=== PATIENT | female | born 1960 | race Caucasian/White ===

== ENCOUNTER → 2017-10-29 11:44 | Outpatient (CLI) | payer MEDICARE, MEDICAID, SELFPAY ==
[2017-10-29 14:09] LABS: Albumin, Serum 3.8 g/dL (3.2-5.0); BUN 21 mg/dL (7-18); BUN/Creat Ratio 21.4 RATIO (10-20); Chloride 104 mmol/L (98-107); Creatinine, Serum 0.98 mg/dL (0.55-1.02); EST Glomerular Filtration Rate 63 mL/min (>60); Est Glom Filt Rate - Afr Amer 76 mL/min (>60); Glucose 103 mg/dL (74-106); Phosphorus 3.8 mg/dL (2.5-4.9); Potassium 4.7 mmol/L (3.5-5.1); Sodium Level 137 mmol/L (136-145)
== END ==
PROVIDERS: Family Provider Family Medicine; PCP Family Medicine; Visit Provider Internal Medicine Nephrology
DX: N18.2 Chronic kidney disease, stage 2 (mild) (principal)
CPT/HCPCS: 36415; 80069

== ENCOUNTER → 2017-11-01 15:22 | Outpatient (CLI) | payer MEDICARE, MEDICAID, SELFPAY ==
--- NOTE | 2017-11-01 15:30 | US_ITS ---
STUDY: RENAL ULTRASOUND - COMPLETE REASON FOR EXAM: Female, 57 years old. Renal failure. TECHNIQUE: Ultrasound evaluation of the kidneys was performed with real-time and static cadena-scale imaging. COMPARISON: None. FINDINGS: RIGHT KIDNEY: Normal location of the right kidney, which is normal in size. The right kidney measures 11.0 x 4.4 x 3.9 cm. There is diffuse thinning of the renal cortex. The renal cortex measures 0.6 cm. There is no right renal mass or cyst. There are no right renal calculi. There is no right hydronephrosis. DISTAL RIGHT URETER: There is non-visualization of the distal right ureter. There is no demonstrated right ureterovesical junction calculus. There is no demonstrated right ureteral jet. LEFT KIDNEY: Normal location of the left kidney, which is normal in size. The left kidney measures 10.5 x 3.9 x 5.6 cm. There is a normal cortex of the left kidney. The renal cortex measures 0.9 cm. There is no left renal mass or cyst. There are no left renal calculi. There is no left hydronephrosis. DISTAL LEFT URETER: There is non-visualization of the distal left ureter. There is no demonstrated left ureterovesical junction calculus. There is a visualized left ureteral jet. BLADDER: The distended urinary bladder has a volume of 188 ml. There is a normal wall thickness of the distended urinary bladder. There is no demonstrated mass within the urinary bladder. There are no demonstrated bladder calculi. US/Kidney and Bladder IMPRESSION: Normal size of the kidneys bilaterally. Negative for hydronephrosis, masses or stones. The renal cortex is mildly reduced in the right kidney compared to the left. The renal cortical density is increased relative to the medullary kidney consistent with renal medical disease. Unremarkable urinary bladder. Electronically Signed: Janine Valente MD at 23:54 EST , Service support ,
== END ==
PROVIDERS: Family Provider Family Medicine; PCP Family Medicine; Visit Provider Internal Medicine Nephrology
DX: N18.2 Chronic kidney disease, stage 2 (mild) (principal)
CPT/HCPCS: 76770

== ENCOUNTER 2017-12-06 23:02 | Emergency (ER) | payer MEDICARE, MEDICAID, SELFPAY ==
[2017-12-06 23:03] VITALS: BP 116/74; PULSE 87; RESP 14; TEMP 36.2; O2SAT 97; BMI 17.6
[2017-12-06] MEDS: Ondansetron 4 MG/2 ML Vial IV (23:20)
[2017-12-06] MEDS: Morphine 4 MG/ML Syringe IV (23:20)
--- NOTE | 2017-12-06 23:25 | RAD_ITS ---
STUDY: X-RAY - RIGHT ELBOW REASON FOR EXAM: Female, 57 years old. Pain and swelling, recent surgery TECHNIQUE: Three view(s) of the elbow were obtained. COMPARISON: None. FINDINGS: Bones: There is a prosthesis in the distal right humerus. There is a prosthesis in the proximal right ulna. Joints: The visualized joints are normal in appearance. Soft tissues: Skin vishnu are present laterally. RAD/Elbow min 3 Views IMPRESSION: There are surgical changes in the right elbow. No acute abnormalities are seen. Bone detail is obscured by overlying cast/splint material. Electronically Signed: Lauryn Goodwin MD at 0:13 EDT Tel Direct: [phone], Service support ,
--- NOTE | 2017-12-06 23:46 | ED.DCSUM_ITS ---
- ER Visit Summary Date of Service: 12/06/17 Chief Complaint: Right upper extremity pain History of Present Illness: The patient is a 57 F status post right total elbow arthroplasty December 04 at the [facility]. Patient states she has severe rheumatoid arthritis and reason for elbow arthroplasty. She denies fever, chills night sweats. She denies paresthesia, anesthesia motor is. She does complain of swelling of her hand and digits. She states she is kept her extremity elevated. When she demonstrated I informed her that she is not elevating her right upper extremity enough. She states she cannot because of pain that she localizes proximal the posterior long-arm splint. She denies any paresthesia, anesthesia motor exam or digits. She denies chest pain or shortness of breath. She denies any pleuritic chest pain. She was prescribed Percocet for her discomfort. Review of old records is remarkable for past medical history of diabetes, hypertension, end-stage renal disease (stage III), rheumatoid arthritis and peptic ulcer disease. Past surgical history is marked for cholecystectomy, cataracts and right elbow arthroplasty. Physical Examination: Vital signs are normal. She is not febrile nor is she hypoxic. There is significant lymphedema of the hand and digits. There is no vascular compromise. Capillary refill is normal. Sensations intact. Movement of her digits does not cause pain. The distal third of her splint has been removed and or destroyed because of swelling. She believes her splint is too tight. Heart is regular without murmur, gallop or rub. S1 and S2 are normal. Lungs are clear to auscultation with good movement of air bilaterally. Where patient complains of pain there is no redness, warmth or induration. There is no evidence of irritation from the splint. Test Results: Three-view x-ray of the elbow was obtained which reveals right prosthetic hip with no soft tissue swelling, subcutaneous air or any other acute abnormality. Emergency Department Course and Treatment: IV was established she was medicated with 4 mg of morphine and 4 mg of Zofran IV push. She did not receive NSAIDs because of her history of stage III renal disease. Treatment Plan: Patient's arm was elevated to proper position and she was medicated. Patient will be given the option to stay in the emergency department and reassessed in 2 3 hours after proper elevation or she may go home since there is no neurovascular findings. Disposition: Pending patient's response to question of her desire to go home versus staying in the department and reevaluate in 3 hours Impression: 1. Postop right upper extremity pain 2. Dependent edema secondary to noncompliance 3. History of rheumatoid arthritis 4. History of diabetes 5. History of hypertension 6. History of end-stage renal disease This note was generated with [employer] dictation software. It may contain incorrect words, spelling, and punctuation that were not noted in review of the chart prior to signing ED Disposition - Plan for ED Patient: Disposition: Home or Assisted Living Chief Complaint: Upper Extremity Injury Instructions: ED Post Op Pain, ED Lymphedema Referrals: Juan Lau MD [Primary Care Provider] - Additional Instructions: The next several days you need to keep your right elbow above the level of your heart; otherwise, you will have recurrence of your swelling.
== END 2017-12-07 00:15 | disposition home or self-care (01) ==
PROVIDERS: Emergency Provider Emergency Medicine; Family Provider Family Medicine; PCP Family Medicine
DX: M79.601 Pain in right arm (principal); Z96.631 Presence of right artificial wrist joint; I89.0 Lymphedema, not elsewhere classified; Z91.19 Patient's noncompliance with other medical treatment and regimen; E11.22 Type 2 diabetes mellitus with diabetic chronic kidney disease; I12.9 Hypertensive chronic kidney disease with stage 1 through stage 4 chronic kidney disease, or unspecified chronic kidney disease; N18.3 Chronic kidney disease, stage 3 (moderate); M06.9 Rheumatoid arthritis, unspecified; Z87.11 Personal history of peptic ulcer disease; Z90.49 Acquired absence of other specified parts of digestive tract; Z96.641 Presence of right artificial hip joint; Z79.4 Long term (current) use of insulin; Z79.899 Other long term (current) drug therapy
CPT/HCPCS: 73080; 96374; 96375; 99283; A4216; J2405

== ENCOUNTER 2018-01-16 17:44 | Emergency (ER) | payer MEDICARE, MEDICAID, SELFPAY ==
[2018-01-16 17:51] VITALS: PULSE 92; RESP 14; TEMP 37.1; O2SAT 99; BMI 16.7
--- NOTE | 2018-01-16 18:21 | ED.DEP ---
ED Disposition - Plan for ED Patient: Disposition: Home or Assisted Living Chief Complaint: Upper Extremity Injury Instructions: ED Chronic Pain Management Referrals: Juan Lau MD [Primary Care Provider] - As Needed Additional Instructions: CALL AND FOLLOW UP WITH YOUR PAIN MANAGEMENT
[2018-01-16 18:48] VITALS: BP 106/71; PULSE 70; RESP 14; O2SAT 98
[2018-01-16] MEDS: HYDROmorphone 1 MG/ML Syringe IM (18:49)
[2018-01-16 19:10] VITALS: BP 116/88; PULSE 78; RESP 14; O2SAT 98
--- NOTE | 2018-01-17 00:12 | ED.VISSUMM ---
- ER Visit Summary Date of Service: 01/17/18 Chief Complaint: Acute on chronic right elbow pain History of Present Illness: The patient is a 57 F who had a right elbow replacement surgery done at the [facility]. States she has had other joint surgeries in the past. She was told by them that there may have been a nerve injury during surgery. And they have been treating her for this pain. She is also under pain management. Patient states this is the same pain she is having. Just breakthrough pain. She is on pain medication at home. Physical Examination: Well-appearing middle-age female. Vital signs are stable. H EENT exam unremarkable. Lungs clear to auscultation. Heart regular rate and rhythm no murmur. Abdomen soft nontender. Her right elbow has well-healed surgical incision. She is unable to do full extension of the right elbow. She can get to about 150?. She also has a right wrist drop. And decreased muscle strength in the right hand. This is all chronic since his surgery and not new. She does have a palpable radial pulse in the right. There are no gross bony deformities. No swelling or redness. Test Results: None Emergency Department Course and Treatment: This is an acute on chronic pain issue. Patient was given 1 IM injection of Dilaudid and discharged home use her chronic pain meds. She is instructed to follow-up with her pain management physician. Treatment Plan: [] Disposition: Discharge Impression: Acute on chronic right elbow pain Status post right elbow replacement This note was generated with [employer] dictation software. It may contain incorrect words, spelling, and punctuation that were not noted in review of the chart prior to signing ED Disposition - Plan for ED Patient: Disposition: Home or Assisted Living Chief Complaint: Upper Extremity Injury Instructions: ED Chronic Pain Management Referrals: Juan Lau MD [Primary Care Provider] - As Needed Additional Instructions: CALL AND FOLLOW UP WITH YOUR PAIN MANAGEMENT
--- NOTE | 2018-01-17 00:15 | ED.DCSUM_ITS ---
- ER Visit Summary Date of Service: 01/17/18 Chief Complaint: Acute on chronic right elbow pain History of Present Illness: The patient is a 57 F who had a right elbow replacement surgery done at the [facility]. States she has had other joint surgeries in the past. She was told by them that there may have been a nerve injury during surgery. And they have been treating her for this pain. She is also under pain management. Patient states this is the same pain she is having. Just breakthrough pain. She is on pain medication at home. Physical Examination: Well-appearing middle-age female. Vital signs are stable. H EENT exam unremarkable. Lungs clear to auscultation. Heart regular rate and rhythm no murmur. Abdomen soft nontender. Her right elbow has well- healed surgical incision. She is unable to do full extension of the right elbow. She can get to about 150?. She also has a right wrist drop. And decreased muscle strength in the right hand. This is all chronic since his surgery and not new. She does have a palpable radial pulse in the right. There are no gross bony deformities. No swelling or redness. Test Results: None Emergency Department Course and Treatment: This is an acute on chronic pain issue. Patient was given 1 IM injection of Dilaudid and discharged home use her chronic pain meds. She is instructed to follow-up with her pain management physician. Treatment Plan: [] Disposition: Discharge Impression: Acute on chronic right elbow pain Status post right elbow replacement This note was generated with [employer] dictation software. It may contain incorrect words, spelling, and punctuation that were not noted in review of the chart prior to signing ED Disposition - Plan for ED Patient: Disposition: Home or Assisted Living Chief Complaint: Upper Extremity Injury Instructions: ED Chronic Pain Management Referrals: Juan Lau MD [Primary Care Provider] - As Needed Additional Instructions: CALL AND FOLLOW UP WITH YOUR PAIN MANAGEMENT
== END 2018-01-16 19:11 | disposition home or self-care (01) ==
PROVIDERS: Emergency Provider Emergency Medicine; Family Provider Family Medicine; PCP Family Medicine
DX: M25.521 Pain in right elbow (principal); G89.29 Other chronic pain; Z96.621 Presence of right artificial elbow joint; E11.9 Type 2 diabetes mellitus without complications; Z90.710 Acquired absence of both cervix and uterus; Z79.4 Long term (current) use of insulin; Z79.899 Other long term (current) drug therapy; Z72.0 Tobacco use
CPT/HCPCS: 96372; 99282

== ENCOUNTER 2018-03-25 13:00 | Outpatient (RCR) | payer MEDICARE, MEDICAID, SELFPAY ==
--- NOTE | 2017-12-26 12:29 | HP.OTEVAL_ITS ---
Patient's Visit Information BERNADINE WARD is a 57 year old F, referred to Occupational Therapy by KIKA JARRETT, with a diagnosis of Rheumatoid arthritis right elbow. Date of Evaluation: 12/25/17 Occupational Therapist: VIDA Stubbs/Roxi, CHT - Subjective Subjective: This 57 year old female was seen for intial OT eval following a December 04 right elbow total arthroplasty - following sx complication of radial nerve involvment- pt states she he is assisting with her BADLs and IADLS. Pt states she was hx dx of RA. and her joints are currently bone on bone. She will cont with having other joint replaced. - Pain right elbow 0 Pain Intensity Range: 0, 4 - Objective Objective/Observation: pt demo with no functional ext of right wrist or digits at MCP or right thumb abduction - pts elbow ROM is limited as well- pt demo a need for skilled OT services to regain pts function for BADLS - ROM Elbow: AROM right -50/90 left -25/140 Forearm: AROM right pronation WNL supination unable Wrist: No active wrist ext- trace of ext initiation left WNL ROM Comments: pt demo with radial N involvment- limited ability to extend MCP and abd right thumb- pt demo with no functional grasp ability at this time. - Strength Hospital Secretary: right NT left 45# Lateral Pinch: NT Tripod Pinch: NT Strength Comments: right UB/hand strength will be tested at later date - Sensation Thumb: right 2.83 tips Index: right 2.83 tips Middle: right 2.83 tips Ring: right 2.83 tips Little: right 2.83 tips Other Location: dorsal side of right hand/wrist/forearm 4.17 Sensation Comments: pt reports tingling sensation in all digits - Goals Goal:: pt will demo a functional return of UB/hand strength to mtg lifting 3# and demo the ability to open jar lids by d/c Goal:: pt will demo a functional right elbow flex to 135 or greater elbow ext to -15 or less to increase ind with BADLS. Pt will demo a increase in right wrist ext to 35 degress or greater to increase ind with BADLS by D/C. Pt will demo a increase in right digit MCP ext to 0 to increase ind. 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 with BADls and IADLS by d/c Goal:: PT will demo inderstanding of scar mt. by end of 3rd session Goal:: pt will demo understanding of joint protection and ad. eq use for BADLS and IADLS as needed by D/C Goal:: pt will report she is ROMELIA with all BADLS with use of joint portecton/ ad.eq by d/c - Rehabilitation General Assessment: postitve for rheumatoid factor. pt underwent a right total elbow arthroplasty- s/p decompression and anterior transposition of Ulnar nerve - pt demo healed incision with vishnu present- no edema noted- pt demo with limited right elbow, forearm, wrist and hand functional ROM and strength- pt demo complication following sx of a radial nerve involvment-and demo the inability to perform wrist ext and digit ext at MCPs- pt may need a radial nerve brace to decrease risk of a extensor lag. Pt would benefit from skilled OTR/L, CHT services to gain a funcitonal ROM and increase pts ind, with BADls and IADLS - therapy services 2-3x week for 10 weeks. Rehabilitation Potential: Good - Anticipated Interventions Anticipated Interventions: A/AAROM/PROM, Strengthening, Scar Care, Triggerpoint Release, Modalities, Orthoses, Ergonomic Education Other Interventions: Dr. Jarrett total elbow protocol - indicated on the Orders - Visit Plan Frequency: 2-3x /Week Duration: 2 Months General Plan: OT will initiate return of functional ROM- ed. pt on radial Nerve glide- orthosis to allow for right UE use while radial nerve is repairing-once a return will initiate a light PRE- as able with dr. mohr TEXT: Thank you for the opportunity to evaluate your patient. For Medicare and Medicare HMO plans, please review the plan of care and approve it. It will need to be FAXED BACK to us at [phone] for Medicare purposes. Please let me know if there are questions or concerns regarding this plan of care. Physician Signature: Date:
--- NOTE | 2018-02-12 09:10 | OTREVAL_ITS ---
KIKA MUÑOZ, It has been my pleasure to treat BERNADINE WARD over the last 5 visits for Rheumatoid arthritis right elbow. Please see the progress note below for an update on the occupational therapy plan of care! Subjective: pt arrives to OT session- states she is doing her elbow ROM every hour- pt arrives to therapy with wrist brace on - pt reports her is assisting with her BADLs and other daily tasks. Objective/Function: pt demo with initial measurments of right elbow -40/115 following therapy -38/. pt demo with decreased elbow ROM limiting her ROM to perform her BADLs and IADLS-. in regards to her radial Nerve injury pt continues to demo right wrist drop and no ability extend her wrist or extend digits at MCP level- with palpation therapist can feel initiation of right forarm supination- but not at at functional level- at this time pt can use her right UE as assistive arm only. pt demo shoulder compensation with attempts to straighten her right elbow- Plan Frequency: 2-3x /Week Duration: 2 Months Plan: pt would benefit from further therapy services asssit in pts return to PLOF Goals - Goals Goal:: pt will demo a functional return of UB/hand strength to mtg lifting 3# and demo the ability to open jar lids by d/c Goal:: pt will demo a functional right elbow flex to 135 or greater elbow ext to -15 or less to increase ind with BADLS. Pt will demo a increase in right wrist ext to 35 degress or greater to increase ind with BADLS by D/C. Pt will demo a increase in right digit MCP ext to 0 to increase ind. 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 large and small objects to increase her ind. with BADls and IADLS by d/c Goal:: PT will demo inderstanding of scar mt. by end of 3rd session Goal:: pt will demo understanding of joint protection and ad. eq use for BADLS and IADLS as needed by D/C Goal:: pt will report she is ROMELIA with all BADLS with use of joint portecton/ ad.eq by d/c Anticipated Interventions Anticipated Interventions: A/AAROM/PROM, Strengthening, Scar Care, Triggerpoint Release, Modalities, Orthoses, Ergonomic Education Other Interventions: Dr. Muñoz total elbow protocol - indicated on the Orders Please do not hesitate to contact me at [phone] by phone or Fax: if you have questions or concerns regarding this new plan of care! Sincerely, Fauzia Alvarez, OTR/L, CHT
--- NOTE | 2018-03-25 13:55 | HP.OTREVAL ---
KIKA MUÑOZ, It has been my pleasure to treat BERNADINE WARD over the last 5 visits for Rheumatoid arthritis right elbow. Please see the progress note below for an update on the occupational therapy plan of care! Subjective: pt attends session- states she has not received her radial nerve benik brace- pt states for almost a week now she has had increase pain in her right elbow with movment - pt feels her elbow ROM has decreased and limits her abilities- pt also reports her pain mtg has started her on morphine to assist with her pain mtg. 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 right forearm supination 40 degrees. elbow -60/140. no active wrist ext. 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 and use of radial nerve brace- once return of nerve initiates pt would benefit from continued skilled OT services to gain functional use of right UE for BADLS and IADLS. Plan Frequency: Monthly Duration: 4 Months Plan: due to the radial nerve complication from her right elbow arthroplasty pt would benefit from continued skilled OT services 1x month for 4 months to ensure radial nerve return Goals - Goals Goal:: pt will demo a functional return of UB/hand strength to mtg lifting 3# and demo the ability to open jar lids by d/c Goal:: pt will demo a functional right elbow flex to 135 or greater elbow ext to -15 or less to increase ind with BADLS. Pt will demo a increase in right wrist ext to 35 degress or greater to increase ind with BADLS by D/C. Pt will demo a increase in right digit MCP ext to 0 to increase ind. 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 with BADls and IADLS by d/c Goal:: PT will demo inderstanding of scar mt. by end of 3rd session Goal:: pt will demo understanding of joint protection and ad. eq use for BADLS and IADLS as needed by D/C Goal:: pt will report she is ROMELIA with all BADLS with use of joint portecton/ad.eq by d/c Anticipated Interventions Anticipated Interventions: A/AAROM/PROM, Strengthening, Scar Care, Triggerpoint Release, Modalities, Orthoses, Ergonomic Education Other Interventions: Dr. Muñoz total elbow protocol - indicated on the Orders Please do not hesitate to contact me at [phone] by phone or if you have questions or concerns regarding this new plan of care! Sincerely, Fauzia Alvarez, OTR/L, CHT
--- NOTE | 2018-07-01 10:59 | HP.OT.NRP ---
HP - Discharge Summary - Patient Information BERNADINE WARD was seen in my office for initial evaluation on 12/25/17. The following Plan of Care was established for this patient: Initial Frequency: Monthly Initial Duration: 4 Months Plan: due to the radial nerve complication from her right elbow arthroplasty pt would benefit from continued skilled OT services 1x month for 4 months to ensure radial nerve return - Anticipated Interventions Anticipated Interventions: A/AAROM/PROM, Strengthening, Scar Care, Triggerpoint Release, Modalities, Orthoses, Ergonomic Education Other Interventions: Dr. Jarrett total elbow protocol - indicated on the Orders This patient was last seen in our office 03/25/18. Pertinent comments regarding their Occupational therapy will appear below: Pt was seen for 5 OT visits following a right elbow replacement- pt had complication of radial N. injury following- pt was to get Benik low profile radial nerve brace to use during ADLS. pt did not get brace before insurance ran out. pt was fabricated a orthosis for radial nerve she could use until she recived the Benik brace- PT d/c due to insurance limits At this point I will be discontinuing this patient from occupational therapy. I would be happy to see this patient again in the future if found appropriate by the physician. Thank you! Fauzia Alvarez, OTR/L, CHT
== END 2018-03-25 19:00 | disposition home or self-care (01) ==
LOC: OT 13:00
PROVIDERS: Family Provider Family Medicine; PCP Family Medicine
DX: Z01.818 Encounter for other preprocedural examination (principal); M05.721 Rheumatoid arthritis with rheumatoid factor of right elbow without organ or systems involvement
CPT/HCPCS: 97110; 97140; 97166; 97530; 97760; 97763; G8987; G8988

== ENCOUNTER → 2018-04-01 09:34 | Outpatient (CLI) | payer MEDICARE, MEDICAID, SELFPAY ==
[2018-04-01 09:44] LABS: Bacteria 0 SEEN /hpf (None Seen); Mucous, Urine 0 SEEN /hpf (<or=2+); Red Blood Cells-Urine 0 SEEN /hpf (0-5)
[2018-04-01 12:11] LABS: Color, Urine Yellow (Yellow); Glucose, Dipstick Normal (Normal); Ketone-Dipstick Negative (Negative); Leukocyte Esterase-Dipstick 100 /ul (Negative); Nitrite-Dipstick Negative (Negative); Occult Blood-Urine Negative /ul (Negative); Protein-Dipstick 15 mg/dl (Negative); Specific Gravity, Urine 1.015 (1.002-1.030); Urine Bilirubin Dipstick Negative (Negative); Urine Clarity Clear (Clear); Urine Urobilinogen Normal (Normal)
[2018-04-01 12:18] LABS: Basophil# 0.03 X10^3/uL; Basophil% 0.5 % (0-1); Eosinophil# 0.43 X10^3/uL; Eosinophils% 6.8 % (0-5); Hematocrit 36.5 % (37-47); Hemoglobin 11.6 g/dl (12.0-15.0); Lymphocyte % 20.6 % (19-41); Mean Corp Hgb Conc 31.8 g/gl (32-36); Mean Corpuscular Hgb 29.3 pg (27.0-32.0); Mean Corpuscular Volume 92.2 fL (81-99); Mean Platelet Vol. 12.1 fl (6.2-12.0); Monocyte# 0.49 X10^3/uL; Monocyte% 7.8 % (0-10); Neutrophil # 4.04 X10^3/uL (2.7-7.7); Neutrophil % 64.1 % (47-70); Platelet Count 223 K/mm3 (150-450); RBC Distribution Width SD 43.5 fl (35.1-43.9); Red Blood Count 3.96 M/mm3 (4.2-5.4); Squamous Epithelial Cells - UA 0-5 SEEN /hpf (5-10); White Blood Cells 0-5 SEEN /hpf (0-5); White Blood Count 6.3 K/mm3 (4.4-11.0)
[2018-04-01 12:20] LABS: POSITIVE COUNT NO; POSITIVE DIFFERENTIAL NO; POSITIVE MORPHOLOGY NO
[2018-04-01 12:29] LABS: Erythrocyte Sedimentation Rate 23 mm/hr (0-30)
[2018-04-01 12:35] LABS: ALB/GLOB Ratio 1.2 RATIO (0.9-2.4); AST(SGOT) 18 U/L (15-37); Alanine Aminotransfer ALT/SGPT 18 U/L (13-56); Alkaline Phosphatase 88 U/L (45-117); Anion Gap 8 (5-15); BUN 28 mg/dL (7-18); BUN/Creat Ratio 26.4 RATIO (10-20); Calcium,Total 8.7 mg/dL (8.5-10.1); Chloride 108 mmol/L (98-107); Cholesterol 195 mg/dL (200); Creatinine, Serum 1.06 mg/dL (0.55-1.02); EST Glomerular Filtration Rate 57 mL/min (>60); Est Glom Filt Rate - Afr Amer 69 mL/min (>60); Globulin 3.3 g/dL (2.2-4.2); Glucose 102 mg/dL (74-106); High Density Lipoprotein 54 mg/dL; Phosphorus 3.8 mg/dL (2.5-4.9); Potassium 4.6 mmol/L (3.5-5.1); Protein, Total 7.3 g/dL (6.4-8.2); Sodium Level 143 mmol/L (136-145); Thyroid Stim Hormone (TSH) 1.11 uIU/mL (0.358-3.74); Triglycerides 134 mg/dL; Very Low Density Lipoprotein 27 mg/dL (5-40)
[2018-04-01 12:36] LABS: Hemoglobin A1c 7.4 % (4.2-6.3)
[2018-04-01 12:39] LABS: Microalbumin,Random Urine 98.8 mg/L (NO RANGE EST.); Microalbumin:Creatinine Ratio 74.8 mg/g CRE (<30 mg/g CRE)
[2018-04-01 18:25] LABS: Ferritin 62 ng/mL (8-252); Iron 49 ug/dL (50-170); Iron Binding Capacity,Total 258 ug/dL (250-450)
[2018-04-02 08:39] LABS: Vitamin B12 409 pg/mL (211-911); Vitamin D,25 Hydroxy 24.9 ng/mL (29.95-100.01)
[2018-04-03 17:06] LABS: ANTINUCLEAR ANTIBODIES DIRECT Negative (Negative)
[2018-04-05 13:47] LABS: CCP IgG Antibodies 216 units (0-19); Vitamin B1, Thiamine 102.7 nmol/L (66.5-200.0)
== END ==
PROVIDERS: Family Provider Family Medicine; PCP Family Medicine; Visit Provider Family Medicine
DX: E10.40 Type 1 diabetes mellitus with diabetic neuropathy, unspecified (principal); F17.210 Nicotine dependence, cigarettes, uncomplicated; M06.9 Rheumatoid arthritis, unspecified; D64.9 Anemia, unspecified; M81.0 Age-related osteoporosis without current pathological fracture
CPT/HCPCS: 36415; 80053; 80061; 81001; 82043; 82306; 82570; 82607; 82728; 82746; 83036; 83540; 83550; 84100; 84425; 84443; 85025; 85652; 86038; 86200; 86431

== ENCOUNTER → 2018-04-02 09:10 | Outpatient (CLI) | payer MEDICARE, MEDICAID, SELFPAY | PROVIDERS: Family Provider Family Medicine; PCP Family Medicine; Visit Provider Family Medicine | DX: R79.9 Abnormal finding of blood chemistry, unspecified (principal) ==

== ENCOUNTER → 2018-04-08 16:20 | Outpatient (CLI) | payer MEDICARE, MEDICAID, SELFPAY ==
[2018-04-08 18:01] LABS: Anion Gap 6 (5-15); BUN 28 mg/dL (7-18); BUN/Creat Ratio 19.9 RATIO (10-20); Calcium,Total 9.1 mg/dL (8.5-10.1); Chloride 104 mmol/L (98-107); Creatinine, Serum 1.41 mg/dL (0.55-1.02); EST Glomerular Filtration Rate 41 mL/min (>60); Est Glom Filt Rate - Afr Amer 50 mL/min (>60); Glucose 132 mg/dL (74-106); Potassium 5.5 mmol/L (3.5-5.1); Sodium Level 139 mmol/L (136-145)
== END ==
PROVIDERS: Family Provider Family Medicine; PCP Family Medicine; Visit Provider Family Medicine
DX: R79.9 Abnormal finding of blood chemistry, unspecified (principal)
CPT/HCPCS: 36415; 80048

== ENCOUNTER → 2018-04-10 11:19 | Outpatient (CLI) | payer MEDICARE, MEDICAID, SELFPAY ==
[2018-04-10 13:20] LABS: Anion Gap 11 (5-15); BUN 24 mg/dL (7-18); BUN/Creat Ratio 20.3 RATIO (10-20); Chloride 106 mmol/L (98-107); Creatinine, Serum 1.18 mg/dL (0.55-1.02); EST Glomerular Filtration Rate 50 mL/min (>60); Est Glom Filt Rate - Afr Amer 61 mL/min (>60); Glucose 103 mg/dL (74-106); Potassium 4.9 mmol/L (3.5-5.1); Sodium Level 141 mmol/L (136-145)
== END ==
PROVIDERS: Family Provider Family Medicine; PCP Family Medicine; Visit Provider Family Medicine
DX: R94.4 Abnormal results of kidney function studies (principal)
CPT/HCPCS: 36415; 80048

== ENCOUNTER → 2018-04-18 10:12 | Outpatient (CLI) | payer MEDICARE, MEDICAID, SELFPAY | PROVIDERS: Family Provider Family Medicine; PCP Family Medicine; Visit Provider Family Medicine | DX: R94.4 Abnormal results of kidney function studies (principal) | CPT/HCPCS: 76770 ==

== ENCOUNTER → 2018-04-23 09:46 | Outpatient (CLI) | payer MEDICARE, MEDICAID, SELFPAY | PROVIDERS: Family Provider Family Medicine; PCP Family Medicine; Visit Provider Family Medicine | DX: I10 Essential (primary) hypertension (principal); R94.4 Abnormal results of kidney function studies | CPT/HCPCS: 93975 ==

== ENCOUNTER → 2018-04-29 10:44 | Outpatient (CLI) | payer MEDICARE, MEDICAID, SELFPAY ==
[2018-04-29 12:10] LABS: Absolute Lymphocyte Count 1.29 X10^3/ul (0.83-4.51); Absolute Neutrophil Count 4.6 X10^3/uL (2.0-7.7); Basophil# 0.03 X10^3/uL; Basophil% 0.5 % (0-1); Eosinophil# 0.28 X10^3/uL; Eosinophils% 4.2 % (0-5); Hematocrit 37.8 % (37-47); Hemoglobin 12.4 g/dl (12.0-15.0); Lymphocyte # 1.29 X10^3/ul (4.0); Lymphocyte % 19.5 % (19-41); Mean Corp Hgb Conc 32.8 g/gl (32-36); Mean Corpuscular Hgb 29.6 pg (27.0-32.0); Mean Corpuscular Volume 90.2 fL (81-99); Mean Platelet Vol. 11.5 fl (6.2-12.0); Monocyte# 0.46 X10^3/uL; Monocyte% 6.9 % (0-10); Neutrophil # 4.56 X10^3/uL (2.7-7.7); Neutrophil % 68.9 % (47-70); POSITIVE COUNT NO; POSITIVE DIFFERENTIAL NO; POSITIVE MORPHOLOGY NO; Platelet Count 224 K/mm3 (150-450); RBC Distribution Width SD 42.7 fl (35.1-43.9); Red Blood Count 4.19 M/mm3 (4.2-5.4); White Blood Count 6.6 K/mm3 (4.4-11.0)
[2018-04-29 12:28] LABS: Anion Gap 10 (5-15); BUN 32 mg/dL (7-18); BUN/Creat Ratio 25.4 RATIO (10-20); Calcium,Total 9.3 mg/dL (8.5-10.1); Chloride 108 mmol/L (98-107); Creatinine, Serum 1.26 mg/dL (0.55-1.02); EST Glomerular Filtration Rate 47 mL/min (>60); Est Glom Filt Rate - Afr Amer 57 mL/min (>60); Ferritin 142 ng/mL (8-252); Glucose 145 mg/dL (74-106); Iron 63 ug/dL (50-170); Iron Binding Capacity,Total 279 ug/dL (250-450); Potassium 4.3 mmol/L (3.5-5.1); Sodium Level 139 mmol/L (136-145)
== END ==
PROVIDERS: Family Provider Family Medicine; PCP Family Medicine; Visit Provider Family Medicine
DX: N18.3 Chronic kidney disease, stage 3 (moderate) (principal); E61.1 Iron deficiency
CPT/HCPCS: 36415; 80048; 82728; 83540; 83550; 85025

== ENCOUNTER → 2018-05-27 10:36 | Outpatient (CLI) | payer MEDICARE, MEDICAID, SELFPAY ==
[2018-05-27 11:52] LABS: Absolute Lymphocyte Count 1.15 X10^3/ul (0.83-4.51); Absolute Neutrophil Count 5.2 X10^3/uL (2.0-7.7); Basophil# 0.04 X10^3/uL; Basophil% 0.6 % (0-1); Eosinophil# 0.42 X10^3/uL; Eosinophils% 5.8 % (0-5); Hematocrit 36.3 % (37-47); Hemoglobin 12.1 g/dl (12.0-15.0); Lymphocyte # 1.15 X10^3/ul (4.0); Lymphocyte % 15.9 % (19-41); Mean Corp Hgb Conc 33.3 g/gl (32-36); Mean Corpuscular Hgb 30.3 pg (27.0-32.0); Mean Platelet Vol. 11.5 fl (6.2-12.0); Monocyte# 0.45 X10^3/uL; Monocyte% 6.2 % (0-10); Neutrophil # 5.16 X10^3/uL (2.7-7.7); Neutrophil % 71.5 % (47-70); Platelet Count 239 K/mm3 (150-450); RBC Distribution Width CV 12.7 % (11.6-14.6); RBC Distribution Width SD 41.9 fl (35.1-43.9); Red Blood Count 3.99 M/mm3 (4.2-5.4); White Blood Count 7.2 K/mm3 (4.4-11.0)
[2018-05-27 11:56] LABS: POSITIVE COUNT NO; POSITIVE DIFFERENTIAL NO; POSITIVE MORPHOLOGY NO
[2018-05-27 12:20] LABS: Anion Gap 7 (5-15); BUN 23 mg/dL (7-18); BUN/Creat Ratio 21.3 RATIO (10-20); Calcium,Total 9.3 mg/dL (8.5-10.1); Chloride 106 mmol/L (98-107); Creatinine, Serum 1.08 mg/dL (0.55-1.02); EST Glomerular Filtration Rate 56 mL/min (>60); Est Glom Filt Rate - Afr Amer 68 mL/min (>60); Ferritin 125 ng/mL (8-252); Glucose 152 mg/dL (74-106); Iron 76 ug/dL (50-170); Iron Binding Capacity,Total 269 ug/dL (250-450); Potassium 4.9 mmol/L (3.5-5.1); Sodium Level 139 mmol/L (136-145)
== END ==
PROVIDERS: Family Provider Family Medicine; PCP Family Medicine; Visit Provider Family Medicine
DX: N18.3 Chronic kidney disease, stage 3 (moderate) (principal); D50.9 Iron deficiency anemia, unspecified
CPT/HCPCS: 36415; 80048; 82728; 83540; 83550; 85025

== ENCOUNTER 2018-06-03 08:20 | Day surgery (SDC) | payer MEDICARE, MEDICAID, SELFPAY ==
[2018-06-03 08:39] VITALS: BP 93/67; PULSE 70; RESP 14; TEMP 36.2; O2SAT 100; BMI 17.0
[2018-06-03 08:56] LABS: Bedside Glucose 107 mg/dL (70-110)
[2018-06-03 09:45] VITALS: BP 102/71; BP 93/67; PULSE 82; RESP 16; TEMP 36.6; O2SAT 99
--- NOTE | 2018-06-03 09:48 | OP.ENDO_ITS ---
Patient Name: Susanna Stephens Procedure Date: 06/03/2018 9:17 AM Date of : 1960 Age: 57 Procedure: Colonoscopy Indications: Screening for colorectal malignant neoplasm Providers: Eber Caraballo MD Referring MD: Eber Caraballo MD Medicines: See the Anesthesia note for documentation of the administered medications Patient Profile: Last Colonoscopy: none. The patient's first colonoscopy is today. Complications: No immediate complications. Procedure: Pre-Anesthesia Assessment: - Prior to the procedure, a History and Physical was performed, and patient medications and allergies were reviewed. The patient's tolerance of previous anesthesia was also reviewed. The risks and benefits of the procedure and the sedation options and risks were discussed with the patient. All questions were answered, and informed consent was obtained. Prior Anticoagulants: The patient has taken no previous anticoagulant or antiplatelet agents. ASA Grade Assessment: II - A patient with mild systemic disease. After reviewing the risks and benefits, the patient was deemed in satisfactory condition to undergo the procedure. After I obtained informed consent, the scope was passed under direct vision. Throughout the procedure, the patient's blood pressure, pulse, and oxygen saturations were monitored continuously. The colonoscope was introduced through the anus and advanced to the cecum, identified by appendiceal orifice and ileocecal valve. The colonoscopy was performed without difficulty. The patient tolerated the procedure well. The quality of the bowel preparation was good. Scope In: 9:29:40 AM Scope Withdrawal Time 0 hours 6 minutes 53 seconds Scope Out: 9:43:21 AM Total Procedure Duration Time 0 hours 13 minutes 41 seconds Findings: The digital rectal exam findings include non-thrombosed external hemorrhoids, non-thrombosed internal hemorrhoids and internal hemorrhoids that prolapse with straining, but spontaneously regress to the resting position (Grade II). Multiple diverticula were found in the sigmoid colon. The exam was otherwise without abnormality. Impression: - Non-thrombosed external hemorrhoids, non-thrombosed internal hemorrhoids and internal hemorrhoids that prolapse with straining, but spontaneously regress to the resting position (Grade II) found on digital rectal exam. - Diverticulosis in the sigmoid colon. - The examination was otherwise normal. - No specimens collected. Recommendation: - Discharge patient to home. - Resume previous diet. - Continue present medications. - Repeat colonoscopy in 10 years for screening purposes. Procedure Code(s): --- Professional --- 76417, Colonoscopy, flexible; diagnostic, including collection of specimen(s) by brushing or washing, when performed (separate procedure) Diagnosis Code(s): --- Professional --- Z12.11, Encounter for screening for malignant neoplasm of colon K64.1, Second degree hemorrhoids K64.4, Residual hemorrhoidal skin tags K57.30, Diverticulosis of large intestine without perforation or abscess without bleeding CPT copyright 2017 [employer]. All rights reserved. The codes documented in this report are preliminary and upon workers compensation administrator review may be revised to meet current compliance requirements. Eber Caraballo MD 06/03/2018 9:48:28 AM This report has been signed electronically. Number of Addenda: 0 Note Initiated On: 06/03/2018 9:17 AM
[2018-06-03 09:50] VITALS: BP 105/71; BP 93/67; PULSE 74; RESP 16; O2SAT 99
[2018-06-03 09:55] VITALS: BP 100/71; BP 93/67; PULSE 75; RESP 16; O2SAT 100
[2018-06-03 10:04] VITALS: BP 111/73; BP 93/67; PULSE 74; RESP 16; TEMP 36.2; O2SAT 100
[2018-06-03 10:15] VITALS: BP 93/67
== END 2018-06-03 10:20 | disposition home or self-care (01) ==
LOC: EN 08:25 → AC 08:27
PROVIDERS: Family Provider Family Medicine; PCP Family Medicine; Visit Provider Surgery
PROC: 0DJD8ZZ Inspection of Lower Intestinal Tract, Via Natural or Artificial Opening Endoscopic (ICD-10-PCS; CPT 45378; principal; 2018-06-03 09:25)
DX: Z12.11 Encounter for screening for malignant neoplasm of colon (principal); K57.30 Diverticulosis of large intestine without perforation or abscess without bleeding; K64.4 Residual hemorrhoidal skin tags; K64.1 Second degree hemorrhoids; I51.9 Heart disease, unspecified; M06.9 Rheumatoid arthritis, unspecified; R01.1 Cardiac murmur, unspecified; J45.909 Unspecified asthma, uncomplicated; D64.9 Anemia, unspecified; G83.21 Monoplegia of upper limb affecting right dominant side; E10.22 Type 1 diabetes mellitus with diabetic chronic kidney disease; N18.9 Chronic kidney disease, unspecified; E10.319 Type 1 diabetes mellitus with unspecified diabetic retinopathy without macular edema; M81.0 Age-related osteoporosis without current pathological fracture; M19.90 Unspecified osteoarthritis, unspecified site; Z87.19 Personal history of other diseases of the digestive system; Z78.0 Asymptomatic menopausal state; Z79.4 Long term (current) use of insulin; Z79.899 Other long term (current) drug therapy; F17.210 Nicotine dependence, cigarettes, uncomplicated
CPT/HCPCS: G0121; 82962; J7120

== ENCOUNTER → 2018-06-11 10:42 | Outpatient (CLI) | payer MEDICARE, MEDICAID, SELFPAY ==
--- NOTE | 2018-06-11 14:26 | NEURO ---
NCS and/or EMG Patient Report Ordering Doctor: Tyree Taylor DATE OF SERVICE: 06/11/18 Susanna Stephens is a 57 year old female who presents for electrodiagnostic testing of the right upper limb. She has complaints of numbness and tingling in the right thumb, index and middle finger. Electrodiagnostic findings: Right median motor nerve demonstrates normal distal latency, amplitude and conduction velocity. Normal right ulnar motor response, including conduction across the elbow. Normal right median F wave. Borderline prolonged right ulnar f wave. Prolonged right median sensory distal latency is noted. Normal ulnar sensory response. Prolonged right radial sensory latency. Needle EMG testing shows no evidence of denervation in any muscles tested. Decreased recruitment noted in the right triceps. Electrodiagnostic impression: This is an abnormal study in the right upper limb. 1. Electrodiagnostic findings suggestive of right sided median mononeuropathy. This is consistent with a mild right carpal tunnel syndrome. 2. 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 3. No electrodiagnostic evidence is noted for cubital tunnel syndrome. If there are any further questions, please do not hesitate to contact me
== END ==
PROVIDERS: Family Provider Family Medicine; PCP Family Medicine; Visit Provider Orthopaedic Surgery
DX: M25.521 Pain in right elbow (principal); R20.2 Paresthesia of skin
CPT/HCPCS: 95886; 95910

== ENCOUNTER → 2018-06-24 16:34 | Outpatient (CLI) | payer MEDICARE, MEDICAID, SELFPAY ==
--- NOTE | 2018-06-24 16:36 | CT_ITS ---
STUDY: CT RIGHT ELBOW WITHOUT CONTRAST REASON FOR EXAM: Female, 57 years old. Follow-up after total elbow replacement. RADIATION DOSAGE (If Supplied By Facility): CTDIvol = ( 24.58 ) mGy, DLP = ( 671.23 ) mGycm TECHNIQUE: Transaxial CT imaging of the elbow was performed. Sagittal and coronal images were reconstructed. Individualized dose optimization techniques were used for this CT. COMPARISON: Radiographs of the elbow dated December 06, 2017. FINDINGS: Patient has a elbow arthroplasty with the stem within the distal humeral diaphysis. There is also metallic prosthesis within the proximal ulna. There appears to be a fracture of the proximal ulna, new since the previous study. There appears to have been surgical resection of the radial head and neck similar to previous radiographs. The imaged skeletal muscles are within normal limits. Significant beam hardening and streak artifact that obscures the anatomy of the elbow. There appears to be a abnormal focus of decreased attenuation within the lateral elbow measuring 2.3 x 1.6 x1.2 cm in size. This could represent a small phlegmon. CT/Extremity Upper without Contra IMPRESSION: 1. Fracture of proximal ulna apparently new since the previous radiographs. 2. Status post total elbow arthrodesis. 3. A loculated collection within the soft tissues of lateral elbow possibly represent phlegmon or abscess. Electronically Signed: Candida Fong MD at 9:15 EDT , Service support ,
== END ==
PROVIDERS: Family Provider Family Medicine; PCP Family Medicine; Referring Provider Orthopaedic Surgery; Visit Provider Orthopaedic Surgery
DX: G56.01 Carpal tunnel syndrome, right upper limb (principal)
CPT/HCPCS: 73200

== ENCOUNTER → 2018-07-29 09:05 | Outpatient (CLI) | payer MEDICARE, MEDICAID, SELFPAY ==
[2018-07-29 10:39] LABS: Absolute Lymphocyte Count 1.98 X10^3/ul (0.83-4.51); Absolute Neutrophil Count 4.9 X10^3/uL (2.0-7.7); Basophil# 0.04 X10^3/uL; Basophil% 0.5 % (0-1); Eosinophil# 0.49 X10^3/uL; Eosinophils% 6.2 % (0-5); Hematocrit 35.8 % (37-47); Lymphocyte # 1.98 X10^3/ul (4.0); Lymphocyte % 25.1 % (19-41); Mean Corp Hgb Conc 33.5 g/gl (32-36); Mean Corpuscular Hgb 30.2 pg (27.0-32.0); Mean Corpuscular Volume 89.9 fL (81-99); Mean Platelet Vol. 11.3 fl (6.2-12.0); Monocyte# 0.48 X10^3/uL; Monocyte% 6.1 % (0-10); Neutrophil # 4.89 X10^3/uL (2.7-7.7); Platelet Count 238 K/mm3 (150-450); RBC Distribution Width CV 12.8 % (11.6-14.6); RBC Distribution Width SD 41.9 fl (35.1-43.9); Red Blood Count 3.98 M/mm3 (4.2-5.4); White Blood Count 7.9 K/mm3 (4.4-11.0)
[2018-07-29 10:43] LABS: POSITIVE COUNT NO; POSITIVE DIFFERENTIAL NO; POSITIVE MORPHOLOGY NO
[2018-07-29 11:15] LABS: Vitamin D,25 Hydroxy 17.7 ng/mL (29.95-100.01)
[2018-07-29 11:17] LABS: ALB/GLOB Ratio 1.1 RATIO (0.9-2.4); AST(SGOT) 14 U/L (15-37); Alanine Aminotransfer ALT/SGPT 17 U/L (13-56); Albumin, Serum 3.9 g/dL (3.2-5.0); Alkaline Phosphatase 79 U/L (45-117); Anion Gap 11 (5-15); BUN 25 mg/dL (7-18); BUN/Creat Ratio 19.4 RATIO (10-20); Calcium,Total 8.8 mg/dL (8.5-10.1); Chloride 109 mmol/L (98-107); Cholesterol 197 mg/dL (200); Creatinine, Serum 1.29 mg/dL (0.55-1.02); EST Glomerular Filtration Rate 45 mL/min (>60); Est Glom Filt Rate - Afr Amer 55 mL/min (>60); Ferritin 124 ng/mL (8-252); Globulin 3.6 g/dL (2.2-4.2); Glucose 224 mg/dL (74-106); High Density Lipoprotein 67 mg/dL; Iron 66 ug/dL (50-170); Iron Binding Capacity,Total 258 ug/dL (250-450); PERCENT IRON SATURATION 25.6 % (15.0-55.0); Potassium 4.4 mmol/L (3.5-5.1); Protein, Total 7.5 g/dL (6.4-8.2); Sodium Level 140 mmol/L (136-145); Triglycerides 86 mg/dL; Very Low Density Lipoprotein 17 mg/dL (5-40)
--- OUTSIDE RECORDS SUMMARY | 2018-09-09 22:04 | XMS RPT_ITS ---
:1960 Author Organization OHIP Support Name Relationship Address Phone D Unavailable Unavailable Unavailable ZAK STEPHENS Unavailable [address] + [place] [address] D Unavailable Unavailable Unavailable ZAK STEPHENS Unavailable [address] + [place] [address] D Unavailable Unavailable Unavailable ZAK STEPHENS Unavailable [address] + [place] [address] D Unavailable Unavailable Unavailable ZAK STEPHENS Unavailable [address] + [place] [address] D Unavailable Unavailable Unavailable ZAK STEPHENS Unavailable [address] + [place] [address] D Unavailable Unavailable Unavailable ZAK STEPHENS Unavailable [address] + [place] [address] D Unavailable Unavailable Unavailable ZAK STEPHENS Unavailable [address] + [place] [address] D Unavailable Unavailable Unavailable ZAK STEPHENS Unavailable [address] + [place] [address] D Unavailable Unavailable Unavailable ZAK STEPHENS Unavailable [address] + [place] [address] D Unavailable Unavailable Unavailable ZAK STEPHENS Unavailable [address] + [place] [address] D Unavailable Unavailable Unavailable ZAK STEPHENS Unavailable [address] [place] [address] D Unavailable Unavailable Unavailable ZAK STEPHENS Unavailable [address] + [place] [address] D Unavailable Unavailable Unavailable ZAK STEPHENS Unavailable [address] + [place] [address] D Unavailable Unavailable Unavailable ZAK STEPHENS Unavailable [address] + [place] [address] D Unavailable Unavailable Unavailable ZAK STEPHENS Unavailable [address] + [place] [address] D Unavailable Unavailable Unavailable ZAK STEPHENS Unavailable [address] + [place] [address] D Unavailable Unavailable Unavailable ZAK STEPHENS Unavailable [address] + [place] [address] D Unavailable Unavailable Unavailable ZAK STEPHENS Unavailable [address] + [place] [address] D Unavailable Unavailable Unavailable ZAK STEPHENS Unavailable [address] + [place] [address] D Unavailable Unavailable Unavailable ZAK STEPHENS Unavailable [address] + [place] [address] D Unavailable Unavailable Unavailable ZAK STEPHENS Unavailable [address] + [place] [address] D Unavailable Unavailable Unavailable ZAK STEPHENS Unavailable [address] + [place] [address] D Unavailable Unavailable Unavailable ZAK STEPHENS Unavailable [address] + [place] [address] D Unavailable Unavailable Unavailable ZAK STEPHENS Unavailable [address] + [place] [address] D Unavailable Unavailable Unavailable ZAK STEPHENS Unavailable [address] + [place] [address] D Unavailable Unavailable Unavailable ZAK STEPHENS Unavailable [address] + [place] [address] Care Team Providers Name Role Phone TRISTEN STALLWORTH Referring Unavailable TRISTEN STALLWORTH Attending Unavailable KIKA MUÑOZ Attending Unavailable TRISTEN STALLWORTH Referring Unavailable FEROZ LAU) Attending Unavailable KIKA MUÑOZ Referring Unavailable KIKA MUÑOZ Referring Unavailable KORTNEY HINTON Attending Unavailable KIKA MUÑOZ Referring Unavailable KIKA MUÑOZ Referring Unavailable KIKA MUÑOZ Admitting Unavailable KIKA MUÑOZ Attending Unavailable KIKA MUÑOZ Referring Unavailable KIKA MUÑOZ Referring Unavailable KIKA MUÑOZ Attending Unavailable KIKA MUÑOZ Referring Unavailable KIKA MUÑOZ Referring Unavailable KIKA MUÑOZ Attending Unavailable KIKA MUÑOZ Referring Unavailable MICHAEL BOYKIN Attending Unavailable LUCRETIA, MICHAEL Referring Unavailable BURSLEY, CHRISTOPHER Primary Care Unavailable ANTON TRACY (OT) Attending Unavailable IMCA Referring Unavailable BURSLEY, CHRISTOPHER Primary Care Unavailable Lisa De Los Santos Attending Unavailable Lisa De Los Santos Attending Unavailable Lauryn Chandra Attending Unavailable Lauryn Chandra Attending Unavailable Michael Boykin Attending Unavailable Bursley, Juan Primary Care Unavailable Lisa De Los Santos Attending Unavailable Bursley, Juan Primary Care Unavailable Amber Tovar SCREEN ROLLER-C Attending Unavailable Bursley, Juan Referring Unavailable Bursley, Juan Primary Care Unavailable Jorge Luis Sanford Attending Unavailable Michael Boykin Referring Unavailable Juliette Rangel Attending Unavailable Bursley, Juan Primary Care Unavailable Juliette Rangel Attending Unavailable Juan Carlos Juliette Referring Unavailable Bursley, Juan Primary Care Unavailable Bursley, Juan Primary Care Unavailable Sachin Guzman Attending Unavailable MICHAEL HARRIS Attending Unavailable MICHAEL HARRIS Referring Unavailable Bursley, Juan Primary Care Unavailable Bursley, Juan Primary Care Unavailable Ryan Fair Attending Unavailable Juliette Rangel Attending Unavailable Bursley, Juan Primary Care Unavailable Han Willingham Attending Unavailable Schinrebekah, Han E Primary Care Unavailable SchHan connolly Attending Unavailable Schinner, Han E Primary Care Unavailable SchHan connolly Attending Unavailable SchinHan welch Primary Care Unavailable SchHan connolly Attending Unavailable SchinHan welch Primary Care Unavailable SchHan connolly Attending Unavailable SchinHan welch Referring Unavailable Schinner, Han E Primary Care Unavailable SchinnerHan Attending Unavailable SchinnerHan E Referring Unavailable Schinner, Han E Primary Care Unavailable Evelyn Taylor Attending Unavailable Evelyn Taylor Referring Unavailable Schinner, Han E Primary Care Unavailable SchHan connolly Attending Unavailable Schinrebekah, Han E Primary Care Unavailable Eber Caraballo Attending Unavailable Schinner, Han E Referring Unavailable Schinner, Han E Primary Care Unavailable Eber Caraballo Attending Unavailable Eber Caraballo Referring Unavailable Schinner, Han E Primary Care Unavailable SchHan connolly Attending Unavailable Schinrebekah, Han E Primary Care Unavailable SchHan connolly E Attending Unavailable Han Willingham Referring Unavailable Han Willingham Primary Care Unavailable Evelyn Taylor Attending Unavailable Evelyn Taylor Referring Unavailable Han Willingham Primary Care Unavailable RashmiEber Attending Unavailable Han Willingham Attending Unavailable Han Willingham Primary Care Unavailable Han Willingham Primary Care Unavailable Evelyn Lindsay Attending Unavailable PROBLEMS PROBLEMS DATE TYPE CONDITION / CODE ATTENDING STATUS SOURCE 08/14/2018 Unknown B02.9 - Zoster AngélicaKarly without Ev[facility] Community complications / Hospital B02.9(ICD-10) Repository 06/26/2018 Unknown Z12.11 - Encounter Eber Caraballo Karly [place] for screening for [facility] malignant neoplasm Hospital of colon / Repository Z12.11(ICD-10) 06/26/2018 Unknown K64.1 - Second Eber Caraballo Active [place] degree hemorrhoids / Community K64.1(ICD-10) Hospital Repository 06/26/2018 Unknown K57.30 - CeEber watkins Active [place] Diverticulosis of [facility] large intestine Hospital without perforation Repository or abscess without bleeding / K57.30(ICD-10) 04/08/2018 Unknown R79.9 - Abnormal Han Willingham Active [place] finding of blood E [facility] chemistry, Hospital unspecified / Repository R79.9(ICD-10) 04/17/2018 Unknown E10.40 - Type 1 Judemadirebekah Han Active [place] diabetes mellitus E Community with diabetic Hospital neuropathy, Repository unspecified / E10.40(ICD-10) 04/17/2018 Unknown M06.9 - Rheumatoid Judemohsen Han Active [place] arthritis, E Community unspecified / Hospital M06.9(ICD-10) Repository 04/17/2018 Unknown 714.0 - Rheumatoid Judemadirebekah Han Active [place] arthritis / E Community 714.0(ICD-9) Hospital Repository 07/01/2018 Unknown Z01.818 - Encounter MICHAEL HARRIS for other [facility] preprocedural Hospital examination / Repository Z01.818(ICD-10) 07/01/2018 Unknown M05.721 - Rheumatoid MICHAEL HARRIS arthritis with Community rheumatoid factor of Hospital right elbow without Repository organ or systems involvement / M05.721(ICD-10) 12/10/2017 Active Injury of radial NA Active [place] nerve at forearm Clinic Main level, right arm, [place] initial encounter / Repository S54.21XA(ICD-10) 12/04/2017 Active Presence of right KIKA MUÑOZ Active [place] artificial elbow Clinic Main joint / [place] Z96.621(ICD-10) Repository 12/04/2017 Active Type 1 diabetes KIKA MUÑOZ Active [place] mellitus with Clinic Main unspecified diabetic [place] retinopathy without Repository macular edema / E10.319(ICD-10) 12/04/2017 Active Presence of insulin KIKA MUÑOZ Active [place] pump (external) Clinic Main (internal) / [place] Z96.41(ICD-10) Repository 11/29/2017 Active Unknown / DAVID Active Jaime UNK(Unknown) KORTNEY Clinic Main [place] Repository 11/15/2017 Active Encounter for other NA Active [place] preprocedural Clinic Main examination / [place] Z01.818(ICD-10) Repository 11/14/2017 Active Rheumatoid arthritis NA Active [place] with rheumatoid Clinic Main factor of right [place] elbow without organ Repository or systems involvement / M05.721(ICD-10) 11/29/2017 Active Other jail NA Active [place] (current) drug Clinic Main therapy / [place] Z79.899(ICD-10) Repository 11/29/2017 Active Encounter for NA Active [place] screening for other Clinic Main viral diseases / [place] Z11.59(ICD-10) Repository 11/06/2017 Unknown E10.9 - Type 1 Amber Tovar Active [place] diabetes mellitus J SCREEN ROLLER-C Community without Hospital complications / Repository E10.9(ICD-10) 11/12/2017 Unknown N18.2 - Chronic Juan CarlosJuliette Active [place] kidney disease, Community stage 2 (mild) / Hospital N18.2(ICD-10) Repository 09/30/2017 Active Pain, unspecified / NA Active [place] R52(ICD-10) Clinic Main [place] Repository 09/16/2017 Admitting Unknown / Filiberto Active [place] [facility] diagnosis UNK(Unknown) [facility] Repository 10/17/2017 Unknown R07.9 - Chest pain, [place], [place] Active [place] unspecified / Community R07.9(ICD-10) Hospital Repository PROCEDURES PROCEDURES No Procedure Records FoundRESULTS RESULTS EMERGENCY DEPARTMENT Observed: 2018 Status: F Source: [place] SUMMARY :45 AM [facility] REPOSITORY [facility] Medical Records Department [address] [place] [address] Emergency Department Summary 08/09/18 1546 MR#: [id number] Acct: [id number] Name: SUSANNA STEPHENS Rep #: [id number] : 1960 57 From: Evelyn Lindsay MD PCP: Han Willingham MD Status: DEP ER - ER Visit Summary Date of Service: 08/09/18 Chief Complaint: Shingles History of Present Illness: The patient is a 57 F presenting due to concern for a shingles rash. Patient has had this in the past. Rash presented yesterday, has a burning type sensation. She denies constitutional symptoms. Physical Examination: Unilateral vesicular rash over the patient's right back. Test Results: None indicated Emergency Department Course and Treatment: Patient presented with a rash consistent with shingles. She will be placed on Valtrex. Disposition: Discharge Impression: Shingles This note was generated with [employer] dictation software. It may contain incorrect words, spelling, and punctuation that were not noted in review of the chart prior to signing ED Disposition - Plan for ED Patient: Disposition: Home or Assisted Living Chief Complaint: Rash Diagnosis: Shingles Instructions: ED Varicella Prescriptions: Valacyclovir HCl [Valtrex] 1,000 mg PO TID #21 tab Referrals: Han Willingham MD [Primary Care Provider] - As Needed What to do if you have Problems For any increased pain, shortness of breath, bleeding, nausea or vomiting, chest pain, or any unexpected problems, contact your Primary Care Provider. Call [facility] ([phone]) or report to the closest Emergency Room. Call 911 if necessary. 08/10/18 0045 <Electronically signed by Evelyn Lindsay MD> Date Evelyn Lindsay MD Cosigner Signature (If Indicated): Date CC: Han Willingham MD CBC W/DIFF, AUTOMATED Collected: 07/29/2018 Status: F Source: [place] 9:06 AM [facility] REPOSITORY TYPE CODE TESTS RESULT OUT OF RANGE REFERENCE UNITS LAB L100.1000 4.4-11.0 K/mm3 Normal WBC 7.9 LAB L100.1200 4.2-5.4 M/mm3 Low RBC 3.98 LAB L100.1300 12.0-15.0 g/dl Normal HGB 12.0 LAB L100.1400 37-47 % Low HCT 35.8 LAB L100.1500 81-99 fL Normal MCV 89.9 LAB L100.1600 27.0-32.0 pg Normal MCH 30.2 LAB L100.1700 32-36 g/gl Normal MCHC 33.5 LAB L100.1810 11.6-14.6 % Normal RDW CV 12.8 LAB L100.1820 35.1-43.9 fl Normal RDW SD 41.9 LAB L100.1900 150-450 K/mm3 Normal PLT 238 LAB L100.2000 6.2-12.0 fl Normal MPV 11.3 LAB L100.2100 47-70 % Normal NEUT% 62.0 LAB L100.2200 19-41 % Normal LY% 25.1 LAB L100.2300 0-10 % Normal MONO% 6.1 LAB L100.2400 0-5 % High EO% 6.2 LAB L100.2500 0-1 % Normal BASO% 0.5 LAB L100.2550 0.0-0.9 % Normal IM GRAN % 0.100 Result Comment: IG% - Immature Granulocytes (promyelocytes, myelocytes and metamyelocytes) > 1% indicates that a LEFT SHIFT is Present. LAB L100.2620 2.0-7.7 X10 3/uL Normal Absolute Neut 4.9 LAB L100.2720 0.83-4.51 X10 3/ul Normal Absolute Lymph 1.98 Performed By: #### L100.0100 #### [facility] [address] [place], [place], [id number] VITAMIN D,25 HYDROXY Collected: 07/29/2018 Status: F Source: [place] 9:06 AM [facility] REPOSITORY TYPE CODE TESTS RESULT OUT OF REFERENCE UNITS RANGE LAB L506.1000 29.95-100.01 ng/mL Low Vitamin D 17.7 25-OH Result Comment: Vitamin D 25(OH) Status Range Deficiency <20 ng/mL (50nmol/L) Insuffciency 20 - 30 ng/mL (50 - 75 nmol/L) Sufficiency 30 - 100 ng/mL (75 - 250 nmol/L) Toxicity >100 ng/mL (>250 nmol/L) Performed By: #### L506.1000 #### [facility] [address] [place], [address] COMPREHENSIVE METABOLIC Collected: 07/29/2018 Status: F Source: [place] [facility] 9:06 AM [facility] REPOSITORY TYPE CODE TESTS RESULT OUT OF RANGE REFERENCE UNITS LAB L501.0100 74-106 mg/dL High GLU 224 Result Comment: Glucose result greater than or equal to 200 mg/dL suggests DIABETES MELLITUS per A.D.A. criteria. Please note revised GLUCOSE reference range effective 2017. LAB L501.1000 7-18 mg/dL High BUN 25 LAB L501.1100 0.55-1.02 mg/dL High CREAT,SERUM 1.29 Result Comment: The validity of the calculated GFR AND GFRAA in patients over 70 years has not been determined. Clinical correlation is essential. LAB L501.1110 >60 mL/min Low EST GFR 45 Result Comment: Non- GFR Calc LAB L501.1115 >60 mL/min Low EST GFR - AA 55 Result Comment: GFR Calc LAB L501.1300 10-20 RATIO Normal BUN/CRE 19.4 LAB L501.1500 6.4-8.2 g/dL T Normal PROT 7.5 LAB L501.1800 3.2-5.0 g/dL Normal ALB 3.9 LAB L501.1950 2.2-4.2 g/dL Normal GLOB 3.6 LAB L501.2000 0.9-2.4 RATIO Normal A/G 1.1 LAB L501.2200 8.5-10.1 mg/dL CA Normal 8.8 LAB L501.4100 15-37 U/L Low AST 14 LAB L501.4305 45-117 U/L Normal ALK P 79 LAB L501.4405 13-56 U/L Normal ALT 17 LAB L501.4600 0.20-1.00 mg/dL T Normal BILI 0.30 LAB L501.5300 136-145 mmol/L NA Normal 140 LAB L501.5600 3.5-5.1 mmol/L K Normal 4.4 LAB L501.5900 98-107 mmol/L High CL 109 LAB L501.6100 21.0-32.0 mmol/L Low CO2 20.0 LAB L501.6200 5-15 Normal GAP 11 Performed By: #### L500.4050, L500.4100, L503.6030, L503.6550 #### [facility] [address] [facility] [place], [place], [id number] LIPID PROFILE Collected: 07/29/2018 Status: F Source: [place] 9:06 AM [facility] REPOSITORY TYPE CODE TESTS RESULT OUT OF RANGE REFERENCE UNITS LAB L501.4900 200 mg/dL Normal CHOL 197 Result Comment: <200 mg/dL Desirable 200-240 mg/dL Borderline >240 mg/dL High Risk LAB L501.5000 mg/dL Normal TRIG 86 Result Comment: The drugs N-Acetylcysteine and Metamizole may falsely depress this assay. Serum Triglycerides Reference Interval Normal <150 mg/dL Borderline high 150 - 199 mg/dL High 200 - 499 mg/dL Very High > or = 500 mg/dL LAB L501.6400 mg/dL Normal HDL 67 Result Comment: The drugs N-Acetylcysteine and Metamizole may falsely depress this assay. Reference Range HDL <40 mg/dL Low HDL Cholesterol HDL >or= 60 mg/dL High HDL Cholesterol LAB L501.6500 0-130 mg/dL Normal LDL 113 LAB L501.6600 5-40 mg/dL Normal VLDL 17 Performed By: #### L500.4050, L500.4100, L503.6030, L503.6550 #### [facility] [address] [place], [place], [id number] IRON+IRON BINDING Collected: 07/29/2018 Status: F Source: [facility] 9:06 AM [facility] REPOSITORY TYPE CODE TESTS RESULT OUT OF RANGE REFERENCE UNITS LAB L503.6075 250-450 ug/dL TIBC Normal 258 LAB L503.6150 50-170 ug/dL IRON Normal 66 LAB L503.6250 15.0-55.0 % IRON Normal SATURATION 25.6 Performed By: #### L500.4050, L500.4100, L503.6030, L503.6550 #### [facility] [address] [place], [address] FERRITIN Collected: 07/29/2018 Status: F Source: [place] 9:06 AM [facility] REPOSITORY TYPE CODE TESTS RESULT OUT OF RANGE REFERENCE UNITS LAB L503.6550 8-252 ng/mL Normal FERRITIN 124 Performed By: #### L500.4050, L500.4100, L503.6030, L503.6550 #### [facility] [address] [place], [address] OT D/C OF NON Observed: 07/01/2018 Status: F Source: [place] RETURNING PT 11:19 AM [facility] REPOSITORY [facility] Occupational Therapy [facility] [address] [place], [place] [address] Fax REHABILITATION SERVICES DISCHARGE SUMMARY MR#: [id number] Acct: [id number] Name: SUSANNA STEPHENS Rep #: [id number] : 1960 57 From: Fauzia MCPHERSON/Roxi, CHT Referring : Status: REG RCR Eval Date: Discharge Date: HP - Discharge Summary - Patient Information SUSANNA STEPHENS was seen in my office for initial evaluation on 12/25/17. The following Plan of Care was established for this patient: Initial Frequency: Monthly Initial Duration: 4 Months Plan: due to the radial nerve complication from her right elbow arthroplasty pt would benefit from continued skilled OT services 1x month for 4 months to ensure radial nerve return - Anticipated Interventions Anticipated Interventions: A/AAROM/PROM, Strengthening, Scar Care, Triggerpoint Release, Modalities, Orthoses, Ergonomic Education Other Interventions: Dr. Muñoz total elbow protocol - indicated on the Orders This patient was last seen in our office 03/25/18. Pertinent comments regarding their Occupational therapy will appear below: Pt was seen for 5 OT visits following a right elbow replacement- pt had complication of radial N. injury following- pt was to get Benik low profile radial nerve brace to use during ADLS. pt did not get brace before insurance ran out. pt was fabricated a orthosis for radial nerve she could use until she recived the Benik brace- PT d/c due to insurance limits At this point I will be discontinuing this patient from occupational therapy. I would be happy to see this patient again in the future if found appropriate by the physician. Thank you! Fauzia Alvarez, OTR/L, CHT <Electronically signed by Fauzia Alvarez OTR/L, CHT> 07/01/18 1119 CC: Juan Lau MD; OUT OF TOWN DOCTOR MK Signed EXTREMITY UPPER Observed: 06/24/2018 Status: F Source: [place] WITHOUT CONTRA 4:37 PM [facility] REPOSITORY [facility] Imaging Services [address] [place] [address] Extremity Upper without Contra MR#: [id number] Acct: [id number] Name: SUSANNA STEPHENS Rep #: [id number] : 1960 F 57 From: Candida Fong MD PCP: Han Willingham MD Status: REG CLI Study: Extremity Upper without Contra Date of Exam: 06/24/18 Exam# [id number] Ordering Dr: Evelyn Taylor DO STUDY: CT RIGHT ELBOW WITHOUT CONTRAST REASON FOR EXAM: Female, 57 years old. Follow-up after total elbow replacement. RADIATION DOSAGE (If Supplied By Facility): CTDIvol = ( 24.58 ) mGy, DLP = ( 671.23 ) mGycm TECHNIQUE: Transaxial CT imaging of the elbow was performed. Sagittal and coronal images were reconstructed. Individualized dose optimization techniques were used for this CT. COMPARISON: Radiographs of the elbow dated December 06, 2017. FINDINGS: Patient has a elbow arthroplasty with the stem within the distal humeral diaphysis. There is also metallic prosthesis within the proximal ulna. There appears to be a fracture of the proximal ulna, new since the previous study. There appears to have been surgical resection of the radial head and neck similar to previous radiographs. The imaged skeletal muscles are within normal limits. Significant beam hardening and streak artifact that obscures the anatomy of the elbow. There appears to be a abnormal focus of decreased attenuation within the lateral elbow measuring 2.3 x 1.6 x1.2 cm in size. This could represent a small phlegmon. CT/Extremity Upper without Contra IMPRESSION: 1. Fracture of proximal ulna apparently new since the previous radiographs. 2. Status post total elbow arthrodesis. 3. A loculated collection within the soft tissues of lateral elbow possibly represent phlegmon or abscess. Electronically Signed: Candida Fong MD at 9:15 EDT , Service support , CC: Han Willingham MD; Evelyn Taylor DO Zipper Trimmer: Signed NCS AND/OR EMG Observed: 06/11/2018 Status: F Source: [place] PATIENT 3:21 PM [facility] REPOSITORY [facility] Pulmonary Services/Neurology [address] [place] [address] MR#: [id number] Acct: [id number] Name: SUSANNA STEPHENS Rep #: [id number] : 1960 57 From: Liz Chun MD Referring Dr: Evelyn Taylor DO Status: REG CLI Ordering Dr: Date: Location: [facility] Sex: F C NCS and/or EMG Patient Report Ordering Doctor: Evelyn Taylor DATE OF SERVICE: 06/11/18 Susanna Stephens is a 57 year old female who presents for electrodiagnostic testing of the right upper limb. She has complaints of numbness and tingling in the right thumb, index and middle finger. Electrodiagnostic findings: Right median motor nerve demonstrates normal distal latency, amplitude and conduction velocity. Normal right ulnar motor response, including conduction across the elbow. Normal right median F wave. Borderline prolonged right ulnar f wave. Prolonged right median sensory distal latency is noted. Normal ulnar sensory response. Prolonged right radial sensory latency. Needle EMG testing shows no evidence of denervation in any muscles tested. Decreased recruitment noted in the right triceps. Electrodiagnostic impression: This is an abnormal study in the right upper limb. 1. Electrodiagnostic findings suggestive of right sided median mononeuropathy. This is consistent with a mild right carpal tunnel syndrome. 2. 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 3. No electrodiagnostic evidence is noted for cubital tunnel syndrome. If there are any further questions, please do not hesitate to contact me 06/11/18 1521 <Electronically signed by Liz Chun MD> Date Liz Chun MD CC: Liz Chun; Han Willingham MD; Evelyn Taylor DO Date Dictated: 06/11/181425 Date Transcribed: 06/11/181425 Zipper Trimmer: RUY Signed OPERATIVE REPORT - Observed: 06/03/2018 Status: F Source: [place] [facility] 9:48 AM [facility] Medical Records Department [address] [place] [address] Operative Report - Endoscopy MR#: [id number] Acct: [id number] Name: SUSANNA STEPHENS Rep #: [id number] : 1960 57 From: Eber Caraballo MD PCP: Han Willingham MD Status: [facility] Patient Name: Susanna Stephens Procedure Date: 06/03/2018 9:17 AM Date of : 1960 Age: 57 Procedure: Colonoscopy Indications: Screening for colorectal malignant neoplasm Providers: Eber Caraballo MD Referring MD: Eber Caraballo MD Medicines: See the Anesthesia note for documentation of the administered medications Patient Profile: Last Colonoscopy: none. The patient's first colonoscopy is today. Complications: No immediate complications. Procedure: Pre-Anesthesia Assessment: - Prior to the procedure, a History and Physical was performed, and patient medications and allergies were reviewed. The patient's tolerance of previous anesthesia was also reviewed. The risks and benefits of the procedure and the sedation options and risks were discussed with the patient. All questions were answered, and informed consent was obtained. Prior Anticoagulants: The patient has taken no previous anticoagulant or antiplatelet agents. ASA Grade Assessment: II - A patient with mild systemic disease. After reviewing the risks and benefits, the patient was deemed in satisfactory condition to undergo the procedure. After I obtained informed consent, the scope was passed under direct vision. Throughout the procedure, the patient's blood pressure, pulse, and oxygen saturations were monitored continuously. The colonoscope was introduced through the anus and advanced to the cecum, identified by appendiceal orifice and ileocecal valve. The colonoscopy was performed without difficulty. The patient tolerated the procedure well. The quality of the bowel preparation was good. Scope In: 9:29:40 AM Scope Withdrawal Time 0 hours 6 minutes 53 seconds Scope Out: 9:43:21 AM Total Procedure Duration Time 0 hours 13 minutes 41 seconds Findings: The digital rectal exam findings include non-thrombosed external hemorrhoids, non-thrombosed internal hemorrhoids and internal hemorrhoids that prolapse with straining, but spontaneously regress to the resting position (Grade II). Multiple diverticula were found in the sigmoid colon. The exam was otherwise without abnormality. Impression: - Non-thrombosed external hemorrhoids, non-thrombosed internal hemorrhoids and internal hemorrhoids that prolapse with straining, but spontaneously regress to the resting position (Grade II) found on digital rectal exam. - Diverticulosis in the sigmoid colon. - The examination was otherwise normal. - No specimens collected. Recommendation: - Discharge patient to home. - Resume previous diet. - Continue present medications. - Repeat colonoscopy in 10 years for screening purposes. Procedure Code(s): --- Professional --- 63884, Colonoscopy, flexible; diagnostic, including collection of specimen(s) by brushing or washing, when performed (separate procedure) Diagnosis Code(s): --- Professional --- Z12.11, Encounter for screening for malignant neoplasm of colon K64.1, Second degree hemorrhoids K64.4, Residual hemorrhoidal skin tags K57.30, Diverticulosis of large intestine without perforation or abscess without bleeding CPT copyright 2017 [employer]. All rights reserved. The codes documented in this report are preliminary and upon aircraft detail draftsperson review may be revised to meet current compliance requirements. Eber Caraballo MD 06/03/2018 9:48:28 AM This report has been signed electronically. Number of Addenda: 0 Note Initiated On: 06/03/2018 9:17 AM 06/03/18947 Date Eber Caraballo MD Cosign Signature: Date (if indicated) CC: Han Willingham MD; Eber Caraballo MD Date Dictated: 06/03/18916 Date Transcribed: Zipper Trimmer: JANETTE Signed BEDSIDE GLUCOSE Collected: 06/03/2018 Status: F Source: [place] 8:45 AM [facility] REPOSITORY TYPE CODE TESTS RESULT OUT OF RANGE REFERENCE UNITS LAB L501.080 70-110 mg/dL Normal BEDSIDE GLU 107 Result Comment: MANAGEMENT OF PATIENT CARE PER NURSING PROTOCOL Performed By: #### L501.080 #### [facility] Laboratory Point of Care [facility] [address] [place], [place] [address] CBC W/DIFF, AUTOMATED Collected: 05/27/2018 Status: F Source: [place] 10:37 AM [facility] REPOSITORY TYPE CODE TESTS RESULT OUT OF RANGE REFERENCE UNITS LAB L100.1000 4.4-11.0 K/mm3 Normal WBC 7.2 LAB L100.1200 4.2-5.4 M/mm3 Low RBC 3.99 LAB L100.1300 12.0-15.0 g/dl Normal HGB 12.1 LAB L100.1400 37-47 % Low HCT 36.3 LAB L100.1500 81-99 fL Normal MCV 91.0 LAB L100.1600 27.0-32.0 pg Normal MCH 30.3 LAB L100.1700 32-36 g/gl Normal MCHC 33.3 LAB L100.1810 11.6-14.6 % Normal RDW CV 12.7 LAB L100.1820 35.1-43.9 fl Normal RDW SD 41.9 LAB L100.1900 150-450 K/mm3 Normal PLT 239 LAB L100.2000 6.2-12.0 fl Normal MPV 11.5 LAB L100.2100 47-70 % High NEUT% 71.5 LAB L100.2200 19-41 % Low LY% 15.9 LAB L100.2300 0-10 % Normal MONO% 6.2 LAB L100.2400 0-5 % High EO% 5.8 LAB L100.2500 0-1 % Normal BASO% 0.6 LAB L100.2550 0.0-0.9 % Normal IM GRAN % 0.000 Result Comment: IG% - Immature Granulocytes (promyelocytes, myelocytes and metamyelocytes) > 1% indicates that a LEFT SHIFT is Present. LAB L100.2620 2.0-7.7 X10 3/uL Normal Absolute Neut 5.2 LAB L100.2720 0.83-4.51 X10 3/ul Normal Absolute Lymph 1.15 Performed By: #### L100.0100, L500.2500, L503.6075, L503.6150, L503.6550 #### [facility] [address] [place], [address] BASIC METABOLIC Collected: 05/27/2018 Status: F Source: [place] PROFILE ([facility]) 10:37 AM [facility] REPOSITORY TYPE CODE TESTS RESULT OUT OF RANGE REFERENCE UNITS LAB L501.0100 74-106 mg/dL High GLU 152 Result Comment: Fasting Glucose result greater than or equal to 126 mg/dL suggests DIABETES MELLITUS per A.D.A. criteria. Please note revised GLUCOSE reference range effective 2017. LAB L501.1000 7-18 mg/dL High BUN 23 LAB L501.1100 0.55-1.02 mg/dL High CREAT,SERUM 1.08 Result Comment: The validity of the calculated GFR AND GFRAA in patients over 70 years has not been determined. Clinical correlation is essential. LAB L501.1110 >60 mL/min Low EST GFR 56 Result Comment: Non- GFR Calc LAB L501.1115 >60 mL/min Normal EST GFR - AA 68 Result Comment: GFR Calc LAB L501.1300 10-20 RATIO High BUN/CRE 21.3 LAB L501.2200 8.5-10.1 mg/dL CA Normal 9.3 LAB L501.5300 136-145 mmol/L NA Normal 139 LAB L501.5600 3.5-5.1 mmol/L K Normal 4.9 LAB L501.5900 98-107 mmol/L CL Normal 106 LAB L501.6100 21.0-32.0 mmol/L Normal CO2 26.0 LAB L501.6200 5-15 Normal GAP 7 Performed By: #### L100.0100, L500.2500, L503.6075, L503.6150, L503.6550 #### [facility] [address] [place], [place], [id number] IRON BINDING Collected: 05/27/2018 Status: F Source: [facility]OTAL 10:37 AM [facility] REPOSITORY TYPE CODE TESTS RESULT OUT OF RANGE REFERENCE UNITS LAB L503.6075 250-450 ug/dL Normal TIBC 269 Performed By: #### L100.0100, L500.2500, L503.6075, L503.6150, L503.6550 #### [facility] [address] [place], [place], [id number] IRON Collected: 05/27/2018 Status: F Source: [place] 10:37 AM [facility] REPOSITORY TYPE CODE TESTS RESULT OUT OF RANGE REFERENCE UNITS LAB L503.6150 50-170 ug/dL Normal IRON 76 Performed By: #### L100.0100, L500.2500, L503.6075, L503.6150, L503.6550 #### [facility] [address] [place], [place], [id number] FERRITIN Collected: 05/27/2018 Status: F Source: [place] 10:37 AM [facility] REPOSITORY TYPE CODE TESTS RESULT OUT OF RANGE REFERENCE UNITS LAB L503.6550 8-252 ng/mL Normal FERRITIN 125 Performed By: #### L100.0100, L500.2500, L503.6075, L503.6150, L503.6550 #### [facility] [address] [place], [address] CNPTOUTREACH Observed: 05/20/2018 Status: COMPLETED Source: [place] 12:00 AM [facility] REPOSITORY Patient Outreach (FAMPST) SUSANNA STEPHENS ([id number]) 1960 F BLD Date Time Provider Department 05/20/18 FEROZ LAU) [facility] During your visit today, we recorded the following information about you: Allergies As of Date: 05/20/2018 Noted Allergy Reaction ADHESIVE 07/03/2017 14 - Other: See Comments Comments: Blood blisters LATEX 07/03/2017 14 - Other: See Comments Comments: Blood blisters NSAIDS (NON-STEROIDAL ANTI-INFLAM*11/14/2017 14 - Other: See Comments Comments: kidney problem PENICILLIN 07/03/2017 14 - Other: See Comments Comments: tachycardia Date Reviewed: 02/11/2018 Reviewed by: Kika Muñoz - Fully Assessed Visit Diagnosis:Medication management [Z79.899] Order(s):HGB A1C [IOQVY2D] Order #: [id number] FUTURE LIPID PANEL BASIC [SQLIPB] Order #: [id number] FUTURE Prescriptions as of 05/20/2018 Sig: HYDROCODONE 10 MG-ACETAMINOPH* Take 1 tablet by mouth every * GABAPENTIN 100 MG CAPSULE TAKE ONE (1) BY MOUTH AT NINO* ROPIVACAINE NERVE BLOCK 0.2% * Per Acute Pain tTeam Basal* Patient not taking: Reported on 02/11/2018 LISINOPRIL 5 MG TABLET Take 1 tablet by mouth once d* Patient not taking: Reported on 02/11/2018 INSULIN LISPRO 100 UNIT/ML DESAI* Use as directed with insulin * Problem List As Of Date 05/20/2018 Noted Resolved Rheumatoid arthritis involving multiple sites (*INVALID FOR* Coronary artery disease of [place] artery of [place]*INVALID FOR* Type 1 diabetes mellitus without complication (*INVALID FOR* Chronic pain of multiple sites [R52, G89.29] INVALID FOR* Tobacco use [Z72.0] Rheumatoid arthritis involving right elbow with*INVALID FOR* BMI less than 19,adult [Z68.1] INVALID FOR* Pre-op testing [Z01.818] INVALID FOR* More... 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 Stephens: I hope you receive this letter in good health. We have tried reaching you by phone and have been unable to contact you. Please call our office if you need any help scheduling you outside referral. If you have already done so please fax over any related information. Please call . I look forward to seeing you in the near future. Sincerely, [facility] SURGERY VISIT REPORT Observed: 05/15/2018 Status: F Source: [place] 5:13 PM [facility] REPOSITORY [facility] [address] [place] [address] [address] [place] [address] OFFICE VISIT Date of Service: 05/15/18 MR#: [id number] Acct: [id number] Name: SUSANNA STEPHENS Roxi Rep #: [id number] : 1960 Provider: Eber Caraballo MD Age/Sex: 57/F Location: [facility] Status: Signed Intake Vital Signs05/15/18 Height 5 ft 8 in 05/15/18 Weight: 110 lb 2 oz 05/15/18 Body Mass Index (BMI) 16.7 Intake Visit Reasons: Dark Stool Chief Complaint: colonoscopy Electrical 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: No Is patient in pain?: No Allergies NSAIDS (Non-Steroidal Anti-Inflamma Allergy (Severe, Verified 05/15/18 10:25) Unknown Penicillins Allergy (Severe, Verified 05/15/18 10:25) Anaphylaxis adhesive Allergy (Verified 05/15/18 10:25) Rash latex Allergy (Verified 05/15/18 10:25) Rash Medications Lisinopril [Zestril] 5 mg PO DAILY 07/17/17 [History Confirmed 05/15/18] insulin lispro (U-100) 100 unit/mL subcutaneous solution See Label Instructions SC QDAY ml 09/26/17 [History Confirmed 05/15/18] insulin pump syringe 3 mL See Dose Instructions .ROUTE .MEDSUPPLY #30 ea 11/25/17 [Rx Confirmed 05/15/18] hydrocodone 10 mg-acetaminophen 325 mg tablet 1 tab PO Q6H PRN 05/15/18 [History Confirmed 05/15/18] morphine ER 20 mg capsule,extended release pellets 20 mg PO Q12H 05/15/18 [History Confirmed 05/15/18] peg 3350-electrolytes 236 gram-22.74 gram-6.74 gram-5.86 gram solution 4,000 ml PO ONCE #4000 ml 05/15/18 [Rx] Is last menstrual period known: No Post menopausal: Yes Patient : No PFSH Medical History Screening for intestinal cancer (Acute) Anemia (Acute) Arthritis (Acute) Bone fracture (Acute) Cataracts, bilateral (Acute) Diabetes type 1, controlled (Acute) Headache (Acute) Heart disease (Acute) High cholesterol (Acute) Kidney disease (Acute) Osteoarthritis (Acute) Osteoporosis (Acute) Rheumatoid arthritis (Acute) Seasonal allergies (Acute) Seizures (Acute) Stomach ulcer (Acute) Vision problems (Acute) Vitamin deficiency (Acute) abnormal calcium level (Acute) birthmark removal (Acute) Surgical History H/O eye surgery (Acute) H/O: (Acute) History of bilateral knee replacement (Acute) History of hip replacement (Acute) History of hysterectomy (Acute) Hx of cataract surgery (Acute) Family History Unknown Arthritis Asthma Diabetes High cholesterol Osteoporosis Seizures CVA (cerebral vascular accident) Cancer Social History Smoking Status: Current every day smoker second hand exposure: Yes alcohol intake: never substance use type: does not use HPI HPI HPI: SUSANNA STEPHENS, is a 57 F who presents to the office today for surgical consultation regarding screening colonoscopy. The patient is referred by her new primary care physician Dr Han Willingham and a written copy of my surgical consult recommendations will be returned to him. The patient previously had as her primary care physician. However she had a right elbow procedure performed at [facility] and believes that the procedure was missed performed. Because of this she has intentions of violating a malpractice suit. She wanted to then divorce herself from the [facility] physicians. As of April 29, 2018 BUN 32 creatinine 1.26 glucose 145. Her iron studies at that time were normal. Her white blood cell count is 6.6 with a hemoglobin of 12.4 and hematocrit 37.8 and a platelet count of 224,000. She states that she has never had a screening colonoscopy. She has been diabetic since age 21. Her glucoses have been variable. She denies family history of colon polyps or colon cancer. Her previous abdominal surgery includes C-sections 2 and a total abdominal hysterectomy. The patient has been a lifelong cigarette smoker. She feels that stress drives her need to smoke and at this point she is not describing an interest in stopping. She has not noted any acute weight change. She has not noted any abdominal pain. Other than her rheumatologic orthopedic issues she states that the rest of her general health has remained stable She states that she has never had peptic ulcer disease. She denies reflux. She denies heartburn. She does not require any antacid medications. ROS General General: Yes fatigue; no weight change, appetite, colon cancer, breast cancer or weakness HEENT HEENT: No difficulty swallowing, eye injury, eye surgery, swollen glands or hoarseness Endo Endocrine: Yes diabetes mellitus; no thyroid disease, thyroid cancer, Hair loss, heat intolerance or cold intolerance Musc Musculoskeletal: Yes back problems, arthritis and rheumatoid arthritis; no gout or joint pain Cardio Cardiovascular: Yes murmur; no pacemaker, heart disease, atrial fibrillation, high blood pressure, heart attack, heart stent, palpitations, shortness of breat with exertion or chest pain Resp Respiratory: No shortness of breath, No sleep apnea, No cough, No COPD, No asthma, No emphysema, No wheezing Gastro Gastrointestinal: No abdominal pain, No nausea or vomiting, No diarrhea, No constipation, Yes blood in stool, No acid reflux, No hemorrhoids, No ulcers, No gallbladder problem, No black,tarry stools David Hematologic: No blood thinners, No blood disorders, No bleeding, No anemia, No blood clots Neuro Neurologic: No weakness Exam Const General: cooperative, frail appearing Nutritional Appearance: underweight Orientation: alert, awake, oriented x3 HENMT Mouth: oral mucosae normal Eyes General: appearance normal, both eyes and all related structures Chest Other: Increased anterior posterior diameter Resp Effort AND Inspection: normal respiratory effort Auscultation: clear to auscultation bilaterally Cardio Rate: regular rate Rhythm: regular rhythm Heart Sounds: murmur GI Inspection: normal to inspection Palpation: soft, no hepatosplenomegaly Auscultation: normal bowel sounds Musc Cervical Spine: normal cervical lordosis Extrem Other: Patient is not able to fully extend her right elbow not past approximately 90 . There is evidence of incisions bilateral knees. She has a slightly wide-based unsteady gait Psych Affect: normal affect Assessment AND Plan Problems 1. Screening for intestinal cancer Z. Plan I have offered the patient a screening colonoscopy with possible biopsy or polypectomy is indicated. In great detail I discussed the technique, benefits, risks, alternatives. Because of the patient's slender demeanor and medical comorbidities I have expressly discussed with the patient that she is at increased risk for bleeding or perforation. Because of her wrist I anticipate performing this with monitored anesthesia care. With her chronic renal insufficiency we will utilize a balanced electrolyte solution for a bowel prep. She has had an opportunity extensively to ask and have questions answered. She would like to schedule and proceed as noted. At this time she expressed denies any upper GI symptoms. No reflux no abdominal pain no bloating. We will not pursue an upper endoscopy at this time. We will schedule and proceed at her discretion. I very much appreciate the kind opportunity of assisting with her surgical care Eber Caraballo M.D., F.A.C.S. Cc: Dr Han Willingham Coding Level of Care Code Exp prob focused,strt fwd Diagnoses Screening for intestinal cancer Z12.05/15/18 4601 <Electronically signed by Eber Caraballo MD> Date Eber Caraballo MD Cosigner Signature: Date (if applicable) CC: Han Willingham MD CBC W/DIFF, AUTOMATED Collected: 04/29/2018 Status: F Source: [place] 10:46 AM [facility] REPOSITORY Order Comment: Order Date: 04/24/18 Order Info: 0184-1 - CBCD TYPE CODE TESTS RESULT OUT OF RANGE REFERENCE UNITS LAB L100.1000 4.4-11.0 K/mm3 Normal WBC 6.6 LAB L100.1200 4.2-5.4 M/mm3 Low RBC 4.19 LAB L100.1300 12.0-15.0 g/dl Normal HGB 12.4 LAB L100.1400 37-47 % Normal HCT 37.8 LAB L100.1500 81-99 fL Normal MCV 90.2 LAB L100.1600 27.0-32.0 pg Normal MCH 29.6 LAB L100.1700 32-36 g/gl Normal MCHC 32.8 LAB L100.1810 11.6-14.6 % Normal RDW CV 13.0 LAB L100.1820 35.1-43.9 fl Normal RDW SD 42.7 LAB L100.1900 150-450 K/mm3 Normal PLT 224 LAB L100.2000 6.2-12.0 fl Normal MPV 11.5 LAB L100.2100 47-70 % Normal NEUT% 68.9 LAB L100.2200 19-41 % Normal LY% 19.5 LAB L100.2300 0-10 % Normal MONO% 6.9 LAB L100.2400 0-5 % Normal EO% 4.2 LAB L100.2500 0-1 % Normal BASO% 0.5 LAB L100.2550 0.0-0.9 % Normal IM GRAN % 0.000 Result Comment: IG% - Immature Granulocytes (promyelocytes, myelocytes and metamyelocytes) > 1% indicates that a LEFT SHIFT is Present. LAB L100.2620 2.0-7.7 X10 3/uL Normal Absolute Neut 4.6 LAB L100.2720 0.83-4.51 X10 3/ul Normal Absolute Lymph 1.29 Performed By: #### L100.0100, L503.6075, L503.6150, L503.6550 #### [facility] [address] [place], [place], [address] IRON BINDING Collected: 04/29/2018 Status: F Source: [place] [facility] 10:46 AM [facility] REPOSITORY Order Comment: Order Date: 04/24/18 Order Info: 06-1 - BMP Order Info: 2500-7 - TIBC Order Info: 2498-4 - FE Order Info: 2276-4 - JANIYA TYPE CODE TESTS RESULT OUT OF RANGE REFERENCE UNITS LAB L503.6075 250-450 ug/dL Normal TIBC 279 Performed By: #### L100.0100, L503.6075, L503.6150, L503.6550 #### [facility] [address] [place], [address] IRON Collected: 04/29/2018 Status: F Source: [place] 10:46 AM [facility] REPOSITORY Order Comment: Order Date: 04/24/18 Order Info: 06 - BMP Order Info: 2500-7 - TIBC Order Info: 2498-4 - FE Order Info: 2276-4 - JANIYA TYPE CODE TESTS RESULT OUT OF RANGE REFERENCE UNITS LAB L503.6150 50-170 ug/dL Normal IRON 63 Performed By: #### L100.0100, L503.6075, L503.6150, L503.6550 #### [facility] [address] [place], [address] FERRITIN Collected: 04/29/2018 Status: F Source: [place] 10:46 AM [facility] REPOSITORY Order Comment: Order Date: 04/24/18 Order Info: 0667-1 - BMP Order Info: 2500-7 - TIBC Order Info: 2498-4 - FE Order Info: 2276-4 - JANIYA TYPE CODE TESTS RESULT OUT OF RANGE REFERENCE UNITS LAB L503.6550 8-252 ng/mL Normal FERRITIN 142 Performed By: #### L100.0100, L503.6075, L503.6150, L503.6550 #### [facility] [address] [place], [address] BASIC METABOLIC Collected: 04/29/2018 Status: F Source: [place] PROFILE (BMP) 10:46 AM [facility] REPOSITORY Order Comment: Order Date: 04/24/18 Order Info: 0667-1 - BMP Order Info: 2500-7 - TIBC Order Info: 2498-4 - FE Order Info: 2276-4 - JANIYA TYPE CODE TESTS RESULT OUT OF RANGE REFERENCE UNITS LAB L501.0100 74-106 mg/dL High GLU 145 Result Comment: Fasting Glucose result greater than or equal to 126 mg/dL suggests DIABETES MELLITUS per A.D.A. criteria. Please note revised GLUCOSE reference range effective 2017. LAB L501.1000 7-18 mg/dL High BUN 32 LAB L501.1100 0.55-1.02 mg/dL High CREAT,SERUM 1.26 Result Comment: The validity of the calculated GFR AND GFRAA in patients over 70 years has not been determined. Clinical correlation is essential. LAB L501.1110 >60 mL/min Low EST GFR 47 Result Comment: Non- GFR Calc LAB L501.1115 >60 mL/min Low EST GFR - AA 57 Result Comment: GFR Calc LAB L501.1300 10-20 RATIO High BUN/CRE 25.4 LAB L501.2200 8.5-10.1 mg/dL CA Normal 9.3 LAB L501.5300 136-145 mmol/L NA Normal 139 LAB L501.5600 3.5-5.1 mmol/L K Normal 4.3 LAB L501.5900 98-107 mmol/L High CL 108 LAB L501.6100 21.0-32.0 mmol/L Normal CO2 21.0 LAB L501.6200 5-15 Normal GAP 10 Performed By: #### L500.2500 #### [facility] [address] [place], [address] RENAL ARTERY DUPLEX Observed: 04/23/2018 Status: F Source: [place] 3:37 PM [facility] REPOSITORY [facility] Cardiovascular Services [address] [place] [address] Renal Artery Duplex Ultrasound 04/23/18 0951 MR#: [id number] Acct: [id number] Name: SUSANNA STEPHENS Rep #: [id number] : 1960 57 From: Harry Lane MD Attending Dr: Han Willingham MD Status: REG CLI Ordering Dr: Han Willingham MD Date: 04/23/18 Location: CVS Sex: F C Admitted: Reason For Study: Decreased GFR Right Renal Artery Left Renal Artery Right renal artery ostium 59/16 Left renal artery ostium 84/29 RSV/EDV. PSV/EDV. Right renal artery proximal 101/30 Left renal artery proximal PSV/EDV PSV/EDV. 126/42 . Right renal artery mid 117/35 Left renal artery mid 93/30 PSV/EDV. PSV/EDV . Right renal artery distal 137/40 Left renal artery distal 50/18 PSV/EDV. PSV/EDV. Right RAR 1.67. Left RAR 1.54. Right Renal Parenchyma Left Renal Parenchyma Upper Pole Medula 34/11 PSV/EDV. Left upper pole medulla 44/15 Right upper pole medulla EDR 0.32 . PSV/EDV . Right upper pole medulla R.I. Left upper pole medulla EDR 0.34 . 0.68 . Left upper pole medulla R.I. 0.67 . Upper Vijay Cortx 17/6 PSV/EDV. UP Cortex 27/10 PSV/EDV. Right upper pole cortex EDR 0.35 . Left upper pole cortex EDR 0.37 . Right upper pole cortex R.I. 0.63 . Left upper pole cortex R.I. 0.62 . Right lower Pole medulla 34/11 Left lower Pole medulla 30/10 PSV/EDV . PSV/EDV . Right lower pole medulla EDR 0.32 . Left lower pole medulla EDR 0.33 . Right lower pole medulla R.I. Left lower pole medulla R.I. 0.68 . 0.68 . Lower Pole Cortx 19/8 PSV/EDV. Lower Pole Cortex 22/8 PSV/EDV. Left lower pole cortex EDR 0.42 . Right lower pole cortex EDR 0.36 . Left lower pole cortex R.I. 0.56 . Right lower pole cortex R.I. 0.63 . Left Renal Hilar Right Renal Hilar LT Hilar avg 44/15 PSV/EDV . Right Hilar avg 119/40 PSV/EDV. Left hilar acceleration time 37 Right hilar acceleration time 51 m/sec. m/sec. Left Renal Dimensions Right Renal Dimensions Left kidney size 11.3 cm . Right kidney size 11.2 cm . Left cortical dimension 1.46 cm . Right cortical dimension 0.95 cm . Aorta Proximal abdominal aorta 2.13cm x 2.10 cm . Proximal abdominal aorta peak systolic velocity is 82 cm/sec . Distal abdominal aorta 1.27cm x 1.34 cm . Distal abdominal aorta peak systolic velocity is 70 cm/sec . Interpretation Summary Dimensions of the intra-abdominal aorta appear normal, without evidence of aneurysmal dilatation. Renal artery velocities are bilaterally normal. Acceleration times are normal bilaterally. Renal- aortic ratios are also bilaterally normal. There is no evidence of hemodynamically significant renal artery stenosis on either side. Renovascular resistance appears to be bilaterally normal . The right cortical dimension is decreased. The left cortical dimension is normal. Kidneys appear normal in size bilaterally. Ordering Physician: Han Willingham Referring Physician: Han Willingham Performed By: Lawanda Tuttle, COLE, RVT 04/23/[address] MD CC: Han Willingham MD Date Dictated: 04/23/18 0951 Date Transcribed: 04/23/18 1537 Zipper Trimmer: Signed KIDNEY AND BLADDER Observed: 04/18/2018 Status: F Source: [place] 10:17 AM [facility] Imaging Services [address] [place] [address] Kidney and Bladder MR#: [id number] Acct: [id number] Name: SUSANNA STEPHENS Rep #: [id number] : 1960 F 57 From: Jeremie Kamara MD PCP: Han Willingham MD Status: REG CLI Study: Kidney and Bladder Date of Exam: 04/18/18 Exam# [id number] Ordering Dr: Han Willingham MD STUDY: RENAL ULTRASOUND - COMPLETE REASON FOR EXAM: Female, 57 years old. Decreased GFR HX OF DIABETES-EARS AN INSULIN PUMP TECHNIQUE: Ultrasound evaluation of the kidneys was performed with real-time and static cadena-scale imaging. COMPARISON: November 01, 2017 FINDINGS: RIGHT KIDNEY: Normal location of the right kidney, which is normal in size. The right kidney measures 12.1 x 4.2 x 3.7 cm. There is diffuse thinning of the renal cortex. The renal cortex measures 1 cm. There is no right renal mass or cyst. There are no right renal calculi. There is no right hydronephrosis. DISTAL RIGHT URETER: There is non-visualization of the distal right ureter. There is no demonstrated right ureterovesical junction calculus. There is a visualized right ureteral jet. LEFT KIDNEY: Normal location of the left kidney, which is normal in size. The left kidney measures 11 x 5 x 4.3 cm. There is diffuse thinning of the renal cortex. The renal cortex measures .9 cm. Stenosis of the superior left kidney measuring 18 x 12 x 12 mm. There are no left renal calculi. There is no left hydronephrosis. DISTAL LEFT URETER: There is non-visualization of the distal left ureter. There is no demonstrated left ureterovesical junction calculus. There is a visualized left ureteral jet. AORTA: There is obscuration of the abdominal aorta by overlying bowel gas I.V.C.: The IVC is obscured. BLADDER: The distended urinary bladder has a volume of 106.4 ml. The empty urinary bladder has a volume of 27.2 ml. There is a normal wall thickness of the distended urinary bladder. There is no demonstrated mass within the urinary bladder. There are no demonstrated bladder calculi. US/Kidney and Bladder IMPRESSION: Simple left renal cyst. Cortical thinning of both kidneys suggesting chronic medical renal disease. Electronically Signed: Jeremie Kamara MD at 21:58 EDT , Service support , CC: Han Willingham MD Zipper Trimmer: Signed BASIC METABOLIC Collected: 04/10/2018 Status: F Source: [place] PROFILE (BMP) 11:21 AM [facility] Order Comment: Order Date: 04/09/18 Order Info: [id number] - BMP TYPE CODE TESTS RESULT OUT OF RANGE REFERENCE UNITS LAB L501.0100 74-106 mg/dL Normal GLU 103 Result Comment: Fasting Glucose result from 100 to 125 mg/dL suggests IMPAIRED HOMEOSTASIS per A.D.A. criteria. Please note revised GLUCOSE reference range effective 2017. LAB L501.1000 7-18 mg/dL High BUN 24 LAB L501.1100 0.55-1.02 mg/dL High CREAT,SERUM 1.18 Result Comment: The validity of the calculated GFR AND GFRAA in patients over 70 years has not been determined. Clinical correlation is essential. LAB L501.1110 >60 mL/min Low EST GFR 50 Result Comment: Non- GFR Calc LAB L501.1115 >60 mL/min Normal EST GFR - AA 61 Result Comment: GFR Calc LAB L501.1300 10-20 RATIO High BUN/CRE 20.3 LAB L501.2200 8.5-10.1 mg/dL CA Normal 9.0 LAB L501.5300 136-145 mmol/L NA Normal 141 LAB L501.5600 3.5-5.1 mmol/L K Normal 4.9 LAB L501.5900 98-107 mmol/L CL Normal 106 LAB L501.6100 21.0-32.0 mmol/L Normal CO2 24.0 LAB L501.6200 5-15 Normal GAP 11 Performed By: #### L500.2500 #### [facility] [address] [place], [address] BASIC METABOLIC Collected: 04/08/2018 Status: F Source: [place] PROFILE (BMP) 4:22 PM [facility] Order Comment: Order Date: 04/01/18 Order Info: [id number] - BMP TYPE CODE TESTS RESULT OUT OF RANGE REFERENCE UNITS LAB L501.0100 74-106 mg/dL High GLU 132 Result Comment: Fasting Glucose result greater than or equal to 126 mg/dL suggests DIABETES MELLITUS per A.D.A. criteria. Please note revised GLUCOSE reference range effective 2017. LAB L501.1000 7-18 mg/dL High BUN 28 LAB L501.1100 0.55-1.02 mg/dL High CREAT,SERUM 1.41 Result Comment: The validity of the calculated GFR AND GFRAA in patients over 70 years has not been determined. Clinical correlation is essential. LAB L501.1110 >60 mL/min Low EST GFR 41 Result Comment: Non- GFR Calc LAB L501.1115 >60 mL/min Low EST GFR - AA 50 Result Comment: GFR Calc LAB L501.1300 10-20 RATIO Normal BUN/CRE 19.9 LAB L501.2200 8.5-10.1 mg/dL CA Normal 9.1 LAB L501.5300 136-145 mmol/L NA Normal 139 LAB L501.5600 3.5-5.1 mmol/L High K 5.5 LAB L501.5900 98-107 mmol/L CL Normal 104 LAB L501.6100 21.0-32.0 mmol/L Normal CO2 29.0 LAB L501.6200 5-15 Normal GAP 6 Performed By: #### L500.2500 #### [facility] [address] [place], [place], [address] URINALYSIS, COMPLETE Collected: 04/01/2018 Status: F Source: [place] 9:36 AM [facility] Order Comment: Comments: #[id number] B6 PLASMA FROZEN PFL How was Urine Obtained? CLEAN CATCH TYPE CODE TESTS RESULT OUT OF RANGE REFERENCE UNITS LAB L400.3000 Yellow COLOR Normal Yellow LAB L400.3050 Clear Normal CLARITY Clear LAB L400.3200 Normal mg/dl Normal GLUCOSE, UR Normal LAB L400.3300 Negative mg/dL Normal BILIRUBIN URINE Negative LAB L400.3400 Negative mg/dl Normal KETONE UR Negative LAB L400.3465 1.002-1.030 Normal SP.GR. DIPSTX 1.015 LAB L400.3550 5.0 - 8.0 pH UR Normal 5.0 LAB L400.3600 Negative mg/dl High PROT 15 DIPSTX LAB L400.3700 Normal mg/dl Normal UROBILI Normal LAB L400.3750 Negative Normal NITRITE UR Negative LAB L400.3780 Negative /ul Normal OCCULT BLOOD-UR Negative LAB L400.3800 Negative /ul High LEUK ESTERASE 100 LAB L400.4050 0-5 /hpf WBC Normal 0-5 SEEN LAB L400.4100 0-5 /hpf 0 Normal RBC-UA SEEN LAB L400.4150 5-10 /hpf SQUAM Normal EPI 0-5 SEEN LAB L400.4300 None Seen /hpf 0 Normal BACTERIA SEEN LAB L400.4350 <or=2+ /hpf 0 Normal MUCUS, URINE SEEN Performed By: #### L400.0001 #### [facility] [address] [place], [address] CBC W/DIFF, AUTOMATED Collected: 04/01/2018 Status: F Source: [place] 9:36 AM [facility] Order Comment: Order Date: 04/01/18 Order Info: [id number] - CBCD Order Info: [id number] - SED TYPE CODE TESTS RESULT OUT OF RANGE REFERENCE UNITS LAB L100.1000 4.4-11.0 K/mm3 Normal WBC 6.3 LAB L100.1200 4.2-5.4 M/mm3 Low RBC 3.96 LAB L100.1300 12.0-15.0 g/dl Low HGB 11.6 LAB L100.1400 37-47 % Low HCT 36.5 LAB L100.1500 81-99 fL Normal MCV 92.2 LAB L100.1600 27.0-32.0 pg Normal MCH 29.3 LAB L100.1700 32-36 g/gl Low MCHC 31.8 LAB L100.1810 11.6-14.6 % Normal RDW CV 13.0 LAB L100.1820 35.1-43.9 fl Normal RDW SD 43.5 LAB L100.1900 150-450 K/mm3 Normal PLT 223 LAB L100.2000 6.2-12.0 fl High MPV 12.1 LAB L100.2100 47-70 % Normal NEUT% 64.1 LAB L100.2200 19-41 % Normal LY% 20.6 LAB L100.2300 0-10 % Normal MONO% 7.8 LAB L100.2400 0-5 % High EO% 6.8 LAB L100.2500 0-1 % Normal BASO% 0.5 LAB L100.2550 0.0-0.9 % Normal IM GRAN % 0.200 Result Comment: IG% - Immature Granulocytes (promyelocytes, myelocytes and metamyelocytes) > 1% indicates that a LEFT SHIFT is Present. LAB L100.2620 2.0-7.7 X10 3/uL Normal Absolute Neut 4.0 LAB L100.2720 0.83-4.51 X10 3/ul Normal Absolute Lymph 1.30 Performed By: #### L100.0100, L101.9900, L500.4050, L500.4100, L501.9520, L505.7010, L501.9985, L502.0250, L503.0105 #### [facility] [address] [facility] [place], [place], [address] #### L3100.5475 #### [facility] (refer to report for specific site) refer to report for address and phone number ERYTHROCYTE SED RATE Collected: 04/01/2018 Status: F Source: [place] 9:36 AM [facility] Order Comment: Order Date: 04/01/18 Order Info: [id number] - CBCD Order Info: [id number] - SED TYPE CODE TESTS RESULT OUT OF RANGE REFERENCE UNITS LAB L102.0000 0-30 mm/hr Normal SED RATE 23 Performed By: #### L100.0100, L101.9900, L500.4050, L500.4100, L501.9520, L505.7010, L501.9985, L502.0250, L503.0105 #### [facility] [address] [place], [address] #### L3100.5475 #### [facility] (refer to report for specific site) refer to report for address and phone number COMPREHENSIVE METABOLIC Collected: 04/01/2018 Status: F Source: [place] [facility] 9:36 AM [facility] Order Comment: PLEASE ADD IBC JANIYA FOL ALSO TO BLOOD IN LAB PER PLEASE ADD PHOS AND VITD PER Order Date: 04/01/18 Order Info: [id number] - CMP Order Info: [id number] - LIPID Order Info: [id number] - TSH Order Info: [id number] - RA Comments: #[id number] B6 PLASMA FROZEN PFL Is Patient Taking Vitamins or Folic Acid Supplements? N TYPE CODE TESTS RESULT OUT OF RANGE REFERENCE UNITS LAB L501.0100 74-106 mg/dL Normal GLU 102 Result Comment: Fasting Glucose result from 100 to 125 mg/dL suggests IMPAIRED HOMEOSTASIS per A.D.A. criteria. Please note revised GLUCOSE reference range effective 2017. LAB L501.1000 7-18 mg/dL High BUN 28 LAB L501.1100 0.55-1.02 mg/dL High CREAT,SERUM 1.06 Result Comment: The validity of the calculated GFR AND GFRAA in patients over 70 years has not been determined. Clinical correlation is essential. LAB L501.1110 >60 mL/min Low EST GFR 57 Result Comment: Non- GFR Calc LAB L501.1115 >60 mL/min Normal EST GFR - AA 69 Result Comment: GFR Calc LAB L501.1300 10-20 RATIO High BUN/CRE 26.4 LAB L501.1500 6.4-8.2 g/dL T Normal PROT 7.3 LAB L501.1800 3.2-5.0 g/dL Normal ALB 4.0 LAB L501.1950 2.2-4.2 g/dL Normal GLOB 3.3 LAB L501.2000 0.9-2.4 RATIO Normal A/G 1.2 LAB L501.2200 8.5-10.1 mg/dL CA Normal 8.7 LAB L501.4100 15-37 U/L Normal AST 18 LAB L501.4305 45-117 U/L Normal ALK P 88 LAB L501.4405 13-56 U/L Normal ALT 18 LAB L501.4600 0.20-1.00 mg/dL T Normal BILI 0.30 LAB L501.5300 136-145 mmol/L NA Normal 143 LAB L501.5600 3.5-5.1 mmol/L K Normal 4.6 LAB L501.5900 98-107 mmol/L High CL 108 LAB L501.6100 21.0-32.0 mmol/L Normal CO2 27.0 LAB L501.6200 5-15 Normal GAP 8 Performed By: #### L100.0100, L101.9900, L500.4050, L500.4100, L501.9520, L505.7010, L501.9985, L502.0250, L503.0105 #### [facility] [address] [place], [address] #### L3100.5475 #### [facility] (refer to report for specific site) refer to report for address and phone number LIPID PROFILE Collected: 04/01/2018 Status: F Source: [place] 9:36 AM [facility] Order Comment: PLEASE ADD IBC JANIYA FOL ALSO TO BLOOD IN LAB PER PLEASE ADD PHOS AND VITD PER Order Date: 04/01/18 Order Info: [id number] - CMP Order Info: [id number] - LIPID Order Info: [id number] - TSH Order Info: [id number] - RA Comments: #4145 B6 PLASMA FROZEN PFL Is Patient Taking Vitamins or Folic Acid Supplements? N TYPE CODE TESTS RESULT OUT OF RANGE REFERENCE UNITS LAB L501.4900 200 mg/dL Normal CHOL 195 Result Comment: <200 mg/dL Desirable 200-240 mg/dL Borderline >240 mg/dL High Risk LAB L501.5000 mg/dL Normal TRIG 134 Result Comment: The drugs N-Acetylcysteine and Metamizole may falsely depress this assay. Serum Triglycerides Reference Interval Normal <150 mg/dL Borderline high 150 - 199 mg/dL High 200 - 499 mg/dL Very High > or = 500 mg/dL LAB L501.6400 mg/dL Normal HDL 54 Result Comment: The drugs N-Acetylcysteine and Metamizole may falsely depress this assay. Reference Range HDL <40 mg/dL Low HDL Cholesterol HDL >or= 60 mg/dL High HDL Cholesterol LAB L501.6500 0-130 mg/dL Normal LDL 114 LAB L501.6600 5-40 mg/dL Normal VLDL 27 Performed By: #### L100.0100, L101.9900, L500.4050, L500.4100, L501.9520, L505.7010, L501.9985, L502.0250, L503.0105 #### [facility] [address] [facility] [place], [address] #### L3100.5475 #### [facility] (refer to report for specific site) refer to report for address and phone number THYROID STIM HORMONE Collected: 04/01/2018 Status: F Source: [place] (TSH) 9:36 AM [facility] Order Comment: PLEASE ADD IBC JANIYA FOL ALSO TO BLOOD IN LAB PER PLEASE ADD PHOS AND VITD PER Order Date: 04/01/18 Order Info: [id number] - CMP Order Info: [id number] - LIPID Order Info: [id number] - TSH Order Info: [id number] - RA Comments: #7725 B6 PLASMA FROZEN PFL Is Patient Taking Vitamins or Folic Acid Supplements? N TYPE CODE TESTS RESULT OUT OF RANGE REFERENCE UNITS LAB L501.9520 0.358-3.74 uIU/mL Normal TSH 1.11 Performed By: #### L100.0100, L101.9900, L500.4050, L500.4100, L501.9520, L505.7010, L501.9985, L502.0250, L503.0105 #### [facility] [address] [facility] [place], [address] #### L3100.5475 #### [facility] (refer to report for specific site) refer to report for address and phone number RHEUMATOID FACTOR Collected: 04/01/2018 Status: F Source: [place] 9:36 AM [facility] Order Comment: PLEASE ADD IBC JANIYA FOL ALSO TO BLOOD IN LAB PER PLEASE ADD PHOS AND VITD PER Order Date: 04/01/18 Order Info: [id number] - CMP Order Info: [id number] - LIPID Order Info: [id number] - TSH Order Info: [id number] - RA Comments: #4655 B6 PLASMA FROZEN PFL Is Patient Taking Vitamins or Folic Acid Supplements? N TYPE CODE TESTS RESULT OUT OF REFERENCE UNITS RANGE LAB L505.7010 <15 IU/mL High RHEUMATOID FAC 47.0 Performed By: #### L100.0100, L101.9900, L500.4050, L500.4100, L501.9520, L505.7010, L501.9985, L502.0250, L503.0105 #### [facility] [address] [facility] [place], [address] #### L3100.5475 #### [facility] (refer to report for specific site) refer to report for address and phone number HEMOGLOBIN A1C Collected: 04/01/2018 Status: F Source: [place] 9:36 AM [facility] Order Comment: Order Date: 04/01/18 Order Info: 4548-4 - A1C TYPE CODE TESTS RESULT OUT OF RANGE REFERENCE UNITS LAB L501.9985 4.2-6.3 % High HGB A1C 7.4 Performed By: #### L100.0100, L101.9900, L500.4050, L500.4100, L501.9520, L505.7010, L501.9985, L502.0250, L503.0105 #### [facility] [address] [facility] [place], [address] #### L3100.5475 #### [facility] (refer to report for specific site) refer to report for address and phone number MICROALB:CREAT Collected: 04/01/2018 Status: F Source: [place] RATIO,RANDOM UR 9:36 AM [facility] Order Comment: Order Date: 04/01/18 Order Info: [id number] - MIACRE TYPE CODE TESTS RESULT OUT OF RANGE REFERENCE UNITS LAB L501.1200 NO RANGE EST. mg/dL Normal UR CREAT 132.00 LAB L502.0500 NO RANGE EST. mg/L Normal 98.8 MICROALBUMIN ,UR LAB L502.0600 <30 mg/g CRE mg/g CRE High 74.8 MALB:CREAT Performed By: #### L100.0100, L101.9900, L500.4050, L500.4100, L501.9520, L505.7010, L501.9985, L502.0250, L503.0105 #### [facility] [address] [facility] [place], [address] #### L3100.5475 #### [facility] (refer to report for specific site) refer to report for address and phone number VITAMIN B12 Collected: 04/01/2018 Status: F Source: [place] 9:36 AM [facility] Order Comment: Order Date: 04/01/18 Order Info: 2132-9 - B12 TYPE CODE TESTS RESULT OUT OF RANGE REFERENCE UNITS LAB L503.0105 211-911 pg/mL Normal Vitamin B12 409 Performed By: #### L100.0100, L101.9900, L500.4050, L500.4100, L501.9520, L505.7010, L501.9985, L502.0250, L503.0105 #### [facility] [address] [place], [address] #### L3100.5475 #### [facility] (refer to report for specific site) refer to report for address and phone number ANTINUCLEAR ANTIBODIES Collected: 04/01/2018 Status: F Source: [place] DIRECT 9:36 AM [facility] Order Comment: Order Date: 04/01/18 Order Info: [id number] - MONIQUE TYPE CODE TESTS RESULT OUT OF RANGE REFERENCE UNITS LAB L3100.5475 Negative Normal Negative MONIQUE-DIRECT Result Comment: Performed at: [facility] [id number] Administrative Program Specialist: Timo See PhD, Phone: [phone] Performed By: #### L100.0100, L101.9900, L500.4050, L500.4100, L501.9520, L505.7010, L501.9985, L502.0250, L503.0105 #### [facility] [address] [place], [address] #### L3100.5475 #### [facility] (refer to report for specific site) refer to report for address and phone number PHOSPHORUS Collected: 04/01/2018 Status: F Source: [place] 9:36 AM [facility] Order Comment: PLEASE ADD IBC JANIYA FOL ALSO TO BLOOD IN LAB PER PLEASE ADD PHOS AND VITD PER Order Date: 04/01/18 Order Info: [id number] - CMP Order Info: [id number] - LIPID Order Info: [id number] - TSH Order Info: [id number] - RA Comments: #4655 B6 PLASMA FROZEN PFL Is Patient Taking Vitamins or Folic Acid Supplements? N TYPE CODE TESTS RESULT OUT OF RANGE REFERENCE UNITS LAB L501.2300 2.5-4.9 mg/dL Normal PHOS 3.8 Performed By: #### L501.2300, L503.6030, L503.6550, L506.0250 #### [facility] [address] [place], [address] IRON+IRON BINDING Collected: 04/01/2018 Status: F Source: [place] CAPACITY 9:36 AM [facility] Order Comment: PLEASE ADD IBC JANIYA FOL ALSO TO BLOOD IN LAB PER PLEASE ADD PHOS AND VITD PER Order Date: 04/01/18 Order Info: [id number] - CMP Order Info: - LIPID Order Info: 3 - TSH Order Info: [id number] - RA Comments: #4655 B6 PLASMA FROZEN PFL Is Patient Taking Vitamins or Folic Acid Supplements? N TYPE CODE TESTS RESULT OUT OF RANGE REFERENCE UNITS LAB L503.6075 250-450 ug/dL TIBC Normal 258 LAB L503.6150 50-170 ug/dL Low IRON 49 LAB L503.6250 15.0-55.0 % IRON Normal SATURATION 19.0 Performed By: #### L501.2300, L503.6030, L503.6550, L506.0250 #### [facility] [address] [place], [address] FERRITIN Collected: 04/01/2018 Status: F Source: [place] 9:36 AM [facility] Order Comment: PLEASE ADD IBC JANIYA FOL ALSO TO BLOOD IN LAB PER PLEASE ADD PHOS AND VITD PER Order Date: 04/01/18 Order Info: 785- - CMP Order Info: [id number] - LIPID Order Info: 3 - TSH Order Info: [id number] - RA Comments: #4655 B6 PLASMA FROZEN PFL Is Patient Taking Vitamins or Folic Acid Supplements? N TYPE CODE TESTS RESULT OUT OF RANGE REFERENCE UNITS LAB L503.6550 8-252 ng/mL Normal FERRITIN 62 Performed By: #### L501.2300, L503.6030, L503.6550, L506.0250 #### [facility] [address] [place], [address] FOLATES, (FOLIC ACID) Collected: 04/01/2018 Status: F Source: [place] 9:36 AM [facility] Order Comment: PLEASE ADD IBC JANIYA FOL ALSO TO BLOOD IN LAB PER PLEASE ADD PHOS AND VITD PER Order Date: 04/01/18 Order Info: [id number] - CMP Order Info: - LIPID Order Info: [id number] - TSH Order Info: [id number] - RA Comments: #4655 B6 PLASMA FROZEN PFL Is Patient Taking Vitamins or Folic Acid Supplements? N TYPE CODE TESTS RESULT OUT OF RANGE REFERENCE UNITS LAB L506.0250 3.1-55.4 ng/mL Normal FOLATES 8.80 Performed By: #### L501.2300, L503.6030, L503.6550, L506.0250 #### [facility] [address] [place], [address] VITAMIN D,25 HYDROXY Collected: 04/01/2018 Status: F Source: [place] 9:36 AM [facility] Order Comment: Order Date: 04/01/18 Order Info: [id number] - B12 TYPE CODE TESTS RESULT OUT OF REFERENCE UNITS RANGE LAB L506.1000 29.95-100.01 ng/mL Low Vitamin D 24.9 25-OH Result Comment: Vitamin D 25(OH) Status Range Deficiency <20 ng/mL (50nmol/L) Insuffciency 20 - 30 ng/mL (50 - 75 nmol/L) Sufficiency 30 - 100 ng/mL (75 - 250 nmol/L) Toxicity >100 ng/mL (>250 nmol/L) Performed By: #### L506.1000 #### [facility] [address] [place], [address] VITAMIN B1, THIAMINE Collected: 04/01/2018 Status: F Source: [place] 9:36 AM [facility] Order Comment: Comments: #4655 B6 PLASMA FROZEN PFL TYPE CODE TESTS RESULT OUT OF RANGE REFERENCE UNITS LAB L3300.8000 66.5-200.0 nmol/L Normal VIT B1 102.7 Result Comment: This test was developed and its performance characteristics determined by [facility]. It has not been cleared or approved by the Food and Drug Administration. Performed By: #### L3300.8000, L4600.0100 #### [facility] (refer to report for specific site) refer to report for address and phone number CCP IGG ANTIBODIES Collected: 04/01/2018 Status: F Source: [place] 9:36 AM [facility] Order Comment: Comments: #4655 B6 PLASMA FROZEN PFL TYPE CODE TESTS RESULT OUT OF REFERENCE UNITS RANGE LAB L4600.0100 0-19 units High ANTI-CCP 216 [id number] Result Comment: Negative <20 Weak positive 20 - 39 Moderate positive 40 - 59 Strong positive >59 Performed at: [address] [id number] Administrative Program Specialist: Levi Ordoñez MD, Phone: [phone] Performed By: #### L3300.8000, L4600.0100 #### [facility] (refer to report for specific site) refer to report for address and phone number MISCELLANEOUS LAB Collected: 04/01/2018 Status: F Source: [place] PROCEDURE 9:36 AM [facility] Order Comment: Comments: #4655 B6 PLASMA FROZEN PFL Test(s) Ordered: #4655 B6 PLASMA FROZEN PFL TYPE CODE TESTS RESULT OUT OF RANGE REFERENCE UNITS LAB L801.1541 Normal [facility] TEST Result Comment: TEST RESULT LIMITS Vitamin B6, Plasma Vitamin B6 4.1 ug/L 2.0 - 32.8 Disclaimer: This test was developed and its performance characteristics determined by [facility]. It has not been cleared or approved by the Food and Drug Administration. TESTING PERFORMED AT [facility]. ORIGINAL REPORT ON FILE IN LAB CONTAINS ADDITIONAL TEST SITE INFORMATION. Performed By: #### L801.1541 #### [facility] [address] [place], [address] RE-EVALUTION OT Observed: 03/27/2018 Status: F Source: [place] 8:25 AM [facility] Occupational [facility] [address] [place] [address]. [address] [place], [place] [address] Fax REEVALUATION / MEDICARE RECERTIFICATION OCCUPATIONAL THERAPY MR#: [id number] Acct: [id number] Name: SUSANNA STEPHENS Rep #: [id number] : 1960 57 From: Fauzia Alvarez OTR/Roxi, VICKYT Referring : Status: REG RCR Insurance: [employer] PPO Eval Date: MARITA MUÑOZ, It has been my pleasure to treat SUSANNA STEPHENS over the last 5 visits for Rheumatoid arthritis right elbow. Please see the progress note below for an update on the occupational therapy plan of care! Subjective: pt attends session- states she has not received her radial nerve benik brace- pt states for almost a week now she has had increase pain in her right elbow with movment - pt feels her elbow ROM has decreased and limits her abilities- pt also reports her pain mtg has started her on morphine to assist with her pain mtg. 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 right forearm supination 40 degrees. elbow -60/140. no active wrist ext. 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 and use of radial nerve brace- once return of nerve initiates pt would benefit from continued skilled OT services to gain functional use of right UE for BADLS and IADLS. Plan Frequency: Monthly Duration: 4 Months Plan: due to the radial nerve complication from her right elbow arthroplasty pt would benefit from continued skilled OT services 1x month for 4 months to ensure radial nerve return Goals - Goals Goal:: pt will demo a functional return of UB/hand strength to mtg lifting 3# and demo the ability to open jar lids by d/c Goal:: pt will demo a functional right elbow flex to 135 or greater elbow ext to -15 or less to increase ind with BADLS. Pt will demo a increase in right wrist ext to 35 degress or greater to increase ind with BADLS by D/C. Pt will demo a increase in right digit MCP ext to 0 to increase ind. 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 with BADls and IADLS by d/c Goal:: PT will demo inderstanding of scar mt. by end of 3rd session Goal:: pt will demo understanding of joint protection and ad. eq use for BADLS and IADLS as needed by D/C Goal:: pt will report she is ROMELIA with all BADLS with use of joint portecton/ad.eq by d/c Anticipated Interventions Anticipated Interventions: A/AAROM/PROM, Strengthening, Scar Care, Triggerpoint Release, Modalities, Orthoses, Ergonomic Education Other Interventions: Dr. Muñoz total elbow protocol - indicated on the Orders Please do not hesitate to contact me at [phone] by phone or if you have questions or concerns regarding this new plan of care! Sincerely, KATHERINE Stubbs CHT <Electronically signed by Fauzia MURPHY CHT> 03/27/18 0825 CC: Juan Lau MD; OUT OF TOWN DOCTOR MK Signed For Medicare only, by signing this I certify the plan of care. Physicians Signature Date RE-EVALUTION OT Observed: 02/12/2018 Status: F Source: [place] 9:11 AM [facility] REPOSITORY [facility] Occupational Therapy [facility] [address] [place] [address] Fax REEVALUATION / MEDICARE RECERTIFICATION OCCUPATIONAL THERAPY MR#: [id number] Acct: [id number] Name: SUSANNA STEPHENS Rep #: [id number] : 1960 57 From: Fauzia MURPHY CHT Referring : Status: REG RCR Insurance: [employer] MEDICARE PPO Eval Date: TONOLITA MUÑOZ, It has been my pleasure to treat SUSANNA STEPHENS over the last 5 visits for Rheumatoid arthritis right elbow. Please see the progress note below for an update on the occupational therapy plan of care! Subjective: pt arrives to OT session- states she is doing her elbow ROM every hour- pt arrives to therapy with wrist brace on - pt reports her is assisting with her BADLs and other daily tasks. Objective/Function: pt demo with initial measurments of right elbow -40/115 following therapy -38. pt demo with decreased elbow ROM limiting her ROM to perform her BADLs and IADLS-. in regards to her radial Nerve injury pt continues to demo right wrist drop and no ability extend her wrist or extend digits at MCP level- with palpation therapist can feel initiation of right forarm supination- but not at at functional level- at this time pt can use her right UE as assistive arm only. pt demo shoulder compensation with attempts to straighten her right elbow- Plan Frequency: 2-3x /Week Duration: 2 Months Plan: pt would benefit from further therapy services asssit in pts return to PLOF Goals - Goals Goal:: pt will demo a functional return of UB/hand strength to mtg lifting 3# and demo the ability to open jar lids by d/c Goal:: pt will demo a functional right elbow flex to 135 or greater elbow ext to -15 or less to increase ind with BADLS. Pt will demo a increase in right wrist ext to 35 degress or greater to increase ind with BADLS by D/C. Pt will demo a increase in right digit MCP ext to 0 to increase ind. 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 with BADls and IADLS by d/c Goal:: PT will demo inderstanding of scar mt. by end of 3rd session Goal:: pt will demo understanding of joint protection and ad. eq use for BADLS and IADLS as needed by D/C Goal:: pt will report she is ROMELIA with all BADLS with use of joint portecton/ad.eq by d/c Anticipated Interventions Anticipated Interventions: A/AAROM/PROM, Strengthening, Scar Care, Triggerpoint Release, Modalities, Orthoses, Ergonomic Education Other Interventions: Dr. Muñoz total elbow protocol - indicated on the Orders Please do not hesitate to contact me at [phone] by phone or if you have questions or concerns regarding this new plan of care! Sincerely, VIDA Stubbs/Roxi, VINCE <Electronically signed by Fauzia MCPHERSON/VINCE Diane> 02/12/18 0911 CC: Juan Lau MD; OUT OF TOWN DOCTOR MK Signed For Medicare only, by signing this I certify the plan of care. Physicians Signature Date PROGRESS Observed: 02/12/2018 Status: COMPLETED Source: [place] 7:54 AM [facility] REPOSITORY HNO ID: [id number] Author: Chi Valenciawood Cast Service: (none) Author Type: (none) Type: Progress Notes Filed: 02/12/2018 7:56 AM Note Text: PT ASSESSMENT - CASTING ROOM Ssuanna presents for Application of brace. Applied wrist support to Right wrist Patient has been instructed in Care and proper application of brace.. Chi MoralesJennifer Cast Beeper: [id number] CNOV Observed: 02/11/2018 Status: COMPLETED Source: [place] 4:30 PM [facility] REPOSITORY Office Visit (ORTHIN) SUSANNA STEPHENS ([id number]) 1960 F BLD Date Time Provider Department 02/11/18 4:30 PM [facility] ORTHIN During your visit today, we recorded the following information about you: Chi MoralesJennifer Cast 02/12/2018 7:56 AM Signed PT ASSESSMENT - CASTING ROOM Susanna presents for Application of brace. Applied wrist support to Right wrist Patient has been instructed in Care and proper application of brace.. Chi MoralesJennifer Cast Beeper: [id number] Referring Provider: KIKA MUÑOZ [[id number]] Allergies As of Date: 02/11/2018 Noted Allergy Reaction ADHESIVE 07/03/2017 14 - Other: See Comments Comments: Blood blisters LATEX 07/03/2017 14 - Other: See Comments Comments: Blood blisters NSAIDS (NON-STEROIDAL ANTI-INFLAM*11/14/2017 14 - Other: See Comments Comments: kidney problem PENICILLIN 07/03/2017 14 - Other: See Comments Comments: tachycardia Date Reviewed: 02/11/2018 Reviewed by: Kika Muñoz - Fully Assessed Primary Visit Diagnosis:Pain in right wrist [M25.531] Prescriptions as of 02/11/2018 Sig: HYDROCODONE 10 MG-ACETAMINOPH* Take 1 tablet by mouth every * GABAPENTIN 100 MG CAPSULE TAKE ONE (1) BY MOUTH AT NINO* ROPIVACAINE NERVE BLOCK 0.2% * Per Acute Pain tTeam Basal* Patient not taking: Reported on 02/11/2018 LISINOPRIL 5 MG TABLET Take 1 tablet by mouth once d* Patient not taking: Reported on 02/11/2018 INSULIN LISPRO 100 UNIT/ML DESAI* Use as directed with insulin * Problem List As Of Date 02/11/2018 Noted Resolved Rheumatoid arthritis involving multiple sites (*INVALID FOR* Coronary artery disease of [place] artery of [place]*INVALID FOR* Type 1 diabetes mellitus without complication (*INVALID FOR* Chronic pain of multiple sites [R52, G89.29] INVALID FOR* Tobacco use [Z72.0] Rheumatoid arthritis involving right elbow with*INVALID FOR* BMI less than 19,adult [Z68.1] INVALID FOR* Pre-op testing [Z01.818] INVALID FOR* More... Elbow joint replacement status, right [Z96.621] INVALID FOR* Pain in right elbow [M25.521] INVALID FOR* Injury of right radial nerve [S54.21XA] INVALID FOR* Localized edema [R60.0] INVALID FOR* Encounter Status:Closed by CHI BRITO on 02/12/18 PROGRESS Observed: 02/11/2018 Status: COMPLETED Source: [place] 2:31 PM [facility] REPOSITORY HNO ID: [id number] Author: Kika Muñoz Service: (none) Author Type: Physician Type: Progress Notes Filed: 02/11/2018 3:17 PM Note Text: Kika Muñoz MD, PhD, [facility] Director, [facility] [address] [place], [place] [id number] , February 11, 2018 Note:This dictation was created using voice recognition software and using medical terminology intended to be used for medical purposes by other health health care coach. CHIEF COMPLAINT: Established Patient (right arm) HPI: Ms. Susanna Stephens is a 57 year old female who is status post right elbow arthroplasty 2 months ago complicated with radial nerve palsy. She reports no return of muscle function but does endorse radiating pain from the lateral elbow into the fingers. 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 Surgical options were discussed as well: At this point patient elected to proceed with observation. She does have a positive Tinel today which is consistent with early recovery of nerve function. We provided a new brace to keep her wrist extended and if she gets approved for more Occupational Therapy, we will order a dynamic finger extension brace for her. Follow up in 2 months. Patient was advised as to contrast therapies and/or to take analgesics/anti-inflammatories as needed and all contraindications were reviewed. OBJECTIVE: Hand Dominance: Right Body mass index is 16.73 kg/m?. Constitutional: AOx3, NAD, well-nourished Head: normocephalic, atraumatic Neck: no gross abnormality, trachea midline Heart: NR RR by peripheral pulse Lungs: comfortable on RA, no accessory muscle use Neuro: CN II-XII grossly intact; deep tendon reflexes upper and lower extremities 2+ and appropriate Skin: intact, no unusual rashes or lesions present Pysch: calm, cooperative, answers questions appropriately MSK: Right Arm INSPECTION: No open wounds, well healed wound. ALIGNMENT: No gross deformity. ROM: elbow 45-135. VASCULAR: Extremity warm and well-perfused. SENSORY: sensation is intact to light touch in median (tip of index finger), ulnar (tip of small finger) nerve distributions. MOTOR:+motor posterior interosseous nerve (thumb IP extension), anterior interosseous nerve (thumb IP flexion, index finger DIP flexion), ulnar nerve (palpable firing of first dorsal interosseous muscle). No radial nerve function PROVOCATIVE TESTS: positive tinel at anterolateral elbow consistent with early nerve recovery IMAGING: Stable elbow arthroplasty Supporting Subjective Information Below: PAIN EVALUATION 02/11/2018 Pain Score: 5 Pain Location: - right wrist, and fingers Description: Tingling Duration Amount of Time: - since surgery Frequency: Continuous Intervention: Medication gabapentin helped, she got from a friend ROS: No excessive bleeding, No fevers ACTIVE PROBLEM LIST Rheumatoid Arthritis Involving Multiple Sites ([facility]) Coronary Artery Disease of [place] Artery of [place] Heart With Stable Angina Pectoris ([facility]) Type 1 Diabetes Mellitus Without Complication ([facility]) Chronic Pain of Multiple Sites Tobacco Use Rheumatoid Arthritis Involving Right Elbow With Positive Rheumatoid Factor ([facility]) Bmi Less Than 19,Adult Pre-Op Testing Elbow Joint Replacement Status, Right Pain in Right Elbow Injury of Right Radial Nerve Localized Edema Past Medical History: PAST MEDICAL HISTORY Diagnosis Date - Blindness of one eye with normal vision in contralateral eye right - CAD (coronary artery disease) Dr. Zak Boykin - Diabetes type 1, controlled ([facility]) Insulin pump-MARIZA Tovar - Endometriosis s/p hysterectomy - Hypercholesteremia - Insulin pump in place - Osteoarthritis - Osteoporosis - Rheumatoid arthritis ([facility]) Dr. De Los Santos, pain management - Tobacco use Past Surgical History: PAST SURGICAL HISTORY Procedure Laterality Date - SECTION HX x 2 - HYSTERECTOMY HX - PAST SURGICAL HISTORY OF left eye surgery - PAST SURGICAL HISTORY OF right knee replacement - PAST SURGICAL HISTORY OF left knee surgery - PAST SURGICAL HISTORY OF Removal of strawberry gemma after - TOTAL HIP REPLACEMENT Left Family History: FAMILY HISTORY Problem Relation Age of Onset - Lipids Mother - Heart Mother - Hypertension Mother - Diabetes Father - Stroke Father - Cancer Brother thyroid cancer Social History: Social History Marital status: Spouse name: Years of education: Number of children: Social History Main Topics Smoking status: Current Every Day Smoker Packs/day: 1.00 Years: 42.00 Types: Cigarettes Smokeless tobacco: Never Used Alcohol use: No Drug use: No Sexual activity: Yes Partners with: Male Medications: Current Outpatient Prescriptions: HYDROcodone-Acetaminophen (NORCO) 10-325 mg per tablet Take 1 tablet by mouth every 6 hours as needed. insulin lispro (HUMALOG) 100 unit/mL injection Use as directed with insulin pump-managed by MARIZA Tovar CNP gabapentin (NEURONTIN) 100 mg capsule TAKE ONE (1) BY MOUTH AT BREAKFAST, ONE (1) AT LUNCH AND ONE (1) AT DINNER. YOU MAY INCREASE BY ONE (1) PILL EACH WEEK TO A MAXIMUM OF THREE (3) PILLS, THREE (3) TIMES A DAY. ropivacaine nerve block 0.2% - 200 mL Per Acute Pain tTeamBasal Rate (Continuous Dose): 8 mL/hrPatient Bolus Dose (Demand Bolus): 12 mLBolus Interval: 60 MinutesBolus Doses per Hour: 1 doses/hr (Patient not taking: Reported on 02/11/2018 ) lisinopril (ZESTRIL, PRINIVIL) 5 mg tablet Take 1 tablet by mouth once daily. (Patient not taking: Reported on 02/11/2018 ) No current facility-administered medications for this visit. Allergies: Adhesive; Latex; Nsaids (Non-Steroidal Anti-Inflammatory Drug); Penicillin Zhen Enriquez Jr, MD Upper Extremity Fellow Pager: [phone] February 11, 20182:31 PM *Note: Patient seen and evaluated with staff surgeon, Dr. Muñoz. Please refer to his note/addendum for finalized assessment and plan. February 11, 2018 STAFF NOTE: Kika Muñoz MD, PhD, [facility] Ms. Susanna Stephens is a 57 year old female who was interviewed and examined by me in detail today with my resident/fellow and I personally participated in the brunner components. I have discussed the case and management of the patient's care. The following comments revise or confirm relevant brunner components of the note. 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 Ms. Susanna Stephens was advised as to contrast therapies and/or to take analgesics/anti-inflammatories as needed and all contraindications were reviewed. REFERRING PHYSICIAN: Ms. Susanna Stephens was referred to me for consultation and further care by the following physician. This consultation note will be sent to the following physician by either mail or electronic medical record. Consult Time: I spent 30 minutes in this visit, with more than 50% of the time devoted to patient counseling. Referring Physician: SELF PCP: Feroz Lau MD [id number] [facility] [id number] CNOV Observed: 02/11/2018 Status: COMPLETED Source: [place] 2:15 PM [facility] REPOSITORY Office Visit (INOHIN) SUSANNA STEPHENS ([id number]) 1960 F BLD Date Time Provider Department 02/11/18 2:15 PM KIKA MUÑOZ During your visit today, we recorded the following information about you: Weight Height 49.9 kg 1.727 m Kika Muñoz MD PhD 02/11/2018 3:17 PM Signed Kika Muñoz MD, PhD, [facility] Director, [facility] [address] [place], [place] [id number] , February 11, 2018 Note:This dictation was created using voice recognition software and using medical terminology intended to be used for medical purposes by other health health care coach. CHIEF COMPLAINT: Established Patient (right arm) HPI: Ms. Susanna Stephens is a 57 year old female who is status post right elbow arthroplasty 2 months ago complicated with radial nerve palsy. She reports no return of muscle function but does endorse radiating pain from the lateral elbow into the fingers. 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 Surgical options were discussed as well: At this point patient elected to proceed with observation. She does have a positive Tinel today which is consistent with early recovery of nerve function. We provided a new brace to keep her wrist extended and if she gets approved for more Occupational Therapy, we will order a dynamic finger extension brace for her. Follow up in 2 months. Patient was advised as to contrast therapies and/or to take analgesics/anti-inflammatories as needed and all contraindications were reviewed. OBJECTIVE: Hand Dominance: Right Body mass index is 16.73 kg/m?. Constitutional: AOx3, NAD, well-nourished Head: normocephalic, atraumatic Neck: no gross abnormality, trachea midline Heart: NR RR by peripheral pulse Lungs: comfortable on RA, no accessory muscle use Neuro: CN II-XII grossly intact; deep tendon reflexes upper and lower extremities 2+ and appropriate Skin: intact, no unusual rashes or lesions present Pysch: calm, cooperative, answers questions appropriately MSK: Right Arm INSPECTION: No open wounds, well healed wound. ALIGNMENT: No gross deformity. ROM: elbow 45-135. VASCULAR: Extremity warm and well-perfused. SENSORY: sensation is intact to light touch in median (tip of index finger), ulnar (tip of small finger) nerve distributions. MOTOR:+motor posterior interosseous nerve (thumb IP extension), anterior interosseous nerve (thumb IP flexion, index finger DIP flexion), ulnar nerve (palpable firing of first dorsal interosseous muscle). No radial nerve function PROVOCATIVE TESTS: positive tinel at anterolateral elbow consistent with early nerve recovery IMAGING: Stable elbow arthroplasty Supporting Subjective Information Below: PAIN EVALUATION 02/11/2018 Pain Score: 5 Pain Location: - right wrist, and fingers Description: Tingling Duration Amount of Time: - since surgery Frequency: Continuous Intervention: Medication gabapentin helped, she got from a friend ROS: No excessive bleeding, No fevers ACTIVE PROBLEM LIST Rheumatoid Arthritis Involving Multiple Sites (Hcc) Coronary Artery Disease of [place] Artery of [place] Heart With Stable Angina Pectoris (Hcc) Type 1 Diabetes Mellitus Without Complication (Hcc) Chronic Pain of Multiple Sites Tobacco Use Rheumatoid Arthritis Involving Right Elbow With Positive Rheumatoid Factor (Hcc) Bmi Less Than 19,Adult Pre-Op Testing Elbow Joint Replacement Status, Right Pain in Right Elbow Injury of Right Radial Nerve Localized Edema Past Medical History: PAST MEDICAL HISTORY Diagnosis Date - Blindness of one eye with normal vision in contralateral eye right - CAD (coronary artery disease) Dr. Zak Boykin - Diabetes type 1, controlled (HCC) Insulin pump-BJ Shook - Endometriosis s/p hysterectomy - Hypercholesteremia - Insulin pump in place - Osteoarthritis - Osteoporosis - Rheumatoid arthritis (HCC) Dr. De Los Santos, pain management - Tobacco use Past Surgical History: PAST SURGICAL HISTORY Procedure Laterality Date - SECTION HX x 2 - HYSTERECTOMY HX - PAST SURGICAL HISTORY OF left eye surgery - PAST SURGICAL HISTORY OF right knee replacement - PAST SURGICAL HISTORY OF left knee surgery - PAST SURGICAL HISTORY OF Removal of strawberry gemma after - TOTAL HIP REPLACEMENT Left Family History: FAMILY HISTORY Problem Relation Age of Onset - Lipids Mother - Heart Mother - Hypertension Mother - Diabetes Father - Stroke Father - Cancer Brother thyroid cancer Social History: Social History Marital status: Spouse name: Years of education: Number of children: Social History Main Topics Smoking status: Current Every Day Smoker Packs/day: 1.00 Years: 42.00 Types: Cigarettes Smokeless tobacco: Never Used Alcohol use: No Drug use: No Sexual activity: Yes Partners with: Male Medications: Current Outpatient Prescriptions: HYDROcodone-Acetaminophen (NORCO) 10-325 mg per tablet Take 1 tablet by mouth every 6 hours as needed. insulin lispro (HUMALOG) 100 unit/mL injection Use as directed with insulin pump-managed by MARIZA Tovar CNP gabapentin (NEURONTIN) 100 mg capsule TAKE ONE (1) BY MOUTH AT BREAKFAST, ONE (1) AT LUNCH AND ONE (1) AT DINNER. YOU MAY INCREASE BY ONE (1) PILL EACH WEEK TO A MAXIMUM OF THREE (3) PILLS, THREE (3) TIMES A DAY. ropivacaine nerve block 0.2% - 200 mL Per Acute Pain tTeamBasal Rate (Continuous Dose): 8 mL/hrPatient Bolus Dose (Demand Bolus): 12 mLBolus Interval: 60 MinutesBolus Doses per Hour: 1 doses/hr (Patient not taking: Reported on 02/11/2018 ) lisinopril (ZESTRIL, PRINIVIL) 5 mg tablet Take 1 tablet by mouth once daily. (Patient not taking: Reported on 02/11/2018 ) No current facility-administered medications for this visit. Allergies: Adhesive; Latex; Nsaids (Non-Steroidal Anti-Inflammatory Drug); Penicillin Zhen Enriquez Jr, MD Upper Extremity Fellow Pager: [phone] February 11, 20182:31 PM *Note: Patient seen and evaluated with staff surgeon, Dr. Muñoz. Please refer to his note/addendum for finalized assessment and plan. February 11, 2018 STAFF NOTE: Kika Muñoz MD, PhD, [facility] Ms. Susanna Stephens is a 57 year old female who was interviewed and examined by me in detail today with my resident/fellow and I personally participated in the brunner components. I have discussed the case and management of the patient's care. The following comments revise or confirm relevant brunner components of the note. 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 Ms. Susanna Stephens was advised as to contrast therapies and/or to take analgesics/anti-inflammatories as needed and all contraindications were reviewed. REFERRING PHYSICIAN: Ms. Susanna Stephens was referred to me for consultation and further care by the following physician. This consultation note will be sent to the following physician by either mail or electronic medical record. Consult Time: I spent 30 minutes in this visit, with more than 50% of the time devoted to patient counseling. Referring Physician: SELF PCP: Feroz Lau MD [id number] [facility] [id number] Referring Provider: SELF [[id number]] Allergies As of Date: 02/11/2018 Noted Allergy Reaction ADHESIVE 07/03/2017 14 - Other: See Comments Comments: Blood blisters LATEX 07/03/2017 14 - Other: See Comments Comments: Blood blisters NSAIDS (NON-STEROIDAL ANTI-INFLAM*11/14/2017 14 - Other: See Comments Comments: kidney problem PENICILLIN 07/03/2017 14 - Other: See Comments Comments: tachycardia Date Reviewed: 02/11/2018 Reviewed by: Kika Muñoz - Fully Assessed Reason for Visit: Established Patient [175] Cmt: right arm Primary Visit Diagnosis:Body mass index (BMI) less than 16.5 [Z68.1] Other Visit Diagnoses:Elbow joint replacement status, right [Z96.621] Injury of radial nerve at right upper arm level, initial encounter [S44.21XA] Injury of right radial nerve, unspecified injury location, initial encounter [S54.21XA] Rheumatoid arthritis involving right elbow with positive rheumatoid factor (HCC) [M05.721] Order(s):gabapentin (NEURONTIN) 100 mg capsuleTAKE ONE (1) BY MOUTH AT BREAKFAST, ONE (1) AT LUNCH AND ONE (1) AT DINNER. YOU MAY INCREASE BY ONE (1) PILL EACH WEEK TO A MAXIMUM OF THREE (3) PILLS, THREE (3) TIMES A DAY.Disp: 90 capsuleRfl: 1 Prescriptions as of 02/11/2018 Sig: HYDROCODONE 10 MG-ACETAMINOPH* Take 1 tablet by mouth every * INSULIN LISPRO 100 UNIT/ML DESAI* Use as directed with insulin * GABAPENTIN 100 MG CAPSULE TAKE ONE (1) BY MOUTH AT NINO* ROPIVACAINE NERVE BLOCK 0.2% * Per Acute Pain tTeam Basal* Patient not taking: Reported on 02/11/2018 LISINOPRIL 5 MG TABLET Take 1 tablet by mouth once d* Patient not taking: Reported on 02/11/2018 Medication notes this encounter GABAPENTIN 100 MG CAPSULE >> Mili Franks Ma 02/11/2018 1:40 PM >> MILI FRANKS MA Feb 11, 2018 1:40 PM Pt states she never received this medication >> Mili Franks Ma 02/11/2018 1:41 PM >> MILI FRANKS MA Feb 11, 2018 1:41 PM >> Mili Franks Ma 02/11/2018 1:41 PM >> MILI FRANKS MA Feb 11, 2018 1:41 PM Course of therapy completed Problem List As Of Date 02/11/2018 Noted Resolved Rheumatoid arthritis involving multiple sites (*INVALID FOR* Coronary artery disease of lone pine artery of mar[place]*INVALID FOR* Type 1 diabetes mellitus without complication (*INVALID FOR* Chronic pain of multiple sites [R52, G89.29] INVALID FOR* Tobacco use [Z72.0] Rheumatoid arthritis involving right elbow with*INVALID FOR* BMI less than 19,adult [Z68.1] INVALID FOR* Pre-op testing [Z01.818] INVALID FOR* More... Elbow joint replacement status, right [Z96.621] INVALID FOR* Pain in right elbow [M25.521] INVALID FOR* Injury of right radial nerve [S54.21XA] INVALID FOR* Localized edema [R60.0] INVALID FOR* Prescriptions ordered this encounter Disp Refills Start End GABAPENTIN 100 MG CAPSULE 90 c* 1 02/11/2018 03/13/2018 Class: Print RX Sig: TAKE ONE (1) BY MOUTH AT BREAKFAST, ONE (1) AT LUNCH AND ONE (1) AT DINNER. YOU MAY INCREASE BY ONE (1) PILL EACH WEEK TO A MAXIMUM OF THREE (3) PILLS, THREE (3) TIMES A DAY. Medications Discontinued During This Encounter docusate sodium (COLACE) 100 mg caps* 60 c* 2 12/05/2017 02/11/2018 Class: Print RX Route: ORAL Sig: Take 1 capsule by mouth twice daily. Disc: Reason for discontinue is not on file. ondansetron orally disintegrating (Z* 10 t* 2 12/05/2017 02/11/2018 Class: Print RX Route: ORAL Sig: Take 1 tablet by mouth every 8 hours as needed for Nausea/Vomiting. Patient not taking: Reported on 02/11/2018 Disc: Discontinued by Patient gabapentin (NEURONTIN) 100 mg capsule 90 c* 0 12/10/2017 02/11/2018 Class: Print RX Sig: TAKE ONE (1) BY MOUTH AT BREAKFAST, ONE (1) AT LUNCH AND ONE (1) AT DINNER. YOU MAY INCREASE BY ONE (1) PILL EACH WEEK TO A MAXIMUM OF THREE (3) PILLS, THREE (3) TIMES A DAY. Disc: Reason for discontinue is not on file. Disposition: Return in about 2 months (around 04/13/2018). Follow-up and Disposition History Recorded Encounter Status:Closed by WANDA MCCORMICK, KIKA PHD on 02/11/18 XR ELBOW 3V AP/LAT/OTHER Observed: 02/11/2018 Status: F Source: [place] 1:20 PM [facility] REPOSITORY * * *Final Report* * * DATE OF EXAM: Feb 11 2018 1:20PM CCX 5325 - XR ELBOW 3V AP/LAT/OTHER RT / PROCEDURE REASON: multiple diagnoses * * * * Physician Interpretation * * * * HISTORY: Injury of radial nerve at forearm level, right arm, initial encounter Rheumatoid arthritis with rheumatoid factor of right elbow without organ or systems involvement Presence of right artificial elbow joint Patient/Technologist Provided History: POST OP RT ELBOW PATIENT HAS RADIAL NERVE DAMAGE TECHNIQUE: XR ELBOW 3V AP/LAT/OTHER RT COMPARISON: XR 12/10/2017 RESULT: Right elbow arthroplasty. Hardware appears intact without evidence of loosening. No significant change in alignment. Small amount of heterotopic ossification, unchanged. Prior radial head resection. Surgical skin vishnu have been removed. No other significant change. IMPRESSION: Right elbow arthroplasty, unchanged post staple removal. Zipper Trimmer: SHANNON Transcribe Date/Time: Feb 11 2018 3:53P Dictated by : DARY ROMERO MD This examination was interpreted and the report reviewed and electronically signed by: ANTONIO FREY MD on Feb 11 2018 8:14PM EST [id number] Observed: 02/11/2018 Status: COMPLETED Source: [place] 1:19 PM [facility] REPOSITORY HNO ID: [id number] Author: Danelle Rocha Service: (none) Author Type: (none) Type: Progress Notes Filed: 02/11/2018 1:20 PM Note Text: Radiology Service Progress Note PATIENT NAME: Susanna Stephens DATE OF SERVICE: February 11, 2018 TIME: 1:19 PM PATIENT IDENTITY VERIFICATION COMPLETED USING TWO (2) METHODS: Patient confirmed name verbally and Date of . PATIENT GENDER DATA: Female. status: : No status: NO. PATIENT RELEVANT IMPLANT DATA REVIEWED: Not Applicable RADIOLOGY DEPARTMENT: General X-ray: Exam(s) Completed: Upper Extremity X-Ray(s): Elbow, right : PERIPHERAL IV DATA: Not applicable SIGNED BY: Danelle Reich Rt February 11, 2018 1:19 PM PROGRESS Observed: 02/10/2018 Status: COMPLETED Source: [place] 5:05 PM [facility] REPOSITORY HNO ID: [id number] Author: Yasmin EvansOtr/LRaissa Flores Service: (none) Author Type: Occupational Therapist Type: Progress Notes Filed: 02/10/2018 5:05 PM Note Text: REHABILITATION AND SPORTS THERAPY OCCUPATIONAL THERAPY DISCONTINUANCE OF CARE Plan of Care Period: Start of Care Date: 12/10/17 Last Visit Date: 12/10/17 Therapy Program: Patient did not return for follow up care as planned. Please refer to last visit note for interventions provided for this episode of care. Assessment: Unable to formally assess goal achievement due to non-compliance with therapy plan of care. Reason for Discontinuation of Care: Patient has not returned to therapy or scheduled additional follow-up appointments. Yasmin Flores, OTR/L, CHT DISCHARGE INSTRUCTION Observed: 01/17/2018 Status: F Source: [place] 12:30 AM [facility] REPOSITORY [facility] Medical Records Department [address] [place] [address] Discharge Instruction 01/16/18 182 MR#: [id number] Acct: [id number] Name: SUSANNA STEPHENS Roxi Rep #: [id number] : 1960 57 From: Ryan Fair MD PCP: Juan Lau MD Status: DEP ED Disposition - Plan for ED Patient: Disposition: Home or Assisted Living Chief Complaint: Upper Extremity Injury Instructions: ED Chronic Pain Management Referrals: Juan Lau MD [Primary Care Provider] - As Needed Additional Instructions: CALL AND FOLLOW UP WITH YOUR PAIN MANAGEMENT Dr. What to do if you have Problems For any increased pain, shortness of breath, bleeding, nausea or vomiting, chest pain, or any unexpected problems, contact your Primary Care Provider. Call [facility] ([phone]) or report to the closest Emergency Room. Call 911 if necessary. 01/17/18 0030 <Electronically signed by Ryan Fair MD> Date Ryan Fair MD Cosigner Signature (If Indicated): Date CC: Juan Lau MD EMERGENCY DEPARTMENT Observed: 01/17/2018 Status: F Source: [place] SUMMARY 12:30 AM [facility] REPOSITORY [facility] Medical Records Department [address] [place] [address] Emergency Department Summary 01/17/18 0012 MR#: [id number] Acct: [id number] Name: SUSANNA STEPHENS Rep #: [id number] : 1960 57 From: Ryan Fair MD PCP: Juan Lau MD Status: DEP ER - ER Visit Summary Date of Service: 01/17/18 Chief Complaint: Acute on chronic right elbow pain History of Present Illness: The patient is a 57 F who had a right elbow replacement surgery done at the [facility]. States she has had other joint surgeries in the past. She was told by them that there may have been a nerve injury during surgery. And they have been treating her for this pain. She is also under pain management. Patient states this is the same pain she is having. Just breakthrough pain. She is on pain medication at home. Physical Examination: Well-appearing middle-age female. Vital signs are stable. H EENT exam unremarkable. Lungs clear to auscultation. Heart regular rate and rhythm no murmur. Abdomen soft nontender. Her right elbow has well-healed surgical incision. She is unable to do full extension of the right elbow. She can get to about 150 . She also has a right wrist drop. And decreased muscle strength in the right hand. This is all chronic since his surgery and not new. She does have a palpable radial pulse in the right. There are no gross bony deformities. No swelling or redness. Test Results: None Emergency Department Course and Treatment: This is an acute on chronic pain issue. Patient was given 1 IM injection of Dilaudid and discharged home use her chronic pain meds. She is instructed to follow-up with her pain management physician. Treatment Plan: [] Disposition: Discharge Impression: Acute on chronic right elbow pain Status post right elbow replacement This note was generated with [employer] dictation software. It may contain incorrect words, spelling, and punctuation that were not noted in review of the chart prior to signing ED Disposition - Plan for ED Patient: Disposition: Home or Assisted Living Chief Complaint: Upper Extremity Injury Instructions: ED Chronic Pain Management Referrals: Juan Lau MD [Primary Care Provider] - As Needed Additional Instructions: CALL AND FOLLOW UP WITH YOUR PAIN MANAGEMENT Dr. What to do if you have Problems For any increased pain, shortness of breath, bleeding, nausea or vomiting, chest pain, or any unexpected problems, contact your Primary Care Provider. Call [facility] ([phone]) or report to the closest Emergency Room. Call 911 if necessary. 01/17/18 0030 <Electronically signed by Ryan Fair MD> Date Ryan Oscar Signature (If Indicated): Date CC: Juan Lua MD PROGRESS Observed: 12/28/2017 Status: COMPLETED Source: [place] 4:22 AM [facility] REPOSITORY HNO ID: [id number] Author: Downtime Note Service: (none) Author Type: (none) Type: Progress Notes Filed: 12/28/2017 4:25 AM Note Text: Epic Scheduled Downtime: 12/27/2017 11:34:32 PM to 12/28/2017 4:17:42 AM OT GENERAL EVALUATION Observed: 12/26/2017 Status: F Source: [place] 12:31 PM [facility] REPOSITORY [facility] Occupational Therapy [facility] [address] [place] [address]. [address] [place] [address] Fax REHABILITATION SERVICES INITIAL EVALUATION MR#: [id number] Acct: [id number] Name: SUSANNA STEPHENS Rep #: [id number] : 1960 57 From: Fauzia MURPHY CHT Referring Dr.: Status: REG R Insurance: ANTH MEDICARE O Eval Date: [facility] Patient's Visit Information SUSANNA STEPHENS is a 57 year old F, referred to Occupational Therapy by KIKA MUÑOZ, with a diagnosis of Rheumatoid arthritis right elbow. Date of Evaluation: 12/25/17 Occupational Therapist: KATHERINE Stubbs CHT - Subjective Subjective: This 57 year old female was seen for intial OT eval following a December 04 right elbow total arthroplasty - following sx complication of radial nerve involvment- pt states she he is assisting with her BADLs and IADLS. Pt states she was hx dx of RA. and her joints are currently bone on bone. She will cont with having other joint replaced. - Pain right elbow 0 Pain Intensity Range: 0, 4 - Objective Objective/Observation: pt demo with no functional ext of right wrist or digits at MCP or right thumb abduction - pts elbow ROM is limited as well- pt demo a need for skilled OT services to regain pts function for BADLS - ROM Elbow: AROM right -50/90 left -25/140 Forearm: AROM right pronation WNL supination unable Wrist: No active wrist ext- trace of ext initiation left WNL ROM Comments: pt demo with radial N involvment- limited ability to extend MCP and abd right thumb- pt demo with no functional grasp ability at this time. - Strength Justice Professor: right NT left 45# Lateral Pinch: NT Tripod Pinch: NT Strength Comments: right UB/hand strength will be tested at later date - Sensation Thumb: right 2.83 tips Index: right 2.83 tips Middle: right 2.83 tips Ring: right 2.83 tips Little: right 2.83 tips Other Location: dorsal side of right hand/wrist/forearm 4.17 Sensation Comments: pt reports tingling sensation in all digits - Goals Goal:: pt will demo a functional return of UB/hand strength to mtg lifting 3# and demo the ability to open jar lids by d/c Goal:: pt will demo a functional right elbow flex to 135 or greater elbow ext to -15 or less to increase ind with BADLS. Pt will demo a increase in right wrist ext to 35 degress or greater to increase ind with BADLS by D/C. Pt will demo a increase in right digit MCP ext to 0 to increase ind. 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 with BADls and IADLS by d/c Goal:: PT will demo inderstanding of scar mt. by end of 3rd session Goal:: pt will demo understanding of joint protection and ad. eq use for BADLS and IADLS as needed by D/C Goal:: pt will report she is ROMELIA with all BADLS with use of joint portecton/ad.eq by d/c - Rehabilitation General Assessment: postitve for rheumatoid factor. pt underwent a right total elbow arthroplasty- s/p decompression and anterior transposition of Ulnar nerve - pt demo healed incision with vishnu present- no edema noted- pt demo with limited right elbow, forearm, wrist and hand functional ROM and strength- pt demo complication following sx of a radial nerve involvment-and demo the inability to perform wrist ext and digit ext at MCPs- pt may need a radial nerve brace to decrease risk of a extensor lag. Pt would benefit from skilled OTR/L, CHT services to gain a funcitonal ROM and increase pts ind, with BADls and IADLS - therapy services 2-3x week for 10 weeks. Rehabilitation Potential: Good - Anticipated Interventions Anticipated Interventions: A/AAROM/PROM, Strengthening, Scar Care, Triggerpoint Release, Modalities, Orthoses, Ergonomic Education Other Interventions: Dr. Muñoz total elbow protocol - indicated on the Orders - Visit Plan Frequency: 2-3x /Week Duration: 2 Months General Plan: OT will initiate return of functional ROM- ed. pt on radial Nerve glide- orthosis to allow for right UE use while radial nerve is repairing- once a return will initiate a light PRE- as able with protocol TEXT: Thank you for the opportunity to evaluate your patient. For Medicare and Medicare HMO plans, please review the plan of care and approve it. It will need to be FAXED BACK to us at [phone] for Medicare purposes. Please let me know if there are questions or concerns regarding this plan of care. Physician Signature: Date: <Electronically signed by Fauzia Alvarez OTR/L, CHT> 12/26/17 1231 CC: Juan Lau MD; OUT OF TOWN DOCTOR ANTONIO Signed For Medicare only, by signing this I certify the plan of care. Physicians Signature Date PROGRESS Observed: 12/10/2017 Status: COMPLETED Source: [place] 2:42 PM [facility] REPOSITORY HNO ID: [id number] Author: Chi MoralesJennifer Cast Service: (none) Author Type: (none) Type: Progress Notes Filed: 12/10/2017 2:44 PM Note Text: PT ASSESSMENT - CASTING ROOM Susanna presents for Application of brace. Applied elbow brace to Right arm Patient has been instructed in Care and proper application of brace.. Chi MoralesJennifer Cast Beeper: [id number] CNOV Observed: 12/10/2017 Status: COMPLETED Source: [place] 1:45 PM [facility] REPOSITORY Office Visit (ORTHIN) SUSANNA STEPHENS ([id number]) 1960 F BLD Date Time Provider Department 12/10/17 1:45 PM [facility]ST TE[facility] ORTHIN During your visit today, we recorded the following information about you: Chi [place] Cast 12/10/2017 2:44 PM Signed PT ASSESSMENT - CASTING ROOM Susanna presents for Application of brace. Applied elbow brace to Right arm Patient has been instructed in Care and proper application of brace.. 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 (HCC) [M05.721] Prescriptions as of 12/10/2017 Sig: GABAPENTIN 100 MG CAPSULE TAKE ONE (1) BY MOUTH AT NINO* OXYCODONE-ACETAMINOPHEN 5 MG-* Take 1 tablet by mouth every * DOCUSATE SODIUM 100 MG CAPSULE Take 1 capsule by mouth twice* ONDANSETRON 4 MG DISINTEGRATI* Take 1 tablet by mouth every * ROPIVACAINE NERVE BLOCK 0.2% * Per Acute Pain tTeam Basal* LISINOPRIL 5 MG TABLET Take 1 tablet by mouth once d* INSULIN LISPRO 100 UNIT/ML DESAI* Use as directed with insulin * Problem List As Of Date 12/10/2017 Noted Resolved Rheumatoid arthritis involving multiple sites (*INVALID FOR* Coronary artery disease of lone pine artery of mariano*INVALID FOR* Type 1 diabetes mellitus without complication (*INVALID FOR* Chronic pain of multiple sites [R52, G89.29] INVALID FOR* Tobacco use [Z72.0] Rheumatoid arthritis involving right elbow with*INVALID FOR* BMI less than 19,adult [Z68.1] INVALID FOR* Pre-op testing [Z01.818] INVALID FOR* More... Elbow joint replacement status, right [Z96.621] INVALID FOR* Pain in right elbow [M25.521] INVALID FOR* Injury of right radial nerve [S54.21XA] INVALID FOR* Localized edema [R60.0] INVALID FOR* Encounter Status:Closed by CHI BRITO on 12/10/17 PROGRESS Observed: 12/10/2017 Status: COMPLETED Source: [place] 11:42 AM [facility] REPOSITORY O ID: [id number] Author: Kika Muñoz Service: (none) Author Type: Physician Type: Progress Notes Filed: 12/10/2017 4:45 PM Note Text: Kika Muñoz MD, PhD, [facility] [address] [place] [id number] , December 10, 2017 Note: This dictation was created using voice recognition software and using medical terminology intended to be used for medical purposes by other health health care coach. CHIEF COMPLAINT: No chief complaint on file.. 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 Susanna Stephens is a 57 year old female who returns today post surgery on 12/04. All wounds are healing as expected. 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 We will follow this over time and hopefully it's a temporary neuropraxia. She'll keep working on passive finger and wrist range of motion and use a cockup wrist splint. Postoperative care will proceed as per planned protocol. Ms. Susanna Stephens was advised as to contrast therapies and/or to take analgesics/anti-inflammatories as needed and all contraindications were reviewed. Supporting Information Below: Medications: Current Outpatient Prescriptions: docusate sodium (COLACE) 100 mg capsule Take 1 capsule by mouth twice daily. oxyCODONE-acetaminophen (PERCOCET) 5-325 mg tablet Take 2 tablets by mouth every 6 hours as needed for Pain for up to 7 days. for pain.Major orthopaedic surgery - exempt from narcotic limiting laws ondansetron orally disintegrating (ZOFRAN ODT) 4 mg disintegrating tablet Take 1 tablet by mouth every 8 hours as needed for Nausea/Vomiting. ropivacaine nerve block 0.2% - 200 mL Per Acute Pain tTeamBasal Rate (Continuous Dose): 8 mL/hrPatient Bolus Dose (Demand Bolus): 12 mLBolus Interval: 60 MinutesBolus Doses per Hour: 1 doses/hr lisinopril (ZESTRIL, PRINIVIL) 5 mg tablet Take 1 tablet by mouth once daily. insulin lispro (HUMALOG) 100 unit/mL injection Use as directed with insulin pump-managed by MARIZA Tovar CNP No current facility-administered medications for this visit. Allergies: Adhesive; Latex; Nsaids (Non-Steroidal Anti-Inflammatory Drug); Penicillin Current allergies as of this encounter: Adhesive; Latex; Nsaids (Non-Steroidal Anti-Inflammatory Drug); Penicillin Current Outpatient Prescriptions: gabapentin (NEURONTIN) 100 mg capsule TAKE ONE (1) BY MOUTH AT BREAKFAST, ONE (1) AT LUNCH AND ONE (1) AT DINNER. YOU MAY INCREASE BY ONE (1) PILL EACH WEEK TO A MAXIMUM OF THREE (3) PILLS, THREE (3) TIMES A DAY. docusate sodium (COLACE) 100 mg capsule Take 1 capsule by mouth twice daily. oxyCODONE-acetaminophen (PERCOCET) 5-325 mg tablet Take 2 tablets by mouth every 6 hours as needed for Pain for up to 7 days. for pain.Major orthopaedic surgery - exempt from narcotic limiting laws ondansetron orally disintegrating (ZOFRAN ODT) 4 mg disintegrating tablet Take 1 tablet by mouth every 8 hours as needed for Nausea/Vomiting. ropivacaine nerve block 0.2% - 200 mL Per Acute Pain tTeamBasal Rate (Continuous Dose): 8 mL/hrPatient Bolus Dose (Demand Bolus): 12 mLBolus Interval: 60 MinutesBolus Doses per Hour: 1 doses/hr lisinopril (ZESTRIL, PRINIVIL) 5 mg tablet Take 1 tablet by mouth once daily. insulin lispro (HUMALOG) 100 unit/mL injection Use as directed with insulin pump-managed by MARIZA Tovar CNP No current facility-administered medications for this visit. This office note has been dictated. Clinical note will follow in 7 - 10 days. Kika Muñoz MD, PhD PROGRESS Observed: 12/10/2017 Status: COMPLETED Source: [place] 11:09 AM [facility] REPOSITORY HNO ID: [id number] Author: Yasmin Noyola(Otr/L) Marvin Service: (none) Author Type: Occupational Therapist Type: Progress Notes Filed: 12/10/2017 1:25 PM Note Text: Episode Visit Count: 1 Start of Care Date: 12/10/17 Onset Date: 12/04/17 Plan of Care Certification Date: 12/10/17 Patient Identified by Name and Date of : Yes [facility] REHABILITATION AND SPORTS THERAPY OCCUPATIONAL THERAPY EVALUATION PLAN OF CARE: Assessment: Susanna Stephens presents with the chief complaint of right elbow through wrist pain. 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 She presents with impairments of decreased motion, edema and decreased function. She may benefit from skilled occupational therapy services for elbow/wrist splinting, home exercise program, manual treatment and modalities to improve her right elbow/wrist/finger AROM, edema, pain and overall function. Patient was receptive to recommendations, tolerated session fair due to severe pain. Patient's smoking may be a barrier to progress. Prognosis: Fair Goals for Episode of Care created on 12/10/17 through 03/04/18 1) Patient will decrease pain in right elbow/wrist to 1-2/10 during bathing/dressing activity/by end of OT treatment. 2) Patient will independently demonstrate home exercise program ongoing throughout OT course. 3) Patient will independently demonstrate scar massage/management in order to decrease scar adherence, normalize sensation by end of OT treatment 4) Patient will independently demonstrate correct application of right elbow/wrist splint don/doff and verbalize understanding of proper wear/care by end of session. 5) Patient will increase AROM in right elbow flexion/ext so that she is able to feed herself with her right hand and reach and retrieve objects 6) Patient will report a good understanding of edema control techniques. 7)Patient will report a good understanding of the use of modalities and orthosis to help manage discomfort and promote healing. Planned Interventions, Frequency, and Duration: Current Frequency: 1x/week Duration: 12 weeks Total Number of Visits Planned: 1 Patient to be see for Prefabricated orthosis fitting;Therapeutic exercise;Manual therapy;Modalities PLAN FOR NEXT VISIT: f/u closer to home, remove elbow vishnu, assess elbow motion Patient demonstrates good understanding of plan of care and treatment. The above goals and plan of care were discussed and agreed upon by patient/family. SUBJECTIVE: Susanna Stephens is a 57 year old female seen today for patient is 6 days s/p right elbow arthroplasty, ulnar nerve decompression/transposition. States she went to the ER on 12/06/09 because she was so swollen. The doctor diagnosed her with lymphedema. She removed her own post-op dressing on 12/07/17 due to high pain and swelling. 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 Patient is 6 days s/p right elbow arthroplasty with ulnar nerve decompression with ulnar nerve transpostion Sensation - Upper Extremity UE Light Touch Sensation: Impaired (c/o tingling in her hand) Hand Evaluation Skin / Wound: Nineveh to be removed Nineveh to be removed comments: 2-3 weeks p/o Edema Location: right elbow Edema Description: Moderate Edema Measurements: Elbow R Elbow crease (cm): 25.7 L Elbow crease (cm): 20.3 Elbow/Wrist AROM: Limitations as noted Limitations as noted: Right UE AROM R Wrist Extension: (unable to extend wrist since surgery) Education: Education Learning Preferences: Demonstration;Explanation;Performance;Printed Materials Barriers: None Learning/educational needs: Home exercise program;Plan of Care;Brace Fit Education Provided: Yes, see treatment interventions for education provided Education Provided To: Patient (and son) Education Mode/Type: Demonstration;Explanation/Discussion;Literature/Printed Materials;Performance;Teach Back Response to Education/Teach Back: States/Identifies;Return Demonstration TREATMENT: Evaluation Therapeutic Exercise: 1: AROM right elbow flex/ext AROM, no full flexion for 3+ weeks, elbow extension with gravity assist 2: AROM right finger flexor tendon glides with assist of finger extension with left hand 3: AROM right sup/pro 4: patient instructed on edema control 5: patient instructed instructed on use of ice to decrease pain/edema 6: patient provided with cubital tunnel elbow splint and wrist splint, billed through cast department. Instructed on wear/care, don/doff Skilled Intervention: Patient was educated in proper exercise technique and purpose for exercises. Skilled judgment was provided in selection of appropriate interventions. Provided written instruction for home exercise program to facilitate proper performance and compliance. Correct performance of therapeutic exercises was facilitated with verbal and tactile cuing. Education in use of ice and parameters for samea. Billing: [facility]: Evaluation - Moderate Complexity (38696) Therapeutic Exercise (92006): 1:1 time: 20 minutes (1 unit: 8-22 mins) Total time: 60 minutes VIDA Vann/L, CHT CNTHERAPY Observed: 12/10/2017 Status: COMPLETED Source: [place] 11:00 AM [facility] REPOSITORY OT/PT/Speech Visit (OTIN) SUSANNA STEPHENS ([id number]) 1960 F BLD Date Time Provider Department 12/10/17 11:00 AM YASMIN FLORES(OTR/Roxi) PRETTY[place] Date Time Provider Department Center 12/10/2017 11:00 AM [id number] FLORES(*OTIN [facility] Indp Reason for Visit: OT EVAL [748] OT Discharge [750] Reason For Visit History Recorded Primary Visit Diagnosis:Pain in right elbow [M25.521] Other Visit Diagnoses:Rheumatoid arthritis involving right elbow with positive rheumatoid factor (HCC) [M05.721] Localized edema [R60.0] Allergies As of Date: 12/10/2017 Noted Allergy Reaction ADHESIVE 07/03/2017 14 - Other: See Comments Comments: Blood blisters LATEX 07/03/2017 14 - Other: See Comments Comments: Blood blisters NSAIDS (NON-STEROIDAL ANTI-INFLAM*11/14/2017 14 - Other: See Comments Comments: kidney problem PENICILLIN 07/03/2017 14 - Other: See Comments Comments: tachycardia Date Reviewed: 12/10/2017 Reviewed by: Kika Muñoz - Fully Assessed Prescriptions as of 12/10/2017 Sig: DOCUSATE SODIUM 100 MG CAPSULE Take 1 capsule by mouth twice* ONDANSETRON 4 MG DISINTEGRATI* Take 1 tablet by mouth every * ROPIVACAINE NERVE BLOCK 0.2% * Per Acute Pain tTeam Basal* X OXYCODONE-ACETAMINOPHEN 5 MG-* Take 2 tablets by mouth every* LISINOPRIL 5 MG TABLET Take 1 tablet by mouth once d* INSULIN LISPRO 100 UNIT/ML DESAI* Use as directed with insulin * Progress Notes: KATHERINE Vann, T 12/10/2017 1:25 PM Signed Episode Visit Count: 1 Start of Care Date: 12/10/17 Onset Date: 12/04/17 Plan of Care Certification Date: 12/10/17 Patient Identified by Name and Date of : Yes [facility]ER[facility]Y OCCUPATIONAL THERAPY EVALUATION PLAN OF CARE: Assessment: Susanna Stephens presents with the chief complaint of right elbow through wrist pain. 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 She presents with impairments of decreased motion, edema and decreased function. She may benefit from skilled occupational therapy services for elbow/wrist splinting, home exercise program, manual treatment and modalities to improve her right elbow/wrist/finger AROM, edema, pain and overall function. Patient was receptive to recommendations, tolerated session fair due to severe pain. Patient's smoking may be a barrier to progress. Prognosis: Fair Goals for Episode of Care created on 12/10/17 through 03/04/18 1) Patient will decrease pain in right elbow/wrist to 1-2/10 during bathing/dressing activity/by end of OT treatment. 2) Patient will independently demonstrate home exercise program ongoing throughout OT course. 3) Patient will independently demonstrate scar massage/management in order to decrease scar adherence, normalize sensation by end of OT treatment 4) Patient will independently demonstrate correct application of right elbow/wrist splint don/doff and verbalize understanding of proper wear/care by end of session. 5) Patient will increase AROM in right elbow flexion/ext so that she is able to feed herself with her right hand and reach and retrieve objects 6) Patient will report a good understanding of edema control techniques. 7)Patient will report a good understanding of the use of modalities and orthosis to help manage discomfort and promote healing. Planned Interventions, Frequency, and Duration: Current Frequency: 1x/week Duration: 12 weeks Total Number of Visits Planned: 1 Patient to be see for Prefabricated orthosis fitting;Therapeutic exercise;Manual therapy;Modalities PLAN FOR NEXT VISIT: f/u closer to home, remove elbow vishnu, assess elbow motion Patient demonstrates good understanding of plan of care and treatment. The above goals and plan of care were discussed and agreed upon by patient/family. SUBJECTIVE: Susanna Stephens is a 57 year old female seen today for patient is 6 days s/p right elbow arthroplasty, ulnar nerve decompression/transposition. States she went to the ER on 12/06/09 because she was so swollen. The doctor diagnosed her with lymphedema. She removed her own post-op dressing on 12/07/17 due to high pain and swelling. 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 Patient is 6 days s/p right elbow arthroplasty with ulnar nerve decompression with ulnar nerve transpostion Sensation - Upper Extremity UE Light Touch Sensation: Impaired (c/o tingling in her hand) Hand Evaluation Skin / Wound: Nineveh to be removed Nineveh to be removed comments: 2-3 weeks p/o Edema Location: right elbow Edema Description: Moderate Edema Measurements: Elbow R Elbow crease (cm): 25.7 L Elbow crease (cm): 20.3 Elbow/Wrist AROM: Limitations as noted Limitations as noted: Right UE AROM R Wrist Extension: (unable to extend wrist since surgery) Education: Education Learning Preferences: Demonstration;Explanation;Performance;Printed Materials Barriers: None Learning/educational needs: Home exercise program;Plan of Care;Brace Fit Education Provided: Yes, see treatment interventions for education provided Education Provided To: Patient (and son) Education Mode/Type: Demonstration;Explanation/Discussion;Literature/Printed Materials;Performance;Teach Back Response to Education/Teach Back: States/Identifies;Return Demonstration TREATMENT: Evaluation Therapeutic Exercise: 1: AROM right elbow flex/ext AROM, no full flexion for 3+ weeks, elbow extension with gravity assist 2: AROM right finger flexor tendon glides with assist of finger extension with left hand 3: AROM right sup/pro 4: patient instructed on edema control 5: patient instructed instructed on use of ice to decrease pain/edema 6: patient provided with cubital tunnel elbow splint and wrist splint, billed through cast department. Instructed on wear/care, don/doff Skilled Intervention: Patient was educated in proper exercise technique and purpose for exercises. Skilled judgment was provided in selection of appropriate interventions. Provided written instruction for home exercise program to facilitate proper performance and compliance. Correct performance of therapeutic exercises was facilitated with verbal and tactile cuing. Education in use of ice and parameters for samea. Billing: [facility]: Evaluation - Moderate Complexity (69937) Therapeutic Exercise (62502): 1:1 time: 20 minutes (1 unit: 8-22 mins) Total time: 60 minutes KATHERINE Vann CHT Nancy J Agacinski, OTR/L, CHT 02/10/2018 5:05 PM Signed REHABILITATION AND SPORTS THERAPY OCCUPATIONAL THERAPY DISCONTINUANCE OF CARE Plan of Care Period: Start of Care Date: 12/10/17 Last Visit Date: 12/10/17 Therapy Program: Patient did not return for follow up care as planned. Please refer to last visit note for interventions provided for this episode of care. Assessment: Unable to formally assess goal achievement due to non-compliance with therapy plan of care. Reason for Discontinuation of Care: Patient has not returned to therapy or scheduled additional follow-up appointments. KATHERINE Vann CHT Scan on: 12/10/2017 by: Alexia Provider [CCFPROV] [employer]: [facility] ID: [id number] 12/10/2017 10:20 AM Author: ALEXIA PROVIDER Signed by ALEXIA PROVIDER on 12/19/2017 at 9:36 AM Document text: Display document [id number] only Annotated image of OT HAND POST-OP EX'S PG3-ELBOW last updated by Yasmin Flores (Otr/L) on 12/10/2017 12:02 PM Annotated image of OT HAND POST-OP EX'S PG5-HAND last updated by Yasmin Flores (Otr/L) on 12/10/2017 12:02 PM CNOV Observed: 12/10/2017 Status: COMPLETED Source: [place] 11:00 AM [facility] REPOSITORY Office Visit (INOHIN) SUSANNA STEPHENS ([id number]) 1960 F D Date Time Provider Department 12/10/17 11:00 AM KIKA MUÑOZ During your visit today, we recorded the following information about you: Kika Muñoz MD PhD 12/10/2017 4:45 PM Signed Kika Muñoz MD, PhD, [facility] [address] [place], [place] [id number] , December 10, 2017 Note: This dictation was created using voice recognition software and using medical terminology intended to be used for medical purposes by other health health care coach. CHIEF COMPLAINT: No chief complaint on file.. 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 Susanna Stephens is a 57 year old female who returns today post surgery on 12/04. All wounds are healing as expected. 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 We will follow this over time and hopefully it's a temporary neuropraxia. She'll keep working on passive finger and wrist range of motion and use a cockup wrist splint. Postoperative care will proceed as per planned protocol. Ms. Susanna Stephens was advised as to contrast therapies and/or to take analgesics/anti-inflammatories as needed and all contraindications were reviewed. Supporting Information Below: Medications: Current Outpatient Prescriptions: docusate sodium (COLACE) 100 mg capsule Take 1 capsule by mouth twice daily. oxyCODONE-acetaminophen (PERCOCET) 5-325 mg tablet Take 2 tablets by mouth every 6 hours as needed for Pain for up to 7 days. for pain.Major orthopaedic surgery - exempt from narcotic limiting laws ondansetron orally disintegrating (ZOFRAN ODT) 4 mg disintegrating tablet Take 1 tablet by mouth every 8 hours as needed for Nausea/Vomiting. ropivacaine nerve block 0.2% - 200 mL Per Acute Pain tTeamBasal Rate (Continuous Dose): 8 mL/hrPatient Bolus Dose (Demand Bolus): 12 mLBolus Interval: 60 MinutesBolus Doses per Hour: 1 doses/hr lisinopril (ZESTRIL, PRINIVIL) 5 mg tablet Take 1 tablet by mouth once daily. insulin lispro (HUMALOG) 100 unit/mL injection Use as directed with insulin pump-managed by MARIZA Tovar CNP No current facility-administered medications for this visit. Allergies: Adhesive; Latex; Nsaids (Non-Steroidal Anti-Inflammatory Drug); Penicillin Current allergies as of this encounter: Adhesive; Latex; Nsaids (Non-Steroidal Anti-Inflammatory Drug); Penicillin Current Outpatient Prescriptions: gabapentin (NEURONTIN) 100 mg capsule TAKE ONE (1) BY MOUTH AT BREAKFAST, ONE (1) AT LUNCH AND ONE (1) AT DINNER. YOU MAY INCREASE BY ONE (1) PILL EACH WEEK TO A MAXIMUM OF THREE (3) PILLS, THREE (3) TIMES A DAY. docusate sodium (COLACE) 100 mg capsule Take 1 capsule by mouth twice daily. oxyCODONE-acetaminophen (PERCOCET) 5-325 mg tablet Take 2 tablets by mouth every 6 hours as needed for Pain for up to 7 days. for pain.Major orthopaedic surgery - exempt from narcotic limiting laws ondansetron orally disintegrating (ZOFRAN ODT) 4 mg disintegrating tablet Take 1 tablet by mouth every 8 hours as needed for Nausea/Vomiting. ropivacaine nerve block 0.2% - 200 mL Per Acute Pain tTeamBasal Rate (Continuous Dose): 8 mL/hrPatient Bolus Dose (Demand Bolus): 12 mLBolus Interval: 60 MinutesBolus Doses per Hour: 1 doses/hr lisinopril (ZESTRIL, PRINIVIL) 5 mg tablet Take 1 tablet by mouth once daily. insulin lispro (HUMALOG) 100 unit/mL injection Use as directed with insulin pump-managed by MARIZA Tovar CNP No current facility-administered medications for this visit. This office note has been dictated. Clinical note will follow in 7 - 10 days. Kika Muñoz MD, PhD Referring Provider: SELF [200] Allergies As of Date: 12/10/2017 Noted Allergy Reaction ADHESIVE 07/03/2017 14 - Other: See Comments Comments: Blood blisters LATEX 07/03/2017 14 - Other: See Comments Comments: Blood blisters NSAIDS (NON-STEROIDAL ANTI-INFLAM*11/14/2017 14 - Other: See Comments Comments: kidney problem PENICILLIN 07/03/2017 14 - Other: See Comments Comments: tachycardia Date Reviewed: 12/10/2017 Reviewed by: Kika Muñoz - Fully Assessed Primary Visit Diagnosis:Injury of right radial nerve, unspecified injury location, initial encounter [S54.21XA] Other Visit Diagnoses:Rheumatoid arthritis involving right elbow with positive rheumatoid factor (HCC) [M05.721] Elbow joint replacement status, right [Z96.621] Order(s):gabapentin (NEURONTIN) 100 mg capsuleTAKE ONE (1) BY MOUTH AT BREAKFAST, ONE (1) AT LUNCH AND ONE (1) AT DINNER. YOU MAY INCREASE BY ONE (1) PILL EACH WEEK TO A MAXIMUM OF THREE (3) PILLS, THREE (3) TIMES A DAY.Disp: 90 capsuleRfl: 0 oxyCODONE-acetaminophen (PERCOCET) 5-325 mg tabletTake 1 tablet by mouth every 4 hours as needed for Pain for up to 7 days. for pain. Major orthopaedic surgery - exempt from narcotic limiting lawsDisp: 42 tabletRfl: 0 XR ELBOW SPECIAL VIEWS AP/LAT/OTHER RT [[id number]] Order #: [id number] FUTURE Prescriptions as of 12/10/2017 Sig: GABAPENTIN 100 MG CAPSULE TAKE ONE (1) BY MOUTH AT NINO* OXYCODONE-ACETAMINOPHEN 5 MG-* Take 1 tablet by mouth every * DOCUSATE SODIUM 100 MG CAPSULE Take 1 capsule by mouth twice* ONDANSETRON 4 MG DISINTEGRATI* Take 1 tablet by mouth every * ROPIVACAINE NERVE BLOCK 0.2% * Per Acute Pain tTeam Basal* LISINOPRIL 5 MG TABLET Take 1 tablet by mouth once d* INSULIN LISPRO 100 UNIT/ML DESAI* Use as directed with insulin * Problem List As Of Date 12/10/2017 Noted Resolved Rheumatoid arthritis involving multiple sites (*INVALID FOR* Coronary artery disease of [place] artery of [place]*INVALID FOR* Type 1 diabetes mellitus without complication (*INVALID FOR* Chronic pain of multiple sites [R52, G89.29] INVALID FOR* Tobacco use [Z72.0] Rheumatoid arthritis involving right elbow with*INVALID FOR* BMI less than 19,adult [Z68.1] INVALID FOR* Pre-op testing [Z01.818] INVALID FOR* More... Elbow joint replacement status, right [Z96.621] INVALID FOR* Pain in right elbow [M25.521] INVALID FOR* Injury of right radial nerve [S54.21XA] INVALID FOR* Localized edema [R60.0] INVALID FOR* Prescriptions ordered this encounter Disp Refills Start End GABAPENTIN 100 MG CAPSULE 90 c* 0 12/10/2017 01/09/2018 Class: Print RX Sig: TAKE ONE (1) BY MOUTH AT BREAKFAST, ONE (1) AT LUNCH AND ONE (1) AT DINNER. YOU MAY INCREASE BY ONE (1) PILL EACH WEEK TO A MAXIMUM OF THREE (3) PILLS, THREE (3) TIMES A DAY. OXYCODONE-ACETAMINOPHEN 5 MG-325 MG * 42 t* 0 12/10/2017 12/17/2017 Class: Print RX Route: ORAL Sig: Take 1 tablet by mouth every 4 hours as needed for Pain for up to 7 days. for pain. Major orthopaedic surgery - exempt from narcotic limiting laws Medications Discontinued During This Encounter oxyCODONE-acetaminophen (PERCOCET) 5* 50 t* 0 12/05/2017 12/10/2017 Class: Print RX Route: ORAL Sig: Take 2 tablets by mouth every 6 hours as needed for Pain for up to 7 days. for pain. Major orthopaedic surgery - exempt from narcotic limiting laws Disc: Reason for discontinue is not on file. Disposition: Return in about 6 weeks (around 01/21/2018). Follow-up and Disposition History Recorded Encounter Status:Closed by WANDA MCCORMICK, KIKA PHD on 12/10/17 PROGRESS Observed: 12/10/2017 Status: COMPLETED Source: [place] 10:28 AM [facility] REPOSITORY HNO ID: [id number] Author: Alva Crenshaw Rt Service: (none) Author Type: (none) Type: Progress Notes Filed: 12/10/2017 10:28 AM Note Text: Radiology Service Progress Note PATIENT NAME: Susanna Stephens DATE OF SERVICE: December 10, 2017 TIME: 10:28 AM PATIENT IDENTITY VERIFICATION COMPLETED USING TWO (2) METHODS: Patient confirmed name verbally and ID band matches.. PATIENT GENDER DATA: Female. status: : No status: NO. PATIENT RELEVANT IMPLANT DATA REVIEWED: Yes RADIOLOGY DEPARTMENT: General X-ray: Exam(s) Completed: Upper Extremity X-Ray(s): Elbow, right : PERIPHERAL IV DATA: Not applicable SIGNED BY: Alva Crenshaw Rt December 10, 2017 10:28 AM XR ELBOW 3V AP/LAT/OTHER Observed: 12/10/2017 Status: F Source: [place] RT 10:19 AM [facility] REPOSITORY * * *Final Report* * * DATE OF EXAM: Dec 10 2017 10:19AM CCX 5325 - XR ELBOW 3V AP/LAT/OTHER RT / PROCEDURE REASON: multiple diagnoses * * * * Physician Interpretation * * * * HISTORY: Rheumatoid arthritis with rheumatoid factor of right elbow without organ or systems involvement Encounter for other preprocedural examination TECHNOLOGIST PROVIDED HISTORY (if applicable): elbow replacement 1 week ago . she removed cast and wants see if she is doing ok TECHNIQUE: XR ELBOW 3V AP/LAT/OTHER RT RESULT: Right elbow 3 views, compared to December 04. Plaster has been removed. Posterior vishnu remain. There is persistent soft tissue swelling. Elbow arthroplasty hardware with cemented humeral and ulnar components are unchanged in appearance without signs of loosening or failure. Status post radial head resection. There are mineralizations about the joint consistent with developing heterotopic ossifications and small residual postoperative fragments. IMPRESSION: STATUS POST RECENT RIGHT ELBOW ARTHROPLASTY. Zipper Trimmer: SHANNON Transcribe Date/Time: Dec 10 2017 1:18P Dictated by : ANTONIO FREY MD This examination was interpreted and the report reviewed and electronically signed by: ANTONIO FREY MD on Dec 10 2017 1:20PM EST [id number] EMERGENCY DEPARTMENT Observed: 12/06/2017 Status: F Source: [place] SUMMARY 11:46 PM [facility] REPOSITORY [facility] Medical Records Department [address] [place] [address] Emergency Department Summary 12/06/17 [id number] MR#: [id number] Acct: [id number] Name: SUSANNA STEPHENS Rep #: [id number] : 1960 57 From: Sachin Guzman MD PCP: Juan Lau MD Status: REG ER - ER Visit Summary Date of Service: 12/06/17 Chief Complaint: Right upper extremity pain History of Present Illness: The patient is a 57 F status post right total elbow arthroplasty December 04 at the [facility]. Patient states she has severe rheumatoid arthritis and reason for elbow arthroplasty. She denies fever, chills night sweats. She denies paresthesia, anesthesia motor is. She does complain of swelling of her hand and digits. She states she is kept her extremity elevated. When she demonstrated I informed her that she is not elevating her right upper extremity enough. She states she cannot because of pain that she localizes proximal the posterior long-arm splint. She denies any paresthesia, anesthesia motor exam or digits. She denies chest pain or shortness of breath. She denies any pleuritic chest pain. She was prescribed Percocet for her discomfort. Review of old records is remarkable for past medical history of diabetes, hypertension, end-stage renal disease (stage III), rheumatoid arthritis and peptic ulcer disease. Past surgical history is marked for cholecystectomy, cataracts and right elbow arthroplasty. Physical Examination: Vital signs are normal. She is not febrile nor is she hypoxic. There is significant lymphedema of the hand and digits. There is no vascular compromise. Capillary refill is normal. Sensations intact. Movement of her digits does not cause pain. The distal third of her splint has been removed and or destroyed because of swelling. She believes her splint is too tight. Heart is regular without murmur, gallop or rub. S1 and S2 are normal. Lungs are clear to auscultation with good movement of air bilaterally. Where patient complains of pain there is no redness, warmth or induration. There is no evidence of irritation from the splint. Test Results: Three-view x-ray of the elbow was obtained which reveals right prosthetic hip with no soft tissue swelling, subcutaneous air or any other acute abnormality. Emergency Department Course and Treatment: IV was established she was medicated with 4 mg of morphine and 4 mg of Zofran IV push. She did not receive NSAIDs because of her history of stage III renal disease. Treatment Plan: Patient's arm was elevated to proper position and she was medicated. Patient will be given the option to stay in the emergency department and reassessed in 2 3 hours after proper elevation or she may go home since there is no neurovascular findings. Disposition: Pending patient's response to question of her desire to go home versus staying in the department and reevaluate in 3 hours Impression: 1. Postop right upper extremity pain 2. Dependent edema secondary to noncompliance 3. History of rheumatoid arthritis 4. History of diabetes 5. History of hypertension 6. History of end-stage renal disease This note was generated with citiserviation software. It may contain incorrect words, spelling, and punctuation that were not noted in review of the chart prior to signing ED Disposition - Plan for ED Patient: Disposition: Home or Assisted Living Chief Complaint: Upper Extremity Injury Instructions: ED Post Op Pain, ED Lymphedema Referrals: Juan Lau MD [Primary Care Provider] - Additional Instructions: The next several days you need to keep your right elbow above the level of your heart; otherwise, you will have recurrence of your swelling. What to do if you have Problems For any increased pain, shortness of breath, bleeding, nausea or vomiting, chest pain, or any unexpected problems, contact your Primary Care Provider. Call [facility] ([phone]) or report to the closest Emergency Room. Call 911 if necessary. 12/06/17 4146 <Electronically signed by Sachin Guzman MD> Date Sachin Guzman MD Cosigner Signature (If Indicated): Date CC: Juan Lau MD ELBOW MIN 3 VIEWS Observed: 12/06/2017 Status: F Source: [place] 11:12 PM [facility] REPOSITORY [facility] Imaging Services [address] [place] [address] Elbow min 3 Views MR#: [id number] Acct: [id number] Name: SUSANNA STEPHENS Rep #: [id number] : 1960 F 57 From: Lauryn Goodwin MD PCP: Juan Lau MD Status: DEP ER Study: Elbow min 3 Views Date of Exam: 12/06/17 Exam# [id number] Ordering Dr: Sachin Guzman MD STUDY: X-RAY - RIGHT ELBOW REASON FOR EXAM: Female, 57 years old. Pain and swelling, recent surgery TECHNIQUE: Three view(s) of the elbow were obtained. COMPARISON: None. FINDINGS: Bones: There is a prosthesis in the distal right humerus. There is a prosthesis in the proximal right ulna. Joints: The visualized joints are normal in appearance. Soft tissues: Skin vishnu are present laterally. RAD/Elbow min 3 Views IMPRESSION: There are surgical changes in the right elbow. No acute abnormalities are seen. Bone detail is obscured by overlying cast/splint material. Electronically Signed: Lauryn Goodwin MD at 0:13 EDT Tel Direct: [phone], Service support , CC: Juan Lau MD; Sachin Guzman MD Zipper Trimmer: Signed THERAPY NT Observed: 12/05/2017 Status: COMPLETED Source: [place] 12:54 PM [facility] REPOSITORY O ID: [id number] Author: VIDA Ramos/Roxi Service: Occupational Therapy Author Type: Occupational Therapist Type: Therapy (PT/OT/Speech/Resp) Filed: 12/05/2017 1:34 PM Note Text: Occupational Therapy Evaluation SERVICE DATE: 12/05/2017 SERVICE TIME: 1038 to 1102 ROOM: [facility] Recommended Discharge Disposition: Home Anticipated Discharge Needs: Physical Assist at Home Physical Assist at Home for: Cleaning;Laundry;Transportation;Shopping;Self Care;Meals OT Recommendations to Nursing: To Bathroom for ADL?s /and or Toileting;OOB for meals OT 6 Clicks Score: 22 Precautions/Activity Restrictions: Weight Bearing Restrictions;Other: See Comments (sling for comfort) Extremity With Weight Bearing Restricted: Right Upper Extremity Right Upper Extremity Weight Bearing Status: NWB ASSESSMENT: Patient presents with impaired Activity Tolerance and ADLs. Anticipate that patient will be safe to return home from an OT perspective with spouses assist. Pt does not require any further skilled therapy during hospital stay since she has received all needed OT instruction today and she does not have any more OT goals to address. Patient Disposition at Start of Session: Supine in Bed Patient Disposition at End of Session: Supine in Bed Tolerated Full Session Occupational Therapy Problem List: Education Deficit;Impaired Self Care;Decreased Range Of Motion Patient /Caregiver Goals: Go Home Goals for Plan of Care: Demonstrate Competence With Education with: Independent Rehab Potential: Excellent PLAN: Treatment Frequency (times per week): Discontinue Therapy Services Reasons Therapy Services Discontinued: Goals met Treatment Interventions: Education;Self Care / Home Management;Energy Conservation Training Plan of Care developed with: Patient;Caregiver TREATMENT INTERVENTIONS: Therapy Diagnosis: Decreased activities of daily living (ADL) Interventions Provided: Evaluation;Therapeutic Activity (27206) $ Evaluation-Low (75720) Billed Units: 1 unit Therapeutic Activity (97087) Treatment Minutes: 9 1 unit Skilled Intervention(s): OT educated pt in role and purpose of OT evaluation, post operative (elbow) precautions as they relate to UE ADLs , sling management , positioning of R UE in supine and HEP(hand) per Dr Villegas's protocol. Educated on pillow positioning for surgical arm, demo such positioning to pt, with understanding verbalized by pt. Educated on shoulder pendulums to maintain shoulder movement, R hand AROM-pt unable to perform due to nerve block, performed PROM1 set/10 reps. Educated on benefits of such, and demo tech when able to perform AROM. Pt verbalized understanding. Pt issued with padding for neck strap and strap of sling adjusted to allow for improved support/positioning of surgical arm. Educated on tech for UB ADL's. Pt instructed to dress surgical arm first and undress such last. Total Timed Code Treatment Minutes: 9 Total Treatment Time (minutes): 24 FUNCTIONAL G CODE: OT 6 Clicks Score: 22 (12/05/17 1038) Self Care Current Status (G8987): CJ (12/05/17 1038) Self Care Goal Status (G8988): CJ (12/05/17 1038) Self Care Discharge Status (G8989): CJ (12/05/17 1038) Based on clinical assessment and the score on the 6 Clicks Functional Assessment Tool, the G code and corresponding severity modifiers are documented above. SUBJECTIVE: Current Hospital Course: ARTHROPLASTY ELBOW (Right) TRANSPOSITION NERVE ULNAR (Right) OPEN TENOTOMY ELBOW MEDIAL W/DEBRIDEMENT (Right) DECOMPRESSION NERVE ULNAR ELBOW (Right) on 12/04/2017 Patient Report: I have been up this morning. Home Environment Patient Lives With: Significant Other Assistance Available: 24 Hour Prior Functional Level: Within Functional Limits OBJECTIVE: CURRENT FUNCTIONAL STATUS: Current Activities of Daily Living Assist Level Feeding Modified Independent Grooming Modified Independent Bathing Upper Body Minimal Assistance Bathing Lower Body Modified Independent Dressing Upper Body Minimal Assistance Dressing Lower Body Modified Independent Toileting Modified Independent Instrumental Activities of Daily Living Assist Level Meal/Beverage Prep Light Cleaning Laundry Medication Management with Strategies Functional Mobility Assist Level Rolling Supine to Sit Modified Independent Sit to Supine Modified Independent Scooting Modified Independent Sit to Stand Independent Stand to Sit Independent Bed to Chair Toilet/Commode Independent Functional Mobility Independent Please see discipline specific clinical documentation flowsheet for complete details for this therapy evaluation/treatment. SIGNATURE: VIDA Ramos/Roxi PATIENT NAME: Susanna Stephens DATE: December 05, 2017 TIME: 1:23 PM PAGER: [phone] NURSING PROG Observed: 12/05/2017 Status: COMPLETED Source: [place] 12:45 PM [facility] REPOSITORY HNO ID: [id number] Author: Neida Diaz) MENDY No Service: (none) Author Type: Registered Nurse Type: Nursing Progress Note Filed: 12/05/2017 1:13 PM Note Text: Nursing Progress Note Patient Name: Susanna Stephens Patient Location: H070 015/H070-16 Daily Note: Pt given discharge instructions. Pt discharge home. Pt had no questions. Pt left unit by wheelchair This note was completed by: Neida Marybel, RN CONSULT Observed: 12/05/2017 Status: COMPLETED Source: [place] 9:20 AM [facility] REPOSITORY HNO ID: [id number] Author: Reema Patel (Recreation Therapist) James Service: Endocrinology Author Type: Nurse Practitioner Type: Consults Filed: 12/05/2017 10:55 AM Note Text: INITIAL CONSULT ENDOCRINOLOGY SERVICE DATE: 12/05/2017 SERVICE TIME: 9:21 AM Requesting Provider: Kika Muñoz Opinion/Advice Regarding: Management of Diabetes Mellitus Type 1 with hyperglycemia Service: DCT (Diabetes Care Team) Subjective HPI: Ms. Susanna Stephens is a 57 year old female with a 36 year history of Diabetes Mellitus Type 1 with hyperglycemia who was admitted on 12/04/2017 for right elbow arthroplasty. Past medical history significant for CAD, blindness right eye, endometriosis, HPL, OA, osteoporosis. Patient does not exercise. Last HbA1c was 6.9% on 09/26/2017. She has a family history of diabetes in her father. She is followed by MARIZA Tovar CNP for her diabetes. DIABETIC COMPLICATIONS: Retinopathy: Blind right eye Pre-Admission DM Regimen: CSII with Humalog Basal rates: 24hr total 9.6u 00:00 0.4u Bolus: Insulin: CHO ratio 00:00 1:22 16:30 1.20 20:00 1.22 Sensitivity 70 Target 110-130 AIT 4 Self Monitoring Blood Glucose: Type of Monitor: Contour Frequency of Monitorin-5 times a day BG Values: Remains < 170mg/dl Hypoglycemia: Infrequent PAST MEDICAL HISTORY Diagnosis Date - Blindness of one eye with normal vision in contralateral eye right - CAD (coronary artery disease) Dr. Zak Boykin - Diabetes type 1, controlled ([facility]) Insulin pump-MARIZA Tovar - Endometriosis s/p hysterectomy - Hypercholesteremia - Insulin pump in place - Osteoarthritis - Osteoporosis - Rheumatoid arthritis ([facility]) Dr. De Los Santos, pain management - Tobacco use PAST SURGICAL HISTORY Procedure Laterality Date - SECTION HX x 2 - HYSTERECTOMY HX - PAST SURGICAL HISTORY OF left eye surgery - PAST SURGICAL HISTORY OF right knee replacement - PAST SURGICAL HISTORY OF left knee surgery - PAST SURGICAL HISTORY OF Removal of strawberry gemma after - TOTAL HIP REPLACEMENT Left FAMILY HISTORY Problem Relation Age of Onset - Lipids Mother - Heart Mother - Hypertension Mother - Diabetes Father - Stroke Father - Cancer Brother thyroid cancer Social History Substance Use Topics - Smoking status: Current Every Day Smoker Packs/day: 1.00 Years: 42.00 Types: Cigarettes - Smokeless tobacco: Never Used - Alcohol use No MEDICATIONS: Prescriptions Prior to Admission: lisinopril (ZESTRIL, PRINIVIL) 5 mg tablet Take 1 tablet by mouth once daily. Disp: 30 tablet Rfl: 5 12/03/2017 at Unknown time benzonatate (TESSALON PERLE) 100 mg capsule Take 1 capsule by mouth three times daily as needed for up to 10 days. Disp: 30 capsule Rfl: 0 11/02/2017 insulin lispro (HUMALOG) 100 unit/mL injection Use as directed with insulin pump-managed by MARIZA Tovar CNP Disp: Rfl: 12/04/2017(humalog 50 units per ml) at Unknown time Current hospital medications: ropivacaine (PF) 0.2 % in NaCl 0.9% 1,000 mL 8 mL/hr PERIPHERAL NERVE CATHETER ONE TIME ropivacaine nerve block 0.2% - 200 mL PERIPHERAL NERVE CATHETER CONTINUOUS ropivacaine 0.2% nerve block CLINICIAN DOSE 5 mL 5 mL PERIPHERAL NERVE CATHETER q 2 H PRN 0.9% NaCl 2-10 mL 2-10 mL INTRAVENOUS q 12 H ondansetron (PF) 4 mg injection (ZOFRAN) 4 mg INTRAVENOUS q 6 H PRN aluminum-magnesium hydroxide-simethicone 200-200-20 mg/5 mL 30 mL (MAALOX,MYLANTA,MAG-AL PLUS) 30 mL ORAL q 2 H PRN magnesium hydroxide 400 mg/5 mL 30 mL (MOM) 30 mL ORAL DAILY PRN docusate sodium 100 mg cap(s) (COLACE) 100 mg ORAL BID diphenhydrAMINE 25 mg injection (BENADRYL) 25 mg INTRAVENOUS q 6 H PRN bisacodyl 10 mg suppository (DULCOLAX) 10 mg RECTAL DAILY PRN therapeutic multivitamin 1 tablet tab(s) (THERA VITAMIN) 1 tablet ORAL DAILY ferrous sulfate 325 mg tab(s) 325 mg ORAL BID w MEALS ascorbic acid (vitamin C) 500 mg tab(s) (VITAMIN C) 500 mg ORAL BID w MEALS oxyCODONE-acetaminophen 5-325 mg 1-2 tablet (PERCOCET) 1-2 tablet ORAL q 4 H PRN morphine 2-4 mg injection 2-4 mg INTRAVENOUS q 3 H PRN dextrose 40 % 15 g 15 g ORAL PRN glucagon 1 mg injection (GLUCAGEN) 1 mg INTRAMUSCULAR PRN dextrose 50% in water 25 mL syringe 12.5 g INTRAVENOUS PRN NaCl 0.9% iv infusion 60 mL/hr INTRAVENOUS CONTINUOUS insulin lispro 300 Units per 3mL vial for insulin pump (SELF ADMINISTERED) 300 Units SUBCUTANEOUS CONTINUOUS ALLERGIES Allergen Reactions - Adhesive Other: See Comments Blood blisters - Latex Other: See Comments Blood blisters - Nsaids (Non-Steroid* Other: See Comments kidney problem - Penicillin Other: See Comments tachycardia COMPLETE REVIEW OF SYSTEMS: WEIGHT: Stable EYES: Blind right eye HYDRATION: No polydypsia or thirst CARDIAC: No chest pain, dyspnea, palpitations or edema RESPIRATORY: Negative for cough, wheezing or shortness of breath GI: no nausea, fullness, vomiting, diarrhea, constipation, GI bleeding or heartburn : no dysuria, frequency, hesitancy, hematuria, polyuria or nocturia SKIN: normal MUSCULOSKELETAL: No joint pain, + stiffness, No swelling, cramping or weakness NERVOUS SYSTEM: no numbness, paresthesias, weakness, cramping, burning or dizziness Objective PHYSICAL EXAM: BP 102/54 Pulse 62 Temp 36.9 ?C (98.4 ?F) (Oral) Resp 18 Ht 173 cm (5' 8.11) Wt 50 kg (110 lb 3.7 oz) SpO2 99% BMI 16.71 kg/m2 Body mass index is 16.71 kg/(m2). Appearance: Well appearing, alert, in no acute distress, well-hydrated, well nourished. Eyes: PERRLA, conjunctiva and sclera normal Neck: Supple, no adenopathy; thyroid symmetric, normal size, no bruits Heart: RRR Lungs Lungs clear to auscultation. No wheezing, rhonchi, rales Abdomen bowel sounds normoactive, no bruits, soft, non-tender, non-distended, no tenderness to palpation Extremities: No deformities, edema, skin discoloration, clubbing or cyanosis. Good capillary refill. Neuro: Awake, alert and oriented x 3 Feet: No deformities, ulcers, calluses and normal distal pulses Skin: Color, texture, turgor normal. No rashes or lesions Laboratory Results: Hemoglobin (g/dL) Date Value 12/04/2017 11.3 Hematocrit (%) Date Value 12/04/2017 34.1 WBC (k/uL) Date Value 12/04/2017 8.01 Platelet Count (k/uL) Date Value 12/04/2017 201 Potassium (mmol/L) Date Value 11/29/2017 5.2 Sodium (mmol/L) Date Value 11/29/2017 138 Creatinine (mg/dL) Date Value 11/29/2017 1.12 BUN (mg/dL) Date Value 11/29/2017 20 Glucose (mg/dL) Date Value 11/29/2017 206 Lipids: Cholesterol, Total (mg/dL) Date Value 07/03/2017 210 HDL Cholesterol (mg/dL) Date Value 07/03/2017 60 LDL Cholesterol (mg/dL) Date Value 07/03/2017 126 Triglyceride (mg/dL) Date Value 07/03/2017 120 Albumin (g/dL) Date Value 07/03/2017 4.3 Bilirubin, Total (mg/dL) Date Value 07/03/2017 0.2 Alkaline Phosphatase (U/L) Date Value 07/03/2017 67 AST (U/L) Date Value 07/03/2017 17 ALT (U/L) Date Value 07/03/2017 11 Protein, Total (g/dL) Date Value 07/03/2017 7.2 LV Ejection Fraction (%) Date Value 08/19/2017 67 Hemoglobin A1C (no units) Date Value 09/26/2017 6.9 Diabetes Management in Hospital Hospital BG values or ranges: Date AM LUNCH DINNER HS 3AM 12/04 323 313(H4) 288 311 4/ 131(pt meter) Diabetes Management Prior to the Consultation/HPI: CSII Other Pertinent Medications: Continuous Infusion: None Steroids: None Diet: Regular : Impression/Recommendations Patient with uncontrolled Diabetes Mellitus Type 1 with hyperglycemia s/p Right elbow arthroplasty 12/04 whom we have been consulted for glycemic control. Pt has now been using her own meter for accuchecks. Orders placed to have accuchecks done by nursing per hospital policy. Pt attests to poor glycemic control as she was off her pump and now improved. Will continue with current pump settings as BG now well controlled since pump resumed. Plan for discharge home today. RECOMMENDATIONS: CSII with Humalog Basal rates: 24hr total 9.6u 00:00 0.4u Bolus: Insulin: CHO ratio 00:00 1:22 16:30 1.20 20:00 1.22 Sensitivity 70 Target 110-130 AIT 4 ? Accuchecks: AC/HS ? Recommend CHO Controlled Diet ? Consult CDE regarding: DM Education including: None DM DISCHARGE PLAN: ? Insulin pump with Humalog ? Check blood sugars Four times a Day ? Exercise as prescribed by cardiology/ primary team ? Follow up with assembler billiard table and passenger representative as recommended. ? Patient will need [facility] at the [facility] ([facility]) or with her home angle furnaceman/PCP in 1-2 weeks after discharge. ? Diabetes Care Team Hospital Discharge Help Line: [phone] SIGNATURE: Reema Ramirez APRN.CNP PATIENT NAME: Susanna Stephens DATE: December 05, 2017 TIME: 9:21 AM PAGER/CONTACT #: [phone] PROGRESS Observed: 12/05/2017 Status: COMPLETED Source: [place] 7:30 AM [facility] [place] REPOSITORY [facility] ID: [id number] Author: Chalino Trujillo (Fel) Service: Orthopaedic Surgery Author Type: Fellow Type: Progress Notes Filed: 12/05/2017 7:32 AM Note Text: ORTHOPAEDIC POSTOP PROGRESS NOTE SERVICE DATE: 12/05/2017 SERVICE TIME: 7:30 AM Subjective Patient states that they are comfortable Denies elbow pain. Denies incisional pain. Objective VITAL SIGNS: BP 117/58 Pulse 68 Temp 37.2 ?C (99 ?F) (Oral) Resp 16 Ht 173 cm (5' 8.11) Wt 50 kg (110 lb 3.7 oz) SpO2 99% BMI 16.71 kg/m2 INTAKE AND OUTPUT: Intake/Output Summary (Last 24 hours) at 12/05/17 0730 Last data filed at 12/05/17 0600 Gross per 24 hour Intake 1910 ml Output 1363 ml Net 547 ml PHYSICAL EXAMINATION: Right Upper Extremity: Radial pulse present Splint and block in situ. Moving fingers well comfortable Problem Review and Assessment: Patient monitored, no new events overnight. LABS: Recent Labs 12/04/17 1616 HB 11.3* HCT 34.1* DATA: Diagnostic tests reviewed for today's visit: Most recent labs and imaging results. Assessment/Plan S/P Procedure(s) (LRB): ARTHROPLASTY ELBOW (Right) TRANSPOSITION NERVE ULNAR (Right) OPEN TENOTOMY ELBOW MEDIAL W/DEBRIDEMENT (Right) DECOMPRESSION NERVE ULNAR ELBOW (Right) on 12/04/2017 POSTOP PLAN: Physical Therapy evaluation Pain control Case Management for discharge planning ACTIVE PROBLEM LIST Rheumatoid Arthritis Involving Multiple Sites (Hcc) Coronary Artery Disease of [place] Artery of [place] Heart With Stable Angina Pectoris (Hcc) Type 1 Diabetes Mellitus Without Complication (Hcc) Chronic Pain of Multiple Sites Tobacco Use Rheumatoid Arthritis Involving Right Elbow With Positive Rheumatoid Factor (Hcc) Bmi Less Than 19,Adult Pre-Op Testing Elbow Joint Replacement Status, Right POST OPERATIVE COMPLICATIONS: Complicated by: uneventful/none SIGNATURE: Chalino Trujillo MD PATIENT NAME: Susanna Stephens DATE: December 05, 2017 TIME: 7:30 AM PAGER/CONTACT #: [phone] ETX#[id number] PROGRESS Observed: 12/04/2017 Status: COMPLETED Source: [place] 11:23 PM [facility] REPOSITORY HNO ID: [id number] Author: Jose Grossman Service: Orthopaedic Surgery Author Type: Resident Type: Progress Notes Filed: 12/05/2017 3:00 AM Note Text: Ortho Marketing Project Lead Update S/B: Contacted by clinical team regarding Insulin pump settings. Pt has her pump managed by an OSH SCREEN ROLLER (MARIZA Tovar). Pt does not know her home settings. ? A/R: A 57 year old female s/p R TEA today w/ Dr. Muñoz -Laly c/s for management of complex insulin regimen / pump in setting of DM1, appreciate recs -Remainder of post operative plan per primary rounding team Signed: Jose Grossman MD 12/04/2017 11:23 PM Orthopaedic Surgery, PGY-2 Pager: 2-BONE Ortho Marketing Project Lead Update S/B: Contacted by clinical team regarding blueness of fingers. Patient personally seen and examined. Exam: Pt asleep and resting on entering room, awakens. Long arm splint circumferential over upper arm w/ medial opening and over dorsal forearm w/ volar arm in place. Palpable upper arm compartments soft and compressible. Removed CRISTHIAN, small window in volar forearm w/ soft and compressible volar and dorsal compartment of the forearm to palpation. CRISTHIAN reapplied. No anatomic pain of forearm w/ passive stretch of fingers Neuromuscular function c/w block, can flex the MCPs Surgical dressing in place w/o candi bleeding or exudate Fingers w/ CR <2 secs, pink and warm, well perfused ? A/R: -Continue to monitor pain levels, vascular status -Continue present analgesic regimen -Strict RICE -Remainder of post operative plan per primary rounding team Signed: Jose Grossman MD 12/05/2017 2:56 AM Orthopaedic Surgery, PGY-2 Pager: 2-BONE PLAN OF CARE Observed: 12/04/2017 Status: COMPLETED Source: [place] 10:45 PM [facility] REPOSITORY HNO ID: [id number] Author: Prema (Jailyn Garces Service: Endocrinology Author Type: Fellow Type: Plan of Care Filed: 12/04/2017 10:49 PM Note Text: Per nursing and personal communication with patient through phone appears that she is alert and oriented enough to work her pump. She does not have any idea what her settings are and endorses that she follows with an SCREEN ROLLER out of [facility] and outside of our system. She has had pump for 7+ years. Nurse was able to assist in retrieving data from pump for this technical writer: Basal 00:00 0.4 U/h Bolus Carb Ratio: 00:00 1:22g 16:30 1:20g 20:00 1:22g Sensitivity: 1:70 Target: 110-130 Action Time: 4 Hours, Humalog Medtronic MiniMed Will be formally seen by Endocrinology tomorrow. Prema Garces MD December 04, 2017 10:49 PM [id number] PT ED Observed: 12/04/2017 Status: COMPLETED Source: [place] 8:48 PM [facility] REPOSITORY HNO ID: [id number] Author: Ccf Provider Service: (none) Author Type: Physician Type: Patient Education Filed: 12/04/2017 8:48 PM Note Text: [facility] Patient Education Report --------- Name: SUSANNA STEPHENS Date: 12/04/2017 Time: 8:48 PM Patient Ordered Video: Inpatient Falls from [id number] via phone number [phone] at 8:48 PM NURSING PROG Observed: 12/04/2017 Status: COMPLETED Source: [place] 4:38 PM [facility] REPOSITORY HNO ID: [id number] Author: Kalpana (Rn) MENDY Orellana Service: Nursing Author Type: Registered Nurse Type: Nursing Progress Note Filed: 12/04/2017 5:07 PM Note Text: Nursing Progress Note Patient Name: Suasnna Stephens Patient Location: [place] [address]14 Patient's blood sugar was 312. Dr. Trujillo and Dr. Quintero were both paged since patient does not have a sliding scale on the floor and pump has been off for surgery. was paged to bring pump. Dr. Alvarado is at the bedside and will order Insulin for PACU. Per Dr. Alvarado recheck sugar at round 5:30 and if trending down, can go to RNF. 1653 is back and pump is turned on by patient. This note was completed by: Kalpana Orellana RN ANES POST Observed: 12/04/2017 Status: COMPLETED Source: [place] 4:28 PM [facility] REPOSITORY HNO ID: [id number] Author: Jesus Barrera Service: Anesthesiology Author Type: Anesthesiologist Type: Anesthesia PostOp Filed: 12/04/2017 4:29 PM Note Text: POST ANESTHESIA EVALUATION NOTE SERVICE DATE: 12/04/2017 SERVICE TIME: 4:29 PM : 1960 Vitals: 12/04/17 0815 12/04/17 1537 Temp: 37.1 ?C (98.8 ?F) 36 ?C (96.8 ?F) 12/04/17 0815 12/04/17 1537 12/04/17 1545 12/04/17 1600 BP: 148/71 143/69 116/58 100/57 12/04/17 0815 12/04/17 1537 12/04/17 1545 12/04/17 1600 Pulse: 66 60 71 (!) 54 12/04/17 1537 12/04/17 1545 12/04/17 1600 12/04/17 1604 Resp: 15 16 12 12 12/04/17 0815 12/04/17 1537 12/04/17 1545 12/04/17 1600 SpO2: 100% 98% 96% 98% Validated Vital Signs: Yes POST ANES STATUS: No apparent anesthetic complications. The patient is appropriately hydrated with stable respiratory and cardiovascular status. Patient has safe and adequate airway control. The patient has appropriate pain relief and no significant post operative nausea or vomiting. The patient has achieved baseline mental status. Intra-Operative Events: No Significant Anesthesia Events See the [facility] record for the event detail Further assessment by Anesthesia Service: None Other Remarks: SIGNATURE: Jesus Barrera MD PATIENT NAME: Susanna Stephens DATE: December 04, 2017 TIME: 4:28 PM PAGER/CONTACT #: [phone] NURSING PROG Observed: 12/04/2017 Status: COMPLETED Source: [place] 4:21 PM [facility] REPOSITORY [facility] ID: [id number] Author: Kalpana (Rn) MENDY Orlelana Service: Nursing Author Type: Registered Nurse Type: Nursing Progress Note Filed: 12/04/2017 4:23 PM Note Text: Nursing Progress Note Patient Name: Susanna Stephens Patient Location: H020 014/H020-14 Arrived to PACU in stable condition. Operated R. Arm is numb. Nerve block is running. L. Arm pain is 10 but on the tolerable end and it's always a 10 at home. [employer]ORATORY TECHNICIAN medicated with Fentanyl. Patient stated oxy helps with my arthritis. Pharmacy called to verify percocet order. Currently resting. This note was completed by: Kalpana Orellana RN CBC Collected: 12/04/2017 Status: F Source: [place] 4:16 PM [facility] REPOSITORY TYPE CODE TESTS RESULT OUT OF REFERENCE UNITS RANGE LAB WBC 3.70-11.00 k/uL WBC 8.01 LAB RBC 3.90-5.20 m/uL Low RBC 3.81 LAB HGB 11.5-15.5 g/dL Low Hemoglobin 11.3 LAB HCT 36.0-46.0 % Low Hematocrit 34.1 LAB MCV 80.0-100.0 fL MCV 89.5 LAB MCH 26.0-34.0 pG MCH 29.7 LAB MCHC 30.5-36.0 g/dL MCHC 33.1 LAB RDWCV 11.5-15.0 % RDW-CV 12.6 LAB PLTCT 150-400 k/uL Platelet Count 201 LAB MPV 9.0-12.7 fL MPV 10.5 LAB ABSNUC <0.01 k/uL Absolute nRBC <0.01 Performed By: #### CBC #### [facility] [address] [place], [place] [address] XR ELBOW 2V AP/LAT Observed: 12/04/2017 Status: F Source: [place] RT 3:58 PM [facility] REPOSITORY * * *Final Report* * * DATE OF EXAM: Dec 04 2017 3:58PM ESX [id number] - XR ELBOW 2V AP/LAT RT / PROCEDURE REASON: S/P elbow joint replacement, right * * * * Physician Interpretation * * * * HISTORY: S/P elbow joint replacement, right TECHNIQUE: 2 views right elbow COMPARISON: 09/30/2017 RESULT: Cast material and osteopenia limits evaluation of bony detail. There is new postsurgical change of total elbow arthroplasty with satisfactory alignment on the given views. Suspect postsurgical change from radial head resection although this is suboptimally evaluated. No acute fracture identified. There are posterior skin vishnu and posterior soft tissue swelling. IMPRESSION: NEW POSTSURGICAL CHANGE OF TOTAL ELBOW ARTHROPLASTY Zipper Trimmer: PSCB Transcribe Date/Time: Dec 04 2017 4:12P Dictated by : SABRA PERLA MD This examination was interpreted and the report reviewed and electronically signed by: SBARA PERLA MD on Dec 04 2017 4:15PM EST [id number] OPERATIVE NO Observed: 12/04/2017 Status: COMPLETED Source: [place] 3:50 PM [facility] REPOSITORY [facility] ID: [id number] Author: Kika Muñoz Service: Hand Surgery Author Type: Physician Type: Operative Report Filed: 12/04/2017 3:51 PM Note Text: OPERATIVE NOTE: December 04, 2017 Kika Muñoz MD, PhD, [facility] [place] [address] [place] [address] , Patient: Ms. Susanna Stephens Procedure(s): RIGHT elbow - total elbow arthroplasty. - elbow synovectomy - radial head resection - ulnar nerve decompression/neuroplasty Pre-op Diagnosis: RIGHT elbow RHEUMATOID arthritis Post-op Diagnosis: RIGHT elbow RHEUMATOID arthritis Surgeon(s) and Role: * Kika Muñoz - Primary * Chalino Trujillo (Fel) - Fellow * Benoit Wilks) Ingrid - Fellow No Additional Staff Anesthesia: Monitored Anesthesia Care Tourniquet: See anaesthesia note Specimens: None EBL: 50 ml Implanted tissues or devices: None Findings: Please see dictated operative note for details Complications: None Incision/Procedure Start Time: 12:00 PM Incision Close/Procedure End Time: 3:09 PM Operative Indications: Pain and tenderness Intraoperative Findings: Advanced arthrosis Procedure Details: This patient was brought to the operating room and placed on table in supine position and underwent supraclavicular block with no complication. The patient was put in the lateral decubitus position. The arm was then prepped and draped in the usual manner and tourniquet elevated to 250 mmHg. A posterior, lateral paramidline incision was made. Skin flaps were elevated. Ulnar nerve was heavily scarred along the medial side, this took considerable time to dissect out. A decompression/neuroplasty performed from proximal to the elbow, through the cubital tunnel, into the flexor carpi ulnaris superficially and deeply. It was then protected throughout the rest of the case. Standard posterior triceps tongue approach utilized. A capsulectomy was performed posteriorly. Medial and lateral ligaments were released. Elbow dislocated. Anterior capsule was released. A complete synovectomy performed. A radial head resection was performed with an oscillating saw. Using the [employer] Nexel total elbow system, appropriate cuts reaming and broaching were made to a size #5 humeral stem and size #4 ulna. Full range of motion obtainable with trials on the table. Canals were prepared for standard cementation. A cement plug was placed followed by antibiotic (Tobramycin and vancomycin) impregnated cement. Implants were placed with no difficulty. 1 g of vancomycin powder was placed in the deep wounds. The triceps tongue was approached with #2 FiberWire suture and #0 Vicryl interrupted sutures. The ulnar nerve was put back in its anatomic position. The wound was then again well irrigated. The tissue layers were closed in 2 layers with 0-Vicryl deep and 2-0 Vicryl subcutaneous. Skin vishnu were placed. Wounds were dressed with Xeroform, sterile gauze, and plaster reinforced long-arm splint, 45 degrees of flexion. The operation was performed by myself and my assistants with my direct supervision throughout. Disposition: Ms. Susanna Stephens was tranported to PACU in stable condition. Once stable for discharge from PACU, Ms. Susanna Stephens will be discharged to home. Electronically SIGNED by Licensed Independent Practitioner: Kika Muñoz MD PhD LOG ID: [id number] CNDS Observed: 12/04/2017 Status: COMPLETED Source: [place] 3:23 PM [facility] REPOSITORY [facility] ID: [id number] Author: Chalino Trujillo (Fel) Service: Orthopaedic Surgery Author Type: Fellow Type: Discharge Summaries Filed: 12/08/2017 12:09 PM Note Text: The [address] [address] or ([phone]) CC-CARE C O N F I D E N T I A L I N F O R M A T I O N STANDARD [facility] DOCUMENT DISCHARGE SUMMARY Patient Name: Susanna Stephens Patient Admission Date: 12/04/2017 Discharge Date: 12/05/2017 Disposition: Home/Self Care Physician: Staff Physician: Kika Muñoz; Staff Surgeon: Kika Muñoz Primary Care: Feroz Lau MD Principal Diagnosis: <principal problem not specified> Rheumatoid Arthritis Right Elbow Secondary Diagnoses: Patient Active Hospital Problem List: Pre-op testing (11/15/2017) Elbow joint replacement status, right (12/04/2017) Operations During Hospitalization: 12/04/2017: Procedure(s) (LRB): ARTHROPLASTY ELBOW (Right) TRANSPOSITION NERVE ULNAR (Right) OPEN TENOTOMY ELBOW MEDIAL W/DEBRIDEMENT (Right) DECOMPRESSION NERVE ULNAR ELBOW (Right) Procedures Performed While Hospitalized: 12/04/2017: Monitored Anesthesia Care Supraclavicular block right Additional Findings: No additional findings Treatment/Wound Care: Cast/splint care instructions given -Elevate your leg to reduce swelling for th first 5-7 days. This will also help with pain. You may also use a waterproof ice pack to your cast/splint to help with swelling and pain., -Keep cast/splint clean and dry, do not get wet. If cast/splint gets wet, call the office or come to the ER immediately to get cast/splint changed. -You should spongebathe to clean. No showers/baths until cleared by your surgeon (to avoid getting splint wet). -If you have a peripheral nerve catheter for pain control, follow the instructions from pain management regarding pulling out your nerve catheter when the medication infusion is complete. Call them with any qustions. If you have difficulty pulling your catheter, stop and return to the ED to have it done. Pending Results: No pending results. Pain Control: Adequate management. Activity After Discharge: Weight bearing/Activity: Non-weight bearing Precautions Splint and Shoulder Sling Ambulatory Aids: May walk with Sling No driving while you are taking narcotics until cleared by your surgeon. Homegoing Blood Clot (DVT) Prevention: ActiveCare Stockings to be worn 20 out of 24 hours daily for 14 days. Please mail back in postage- paid box after 14 days are complete. Heart Failure Present During Admission: No Acute [place] Present at or During Admission: No Reason for Hospitalization: Above diagnosis/surgery Hospital Course: Patient is a 57 year old female who has been followed by Dr. Kika Muñoz MD in clinic for the above diagnosis. It was determined that she would benefit from surgery. Surgery was scheduled and on 12/04/2017 she underwent the above surgery. The procedure was tolerated well and she was sent to the post operative recovery room, where she also did well. Intra-Op and/or Post operative xrays in the recovery room showed adequate placement of hardware. She was subsequently sent to the floor. Once on the floor her postoperative course was unremarkable and she did well. Her diet was advanced, which she tolerated. Her pain was well controlled and was eventually transitioned to oral medication prior to discharge. She worked with Physical and Occupational Therapy who made their recommenations. Her dressing was monitored and changed as needed and she remained clean dry and intact throughout she stay. She remained afebrile with stable vital signs throughout her stay. She was stable for discharge. Patient Condition at Discharge: Improved Diet: Resume your prior to admission healthy diet Future Appointments: Future Appointments Date Time Provider Department Center 12/12/2017 2:00 PM [id number] GENERAL XRAY A21 RADMN RADIO A BLDG 12/12/2017 3:00 PM [id number], CYNTHIA (OT) OCPTMN [place] [facility] 12/12/2017 3:15 PM [id number]-KIKA MUÑOZ ORHSMN ORTH A AND NA 12/16/2017 8:00 AM [id number], AMANDA (RIKA) JARON [facility] 01/02/2018 2:20 PM [id number] LINARES [facility] 01/02/2018 2:20 PM [id number], AHILA ALLEMN CAMILA [facility] 02/12/2018 8:30 AM [id number]-VWWEFRMICHAEL BOYKIN [facility] 06/04/2018 9:40 AM [id number] LAU) FAMWS [facility] Information Provided to the Patient: Patient given copy of Discharge Instructions Electronically SIGNED: Chalino Trujillo MD BRIEF OP NOT Observed: 12/04/2017 Status: COMPLETED Source: [place] 3:17 PM [facility] REPOSITORY [facility] ID: [id number] Author: Chalino Trujillo (Fel) Service: Orthopaedic Surgery Author Type: Fellow Type: Brief Op Note Filed: 12/04/2017 3:18 PM Note Text: BRIEF OP NOTE LOG ID: [id number] Surgery/Procedure Date: 12/04/2017 Incision/Procedure Start Time: 12:00 PM Incision Close/Procedure End Time: 3:09 PM Surgeon(s)/Proceduralist(s) and Entertainment Reporter(s): Surgeon(s) and Role: * Kika Muñoz - Primary * Chalino Trujillo (Fel) - Fellow * Benoit Quintero (Fel) - Fellow Procedure(s): Right Total Elbow Arthroplasty Anesthesia: Monitored Anesthesia Care Findings: RA degenerative elbow Estimated Blood Loss: 10 mls Specimens: None Complications: None Pre-Op/Pre-Procedure Diagnosis: Rheumatoid Arthritis Elbow Post-Op/Post-Procedure Diagnosis: As above SIGNATURE: Chalino Trujillo MD PATIENT NAME: Susanna Stephens DATE: December 04, 2017 TIME: 3:17 PM PAGER/CONTACT #: [phone] PT ED Observed: 12/04/2017 Status: COMPLETED Source: [place] 9:36 AM [facility] REPOSITORY [facility] ID: [id number] Author: Celia FinchRn) MENDY Cordon Service: Nursing Author Type: Registered Nurse Type: Patient Education Filed: 12/04/2017 9:37 AM Note Text: PRE OP LEARNING ASSESSMENT PROCEDURE/SURGERY: SURGERY: Preop READINESS TO LEARN: EagerCOGNITIVE ABILITY: Alert and oriented MOTIVATION TO LEARN: Eager FAMILY SUPPORT: High - Very involved in pt care PATIENT LEARNS BEST BY: Multiple Methods FACTORS AFFECTING LEARNING: None PHYSICAL LIMITATIONS AFFECTING LEARNING: None Electronically Signed By: Celia Cordon RN In Department: HOSP MAIN OR GASV + ALL Collected: 12/04/2017 Status: F Source: [place] 9:12 AM [facility] REPOSITORY TYPE CODE TESTS RESULT OUT OF REFERENCE UNITS RANGE LAB VPH 7.32-7.42 pH 7.33 LAB VPC2 42-55 mm Hg pCO2 48 LAB VPO2 35-45 mm Hg pO2 Low 18 LAB VBE mmol/L Base Excess NEG 1 LAB VHC3 24-28 mmol/L Bicarbonate 25 LAB VC2C 25-29 mmol/L CO2 Content 26 LAB O2HBCX 60-85 % Oxyhemoglobin, Low Timothy. 23 LAB CO <2.0 % High Carboxyhemoglobin,V 2.8 en LAB METHB 0.4-1.5 % Methemoglobin 1.1 LAB VTMP C Temperature, Body 37.0 LAB VPHTC 7.32-7.42 pH, Temp Corrected 7.33 LAB VPC2T mm Hg pCO2, Temp Correct 48 LAB VPO2T mm Hg pO2, Temp Corrected 18 LAB NAB 132-148 mmol/L Sodium,Whole Bld 141 LAB KWB 3.5-5.0 mmol/L Potassium, Whole Bld 4.6 LAB HGBB 11.5-15.5 g/dL Hemoglobin,Total,AC 12.6 L LAB HCTB 36.0-46.0 % Hematocrit, ACL 39 LAB IC 1.08-1.30 mmol/L Calcium, Ion, WB 1.25 LAB GLB 60-105 mg/dL Glucose,Whole Bld High 256 LAB LACT 0.5-2.2 mmol/L Lactate 1.7 Performed By: #### VALLBG #### [facility] [address] [place], [place] [address] PROGRESS Observed: 12/03/2017 Status: COMPLETED Source: [place] 11:27 AM [facility] REPOSITORY [facility] ID: [id number] Author: Flori Hollis Service: (none) Author Type: (none) Type: Progress Notes Filed: 12/03/2017 11:28 AM Note Text: Scheduled patient for colonoscopy consultation with Cheli Perla on 12/16/2017 Flori Hollis PROGRESS Observed: 12/03/2017 Status: COMPLETED Source: [place] 10:34 AM [facility] REPOSITORY [facility] ID: [id number] Author: Flori Hollis Service: (none) Author Type: (none) Type: Progress Notes Filed: 12/03/2017 10:34 AM Note Text: 1st failed attempt to contact patient, left voice message Flori Holils PROGRESS Observed: 11/29/2017 Status: COMPLETED Source: [place] 3:24 PM [facility] REPOSITORY [facility] ID: [id number] Author: Evelyn Kent Service: (none) Author Type: Resident Type: Progress Notes Filed: 11/29/2017 4:01 PM Note Text: ANESTHESIA PRE-OPERATIVE ASSESSMENT (PACE) SERVICE DATE: 11/29/2017 SERVICE TIME: 3:25 PM ASSESSMENT AND PLAN: Susanna Stephens is a 57 year old female scheduled for R elbow arthroplasty with possible ulnar nerve transplantation per Surgery Request Case in MAIN on 12/04/[address] Muñoz. PMH: 1. Severe RA s/p b/l TKAs, JACQUELINE, with chest discomfort attributed to RA costochondritis 2. T1DM with peripheral neuropathy and retinopathy (R eye blindness); on insulin pump and lisinopril 3. Current smoker (22 pack-year history) [facility]: 3 METS: Climb a flight of stairs or walk up a hill (5.50 METs) Slowly due to pain. Dypnea present with stairs. BLOOD WORK/PRODUCTS ORDERED: Type and Screen , Con ABO HISTORY OF CHRONIC PAIN: Yes Baseline Pain Level 10 Current Pain Regimen: Hydrocodone-Acetaminophen 10-325mg QID PAIN MANAGEMENT OPTIONS: Final pain management plan will be discussed on the day of surgery. ANESTHETIC OPTIONS: Final anesthesia management options will be discussed on day of surgery. PRE-OP PLAN ORDERED: Not Applicable Patient Instructed: ? No solid food or non-clear liquids after midnight. Clear liquids allowed until two hours before scheduled arrival. ? Medication instructions from [facility] clinic reviewed with patient. Insulin instructions from MARIZA Tovar NP reviewed (will use lower settings overnight while fasting) Vital Signs: BP 121/79 Pulse 82 Ht 173 cm (5' 8.11) Wt 50 kg (110 lb 3.7 oz) SpO2 100% BMI 16.71 kg/m2 BMI 16.71 kg/(m2) Vital signs completed by: SIRENA Weight acquired: per HANDP. Height acquired: per HANDP Airway Exam: MOUTH OPENING/TMJ: Full jaw ROM MICROGNATHIA/OVERBITE: Yes MALLAMPATI SCORE is CLASS III UPPER LIP BITE TEST: Unable to perform, no lower teeth DENTITION: Edentulous/dentures, upper THYROMENTAL DIST: WNL SHORT NECK: No NECK CIRCUMFERENCE >40 cm: Appears < than 40 CM NECK FLEX: Full ROM NECK EXTENSION: Full ROM AIRWAY HISTORY: No abnormal airway history ARKS AIRWAY DETAIL: N/A DATA: EKG READIN11/29/2017 EKG reviewed by me. Normal sinus rhythm. QTc and OR intervals WNL. Narrow QRS complex. No hypertrophy. No ST depression/elevation. No Q waves suggestive of past infarcation. No ectopy. UNCONFIRMED OTHER TESTS: Regadenoson stress test: Date: Sep 2017, Results: Negative for ischemia Echo: Date: 08/19/17 CONCLUSIONS: - Technically difficult exam due to body habitus. - Exam indication: Chest Pain - The left ventricle is normal in size. Left ventricular systolic function is normal. EF = 67 ? 5% (2D biplane) Normal left ventricular diastolic function. - The right ventricle is normal in size. Right ventricular systolic function is normal. - There are no significant valvular abnormalities. - The patient has not had a prior CC echocardiographic exam for comparison. Lab Value Units Date High Low HB 12.8 g/dL 11/29/2017 15.5 11.5 HCT 39.9 % 11/29/2017 46.0 36.0 WBC 9.18 k/uL 11/29/2017 11.00 3.70 PLT 238 k/uL 11/29/2017 400 150 NA 138 mmol/L 11/29/2017 144 136 K 5.2 mmol/L 11/29/2017 5.1 3.7 GLUC 206 mg/dL 11/29/2017 99 74 BUN 20 mg/dL 11/29/2017 21 7 CREAT 1.12 mg/dL 11/29/2017 0.96 0.58 HBA1C: Hemoglobin A1C (no units) Date Value 09/26/2017 6.9 ) Patient accompanied by self Case Discussed with Dr. Sidhu OPTIMIZATION STATUS: Patient optimization pending EKG [facility] Evelyn Kent MD PGY-2 Anesthesiology [place] 11/29/2017 4:00 PM CNOV Observed: 11/29/2017 Status: COMPLETED Source: [place] 3:00 PM [facility] REPOSITORY Office Visit (PSSCMN) SUSANNA STEPHENS ([id number]) 1960 F BLD Date Time Provider Department 11/29/17 3:00 PM [facility] During your visit today, we recorded the following information about you: Pulse Blood pressure Weight Height 82/minute 121/79 50 kg 1.73 m Evelyn Kent MD 11/29/2017 4:01 PM Signed ANESTHESIA PRE-OPERATIVE ASSESSMENT (PACE) SERVICE DATE: 11/29/2017 SERVICE TIME: 3:25 PM ASSESSMENT ANDamp; PLAN: Susanna Stephens is a 57 year old female scheduled for R elbow arthroplasty with possible ulnar nerve transplantation per Surgery Request Case in MAIN on 12/04/[address] Muñoz. PMH: 1. Severe RA s/p b/l TKAs, JACQUELINE, with chest discomfort attributed to RA costochondritis 2. T1DM with peripheral neuropathy and retinopathy (R eye blindness); on insulin pump and lisinopril 3. Current smoker (22 pack-year history) [facility]: 3 METS: Climb a flight of stairs or walk up a hill (5.50 METs) Slowly due to pain. Dypnea present with stairs. BLOOD WORK/PRODUCTS ORDERED: Type and Screen , Con ABO HISTORY OF CHRONIC PAIN: Yes Baseline Pain Level 10 Current Pain Regimen: Hydrocodone-Acetaminophen 10-325mg QID PAIN MANAGEMENT OPTIONS: Final pain management plan will be discussed on the day of surgery. ANESTHETIC OPTIONS: Final anesthesia management options will be discussed on day of surgery. PRE-OP PLAN ORDERED: Not Applicable Patient Instructed: ? No solid food or non-clear liquids after midnight. Clear liquids allowed until two hours before scheduled arrival. ? Medication instructions from [facility] reviewed with patient. Insulin instructions from MARIZA Tovar NP reviewed (will use lower settings overnight while fasting) Vital Signs: BP 121/79 Pulse 82 Ht 173 cm (5' 8.11ANDquot;) Wt 50 kg (110 lb 3.7 oz) SpO2 100% BMI 16.71 kg/m2 BMI 16.71 kg/(m2) Vital signs completed by: [facility] Weight acquired: per HANDamp;P. Height acquired: per HANDamp;P Airway Exam: MOUTH OPENING/TMJ: Full jaw ROM MICROGNATHIA/OVERBITE: Yes MALLAMPATI SCORE is CLASS III UPPER LIP BITE TEST: Unable to perform, no lower teeth DENTITION: Edentulous/dentures, upper THYROMENTAL DIST: WNL SHORT NECK: No NECK CIRCUMFERENCE ANDgt;40 cm: Appears ANDlt; than 40 CM NECK FLEX: Full ROM NECK EXTENSION: Full ROM AIRWAY HISTORY: No abnormal airway history ARKS AIRWAY DETAIL: N/A DATA: EKG READIN11/29/2017 EKG reviewed by me. Normal sinus rhythm. QTc and OR intervals WNL. Narrow QRS complex. No hypertrophy. No ST depression/elevation. No Q waves suggestive of past infarcation. No ectopy. UNCONFIRMED OTHER TESTS: Regadenoson stress test: Date: Sep 2017, Results: Negative for ischemia Echo: Date: 08/19/17 CONCLUSIONS: - Technically difficult exam due to body habitus. - Exam indication: Chest Pain - The left ventricle is normal in size. Left ventricular systolic function is normal. EF = 67 ? 5% (2D biplane) Normal left ventricular diastolic function. - The right ventricle is normal in size. Right ventricular systolic function is normal. - There are no significant valvular abnormalities. - The patient has not had a prior CC echocardiographic exam for comparison. Lab Value Units Date High Low HB 12.8 g/dL 11/29/2017 15.5 11.5 HCT 39.9 % 11/29/2017 46.0 36.0 WBC 9.18 k/uL 11/29/2017 11.00 3.70 PLT 238 k/uL 11/29/2017 400 150 NA 138 mmol/L 11/29/2017 144 136 K 5.2 mmol/L 11/29/2017 5.1 3.7 GLUC 206 mg/dL 11/29/2017 99 74 BUN 20 mg/dL 11/29/2017 21 7 CREAT 1.12 mg/dL 11/29/2017 0.96 0.58 HBA1C: Hemoglobin A1C (no units) Date Value 09/26/2017 6.9 ) Patient accompanied by self Case Discussed with Dr. Sidhu OPTIMIZATION STATUS: Patient optimization pending EKG [facility] Evelyn Kent MD PGY-2 Anesthesiology [place] 11/29/2017 4:00 PM Referring Provider: KIKA MUÑOZ [[id number]] Allergies As of Date: 11/29/2017 Noted Allergy Reaction ADHESIVE 07/03/2017 14 - Other: See Comments Comments: Blood blisters LATEX 07/03/2017 14 - Other: See Comments Comments: Blood blisters NSAIDS (NON-STEROIDAL ANTI-INFLAM*11/14/2017 14 - Other: See Comments Comments: kidney problem PENICILLIN 07/03/2017 14 - Other: See Comments Comments: tachycardia Date Reviewed: 11/29/2017 Reviewed by: Trixie Downs LPN - Fully Assessed Primary Visit Diagnosis:Pre-op evaluation [Z01.818] Order(s):PENICILLIN ALLERGY CONSULT [[id number]] Order #: [id number]: 1 Prescriptions as of 11/29/2017 Sig: PEG 3350 240 GRAM-ELECTROLYTE* Take 4,000 mL by mouth one ti* BENZONATATE 100 MG CAPSULE Take 1 capsule by mouth three* ATORVASTATIN 20 MG TABLET Take 20 mg by mouth once enoch* HYDROCODONE 10 MG-ACETAMINOPH* Take 1 tablet by mouth every * INSULIN LISPRO 100 UNIT/ML DESAI* Use as directed with insulin * Problem List As Of Date 11/29/2017 Noted Resolved Rheumatoid arthritis involving multiple sites (*INVALID FOR* Coronary artery disease of [place] artery of [place]*INVALID FOR* Type 1 diabetes mellitus without complication (*INVALID FOR* Chronic pain of multiple sites [R52, G89.29] INVALID FOR* Tobacco use [Z72.0] Rheumatoid arthritis involving right elbow with*INVALID FOR* BMI less than 19,adult [Z68.1] INVALID FOR* Pre-op testing [Z01.818] INVALID FOR* More... Encounter Status:Closed by EVELYN KENT on 11/29/17 Chart Close Cosign Required by: Tomás Sidhu[] PROGRESS Observed: 11/29/2017 Status: COMPLETED Source: [place] 1:45 PM [facility] [place] REPOSITORY HNO ID: [id number] Author: Trixie Downs LPN Service: (none) Author Type: (none) Type: Progress Notes Filed: 11/29/2017 2:19 PM Note Text: Susanna Stephens is a 57 year old female here today for visit in [facility] Referring Surgeon: Dr. Muñoz Date of Surgery: 12/04/2017 Planned Surgery/Procedure: ARTHROPLASTY ELBOW Allergies have been reviewed and verified. They include the following: Adhesive; Latex; Nsaids (Non-Steroidal Anti-Inflammatory Drug); Penicillin Social History Substance Use Topics - Smoking status: Current Every Day Smoker Packs/day: 1.00 Years: 42.00 Types: Cigarettes - Smokeless tobacco: Never Used - Alcohol use No Medications reviewed and updated: Yes Trixie Downs LPN CNOV Observed: 11/29/2017 Status: COMPLETED Source: [place] 1:45 PM [facility] REPOSITORY Office Visit (IMPAMN) SUSANNA STEPHENS ([id number]) 1960 F [place] Date Time Provider Department 11/29/17 1:45 PM KORTNEY HINTON During your visit today, we recorded the following information about you: Temperature Pulse Blood pressure Weight 98.9 degrees 82/minute 121/79 50.3 kg Height 1.727 m Kortney Hinton MD 11/29/2017 2:19 PM Signed HISTORY AND PHYSICAL EXAMINATION ([facility]) SERVICE DATE: 11/29/2017 SERVICE TIME:12:28 PM PRIMARY CARE PHYSICIAN: Feroz Lau MD CHIEF COMPLAINT/HISTORY OF PRESENT ILLNESS: Ms. Stephens is a 57 year old female referred to me for preoperative evaluation. My final recommendations will be communicated back to the requesting physician/surgeon by the way of the shared medical record. Referring Surgeon: Dr. Muñoz Date of Surgery: 12/02/2017 Planned Surgery/Procedure: Arthroplasty of elbow Indication for Planned Surgery / Procedure: RA involving elbow Refer to Assessment section for details of any comorbidities. Patient is Able to Perform the Following Physical Activity: Walk a block or two on level ground (2.75 METs) developed exertional SOB Patient's functional class is IV based on self-reported physical activity. Significant Anesthesia Considerations: None. 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 Zak Boykin - Diabetes type 1, controlled ([facility]) Insulin pump-MARIZA Tovar - Endometriosis s/p hysterectomy - Hypercholesteremia - Insulin pump in place - Osteoarthritis - Osteoporosis - Rheumatoid arthritis ([facility]) Dr. De Los Santos, pain management - Tobacco use PAST SURGICAL HISTORY Procedure Laterality Date - SECTION HX x 2 - HYSTERECTOMY HX - PAST SURGICAL HISTORY OF left eye surgery - PAST SURGICAL HISTORY OF right knee replacement - PAST SURGICAL HISTORY OF left knee surgery - PAST SURGICAL HISTORY OF Removal of strawberry gemma after - TOTAL HIP REPLACEMENT Left FAMILY HISTORY Problem Relation Age of Onset - Lipids Mother - Heart Mother - Hypertension Mother - Diabetes Father - Stroke Father - Cancer Brother thyroid cancer SOCIAL HISTORYSocial History Marital status: Spouse name: Years of education: Number of children: Social History Main Topics Smoking status: Current Every Day Smoker Packs/day: 1.00 Years: 42.00 Types: Cigarettes Smokeless status: Never Used Alcohol use: No Drug use: No Sexual activity: Yes Partners with: Male MEDICATIONS/ALLERGIES Current Outpatient Prescriptions: peg 3350-electrolytes (COLYTE) 240-22.72-6.72 -5.84 gram solution Take 4,000 mL by mouth one time only for 1 dose. Disp: 4000 mL Rfl: 0 benzonatate (TESSALON PERLE) 100 mg capsule Take 1 capsule by mouth three times daily as needed for up to 10 days. Disp: 30 capsule Rfl: 0 atorvastatin (LIPITOR) 20 mg tablet Take 20 mg by mouth once daily. Disp: Rfl: HYDROcodone-Acetaminophen (NORCO) 10-325 mg per tablet Take 1 tablet by mouth every 6 hours as needed. Disp: Rfl: 0 insulin lispro (HUMALOG) 100 unit/mL injection Use as directed with insulin pump-managed by MARIZA Tovar CNP Disp: Rfl: No current facility-administered medications for this visit. ALLERGIES Allergen Reactions - Adhesive Other: See Comments Blood blisters - Latex Other: See Comments Blood blisters - Nsaids (Non-Steroid* Other: See Comments kidney problem - Penicillin Other: See Comments tachycardia REVIEW OF SYSTEMS General: No weight loss, malaise or fevers. 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 No neurological symptoms or problems. Respiratory: active smoker, was on albuterol inhaler for cough and wheezing per PCPANDlt; currerntly off, had spirometry in 07/2017 normal Cardiovascular: No history of HTN requiring medication, no history of angina, CHF, [place], cardiac surgery or stents. Denies rest pain, gangrene or revascularization/amputation for PVD. No history of cardiovascular symptoms or problems. GI: No history of GI symptoms or problems. No history of esophageal varices, recent ascites, or ETOH greater than 2 drinks per day., constipation : No history of UTI in past 6 weeks. No history of renal failure. Not currently on or requiring dialysis. No history of symptoms or problems. 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 Endocrine: Diabetes Mellitus on insulin pump Hematology: No history of bleeding or clotting disorder. No history of hematological symptoms or problems. Oncology: No history of CA metastasis, chemo within 30 days, or radiotherapy within 90 days. No history of oncological symptoms or problems. Psych: No history of psychiatric symptoms or problems. Skin: Negative for lesions, rash, and itching. PHYSICAL EXAM VITALS: BP 121/79 Pulse 82 Temp (Src) 98.9 (Oral) Ht 5' 8ANDquot; (1.73m) Wt 111 lb (50.3kg) SpO2 100% BMI 16.88 kg/(m2). General: Alert and oriented Skin: Normal color, no rash, no lesions. HEENT: EOM, pupils equal, round and reactive. Cardiovascular: Normal S1 ANDamp; S2, no rubs, murmurs or gallops. No JVD. Pulse regular. Lungs: Normal breath sounds, no wheezes or crackles. Abdomen: Soft, non-tender, no rigidity. Extremities: No deformity, no edema or tenderness, no joint swelling or clubbing. Neurological: Normal cognition and motor skills. Pulses: Carotid and radial pulses normal +2. ASSESSMENT Ms. Stephens is a 57 year old female referred to me for preoperative evaluation. Patient has the following medical comorbidities which might affect the perioperative course: -DM TI complicated by retinopathy, R sided blindness, neuropathy ; on insulin pump, managed by MARIZA Tovar ( aware of upcoming surgery and already has instructions) -Active smoker , SOB exertional ( HAD Stress test, ECHO and spirometry all WNL) ; had wheezing and cough and was taking albuterol PRN , currently resolved -Severe RA with multiple joint involvement -OA and osteoporosis -Chest discomfort - seen by cardiology in 2017 , never had cardiac cath, Stress test in 09/2017 negative , assumed to be musculoskeletal Patient's RCRI (Revised Cardiac Risk Index: CAD/CHF/Stroke or TIA/SCrANDgt;2/DM on Insulin/High Risk Surgery) score is 1 and is at low risk for major adverse cardiac events in the perioperative period. Diagnostic tests reviewed for today's visit: 11/29/2017 Most recent EKG: normal sinus rhythm, normal axis, normal intervals, reviewed by myself. LABS PENDING 09/04/2017 Stress test Normal pharmacological stress test with normal perfusion 08/19/2017 ECHO CONCLUSIONS: - Technically difficult exam due to body habitus. - Exam indication: Chest Pain - The left ventricle is normal in size. Left ventricular systolic function is normal. EF = 67 ? 5% (2D biplane) Normal left ventricular diastolic function. - The right ventricle is normal in size. Right ventricular systolic function is normal. - There are no significant valvular abnormalities. - The patient has not had a prior CC echocardiographic exam for comparison. 07/29/2017Spirometry IMPRESSION: Spirometry is normal. There is no significant bronchodilator response. Clinical improvement following bronchodilator therapy may occur even if there is no spirometric improvement. Electronically Signed On 07-30-2017 15:41:17 EST by Kayla Morales MD [facility] ? [place] [address] ? PFT Lab Report Name: SUSANNA STEPHENS ? ID: [id number] ? Date: 07/29/17 ?Physician: Eunice Griffith ? Age: 56 ? Height(in): 68.5 ? Weight(lb): 110 ? Gender: Female ?Race: ? Diagnosis: ?Medication Set 1: ? Dyspnea Rest: No ?Dyspnea Exercise: No ? Cough: No ? Persistent: No ?Productive (cc): ? Smoker: No ?How Long: ? Stopped: ?Cigarettes: No ? Fire Equipment Repairer Inspector: Fozia Haydentelly, TELECOMMUNICATIONS ENGINEER ?Temp: ?22 ?PBar: 760 ?PF Reference: ######## Spirometry ?Hb: ?gm/dL ?Ref ? Pre ? Pre ? Post ?Post ?Post ?Abel ?% Ref ? ? ? Abel ?% Ref ? ? ? % Chg FVC ?Liters ? ? ?4.03 ?3.93 ?98 ?3.87 ?96 ?-1 FEV1 ? ? ? Liters ? ? ?3.15 ?3.26 ?103 ? 3.09 ?98 ?-5 FEV1/FVC ? % ? 79 ?83 ?80 [id number]% ?L/sec ? ? ? 2.87 ?3.53 ?123 ? 2.98 ?104 ? -16 [id number] L/sec ? ? ?3.04 ?3.53 ?116 ? 2.94 ?97 ?-17 PEF ?L/sec ? ? ? 7.30 ?7.00 ?96 ?6.84 ?94 ?-2 ZIX686% ? ?Sec ? 3.99 ?4.13 ?3 MVV ?L/min ? ? ? 126 f ?BPM ? Lung Volumes TLC ?Liters ? ? ?5.73 VC ? Liters ? ? ?4.03 IC ? Liters ? ? ?2.50 FRC N2 ? ? Liters ? ? ?3.25 ERV ?Liters ? ? ?1.25 RV ? Liters ? ? ?2.09 RV/TLC ? ? % ? 37 ? Diffusing Capacity DLCO ? ? ? mL/mmHg/min 24.1 DL Adj ? ? mL/mmHg/min 24.1 DLCO/VA ? ?mL/mHg/min/L 4.33 DL/VA Adj ?mL/mHg/min/L 4.33 VA ? Liters ? ? ?5.57 IVC ?Liters BHT ?Sec ? Resistance Raw ?cmH2O/L/sec 1.02 sGaw ? ? ? L/s/cmH2O/L 0.268 ? Respiratory Muscle Force PI max ? ? cmH2O ? ? ? 76 PE max ? ? cmH2O ? ? ? 141 ? null PLAN/RECOMMENDATIONS CARDIAC: Patient is at optimal cardiac condition for scheduled surgery / procedure. PULMONARY: Patient is at increased risk for postoperative pulmonary complications. Advised patient to stop smoking. Suggest the following in the post-operative period: Continue bronchodilator medications, Aggressive bronchopulmonary hygiene and Early ambulation ENDOCRINE: DIABETES: - Initiate [facility] Guidelines for perioperative diabetes management. Check finger stick glucose on the morning of surgery. - Patient has been instructed on Preoperative DM medication management. VASCULAR/ANTICOAGULATION: VTE prophylaxis as deemed appropriate by the surgical service. Patient is optimally prepared for surgery. Patient Instructions: As per patient instructions section. I have discussed the above recommendations with the patient in detail, in candi and lay terms, and provided a written summary of instructions as needed. We have discussed that no surgery is without risk, but that the goal of preoperative assessment is to optimize that risk, and that was clearly understood by the patient. I have given ample opportunity for the patient to ask questions, and answered all questions to their stated satisfaction. SIGNATURE: Kortney Hinton MD PATIENT NAME: Susanna Stephens DATE: November 29, 2017 TIME: 12:28 PM Trixie Downs LPN 11/29/2017 2:19 PM Signed Susanna Stephens is a 57 year old female here today for visit in [place] Referring Surgeon: Dr. Muñoz Date of Surgery: 12/04/2017 Planned Surgery/Procedure: ARTHROPLASTY ELBOW Allergies have been reviewed and verified. They include the following: Adhesive; Latex; Nsaids (Non-Steroidal Anti-Inflammatory Drug); Penicillin Social History Substance Use Topics - Smoking status: Current Every Day Smoker Packs/day: 1.00 Years: 42.00 Types: Cigarettes - Smokeless tobacco: Never Used - Alcohol use No Medications reviewed and updated: Yes Trixie Downs CYLINDER SANDER OPERATORJosephine Hinton MD 11/29/2017 2:14 PM Signed [facility] Patient Instructions for Surgery FOOD INSTRUCTIONS: NO solid food or non-clear liquids for 8 hours prior to the arrival time for your surgery. Unless you are instructed otherwise, you are allowed to drink up to 12 ounces of clear liquids (e.g. water, black tea/coffee, fruit juice without pulp, Haydee Ibrahima, etc.) up until 2 hours prior to the arrival time for surgery. MEDICATION INSTRUCTIONS: Prior to Surgery: Do not take the following medications for 7 days prior to surgery: - any NSAID's (e.g. Motrin, Aleve, Arthrotec, Naproxen,etc) - any herbal preparations - Aspirin or aspirin containing products Do not take any Vitamin E / multivitamins for 10-14 days before surgery You are allowed to take Tylenol if needed until the day of surgery. Continue all medications until the night prior to surgery MEDICATION INSTRUCTIONS: Day/Morning of Surgery: The following medications should be taken with sips of water: None Tylenol, if needed for pain, can be taken on morning of surgery. DIABETES MANAGEMENT INSTRUCTIONS: Eat a usual diet until the day prior to surgery unless indicated by your surgeon/physician. If your blood sugar is below 70 mg/dl at any time, treat with ? cup of apple juice or haydee ibrahima, or 4 glucose tabs or 1 tube of oral glucose gel. MEDICATION INSTRUCTIONS: Prior to Surgery: ? Continue with insulin pump at the same rate and Check blood glucose at bedtime. Also follow instructions as you were instructed from your endocrine office MEDICATION INSTRUCTIONS: Day/Morning of Surgery: ? INSULIN PUMP: Continue same basal rate of your Insulin Pump. If you have any questions or concerns regarding today's visit please do not hesitate to contact the [facility] at [phone] or [phone], [phone]. Signature: Kortney Hinton MD Date: November 29, 2017 Referring Provider: KIKA MUÑOZ [[id number]] Allergies As of Date: 11/29/2017 Noted Allergy Reaction ADHESIVE 07/03/2017 14 - Other: See Comments Comments: Blood blisters LATEX 07/03/2017 14 - Other: See Comments Comments: Blood blisters NSAIDS (NON-STEROIDAL ANTI-INFLAM*11/14/2017 14 - Other: See Comments Comments: kidney problem PENICILLIN 07/03/2017 14 - Other: See Comments Comments: tachycardia Date Reviewed: 11/29/2017 Reviewed by: Trixie Downs LPN - Fully Assessed Primary Visit Diagnosis:Rheumatoid arthritis involving multiple sites, unspecified rheumatoid factor presence (HCC) [M06.9] Other Visit Diagnoses:Pre-operative examination [Z01.818] Type 1 diabetes mellitus without complication (HCC) [E10.9] Tobacco use [Z72.0] Prescriptions as of 11/29/2017 Sig: PEG 3350 240 GRAM-ELECTROLYTE* Take 4,000 mL by mouth one ti* BENZONATATE 100 MG CAPSULE Take 1 capsule by mouth three* ATORVASTATIN 20 MG TABLET Take 20 mg by mouth once enoch* HYDROCODONE 10 MG-ACETAMINOPH* Take 1 tablet by mouth every * INSULIN LISPRO 100 UNIT/ML DESAI* Use as directed with insulin * Problem List As Of Date 11/29/2017 Noted Resolved Rheumatoid arthritis involving multiple sites (*INVALID FOR* Coronary artery disease of [place] artery of [place]*INVALID FOR* Type 1 diabetes mellitus without complication (*INVALID FOR* Chronic pain of multiple sites [R52, G89.29] INVALID FOR* Tobacco use [Z72.0] Rheumatoid arthritis involving right elbow with*INVALID FOR* BMI less than 19,adult [Z68.1] INVALID FOR* Pre-op testing [Z01.818] INVALID FOR* More... Other instructions from your clinician: [facility] Patient Instructions for Surgery FOOD INSTRUCTIONS: NO solid food or non-clear liquids for 8 hours prior to the arrival time for your surgery. Unless you are instructed otherwise, you are allowed to drink up to 12 ounces of clear liquids (e.g. water, black tea/coffee, fruit juice without pulp, Haydee Ibrahima, etc.) up until 2 hours prior to the arrival time for surgery. MEDICATION INSTRUCTIONS: Prior to Surgery: Do not take the following medications for 7 days prior to surgery: - any NSAID's (e.g. Motrin, Aleve, Arthrotec, Naproxen,etc) - any herbal preparations - Aspirin or aspirin containing products Do not take any Vitamin E / multivitamins for 10-14 days before surgery You are allowed to take Tylenol if needed until the day of surgery. Continue all medications until the night prior to surgery MEDICATION INSTRUCTIONS: Day/Morning of Surgery: The following medications should be taken with sips of water: None Tylenol, if needed for pain, can be taken on morning of surgery. DIABETES MANAGEMENT INSTRUCTIONS: Eat a usual diet until the day prior to surgery unless indicated by your surgeon/physician. If your blood sugar is below 70 mg/dl at any time, treat with ? cup of apple juice or haydee ibrahima, or 4 glucose tabs or 1 tube of oral glucose gel. MEDICATION INSTRUCTIONS: Prior to Surgery: ? Continue with insulin pump at the same rate and Check blood glucose at bedtime. Also follow instructions as you were instructed from your endocrine office MEDICATION INSTRUCTIONS: Day/Morning of Surgery: ? INSULIN PUMP: Continue same basal rate of your Insulin Pump. If you have any questions or concerns regarding today's visit please do not hesitate to contact the [facility] at [phone] or [phone], ext [phone]. Signature: Kortney Hinton MD Date: November 29, 2017 Medications Discontinued During This Encounter albuterol HFA (VENTOLIN HFA) 90 mcg/* 1 In* 0 07/26/2017 11/29/2017 Route: INHALATION Sig: Inhale 2 Puffs as instructed every 4 hours as needed for Wheezing/Shortness of Breath. Disc: Discontinued by Patient aspirin, enteric coated (ASPIR-LOW) * 0 08/14/2017 11/29/2017 Class: Med Update Route: ORAL Sig: Take 1 tablet by mouth once daily. Disc: Discontinued by Patient atorvastatin (LIPITOR) 20 mg tablet 30 t* 11 11/29/2017 11/29/2017 Route: ORAL Sig: Take 1 tablet by mouth daily at bedtime. For cholesterol. Disc: Discontinued by Patient Encounter Status:Closed by KORTNEY HINTON MD on 11/29/17 ALBUMIN/CREAT RATIO Collected: 11/29/2017 Status: F Source: [place] 1:19 PM [facility] REPOSITORY TYPE CODE TESTS RESULT OUT OF REFERENCE UNITS RANGE LAB UCRR 20-300 mg/dL Creatinine,Ur 153.8 ine,Ran LAB UALBR 0.0-23.0 mg/L High Albumin Urine 146.0 Random LAB UALBCR 0-30 mg/g High Albumin/Creat 95 Ratio Result Comment: 30 to 300 mg/g indicates an increased risk for diabetic nephropathy. Greater than 300 mg/g is consistent with clinical nephropathy. (Am J Kidney Disease 1995, 25:107) Performed By: #### UACR #### [facility] [address] [place], [place] [address] CONFIRM BLOOD TYPE Collected: 11/29/2017 Status: F Source: [place] 12:46 PM [facility] REPOSITORY TYPE CODE TESTS RESULT OUT OF REFERENCE UNITS RANGE LAB %ABR O ABO/RH(D) POSITIVE Performed By: #### CONABO #### [facility] [address] [place], [place] [address] CBC AND DIFFERENTIAL Collected: 11/29/2017 Status: F Source: [place] 12:44 PM [facility] REPOSITORY TYPE CODE TESTS RESULT OUT OF REFERENCE UNITS RANGE LAB WBC 3.70-11.00 k/uL WBC 9.18 LAB RBC 3.90-5.20 m/uL RBC 4.21 LAB HGB 11.5-15.5 g/dL Hemoglobin 12.8 LAB HCT 36.0-46.0 % Hematocrit 39.9 LAB MCV 80.0-100.0 fL MCV 94.8 LAB MCH 26.0-34.0 pG MCH 30.4 LAB MCHC 30.5-36.0 g/dL MCHC 32.1 LAB RDWCV 11.5-15.0 % RDW-CV 12.7 LAB PLTCT 150-400 k/uL Platelet Count 238 LAB MPV 9.0-12.7 fL MPV 10.6 LAB ANEUT % Neut% 77.6 LAB AANEUT 1.45-7.50 k/uL Abs Neut 7.12 LAB ALYMP % Lymph% 15.9 LAB AALYMP 1.00-4.00 k/uL Abs Lymph 1.46 LAB AMONO % Glades% 4.1 LAB AAMONO <0.87 k/uL Abs Glades 0.38 LAB AEOS % Eosin% 1.9 LAB AAEOS <0.46 k/uL Abs Eosin 0.17 LAB ABASO % Baso% 0.5 LAB AABASO <0.11 k/uL Abs Baso 0.05 LAB AUNRBC 0 /100 WBC NRBCs 0.0 LAB ABNRBC <0.01 k/uL Absolute nRBC <0.01 LAB DTYP DTYPE Auto Diff Performed By: #### CBCDIF, JASON #### [facility] [address] [place], [place] [address] BASIC METABOLIC PANL Collected: 11/29/2017 Status: F Source: [place] 12:44 PM [facility] REPOSITORY TYPE CODE TESTS RESULT OUT OF REFERENCE UNITS RANGE LAB GLU 74-99 mg/dL High Glucose 206 Result Comment: The [place] Diabetes Association (ADA) provides guidance for cutoff values for fasting glucose and random glucose. The ADA defines fasting as no caloric intake for at least 8 hours. Fas ting plasma glucose results between 100 to 125 mg/dL indicate increased risk for diabetes (prediabetes). Fasting plasma glucose results greater than or equal to 126 mg/dL meet the criteria for diagnosis of diabetes. In the absence of unequivocal hyperglycemia, results should be confirmed by repeat testing. In a patient with classic symptoms of hyperglycemia or hyperglycemic crisis, random plasma glucose results greater than or equal to 200 mg/dL meet the criteria for diagnosis of diabetes. Reference: Standards of Medical Care in Diabetes 2016, [place] Diabetes Association. Diabetes Care. 2016.39(Suppl 1). LAB BUN 7-21 mg/dL BUN 20 LAB CRET 0.58-0.96 mg/dL Creatinine High 1.12 LAB NA 136-144 mmol/L Sodium 138 LAB K 3.7-5.1 mmol/L Potassium High 5.2 LAB CL 97-105 mmol/L Chloride 100 LAB CO2 22-30 mmol/L CO2 26 LAB AGAP 9-18 mmol/L Anion Gap 12 LAB CA 8.5-10.2 mg/dL Calcium, Total 10.2 LAB GFRAA eGFR- Amer. >60 LAB GFRNAA . eGFR-All Other Races 51 Result Comment: eGFR (Estimated GFR) Units of measure: mL/min/1.73 meters squared eGFR is derived from the reexpressed MDRD Study equation using the following parameters: serum creatinine, age, gender and race. The creatinine assay has been calibrated to be traceable to IDMS. An eGFR <60 mL/min/1.73m2 for >3 months is consistent with chronic kidney disease. Refer to KDOQI guidelines for clinical interpretation. In patients with unstable renal function, e.g. those with acute kidney injury, the eGFR may not accurately reflect actual GFR. Performed By: #### CBCDIF, BMP #### [facility] [address] [place] [address] HEPATITIS C AB IA Collected: 11/29/2017 Status: F Source: [place] 12:43 PM [facility] REPOSITORY TYPE CODE TESTS RESULT OUT OF REFERENCE UNITS RANGE LAB AHCV Negative Hepatitis C Ab Negative IA Performed By: #### AHCV #### [facility] [address] [place] [address] TYPE AND SCR (30D) Collected: 11/29/2017 Status: F Source: [place] 12:43 PM [facility] REPOSITORY TYPE CODE TESTS RESULT OUT OF REFERENCE UNITS RANGE LAB %ABR O ABO/RH(D) POSITIVE LAB % Antibody NEG Screen Performed By: #### [id number] #### [place] [address] [place] [address] HISTORY PHYSICAL Observed: 11/29/2017 Status: COMPLETED Source: [place] 12:28 PM [facility] REPOSITORY HNO ID: [id number] Author: Kortney Hinton Service: (none) Author Type: Physician Type: HANDP Filed: 11/29/2017 2:19 PM Note Text: HISTORY AND PHYSICAL EXAMINATION ([facility]) SERVICE DATE: 11/29/2017 SERVICE TIME:12:28 PM PRIMARY CARE PHYSICIAN: Feroz Lau MD CHIEF COMPLAINT/HISTORY OF PRESENT ILLNESS: Ms. Stephens is a 57 year old female referred to id for preoperative evaluation. My final recommendations will be communicated back to the requesting physician/surgeon by the way of the shared medical record. Referring Surgeon: Dr. Muñoz Date of Surgery: 12/02/2017 Planned Surgery/Procedure: Arthroplasty of elbow Indication for Planned Surgery / Procedure: RA involving elbow Refer to Assessment section for details of any comorbidities. Patient is Able to Perform the Following Physical Activity: Walk a block or two on level ground (2.75 METs) developed exertional SOB Patient's functional class is IV based on self-reported physical activity. Significant Anesthesia Considerations: None. 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 Zak Boykin - Diabetes type 1, controlled ([facility]) Insulin pump-MARIZA Tovar - Endometriosis s/p hysterectomy - Hypercholesteremia - Insulin pump in place - Osteoarthritis - Osteoporosis - Rheumatoid arthritis ([facility]) Dr. De Los Santos, pain management - Tobacco use PAST SURGICAL HISTORY Procedure Laterality Date - SECTION HX x 2 - HYSTERECTOMY HX - PAST SURGICAL HISTORY OF left eye surgery - PAST SURGICAL HISTORY OF right knee replacement - PAST SURGICAL HISTORY OF left knee surgery - PAST SURGICAL HISTORY OF Removal of strawberry gemma after - TOTAL HIP REPLACEMENT Left FAMILY HISTORY Problem Relation Age of Onset - Lipids Mother - Heart Mother - Hypertension Mother - Diabetes Father - Stroke Father - Cancer Brother thyroid cancer SOCIAL HISTORYSocial History Marital status: Spouse name: Years of education: Number of children: Social History Main Topics Smoking status: Current Every Day Smoker Packs/day: 1.00 Years: 42.00 Types: Cigarettes Smokeless status: Never Used Alcohol use: No Drug use: No Sexual activity: Yes Partners with: Male MEDICATIONS/ALLERGIES Current Outpatient Prescriptions: peg 3350-electrolytes (COLYTE) 240-22.72-6.72 -5.84 gram solution Take 4,000 mL by mouth one time only for 1 dose. Disp: 4000 mL Rfl: 0 benzonatate (TESSALON PERLE) 100 mg capsule Take 1 capsule by mouth three times daily as needed for up to 10 days. Disp: 30 capsule Rfl: 0 atorvastatin (LIPITOR) 20 mg tablet Take 20 mg by mouth once daily. Disp: Rfl: HYDROcodone-Acetaminophen (NORCO) 10-325 mg per tablet Take 1 tablet by mouth every 6 hours as needed. Disp: Rfl: 0 insulin lispro (HUMALOG) 100 unit/mL injection Use as directed with insulin pump-managed by MARIZA Tovar CNP Disp: Rfl: No current facility-administered medications for this visit. ALLERGIES Allergen Reactions - Adhesive Other: See Comments Blood blisters - Latex Other: See Comments Blood blisters - Nsaids (Non-Steroid* Other: See Comments kidney problem - Penicillin Other: See Comments tachycardia REVIEW OF SYSTEMS General: No weight loss, malaise or fevers. 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 No neurological symptoms or problems. Respiratory: active smoker, was on albuterol inhaler for cough and wheezing per PCP< currerntly off, had spirometry in 07/2017 normal Cardiovascular: No history of HTN requiring medication, no history of angina, CHF, [place], cardiac surgery or stents. Denies rest pain, gangrene or revascularization/amputation for PVD. No history of cardiovascular symptoms or problems. GI: No history of GI symptoms or problems. No history of esophageal varices, recent ascites, or ETOH greater than 2 drinks per day., constipation : No history of UTI in past 6 weeks. No history of renal failure. Not currently on or requiring dialysis. No history of symptoms or problems. 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 Endocrine: Diabetes Mellitus on insulin pump Hematology: No history of bleeding or clotting disorder. No history of hematological symptoms or problems. Oncology: No history of CA metastasis, chemo within 30 days, or radiotherapy within 90 days. No history of oncological symptoms or problems. Psych: No history of psychiatric symptoms or problems. Skin: Negative for lesions, rash, and itching. PHYSICAL EXAM VITALS: BP 121/79 Pulse 82 Temp (Src) 98.9 (Oral) Ht 5' 8 (1.73m) Wt 111 lb (50.3kg) SpO2 100% BMI 16.88 kg/(m2). General: Alert and oriented Skin: Normal color, no rash, no lesions. HEENT: EOM, pupils equal, round and reactive. Cardiovascular: Normal S1 AND S2, no rubs, murmurs or gallops. No JVD. Pulse regular. Lungs: Normal breath sounds, no wheezes or crackles. Abdomen: Soft, non-tender, no rigidity. Extremities: No deformity, no edema or tenderness, no joint swelling or clubbing. Neurological: Normal cognition and motor skills. Pulses: Carotid and radial pulses normal +2. ASSESSMENT Ms. Stephens is a 57 year old female referred to me for preoperative evaluation. Patient has the following medical comorbidities which might affect the perioperative course: -DM TI complicated by retinopathy, R sided blindness, neuropathy ; on insulin pump, managed by MARIZA Tovar ( aware of upcoming surgery and already has instructions) -Active smoker , SOB exertional ( HAD Stress test, ECHO and spirometry all WNL) ; had wheezing and cough and was taking albuterol PRN , currently resolved -Severe RA with multiple joint involvement -OA and osteoporosis -Chest discomfort - seen by cardiology in 2017 , never had cardiac cath, Stress test in 09/2017 negative , assumed to be musculoskeletal Patient's RCRI (Revised Cardiac Risk Index: CAD/CHF/Stroke or TIA/SCr>2/DM on Insulin/High Risk Surgery) score is 1 and is at low risk for major adverse cardiac events in the perioperative period. Diagnostic tests reviewed for today's visit: 11/29/2017 Most recent EKG: normal sinus rhythm, normal axis, normal intervals, reviewed by myself. LABS PENDING 09/04/2017 Stress test Normal pharmacological stress test with normal perfusion 08/19/2017 ECHO CONCLUSIONS: - Technically difficult exam due to body habitus. - Exam indication: Chest Pain - The left ventricle is normal in size. Left ventricular systolic function is normal. EF = 67 ? 5% (2D biplane) Normal left ventricular diastolic function. - The right ventricle is normal in size. Right ventricular systolic function is normal. - There are no significant valvular abnormalities. - The patient has not had a prior CC echocardiographic exam for comparison. 07/29/2017Spirometry IMPRESSION: Spirometry is normal. There is no significant bronchodilator response. Clinical improvement following bronchodilator therapy may occur even if there is no spirometric improvement. Electronically Signed On 07-30-2017 15:41:17 EST by Kayla Morales MD [facility] ? [place] [address] ? PFT Lab Report Name: SUSANNA STEPHENS ? ID: [id number] ? Date: 07/29/17 ?Physician: Eunice Griffith ? Age: 56 ? Height(in): 68.5 ? Weight(lb): 110 ? Gender: Female ?Race: ? Diagnosis: ?Medication Set 1: ? Dyspnea Rest: No ?Dyspnea Exercise: No ? Cough: No ? Persistent: No ?Productive (cc): ? Smoker: No ?How Long: ? Stopped: ?Cigarettes: No ? Fire Equipment Repairer Inspector: Fozia Elliott, TELECOMMUNICATIONS ENGINEER ?Temp: ?22 ?PBar: 760 ?PF Reference: ######## Spirometry ?Hb: ?gm/dL ?Ref ? Pre ? Pre ? Post ?Post ?Post ?Abel ?% Ref ? ? ? Abel ?% Ref ? ? ? % Chg FVC ?Liters ? ? ?4.03 ?3.93 ?98 ?3.87 ?96 ?-1 FEV1 ? ? ? Liters ? ? ?3.15 ?3.26 ?103 ? 3.09 ?98 ?-5 FEV1/FVC ? % ? 79 ?83 ?80 DQZ82-82% ?L/sec ? ? ? 2.87 ?3.53 ?123 ? 2.98 ?104 ? -16 [id number] L/sec ? ? ?3.04 ?3.53 ?116 ? 2.94 ?97 ?-17 PEF ?L/sec ? ? ? 7.30 ?7.00 ?96 ?6.84 ?94 ?-2 SKW197% ? ?Sec ? 3.99 ?4.13 ?3 MVV ?L/min ? ? ? 126 f ?BPM ? Lung Volumes TLC ?Liters ? ? ?5.73 VC ? Liters ? ? ?4.03 IC ? Liters ? ? ?2.50 FRC N2 ? ? Liters ? ? ?3.25 ERV ?Liters ? ? ?1.25 RV ? Liters ? ? ?2.09 RV/TLC ? ? % ? 37 ? Diffusing Capacity DLCO ? ? ? mL/mmHg/min 24.1 DL Adj ? ? mL/mmHg/min 24.1 DLCO/VA ? ?mL/mHg/min/L 4.33 DL/VA Adj ?mL/mHg/min/L 4.33 VA ? Liters ? ? ?5.57 IVC ?Liters BHT ?Sec ? Resistance Raw ?cmH2O/L/sec 1.02 sGaw ? ? ? L/s/cmH2O/L 0.268 ? Respiratory Muscle Force PI max ? ? cmH2O ? ? ? 76 PE max ? ? cmH2O ? ? ? 141 ? null PLAN/RECOMMENDATIONS CARDIAC: Patient is at optimal cardiac condition for scheduled surgery / procedure. PULMONARY: Patient is at increased risk for postoperative pulmonary complications. Advised patient to stop smoking. Suggest the following in the post-operative period: Continue bronchodilator medications, Aggressive bronchopulmonary hygiene and Early ambulation ENDOCRINE: DIABETES: - Initiate [facility] Guidelines for perioperative diabetes management. Check finger stick glucose on the morning of surgery. - Patient has been instructed on Preoperative DM medication management. VASCULAR/ANTICOAGULATION: VTE prophylaxis as deemed appropriate by the surgical service. Patient is optimally prepared for surgery. Patient Instructions: As per patient instructions section. I have discussed the above recommendations with the patient in detail, in candi and lay terms, and provided a written summary of instructions as needed. We have discussed that no surgery is without risk, but that the goal of preoperative assessment is to optimize that risk, and that was clearly understood by the patient. I have given ample opportunity for the patient to ask questions, and answered all questions to their stated satisfaction. SIGNATURE: Kortney Hinton MD PATIENT NAME: Susanna Stephens DATE: November 29, 2017 TIME: 12:28 PM PROGRESS Observed: 11/29/2017 Status: COMPLETED Source: [place] 9:58 AM [facility] REPOSITORY [facility] ID: [id number] Author: Feroz Casey) Sid Service: (none) Author Type: Physician Type: Progress Notes Filed: 11/29/2017 10:57 AM Note Text: Chief Complaint Patient presents with: Recheck HPI Susanna Stephens is a 57 year old female who presents here today for follow up of rheumatoid arthritis. Patient has been seen by Dr. Kika Muñoz regarding arthritis in her elbows and has surgery scheduled on 12/04 for right elbow replacement. Has preoperative clearance scheduled through their office today, does not need clearance here today. Has also had celestone injection into her left shoulder and right wrist, both of which have already worn off. Has not been able to see rheumatology due to insurance issues. Will need to call to schedule appointment in [place]. Following up with Dr. De Los Santos for pain management and is still taking [place]. Has also followed up with Dr. Boykin for CAD and had negative stress test. Thinks she has follow up scheduled in January, but is not showing this in our system. No recent changes to her regimen. Following up with MARIZA Tovar for DM type I. States A1C was 6.9. Will obtain records. Complaining today of productive cough with clear sputum which started a couple weeks ago. Denies fever, chills, SOB, wheezing, chest pain, sinus pain/pressure, sore throat, ear pain/fullness. Not treating symptoms with anything OTC. Admits to recent sick contacts with grandchildren. Feels like symptoms improving slowly on its own. Past medical history, appointments, medications, allergies reviewed. Previous Medical History PAST MEDICAL HISTORY Diagnosis Date - Blindness of one eye with normal vision in contralateral eye right - CAD (coronary artery disease) Dr. Zak Boykin - Diabetes type 1, controlled (HCC) Insulin pump-MARIZA Tovar - Endometriosis s/p hysterectomy - Hypercholesteremia - Insulin pump in place - Osteoarthritis - Osteoporosis - Rheumatoid arthritis (HCC) - Tobacco use Previous Surgical History PAST SURGICAL HISTORY Procedure Laterality Date - SECTION HX x 2 - HYSTERECTOMY HX - PAST SURGICAL HISTORY OF left eye surgery - PAST SURGICAL HISTORY OF right knee replacement - PAST SURGICAL HISTORY OF left knee surgery - PAST SURGICAL HISTORY OF Removal of strawberry gemma after - TOTAL HIP REPLACEMENT Left Family History FAMILY HISTORY Problem Relation Age of Onset - Lipids Mother - Heart Mother - Hypertension Mother - Diabetes Father - Stroke Father - Cancer Brother thyroid cancer Patient Allergies ALLERGIES Allergen Reactions - Adhesive Other: See Comments Blood blisters - Latex Other: See Comments Blood blisters - Nsaids (Non-Steroid* Other: See Comments kidney problem - Penicillin Other: See Comments tachycardia Current Medications Current Outpatient Prescriptions on File Prior to Visit: aspirin, enteric coated (ASPIR-LOW) 81 mg EC tablet Take 1 tablet by mouth once daily. albuterol HFA (VENTOLIN HFA) 90 mcg/actuation inhaler Inhale 2 Puffs as instructed every 4 hours as needed for Wheezing/Shortness of Breath. HYDROcodone-Acetaminophen (NORCO) 10-325 mg per tablet Take 1 tablet by mouth every 6 hours as needed. insulin lispro (HUMALOG) 100 unit/mL injection Use as directed with insulin pump-managed by MARIZA Tovar CNP No current facility-administered medications on file prior to visit. Social History Social History Marital status: Spouse name: Years of education: Number of children: Social History Main Topics Smoking status: Current Every Day Smoker Packs/day: 1.00 Years: 42.00 Types: Cigarettes Smokeless status: Never Used Alcohol use: No Drug use: No Sexual activity: Yes Partners with: Male Review of Symptoms REVIEW OF SYSTEMS GENERAL: No weight loss, malaise or fevers RESPIRATORY: See HPI CARDIOVASCULAR: Negative for chest pain, leg swelling, hypertension, CHF or palpitations GI: No nausea, vomiting, or diarrhea SKIN: Negative for lesions, rash, and itching EXAM: BP 100/60 (BP Site: Left Arm, BP Position: Sitting, BP Cuff Size: Regular Adult) Pulse 88 Resp 16 Wt 50.4 kg (111 lb 0.6 oz) BMI 16.88 kg/m2 General Appearance: Well appearing, alert, in no acute distress, well-hydrated, well nourished.. Skin: Skin color, texture, turgor normal, no suspicious rashes or lesions. Lungs: Lungs clear to auscultation. No wheezing, rhonchi, rales. Heart: RRR without murmur, gallop, or rubs. No ectopy. Abdomen: Normal abdominal exam, Abdomen soft, non-tender. Bowel sounds normal. No masses, organomegaly. Extremities: No deformities, edema, skin discoloration, clubbing or cyanosis. Good capillary refill. . Health Maintenance List DILATED RETINAL EXAM due on 1962 DIABETIC FOOT EXAM due on 1978 HEPATITIS C SCREENING due on 2006 COLORECTAL CANCER SCREENING,SEE MODIFIER due on 2012 MAMMOGRAM due on 10/03/2017 HBA1C due on 03/26/2018 LDL due on 07/03/2018 URINE ALBUMIN CREATININE RATIO due on 09/26/2018 TETANUS due on 07/03/2027 ONE PNEUMOVAX PRIOR TO AGE 65 Completed INFLUENZA Completed ASSESSMENT/PLAN: 1. Cough - ICD9: 786.2, ICD10: R05 (primary diagnosis) Normal exam today. Advised use of albuterol PRN for any wheezing. Will give tessalon for cough and have patient call with worsening symptoms. - BENZONATATE 100 MG CAPSULE 2. Rheumatoid arthritis involving multiple sites, unspecified rheumatoid factor presence (HCC) - ICD9: 714.0, ICD10: M06.9 Follow up with rheumatology and Dr. Muñoz as scheduled. Will follow up post op instructions. 3. Coronary artery disease of [place] artery of [place] heart with stable angina pectoris (HCC) - ICD9: 414.01, 413.9, ICD10: I25.118 Negative stress testing. Continue current regimen. Last lipid panel in normal range. Follow up with cardiology as recommended. 4. Type 1 diabetes mellitus without complication (HCC) - ICD9: 250.01, ICD10: E10.9 Will obtain records from MARIZA Tovar's office. Last A1C was normal at 6.9. 5. Chronic pain of multiple sites - ICD9: 780.96, 338.29, ICD10: R52, G89.[address] De Los Santos. 6. Tobacco use - ICD9: 305.1, ICD10: Z72.0 - Cessation encouraged. - Physiologic and physical aspects of tobacco addiction as well as strategies for quitting were discussed. - Counseling was given focusing on the harmful effects of this addiction especially given the patient's medical condition(s) which will be worsened because of the chemicals in tobacco. 7. Special screening for malignant neoplasms, colon - ICD9: V76.51, ICD10: Z12.11 - PEG 3350 240 GRAM-ELECTROLYTES 22.72 GRAM-6.72 G-5.84 G POWDR FOR SOLN - COLONOSCOPY SCRN NOT HIGH RISK 8. Screening mammogram, encounter for - ICD9: V76.12, ICD10: Z12.31 - Set up for mammogram, yearly mammogram recommended - [facility] SCREENING 9. Encounter for hepatitis C screening test for low risk patient - ICD9: V73.89, ICD10: Z11.59 - HEP C AB IA BLOOD Feroz aLu MD PROGRESS Observed: 11/29/2017 Status: COMPLETED Source: [place] 9:50 AM [facility] REPOSITORY [facility] ID: [id number] Author: Faith Diallo LPN Service: (none) Author Type: (none) Type: Progress Notes Filed: 11/29/2017 10:57 AM Note Text: TR OPEN ACCESS QUESTIONNAIRE 1. Are you or could you be ? No 2. Are you currently having any stomach/gastrointestinal issues at this time such as constipation, diarrhea, abdominal pain, rectal bleeding etc? Yes / constipation 3. Do you have an implanted device such as a defibrillator, pacemaker, Cardiac Stent or deep brain stimulation device? No 4. Do you have any new or past cardiac (heart) or pulmonary (lung) issues? No 5. Is the patient's BMI 40 or greater? No:There is no height or weight on file to calculate BMI.. Last Wt 11/14/17 : 51.3 kg (113 lb) Last Ht 11/14/17 : 172.7 cm (5' 8) 6. Have you had difficulty with prior sedations or complications with other procedures? No 7. Have you had difficulty with anesthesia previously re: ? Difficult intubation? No ? Other difficulty or allergic reaction to anesthesia other than post op N/V? No 8. Do you currently use oxygen or a breathing machine at night? No 9. Do you take any narcotics, depression or anti-Anxiety medications or 3 or more prescription drugs on a daily basis? Yes / antidepressants 10. Do you use any illegal or recreational drugs? No 11. Have you been hospitalized in the past 6 weeks? No 12. Are you on dialysis or have Chronic Kidney Disease? No 13. Have you been diagnosed with chronic liver disease such as hepatitis or cirrhosis? No 14. Do you have a seizure disorder? No 15. Do you have difficulty swallowing? No 16. Do you have ulcerative colitis or Crohn's disease? No 17. Do you take any Blood thinners, including Aspirin or fish oil? No 18. Do you have any blood disorders (re:hemophiliac)? No 19. Are you Diabetic? Yes: insulin dependent 20. Any other important health information we should be made aware of prior to your colonoscopy? No Checklist: Prior to closing the encounter: ? Complete questionnaire: Yes ? Confirm Prep order has been Ordered/Pended: Yes. ? Patient's procedure could be delayed if not given the script for the prep. Please ensure the prep is escripted to pharmacy or printed. Instructions for the prep will print upon filing or pending this smartset. ? Please send all open access questionnaires to [facility] Surg Sched Pool #[id number] CNOV Observed: 11/29/2017 Status: COMPLETED Source: [place] 9:40 AM [facility] REPOSITORY Office Visit (FAMPWS) ANGELOSUSANNA L ([id number]) 1960 F BLKiko Date Time Provider Department 11/29/17 9:40 AM FEROZ LAU) FAMPWS During your visit today, we recorded the following information about you: Temperature Pulse Respiration Blood pressure 99.2 degrees 88/minute 16/minute 100/60 Weight 50.4 kg Faith Benoit Yoel BATES 11/29/2017 10:57 AM Signed [facility] OPEN ACCESS QUESTIONNAIRE 1. Are you or could you be ? No 2. Are you currently having any stomach/gastrointestinal issues at this time such as constipation, diarrhea, abdominal pain, rectal bleeding etc? Yes / constipation 3. Do you have an implanted device such as a defibrillator, pacemaker, Cardiac Stent or deep brain stimulation device? No 4. Do you have any new or past cardiac (heart) or pulmonary (lung) issues? No 5. Is the patient's BMI 40 or greater? No:There is no height or weight on file to calculate BMI.. Last Wt 11/14/17 : 51.3 kg (113 lb) Last Ht 11/14/17 : 172.7 cm (5' 8ANDquot;) 6. Have you had difficulty with prior sedations or complications with other procedures? No 7. Have you had difficulty with anesthesia previously re: ? Difficult intubation? No ? Other difficulty or allergic reaction to anesthesia other than post op N/V? No 8. Do you currently use oxygen or a breathing machine at night? No 9. Do you take any narcotics, depression or anti-Anxiety medications or 3 or more prescription drugs on a daily basis? Yes / antidepressants 10. Do you use any illegal or recreational drugs? No 11. Have you been hospitalized in the past 6 weeks? No 12. Are you on dialysis or have Chronic Kidney Disease? No 13. Have you been diagnosed with chronic liver disease such as hepatitis or cirrhosis? No 14. Do you have a seizure disorder? No 15. Do you have difficulty swallowing? No 16. Do you have ulcerative colitis or Crohn's disease? No 17. Do you take any Blood thinners, including Aspirin or fish oil? No 18. Do you have any blood disorders (re:hemophiliac)? No 19. Are you Diabetic? Yes: insulin dependent 20. Any other important health information we should be made aware of prior to your colonoscopy? No Checklist: Prior to closing the encounter: ? Complete questionnaire: Yes ? Confirm Prep order has been Ordered/Pended: Yes. ? Patient's procedure could be delayed if not given the script for the prep. Please ensure the prep is escripted to pharmacy or printed. Instructions for the prep will print upon filing or pending this smartset. ? Please send all open access questionnaires to [facility] Surg Sched [place] #[id number] Faith Diallo LPN 11/29/2017 9:50 AM Signed Health Information For Patients and the Community How to Prepare for Your Colonoscopy Using Golytely, Nulytely, Trilyte or Colyte Preparations IMPORTANT - Please Read These Instructions at Least 2 Weeks Before Your Colonoscopy [place] Instructions: ?Your bowel must be empty so that your doctor can clearly view your colon. Follow all of the instructions in this handout EXACTLY as they are written. If you do NOT follow the directions for when to start drinking the bowel preparation (see next page), your colonoscopy WILL be cancelled. ?Do NOT eat any solid food the ENTIRE day before your colonoscopy. ?Buy your bowel preparation at least 5 days before your colonoscopy. ?Do NOT mix the solution until the day before your colonoscopy. Designated Web Development Director on the Day of Your Exam A responsible family member or friend MUST come with you to your colonoscopy and REMAIN in the endoscopy area until you are discharged! You are NOT ALLOWED to drive, take a taxi or bus, or leave the Endoscopy Center ALONE. If you do not have a responsible auto haulaway driver (family member or friend) with you to take you home, your exam cannot be done with sedation and will be cancelled. Medications Some of the medicines you take may need to be stopped or adjusted before your colonoscopy. You MUST call the doctor who ordered any of the following medicines at least 2 weeks before your colonoscopy. ?Blood thinners -- such as Coumadin? (warfarin), Plavix? (clopidogrel), Ticlid? (ticlopidine hydrochloride), Agrylin? (anagrelide), Xarelto? (Rivaroxaban), Pradaxa? (Dabigatran), Eliquis? (Apixaban), and Effient? (Prasugrel). ?Insulin or diabetes pills. Please call the doctor that monitors your glucose levels. Your insulin dosage may need to be adjusted due to the diet restrictions required with this bowel preparation. (Please bring your diabetes medicines with you on the day of your procedure.) If you take aspirin, take it and ALL other medications prescribed by your doctor. On the day of your colonoscopy, take your medications with a sip of water. Revised 10/2016 1 Five (5) Days Before Your Colonoscopy ?Do NOT take medicines that stop diarrhea -- such as Imodium?, Kaopectate?, or Pepto Bismol?. ?Do NOT take fiber supplements -- such as Metamucil?, Citrucel?, or Perdiem?. ?Do NOT take products that contain iron -- such as multi-vitamins -- (the label lists what is in the products). ?Do NOT take vitamin E. Buy the prescription bowel preparation solution at your local pharmacy or drugstore pharmacy. Three (3) Days Before Your Colonoscopy Do NOT eat high-fiber foods -- such as popcorn, beans, seeds (flax, sunflower, quinoa), multigrain bread, nuts, salad/vegetables, or fresh and dried fruit. One (1) Day Before Your Colonoscopy Only drink clear liquids the ENTIRE DAY before your colonoscopy. Do NOT eat any solid foods. Drink at least 8 ounces of clear liquids every hour after waking up. The clear liquids you can drink include: ?water, apple, or white grape juice; broth; coffee or tea (without milk or creamer); clear carbonated beverages such as haydee ibrahima or lemon-berry creek soda; Gatorade? or other sports drinks (not red); Levi-Aid? or other flavored drinks (not red). You may eat plain jello or other gelatins (not red) or popsicles (not red). Do NOT drink alcohol on the day before or the day of the procedure. 2 Revised 10/2016 When to Mix and Drink Your Bowel Prep Follow the instructions on the label. After mixing, place the solution in the refrigerator for a couple of hours before drinking. You may add the flavor packet that came with the bowel preparation. DO NOT add ice, sugar or any flavorings to the solution. Evening Before Your Colonoscopy ?Start drinking the bowel preparation at 6 PM the evening before your colonoscopy. Drink an 8-oz glass of bowel preparation every 10 minutes. You must finish drinking the solution by 9 PM the night before your scheduled procedure. ?You may continue to drink clear liquids only until midnight. Do NOT eat or drink ANYTHING after midnight the night before your procedure or your procedure may be cancelled. This is for your safety and will reduce the risk of having any food or liquid in your stomach move into your lungs (aspiration) during a procedure. If you take aspirin, take it and ALL other prescribed medicines with a sip of water on the day of your colonoscopy. Contact Information: If you are unable to keep your appointment or have any questions about the instructions, please call the facility where the procedure is being performed. Call between the hours of 8:00 AM and 5:00 PM. If you are calling after 5:00 PM, please call Nurse motion picture projectionist apprentice at [phone]. [facility] [address] [place] [address] [id number] Index # [id number] Revised 10/2016 3 Colonoscopy Procedure Overview Please Read Prior to the Procedure What is a Colonoscopy A colonoscopy is an outpatient procedure in which the inside of the large intestine (colon and rectum) is examined. A colonoscopy is commonly used to evaluate gastrointestinal symptoms, such as rectal and intestinal bleeding, abdominal pain, or changes in bowel habits. Colonoscopies are also performed in individuals without symptoms to check for colorectal polyps or cancer. A screening colonoscopy is recommended for anyone 50 years of age and older, and for anyone with parents, siblings or children with a history of colorectal cancer or polyps. What Happens Before a Colonoscopy To have a successful colonoscopy, your bowel must be empty so that your physician can clearly view the colon. To do this, it is very important to read and follow all of the instructions given to you at least 2 weeks BEFORE your exam. If your bowel is not empty, your colonoscopy will not be successful and may have to be repeated. If you feel nauseated or vomit while taking the bowel preparation, wait 30 minutes before drinking more fluid and start with small sips of solution. Some activity (such as walking) or a few soda crackers may help decrease the nausea you are feeling. If the nausea persists, please contact nurse division service manager at [phone]. You may experience skin irritation around the anus due to the passage of liquid stools. To prevent and treat skin irritation, you should: ?Apply Vaseline? or Desitin? ointment to the skin around the anus before drinking the bowel preparation medications. These products can be purchased at any drugstore. ?Wipe the skin after each bowel movement with disposable wet wipes instead of toilet paper. These are found in the toilet paper area of the store. ?Sit in a bathtub filled with warm water for 10 to 15 minutes after you finish passing a stool; after soaking, blot the skin dry with a soft cloth, apply Vaseline? or Desitin? ointment to the anal area, and place a cotton ball just outside your anus to absorb leaking fluid. What Happens During a Colonoscopy During a colonoscopy, an experienced physician uses a colonoscope (a long, flexible instrument about 1/2 inch in diameter) to view the lining of the colon. The colonoscope is inserted into the rectum and advanced through the large intestine. If necessary during a colonoscopy, small amounts of tissue can be removed for analysis (a biopsy) and polyps can be identified and entirely removed. In many cases, a colonoscopy allows accurate diagnosis and treatment of colorectal problems without the need for a major operation. Revised 10/2016 5 ?You are asked to wear a hospital gown and an IV will be started. ?You are given a pain reliever and a sedative intravenously (in your vein). You will feel relaxed and somewhat drowsy. ?You will lie on your left side, with your knees drawn up towards your chest. ?A small amount of air is used to expand the colon so the physician can see the colon horan. ?You may feel mild cramping during the procedure. Cramping can be reduced by taking slow, deep breaths. ?The colonoscope is slowly withdrawn while the lining of your bowel is carefully examined. ?The procedure lasts from 30 minutes to 1 hour. What Happens After a Colonoscopy ?You will stay in a recovery room for observation until you are ready for discharge. ?You may feel some cramping or a sensation of having gas, but this quickly passes. ?If sedation has been given, a responsible family member or friend must drive you home. ?Avoid alcohol, driving, and operating machinery for 24 hours following the procedure. ?Unless otherwise instructed, you may immediately return to your normal diet. We recommend you wait until the day after your procedure to resume normal activities. ?If polyps were removed or a biopsy was taken, the physician performing your colonoscopy will tell you when it is safe to resume taking your blood thinners. ?If a biopsy was taken or a polyp was removed, you may notice a little amount of rectal bleeding for 1 to 2 days after the procedure. If you have a large amount of rectal bleeding, high or persistent fevers, or severe abdominal pain within the next 2 weeks, please go to your local emergency room and call the physician who performed your exam. 6 Revised 10/2016 ?Copyright 1818-5813 [facility]. All rights reserved. Revised 10/2016 Feroz Lau MD 11/29/2017 10:57 AM Signed Chief Complaint Patient presents with: Recheck QUINTON Susanna Stephens is a 57 year old female who presents here today for follow up of rheumatoid arthritis. Patient has been seen by Dr. Kika Muñoz regarding arthritis in her elbows and has surgery scheduled on 12/04 for right elbow replacement. Has preoperative clearance scheduled through their office today, does not need clearance here today. Has also had celestone injection into her left shoulder and right wrist, both of which have already worn off. Has not been able to see rheumatology due to insurance issues. Will need to call to schedule appointment in [place]. Following up with Dr. De Los Santos for pain management and is still taking [place]. Has also followed up with Dr. Boykin for CAD and had negative stress test. Thinks she has follow up scheduled in January, but is not showing this in our system. No recent changes to her regimen. Following up with MARIZA Tovar for DM type I. States A1C was 6.9. Will obtain records. Complaining today of productive cough with clear sputum which started a couple weeks ago. Denies fever, chills, SOB, wheezing, chest pain, sinus pain/pressure, sore throat, ear pain/fullness. Not treating symptoms with anything OTC. Admits to recent sick contacts with grandchildren. Feels like symptoms improving slowly on its own. Past medical history, appointments, medications, allergies reviewed. Previous Medical History PAST MEDICAL HISTORY Diagnosis Date - Blindness of one eye with normal vision in contralateral eye right - CAD (coronary artery disease) Dr. Zak Boykin - Diabetes type 1, controlled (HCC) Insulin pump-[facility]IZA Tovar - Endometriosis s/p hysterectomy - Hypercholesteremia - Insulin pump in place - Osteoarthritis - Osteoporosis - Rheumatoid arthritis (HCC) - Tobacco use Previous Surgical History PAST SURGICAL HISTORY Procedure Laterality Date - SECTION HX x 2 - HYSTERECTOMY HX - PAST SURGICAL HISTORY OF left eye surgery - PAST SURGICAL HISTORY OF right knee replacement - PAST SURGICAL HISTORY OF left knee surgery - PAST SURGICAL HISTORY OF Removal of strawberry gemma after - TOTAL HIP REPLACEMENT Left Family History FAMILY HISTORY Problem Relation Age of Onset - Lipids Mother - Heart Mother - Hypertension Mother - Diabetes Father - Stroke Father - Cancer Brother thyroid cancer Patient Allergies ALLERGIES Allergen Reactions - Adhesive Other: See Comments Blood blisters - Latex Other: See Comments Blood blisters - Nsaids (Non-Steroid* Other: See Comments kidney problem - Penicillin Other: See Comments tachycardia Current Medications Current Outpatient Prescriptions on File Prior to Visit: aspirin, enteric coated (ASPIR-LOW) 81 mg EC tablet Take 1 tablet by mouth once daily. albuterol HFA (VENTOLIN HFA) 90 mcg/actuation inhaler Inhale 2 Puffs as instructed every 4 hours as needed for Wheezing/Shortness of Breath. HYDROcodone-Acetaminophen (NORCO) 10-325 mg per tablet Take 1 tablet by mouth every 6 hours as needed. 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 Social History Social History Marital status: Spouse name: Years of education: Number of children: Social History Main Topics Smoking status: Current Every Day Smoker Packs/day: 1.00 Years: 42.00 Types: Cigarettes Smokeless status: Never Used Alcohol use: No Drug use: No Sexual activity: Yes Partners with: Male Review of Symptoms REVIEW OF SYSTEMS GENERAL: No weight loss, malaise or fevers RESPIRATORY: See HPI CARDIOVASCULAR: Negative for chest pain, leg swelling, hypertension, CHF or palpitations GI: No nausea, vomiting, or diarrhea SKIN: Negative for lesions, rash, and itching EXAM: BP 100/60 (BP Site: Left Arm, BP Position: Sitting, BP Cuff Size: Regular Adult) Pulse 88 Resp 16 Wt 50.4 kg (111 lb 0.6 oz) BMI 16.88 kg/m2 General Appearance: Well appearing, alert, in no acute distress, well-hydrated, well nourished.. Skin: Skin color, texture, turgor normal, no suspicious rashes or lesions. Lungs: Lungs clear to auscultation. No wheezing, rhonchi, rales. Heart: RRR without murmur, gallop, or rubs. No ectopy. Abdomen: Normal abdominal exam, Abdomen soft, non-tender. Bowel sounds normal. No masses, organomegaly. Extremities: No deformities, edema, skin discoloration, clubbing or cyanosis. Good capillary refill. . Health Maintenance List DILATED RETINAL EXAM due on 1962 DIABETIC FOOT EXAM due on 1978 HEPATITIS C SCREENING due on 2006 COLORECTAL CANCER SCREENING,SEE MODIFIER due on 2012 MAMMOGRAM due on 10/03/2017 HBA1C due on 03/26/2018 LDL due on 07/03/2018 URINE ALBUMIN CREATININE RATIO due on 09/26/2018 TETANUS due on 07/03/2027 ONE PNEUMOVAX PRIOR TO AGE 65 Completed INFLUENZA Completed ASSESSMENT/PLAN: 1. Cough - ICD9: 786.2, ICD10: R05 (primary diagnosis) Normal exam today. Advised use of albuterol PRN for any wheezing. Will give tessalon for cough and have patient call with worsening symptoms. - BENZONATATE 100 MG CAPSULE 2. Rheumatoid arthritis involving multiple sites, unspecified rheumatoid factor presence (HCC) - ICD9: 714.0, ICD10: M06.9 Follow up with rheumatology and Dr. Muñoz as scheduled. Will follow up post op instructions. 3. Coronary artery disease of [place] artery of [place] heart with stable angina pectoris (HCC) - ICD9: 414.01, 413.9, ICD10: I25.118 Negative stress testing. Continue current regimen. Last lipid panel in normal range. Follow up with cardiology as recommended. 4. Type 1 diabetes mellitus without complication (HCC) - ICD9: 250.01, ICD10: E10.9 Will obtain records from MARIZA Tovar's office. Last A1C was normal at 6.9. 5. Chronic pain of multiple sites - ICD9: 780.96, 338.29, ICD10: R52, G89.[address] De Los Santos. 6. Tobacco use - ICD9: 305.1, ICD10: Z72.0 - Cessation encouraged. - Physiologic and physical aspects of tobacco addiction as well as strategies for quitting were discussed. - Counseling was given focusing on the harmful effects of this addiction especially given the patient's medical condition(s) which will be worsened because of the chemicals in tobacco. 7. Special screening for malignant neoplasms, colon - ICD9: V76.51, ICD10: Z12.11 - PEG 3350 240 GRAM-ELECTROLYTES 22.72 GRAM-6.72 G-5.84 G POWDR FOR SOLN - COLONOSCOPY SCRN NOT HIGH RISK 8. Screening mammogram, encounter for - ICD9: V76.12, ICD10: Z12.31 - Set up for mammogram, yearly mammogram recommended - KIERSTEN SCREENING 9. Encounter for hepatitis C screening test for low risk patient - ICD9: V73.89, ICD10: Z11.59 - HEP C AB IA BLOOD MD Flori Morris 12/03/2017 10:34 AM Signed 1st failed attempt to contact patient, left voice message Flori Hollis 12/03/2017 11:28 AM Signed Scheduled patient for colonoscopy consultation with Cheli Perla on 12/16/2017 Flori Hollis Referring Provider: SELF [[id number]] Allergies As of Date: 11/29/2017 Noted Allergy Reaction ADHESIVE 07/03/2017 14 - Other: See Comments Comments: Blood blisters LATEX 07/03/2017 14 - Other: See Comments Comments: Blood blisters NSAIDS (NON-STEROIDAL ANTI-INFLAM*11/14/2017 14 - Other: See Comments Comments: kidney problem PENICILLIN 07/03/2017 14 - Other: See Comments Comments: tachycardia Date Reviewed: 11/29/2017 Reviewed by: Trixie Downs LPN - Fully Assessed Reason for Visit: Recheck [92] Primary Visit Diagnosis:Cough [R05] Other Visit Diagnoses:Rheumatoid arthritis involving multiple sites, unspecified rheumatoid factor presence (HCC) [M06.9] Coronary artery disease of [place] artery of [place] heart with stable angina pectoris (HCC) [I25.118] Type 1 diabetes mellitus without complication (HCC) [E10.9] Chronic pain of multiple sites [R52, G89.29] Tobacco use [Z72.0] Special screening for malignant neoplasms, colon [Z12.11] Screening mammogram, encounter for [Z12.31] Encounter for hepatitis C screening test for low risk patient [Z11.59] Order(s):[] peg 3350-electrolytes (COLYTE) 240-22.72-6.72 -5.84 gram solutionTake 4,000 mL by mouth one time only for 1 dose.Disp: 4000 mLRfl: 0 COLONOSCOPY SCRN NOT HIGH RISK [[id number]] Order #: [id number] FUTURE KIERSTEN SCREENING [[id number]] Order #: [id number] FUTURE HEP C AB IA BLOOD [SQAHCV] Order #: [id number] FUTURE benzonatate (TESSALON PERLE) 100 mg capsuleTake 1 capsule by mouth three times daily as needed for up to 10 days.Disp: 30 capsuleRfl: 0 Prescriptions as of 11/29/2017 Sig: X ASPIRIN 81 MG TABLET,DELAYED * Take 1 tablet by mouth once d* X ALBUTEROL SULFATE HFA 90 MCG/* Inhale 2 Puffs as instructed * HYDROCODONE 10 MG-ACETAMINOPH* Take 1 tablet by mouth every * INSULIN LISPRO 100 UNIT/ML DESAI* Use as directed with insulin * PEG 3350 240 GRAM-ELECTROLYTE* Take 4,000 mL by mouth one ti* BENZONATATE 100 MG CAPSULE Take 1 capsule by mouth three* X ATORVASTATIN 20 MG TABLET Take 1 tablet by mouth daily * Problem List As Of Date 11/29/2017 Noted Resolved Rheumatoid arthritis involving multiple sites (*INVALID FOR* Coronary artery disease of [place] artery of [place]*INVALID FOR* Type 1 diabetes mellitus without complication (*INVALID FOR* Chronic pain of multiple sites [R52, G89.29] INVALID FOR* Tobacco use [Z72.0] Rheumatoid arthritis involving right elbow with*INVALID FOR* BMI less than 19,adult [Z68.1] INVALID FOR* Pre-op testing [Z01.818] INVALID FOR* More... Other instructions from your clinician: Health Information For Patients and the Community How to Prepare for Your Colonoscopy Using Golytely, Nulytely, Trilyte or Colyte Preparations IMPORTANT - Please Read These Instructions at Least 2 Weeks Before Your Colonoscopy Brunner Instructions: ?Your bowel must be empty so that your doctor can clearly view your colon. Follow all of the instructions in this handout EXACTLY as they are written. If you do NOT follow the directions for when to start drinking the bowel preparation (see next page), your colonoscopy WILL be cancelled. ?Do NOT eat any solid food the ENTIRE day before your colonoscopy. ?Buy your bowel preparation at least 5 days before your colonoscopy. ?Do NOT mix the solution until the day before your colonoscopy. Designated Web Development Director on the Day of Your Exam A responsible family member or friend MUST come with you to your colonoscopy and REMAIN in the endoscopy area until you are discharged! You are NOT ALLOWED to drive, take a taxi or bus, or leave the Endoscopy Center ALONE. If you do not have a responsible auto haulaway driver (family member or friend) with you to take you home, your exam cannot be done with sedation and will be cancelled. Medications Some of the medicines you take may need to be stopped or adjusted before your colonoscopy. You MUST call the doctor who ordered any of the following medicines at least 2 weeks before your colonoscopy. ?Blood thinners -- such as Coumadin? (warfarin), Plavix? (clopidogrel), Ticlid? (ticlopidine hydrochloride), Agrylin? (anagrelide), Xarelto? (Rivaroxaban), Pradaxa? (Dabigatran), Eliquis? (Apixaban), and Effient? (Prasugrel). ?Insulin or diabetes pills. Please call the doctor that monitors your glucose levels. Your insulin dosage may need to be adjusted due to the diet restrictions required with this bowel preparation. (Please bring your diabetes medicines with you on the day of your procedure.) If you take aspirin, take it and ALL other medications prescribed by your doctor. On the day of your colonoscopy, take your medications with a sip of water. Revised 10/2016 1 Five (5) Days Before Your Colonoscopy ?Do NOT take medicines that stop diarrhea -- such as Imodium?, Kaopectate?, or Pepto Bismol?. ?Do NOT take fiber supplements -- such as Metamucil?, Citrucel?, or Perdiem?. ?Do NOT take products that contain iron -- such as multi- vitamins -- (the label lists what is in the products). ?Do NOT take vitamin E. Buy the prescription bowel preparation solution at your local pharmacy or [facility]. Three (3) Days Before Your Colonoscopy Do NOT eat high-fiber foods -- such as popcorn, beans, seeds (flax, sunflower, quinoa), multigrain bread, nuts, salad/vegetables, or fresh and dried fruit. One (1) Day Before Your Colonoscopy Only drink clear liquids the ENTIRE DAY before your colonoscopy. Do NOT eat any solid foods. Drink at least 8 ounces of clear liquids every hour after waking up. The clear liquids you can drink include: ?water, apple, or white grape juice; broth; coffee or tea (without milk or creamer); clear carbonated beverages such as haydee ibrahima or lemon-berry creek soda; Gatorade? or other sports drinks (not red); Levi-Aid? or other flavored drinks (not red). You may eat plain jello or other gelatins (not red) or popsicles (not red). Do NOT drink alcohol on the day before or the day of the procedure. 2 Revised 10/2016 When to Mix and Drink Your Bowel Prep Follow the instructions on the label. After mixing, place the solution in the refrigerator for a couple of hours before drinking. You may add the flavor packet that came with the bowel preparation. DO NOT add ice, sugar or any flavorings to the solution. Evening Before Your Colonoscopy ?Start drinking the bowel preparation at 6 PM the evening before your colonoscopy. Drink an 8-oz glass of bowel preparation every 10 minutes. You must finish drinking the solution by 9 PM the night before your scheduled procedure. ?You may continue to drink clear liquids only until midnight. Do NOT eat or drink ANYTHING after midnight the night before your procedure or your procedure may be cancelled. This is for your safety and will reduce the risk of having any food or liquid in your stomach move into your lungs (aspiration) during a procedure. If you take aspirin, take it and ALL other prescribed medicines with a sip of water on the day of your colonoscopy. Contact Information: If you are unable to keep your appointment or have any questions about the instructions, please call the facility where the procedure is being performed. Call between the hours of 8:00 AM and 5:00 PM. If you are calling after 5:00 PM, please call Nurse motion picture projectionist apprentice at [phone]. [facility] [address], [place] [address] Index # [id number] Revised 10/2016 3 Colonoscopy Procedure Overview Please Read Prior to the Procedure What is a Colonoscopy A colonoscopy is an outpatient procedure in which the inside of the large intestine (colon and rectum) is examined. A colonoscopy is commonly used to evaluate gastrointestinal symptoms, such as rectal and intestinal bleeding, abdominal pain, or changes in bowel habits. Colonoscopies are also performed in individuals without symptoms to check for colorectal polyps or cancer. A screening colonoscopy is recommended for anyone 50 years of age and older, and for anyone with parents, siblings or children with a history of colorectal cancer or polyps. What Happens Before a Colonoscopy To have a successful colonoscopy, your bowel must be empty so that your physician can clearly view the colon. To do this, it is very important to read and follow all of the instructions given to you at least 2 weeks BEFORE your exam. If your bowel is not empty, your colonoscopy will not be successful and may have to be repeated. If you feel nauseated or vomit while taking the bowel preparation, wait 30 minutes before drinking more fluid and start with small sips of solution. Some activity (such as walking) or a few soda crackers may help decrease the nausea you are feeling. If the nausea persists, please contact nurse division service manager at [phone]. You may experience skin irritation around the anus due to the passage of liquid stools. To prevent and treat skin irritation, you should: ?Apply Vaseline? or Desitin? ointment to the skin around the anus before drinking the bowel preparation medications. These products can be purchased at any [employer]. ?Wipe the skin after each bowel movement with disposable wet wipes instead of toilet paper. These are found in the toilet paper area of the store. ?Sit in a bathtub filled with warm water for 10 to 15 minutes after you finish passing a stool; after soaking, blot the skin dry with a soft cloth, apply Vaseline? or Desitin? ointment to the anal area, and place a cotton ball just outside your anus to absorb leaking fluid. What Happens During a Colonoscopy During a colonoscopy, an experienced physician uses a colonoscope (a long, flexible instrument about 1/2 inch in diameter) to view the lining of the colon. The colonoscope is inserted into the rectum and advanced through the large intestine. If necessary during a colonoscopy, small amounts of tissue can be removed for analysis (a biopsy) and polyps can be identified and entirely removed. In many cases, a colonoscopy allows accurate diagnosis and treatment of colorectal problems without the need for a major operation. Revised 10/2016 5 ?You are asked to wear a hospital gown and an IV will be started. ?You are given a pain reliever and a sedative intravenously (in your vein). You will feel relaxed and somewhat drowsy. ?You will lie on your left side, with your knees drawn up towards your chest. ?A small amount of air is used to expand the colon so the physician can see the colon horan. ?You may feel mild cramping during the procedure. Cramping can be reduced by taking slow, deep breaths. ?The colonoscope is slowly withdrawn while the lining of your bowel is carefully examined. ?The procedure lasts from 30 minutes to 1 hour. What Happens After a Colonoscopy ?You will stay in a recovery room for observation until you are ready for discharge. ?You may feel some cramping or a sensation of having gas, but this quickly passes. ?If sedation has been given, a responsible family member or friend must drive you home. ?Avoid alcohol, driving, and operating machinery for 24 hours following the procedure. ?Unless otherwise instructed, you may immediately return to your normal diet. We recommend you wait until the day after your procedure to resume normal activities. ?If polyps were removed or a biopsy was taken, the physician performing your colonoscopy will tell you when it is safe to resume taking your blood thinners. ?If a biopsy was taken or a polyp was removed, you may notice a little amount of rectal bleeding for 1 to 2 days after the procedure. If you have a large amount of rectal bleeding, high or persistent fevers, or severe abdominal pain within the next 2 weeks, please go to your local emergency room and call the physician who performed your exam. 6 Revised 10/2016 ?Copyright 3252-2123 [facility]. All rights reserved. Revised 10/2016 Prescriptions ordered this encounter Disp Refills Start End PEG 3350 240 GRAM-ELECTROLYTES 22.72* 4000* 0 11/29/2017 11/29/2017 Route: ORAL Sig: Take 4,000 mL by mouth one time only for 1 dose. BENZONATATE 100 MG CAPSULE 30 c* 0 11/29/2017 12/09/2017 Route: ORAL Sig: Take 1 capsule by mouth three times daily as needed for up to 10 days. ATORVASTATIN 20 MG TABLET 30 t* 11 11/29/2017 11/29/2017 Route: ORAL Sig: Take 1 tablet by mouth daily at bedtime. For cholesterol. Disc: Discontinued by Patient Disposition: Return in about 6 months (around 06/01/2018). Follow-up and Disposition History Recorded Encounter Status:Closed by FEROZ LAU MD on 11/29/17 HOSP Observed: 11/15/2017 Status: COMPLETED Source: [place] 12:00 AM [facility] REPOSITORY Patient Update (YANDEL) SUSANNA STEPHENS ([id number]) 1960 F BLD Date Time Provider Department 11/15/17 KIKA MUÑOZ During your visit today, we recorded the following information about you: Allergies As of Date: 11/15/2017 Noted Allergy Reaction ADHESIVE 07/03/2017 14 - Other: See Comments Comments: Blood blisters LATEX 07/03/2017 14 - Other: See Comments Comments: Blood blisters NSAIDS (NON-STEROIDAL ANTI-INFLAM*11/14/2017 14 - Other: See Comments Comments: kidney problem PENICILLIN 07/03/2017 14 - Other: See Comments Comments: tachycardia Date Reviewed: 11/14/2017 Reviewed by: Kika Muñoz - Fully Assessed Primary Visit Diagnosis:Rheumatoid arthritis involving right elbow with positive rheumatoid factor (HCC) [M05.721] Other Visit Diagnosis:Pre-op testing [Z01.818] Order(s):SURGICAL REQUEST - ELECTIVE [[id number]] Order #: [id number]: 1 ECG COMPLETE W INTERPRETATION [ECG01] Order #: [id number] FUTURE BASIC METABOLIC PNL [SQBMP] Order #: [id number] FUTURE CBC + DIFF [SQCBCDIF] Order #: [id number] FUTURE CONSULT TO KINDERGARTEN PARAPROFESSIONAL [[id number]] Order #: [id number]: 1 CONSULT TO ANESTHESIOLOGY [9001] Order #: [id number]: 1 ANAHI PT ED ORTHOPEDIC [] Order #: [id number]. #:[id number]: 1 ANAHI WHAT TO EXPECT DURING YOUR HOSPITAL STAY [] Order #: [id number]. #:[id number]: 1 CONSULT TO INT MED-IMPACT [[id number]] Order #: [id number]: 1 CONFIRM BLOOD TYPE [SQCONABO] Order #: [id number] FUTURE TYPE + SCREEN,30 DAY [YMAQEW00] Order #: [id number] FUTURE XR ELBOW SPECIAL VIEWS AP/LAT/OTHER RT [6538552] Order #: [id number] FUTURE Prescriptions as of 11/15/2017 Sig: ASPIRIN 81 MG TABLET,DELAYED * Take 1 tablet by mouth once d* ALBUTEROL SULFATE HFA 90 MCG/* Inhale 2 Puffs as instructed * HYDROCODONE 10 MG-ACETAMINOPH* Take 1 tablet by mouth every * INSULIN LISPRO 100 UNIT/ML DESAI* Use as directed with insulin * Problem List As Of Date 11/15/2017 Noted Resolved Rheumatoid arthritis involving multiple sites (*INVALID FOR* Coronary artery disease of [place] artery of [place]*INVALID FOR* Type 1 diabetes mellitus without complication (*INVALID FOR* Chronic pain of multiple sites [R52, G89.29] INVALID FOR* Tobacco use [Z72.0] Rheumatoid arthritis involving right elbow with*INVALID FOR* BMI less than 19,adult [Z68.1] INVALID FOR* Pre-op testing [Z01.818] INVALID FOR* More... Follow-up and Disposition History Recorded Encounter Status:Closed by WANDA MCCORMICK, KIKA PHD on 11/18/17 HOSP Observed: 11/15/2017 Status: COMPLETED Source: [place] 12:00 AM [facility] REPOSITORY Patient:Susanna Stephens MRN: <[id number]> Height:5' 8.11(1.73 m) Weight:110 lb 3.7 oz (50 kg) Outpatient Medications as of 12/04/17: acetaminophen (TYLENOL EXTRA STRENGTH) 500 mg tablet lisinopril (ZESTRIL, PRINIVIL) 5 mg tablet benzonatate (TESSALON PERLE) 100 mg capsule HYDROcodone-Acetaminophen (NORCO) 10-325 mg per tablet insulin lispro (HUMALOG) 100 unit/mL injection Admission/Clinic Administered Medications as of 12/04/17: NaCl 0.9% iv infusion Problem List: Rheumatoid arthritis involving multiple sites (HCC) [M06.9] Coronary artery disease of [place] artery of [place] heart with stable angina pectoris (HCC) [I25.118] Type 1 diabetes mellitus without complication (HCC) [E10.9] Chronic pain of multiple sites [R52, G89.29] Tobacco use [Z72.0] 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 Stephens is a 57 year old female referred to me for preoperative evaluation. My final recommendations will be communicated back to the requesting physician/surgeon by the way of the shared medical record. Referring Surgeon: Dr. Muñoz Date of Surgery: 12/02/2017 Planned Surgery/Procedure: Arthroplasty of elbow Indication for Planned Surgery / Procedure: RA involving elbow Refer to Assessment section for details of any comorbidities. Patient is Able to Perform the Following Physical Activity: Walk a block or two on level ground (2.75 METs) developed exertional SOB Patient's functional class is IV based on self-reported physical activity. Significant Anesthesia Considerations: None. 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 Zak Boykin - Diabetes type 1, controlled ([facility]) Insulin pump-MARIZA Tovar - Endometriosis s/p hysterectomy - Hypercholesteremia - Insulin pump in place - Osteoarthritis - Osteoporosis - Rheumatoid arthritis ([facility]) Dr. De Los Santos, pain management - Tobacco use PAST SURGICAL HISTORY Procedure Laterality Date - SECTION HX x 2 - HYSTERECTOMY HX - PAST SURGICAL HISTORY OF left eye surgery - PAST SURGICAL HISTORY OF right knee replacement - PAST SURGICAL HISTORY OF left knee surgery - PAST SURGICAL HISTORY OF Removal of strawberry gemma after - TOTAL HIP REPLACEMENT Left FAMILY HISTORY Problem Relation Age of Onset - Lipids Mother - Heart Mother - Hypertension Mother - Diabetes Father - Stroke Father - Cancer Brother thyroid cancer SOCIAL HISTORYSocial History Marital status: Spouse name: Years of education: Number of children: Social History Main Topics Smoking status: Current Every Day Smoker Packs/day: 1.00 Years: 42.00 Types: Cigarettes Smokeless status: Never Used Alcohol use: No Drug use: No Sexual activity: Yes Partners with: Male MEDICATIONS/ALLERGIES Current Outpatient Prescriptions: peg 3350-electrolytes (COLYTE) 240-22.72-6.72 -5.84 gram solution Take 4,000 mL by mouth one time only for 1 dose. Disp: 4000 mL Rfl: 0 benzonatate (TESSALON PERLE) 100 mg capsule Take 1 capsule by mouth three times daily as needed for up to 10 days. Disp: 30 capsule Rfl: 0 atorvastatin (LIPITOR) 20 mg tablet Take 20 mg by mouth once daily. Disp: Rfl: HYDROcodone-Acetaminophen (NORCO) 10-325 mg per tablet Take 1 tablet by mouth every 6 hours as needed. Disp: Rfl: 0 insulin lispro (HUMALOG) 100 unit/mL injection Use as directed with insulin pump-managed by MARIZA Tovar CNP Disp: Rfl: No current facility-administered medications for this visit. ALLERGIES Allergen Reactions - Adhesive Other: See Comments Blood blisters - Latex Other: See Comments Blood blisters - Nsaids (Non-Steroid* Other: See Comments kidney problem - Penicillin Other: See Comments tachycardia REVIEW OF SYSTEMS General: No weight loss, malaise or fevers. 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 No neurological symptoms or problems. Respiratory: active smoker, was on albuterol inhaler for cough and wheezing per PCP< currerntly off, had spirometry in 07/2017 normal Cardiovascular: No history of HTN requiring medication, no history of angina, CHF, [place], cardiac surgery or stents. Denies rest pain, gangrene or revascularization/amputation for PVD. No history of cardiovascular symptoms or problems. GI: No history of GI symptoms or problems. No history of esophageal varices, recent ascites, or ETOH greater than 2 drinks per day., constipation : No history of UTI in past 6 weeks. No history of renal failure. Not currently on or requiring dialysis. No history of symptoms or problems. 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 Endocrine: Diabetes Mellitus on insulin pump Hematology: No history of bleeding or clotting disorder. No history of hematological symptoms or problems. Oncology: No history of CA metastasis, chemo within 30 days, or radiotherapy within 90 days. No history of oncological symptoms or problems. Psych: No history of psychiatric symptoms or problems. Skin: Negative for lesions, rash, and itching. PHYSICAL EXAM VITALS: BP 121/79 Pulse 82 Temp (Src) 98.9 (Oral) Ht 5' 8 (1.73m) Wt 111 lb (50.3kg) SpO2 100% BMI 16.88 kg/(m2). General: Alert and oriented Skin: Normal color, no rash, no lesions. HEENT: EOM, pupils equal, round and reactive. Cardiovascular: Normal S1 AND S2, no rubs, murmurs or gallops. No JVD. Pulse regular. Lungs: Normal breath sounds, no wheezes or crackles. Abdomen: Soft, non-tender, no rigidity. Extremities: No deformity, no edema or tenderness, no joint swelling or clubbing. Neurological: Normal cognition and motor skills. Pulses: Carotid and radial pulses normal +2. ASSESSMENT Ms. Stephens is a 57 year old female referred to me for preoperative evaluation. Patient has the following medical comorbidities which might affect the perioperative course: -DM TI complicated by retinopathy, R sided blindness, neuropathy ; on insulin pump, managed by MARIZA Tovar ( aware of upcoming surgery and already has instructions) -Active smoker , SOB exertional ( HAD Stress test, ECHO and spirometry all WNL) ; had wheezing and cough and was taking albuterol PRN , currently resolved -Severe RA with multiple joint involvement -OA and osteoporosis -Chest discomfort - seen by cardiology in 2017 , never had cardiac cath, Stress test in 09/2017 negative , assumed to be musculoskeletal Patient's RCRI (Revised Cardiac Risk Index: CAD/CHF/Stroke or TIA/SCr>2/DM on Insulin/High Risk Surgery) score is 1 and is at low risk for major adverse cardiac events in the perioperative period. Diagnostic tests reviewed for today's visit: 11/29/2017 Most recent EKG: normal sinus rhythm, normal axis, normal intervals, reviewed by myself. LABS PENDING 09/04/2017 Stress test Normal pharmacological stress test with normal perfusion 08/19/2017 ECHO CONCLUSIONS: - Technically difficult exam due to body habitus. - Exam indication: Chest Pain - The left ventricle is normal in size. Left ventricular systolic function is normal. EF = 67 ? 5% (2D biplane) Normal left ventricular diastolic function. - The right ventricle is normal in size. Right ventricular systolic function is normal. - There are no significant valvular abnormalities. - The patient has not had a prior CC echocardiographic exam for comparison. 07/29/2017Spirometry IMPRESSION: Spirometry is normal. There is no significant bronchodilator response. Clinical improvement following bronchodilator therapy may occur even if there is no spirometric improvement. Electronically Signed On 07-30-2017 15:41:17 EST by Kayla Morales MD [facility] ? [place] [address] ? PFT Lab Report Name: SUSANNA STEPHENS ? ID: [id number] ? Date: 07/29/17 ?Physician: Eunice Griffith ? Age: 56 ? Height(in): 68.5 ? Weight(lb): 110 ? Gender: Female ?Race: ? Diagnosis: ?Medication Set 1: ? Dyspnea Rest: No ?Dyspnea Exercise: No ? Cough: No ? Persistent: No ?Productive (cc): ? Smoker: No ?How Long: ? Stopped: ?Cigarettes: No ? Fire Equipment Repairer Inspector: Fozia Elliott, TELECOMMUNICATIONS ENGINEER ?Temp: ?22 ?PBar: 760 ?PF Reference: ######## Spirometry ?Hb: ?gm/dL ?Ref ? Pre ? Pre ? Post ?Post ?Post ?Abel ?% Ref ? ? ? Abel ?% Ref ? ? ? % Chg FVC ?Liters ? ? ?4.03 ?3.93 ?98 ?3.87 ?96 ?-1 FEV1 ? ? ? Liters ? ? ?3.15 ?3.26 ?103 ? 3.09 ?98 ?-5 FEV1/FVC ? % ? 79 ?83 ?80 RNV43-94% ?L/sec ? ? ? 2.87 ?3.53 ?123 ? 2.98 ?104 ? -16 WioENL93-93 L/sec ? ? ?3.04 ?3.53 ?116 ? 2.94 ?97 ?-17 PEF ?L/sec ? ? ? 7.30 ?7.00 ?96 ?6.84 ?94 ?-2 WTD563% ? ?Sec ? 3.99 ?4.13 ?3 MVV ?L/min ? ? ? 126 f ?BPM ? Lung Volumes TLC ?Liters ? ? ?5.73 VC ? Liters ? ? ?4.03 IC ? Liters ? ? ?2.50 FRC N2 ? ? Liters ? ? ?3.25 ERV ?Liters ? ? ?1.25 RV ? Liters ? ? ?2.09 RV/TLC ? ? % ? 37 ? Diffusing Capacity DLCO ? ? ? mL/mmHg/min 24.1 DL Adj ? ? mL/mmHg/min 24.1 DLCO/VA ? ?mL/mHg/min/L 4.33 DL/VA Adj ?mL/mHg/min/L 4.33 VA ? Liters ? ? ?5.57 IVC ?Liters BHT ?Sec ? Resistance Raw ?cmH2O/L/sec 1.02 sGaw ? ? ? L/s/cmH2O/L 0.268 ? Respiratory Muscle Force PI max ? ? cmH2O ? ? ? 76 PE max ? ? cmH2O ? ? ? 141 ? null PLAN/RECOMMENDATIONS CARDIAC: Patient is at optimal cardiac condition for scheduled surgery / procedure. PULMONARY: Patient is at increased risk for postoperative pulmonary complications. Advised patient to stop smoking. Suggest the following in the post-operative period: Continue bronchodilator medications, Aggressive bronchopulmonary hygiene and Early ambulation ENDOCRINE: DIABETES: - Initiate [facility] Guidelines for perioperative diabetes management. Check finger stick glucose on the morning of surgery. - Patient has been instructed on Preoperative DM medication management. VASCULAR/ANTICOAGULATION: VTE prophylaxis as deemed appropriate by the surgical service. Patient is optimally prepared for surgery. Patient Instructions: As per patient instructions section. I have discussed the above recommendations with the patient in detail, in candi and lay terms, and provided a written summary of instructions as needed. We have discussed that no surgery is without risk, but that the goal of preoperative assessment is to optimize that risk, and that was clearly understood by the patient. I have given ample opportunity for the patient to ask questions, and answered all questions to their stated satisfaction. SIGNATURE: Kortney Hinton MD PATIENT NAME: Susanna Stephens DATE: November 29, 2017 TIME: 12:28 PM Trixie Downs LPN 11/29/2017 2:19 PM Signed Susanna Stephens is a 57 year old female here today for visit in [facility] Referring Surgeon: Dr. Muñoz Date of Surgery: 12/04/2017 Planned Surgery/Procedure: ARTHROPLASTY ELBOW Allergies have been reviewed and verified. They include the following: Adhesive; Latex; Nsaids (Non-Steroidal Anti-Inflammatory Drug); Penicillin Social History Substance Use Topics - Smoking status: Current Every Day Smoker Packs/day: 1.00 Years: 42.00 Types: Cigarettes - Smokeless tobacco: Never Used - Alcohol use No Medications reviewed and updated: Yes Trixie Hinton MD 11/29/2017 2:14 PM Signed [facility] Patient Instructions for Surgery FOOD INSTRUCTIONS: NO solid food or non-clear liquids for 8 hours prior to the arrival time for your surgery. Unless you are instructed otherwise, you are allowed to drink up to 12 ounces of clear liquids (e.g. water, black tea/coffee, fruit juice without pulp, Haydee Ibrahima, etc.) up until 2 hours prior to the arrival time for surgery. MEDICATION INSTRUCTIONS: Prior to Surgery: Do not take the following medications for 7 days prior to surgery: - any NSAID's (e.g. Motrin, Aleve, Arthrotec, Naproxen,etc) - any herbal preparations - Aspirin or aspirin containing products Do not take any Vitamin E / multivitamins for 10-14 days before surgery You are allowed to take Tylenol if needed until the day of surgery. Continue all medications until the night prior to surgery MEDICATION INSTRUCTIONS: Day/Morning of Surgery: The following medications should be taken with sips of water: None Tylenol, if needed for pain, can be taken on morning of surgery. DIABETES MANAGEMENT INSTRUCTIONS: Eat a usual diet until the day prior to surgery unless indicated by your surgeon/physician. If your blood sugar is below 70 mg/dl at any time, treat with ? cup of apple juice or haydee ibrahima, or 4 glucose tabs or 1 tube of oral glucose gel. MEDICATION INSTRUCTIONS: Prior to Surgery: ? Continue with insulin pump at the same rate and Check blood glucose at bedtime. Also follow instructions as you were instructed from your endocrine office MEDICATION INSTRUCTIONS: Day/Morning of Surgery: ? INSULIN PUMP: Continue same basal rate of your Insulin Pump. If you have any questions or concerns regarding today's visit please do not hesitate to contact the [facility] at [phone] or [phone], ext [phone]. Signature: Kortney Hinton MD Date: November 29, 2017 Progress Notes ([facility]): Evelyn Kent MD 11/29/2017 4:01 PM Signed ANESTHESIA PRE-OPERATIVE ASSESSMENT (PACE) SERVICE DATE: 11/29/2017 SERVICE TIME: 3:25 PM ASSESSMENT AND PLAN: Susanna Stephens is a 57 year old female scheduled for R elbow arthroplasty with possible ulnar nerve transplantation per Surgery Request Case in MAIN on 12/04/[address] Muñoz. PMH: 1. Severe RA s/p b/l TKAs, JACQUELINE, with chest discomfort attributed to RA costochondritis 2. T1DM with peripheral neuropathy and retinopathy (R eye blindness); on insulin pump and lisinopril 3. Current smoker (22 pack-year history) [facility]: 3 METS: Climb a flight of stairs or walk up a hill (5.50 METs) Slowly due to pain. Dypnea present with stairs. BLOOD WORK/PRODUCTS ORDERED: Type and Screen , Con ABO HISTORY OF CHRONIC PAIN: Yes Baseline Pain Level 10 Current Pain Regimen: Hydrocodone-Acetaminophen 10-325mg QID PAIN MANAGEMENT OPTIONS: Final pain management plan will be discussed on the day of surgery. ANESTHETIC OPTIONS: Final anesthesia management options will be discussed on day of surgery. PRE-OP PLAN ORDERED: Not Applicable Patient Instructed: ? No solid food or non-clear liquids after midnight. Clear liquids allowed until two hours before scheduled arrival. ? Medication instructions from [facility] clinic reviewed with patient. Insulin instructions from MARIZA Tovar NP reviewed (will use lower settings overnight while fasting) Vital Signs: BP 121/79 Pulse 82 Ht 173 cm (5' 8.11) Wt 50 kg (110 lb 3.7 oz) SpO2 100% BMI 16.71 kg/m2 BMI 16.71 kg/(m2) Vital signs completed by: [facility] Weight acquired: per HANDP. Height acquired: per HANDP Airway Exam: MOUTH OPENING/TMJ: Full jaw ROM MICROGNATHIA/OVERBITE: Yes MALLAMPATI SCORE is CLASS III UPPER LIP BITE TEST: Unable to perform, no lower teeth DENTITION: Edentulous/dentures, upper THYROMENTAL DIST: WNL SHORT NECK: No NECK CIRCUMFERENCE >40 cm: Appears < than 40 CM NECK FLEX: Full ROM NECK EXTENSION: Full ROM AIRWAY HISTORY: No abnormal airway history ARKS AIRWAY DETAIL: N/A DATA: EKG READIN11/29/2017 EKG reviewed by me. Normal sinus rhythm. QTc and OR intervals WNL. Narrow QRS complex. No hypertrophy. No ST depression/elevation. No Q waves suggestive of past infarcation. No ectopy. UNCONFIRMED OTHER TESTS: Regadenoson stress test: Date: Sep 2017, Results: Negative for ischemia Echo: Date: 08/19/17 CONCLUSIONS: - Technically difficult exam due to body habitus. - Exam indication: Chest Pain - The left ventricle is normal in size. Left ventricular systolic function is normal. EF = 67 ? 5% (2D biplane) Normal left ventricular diastolic function. - The right ventricle is normal in size. Right ventricular systolic function is normal. - There are no significant valvular abnormalities. - The patient has not had a prior CC echocardiographic exam for comparison. Lab Value Units Date High Low HB 12.8 g/dL 11/29/2017 15.5 11.5 HCT 39.9 % 11/29/2017 46.0 36.0 WBC 9.18 k/uL 11/29/2017 11.00 3.70 PLT 238 k/uL 11/29/2017 400 150 NA 138 mmol/L 11/29/2017 144 136 K 5.2 mmol/L 11/29/2017 5.1 3.7 GLUC 206 mg/dL 11/29/2017 99 74 BUN 20 mg/dL 11/29/2017 21 7 CREAT 1.12 mg/dL 11/29/2017 0.96 0.58 HBA1C: Hemoglobin A1C (no units) Date Value 09/26/2017 6.9 ) Patient accompanied by self Case Discussed with Dr. Sidhu OPTIMIZATION STATUS: Patient optimization pending EKG [facility] Evelyn Kent MD PGY-2 Anesthesiology [place] 11/29/2017 4:00 PM PROGRESS Observed: 11/14/2017 Status: COMPLETED Source: [place] 3:28 PM [facility] REPOSITORY HNO ID: [id number] Author: Norbert Simons Service: (none) Author Type: (none) Type: Progress Notes Filed: 11/14/2017 3:29 PM Note Text: The risk, benefits and alternatives of injection and no injection therapy were discussed. The patient consented for an injection. The injection site was prepped with a alcohol swab. The Left glenohumeral space was injected with a 22 gauge needle with 1cc Celestone (6 mg), 4cc xylocaine plain 2%. The injection site was then dressed with a bandaid. The patient tolerated the injection well. The patient was instructed to call the office if any adverse local effects occurred or any if any questions or concerns arise. Kika Muñoz MD, PhD The risk, benefits and alternatives of injection and no injection therapy were discussed. The patient consented for an injection. The injection site was prepped with a alcohol swab. The Right wrist was injected via the 3-4 interspace 25 gauge needle with 1cc Celestone (6mg), and 2cc xylocaine plain 2%. The injection site was then dressed with a bandaid. The patient tolerated the injection well. The patient was instructed to call the office if any adverse local effects occurred or any if any questions or concerns arise. Kika Muñoz MD, PhD [facility] PCR Collected: 11/14/2017 Status: F Source: [place] 11:04 AM [facility] REPOSITORY TYPE CODE TESTS RESULT OUT OF REFERENCE UNITS RANGE LAB [facility] Nasal S aureus Spec Source LAB [facility] Negative for MRSA MRSA by PCR. PCR LAB [facility] Negative for Staph Staphylococcus aureus PCR aureus by PCR. Performed By: #### SAPCR #### [facility] [address] [place] [address] PROGRESS Observed: 11/14/2017 Status: COMPLETED Source: [place] 10:36 AM [facility] REPOSITORY HNO ID: [id number] Author: Kika Muñoz Service: (none) Author Type: Physician Type: Progress Notes Filed: 11/14/2017 1:48 PM Note Text: Kika Muñoz MD, PhD, [facility] Director, [facility] [address] [place] [address] , November 14, 2017 Note:This dictation was created using voice recognition software and using medical terminology intended to be used for medical purposes by other health health care coach. CHIEF COMPLAINT: bilateral elbow pain and stiffness HPI: Ms. Susanna Stephens is a 57 year old female, RHD, with history of untreated RA and Type I DM (insulin pump) here for consultation regarding bilateral elbow pain and stiffness for 20+ years - Right > left. This is atraumatic in origin. She was diagnosed with RA x 20+ years and tried MTX, without improvement. Her Certified Rehabilitation Counselor hasn't trialed her on DMARDs secondary to her DM type I. She has multi joint involvement and history of bilateral TKA ( [place]val[place] [facility] She has been managing her elbow pain and stiffness with NSAID's however due to kidney injury she is now restricted from any NSAID use. She has not received any cortisone injections. Pain is localized to both elbows, is sharp and rated as severe and wakes her at night. Pain is fairly constant. No radiation. Alleviating factors include [place]. Aggravating factors include range of motion and activity. She reports some paresthesias in her distal finger tips that is not associated with position and is intermittent. Of note bilateral shoulders and wrists are also affected but she is managing the pain at this time and has not sought any intervention at this time. She denies any gait instability, changes in hand writing, urinary incontinence or recurrent numbness or motor weakness. 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 Patient elected to proceed with right total elbow arthroplasty to address end stage elbow inflammatory arthritis. We will schedule her for surgery. Patient understands risks and benefits of surgery including but not limited to nerve injury, vessel injury, infection, failure to achieve desired results and possible need for additional surgery. Surgical consent signed. ? Patient is aware that [facility] are teaching institutions where residents and fellows assist in surgery. Patient is also aware of the possibility of concurrent surgery. ? Patient voiced accordance and understanding of the information provided and the formulated plan. All questions were answered to the patient's satisfaction during the encounter. In regards to her other symptomatic joints -we provided cortisone injections in the left shoulder and right wrist for symptomatic control of pain. We also emphasized the importance of regular follow up with her rheum Ms. Susanna Stephens was advised as to contrast therapies and/or to take analgesics/anti-inflammatories as needed and all contraindications were reviewed. OBJECTIVE: Body mass index is 17.18 kg/(m2). PHYSICAL EXAMINATION: General appearance: Well appearing, alert, in no acute distress, well-hydrated, well nourished. Neck: Supple, no adenopathy; thyroid symmetric, normal size, no bruits. ROM full Right Shoulder: Shoulder girdle atrophy, no obvious anterior superior escape Severely decreased range of motion with forward flexion to only 110 degrees. Left shoulder: Atrophy and anterior superior escape. Severely decreased range of motion with forward flexion to 70 degrees, minimal ER and IR Right elbow: Left elbow: No deformity, or open wounds No deformity, or open wounds Limited range of motion Flexion 130 130 Extension 90 70 Supination 15 30 PRonation 30 80 Negative tinel's at cubital tunnel bilaterally Bilateral wrists no obvious deformity or wounds. Bilateral wrist motion preserved although right is worse than left. Crepitus is noted in PROM right wrist. She has no swan neck deformity of the fingers and all extensor tendons are centralized bilaterally. Bilateral hands full active finger extension and flexion. Ext: 5/5 LOKESH, FPB, OP, APL, hand talent sourcing specialist, WE, WF, biceps, triceps, deltoid FDP, FDS, APL, EPL, EDC, EIP, ADM intact to provoked testing SILT + pinprick intact ulnar (SF tip), median (IF tip), radial (dorsal 1st webspace) distributions bilat (C5-T1 intact) 2+ radial, ulnar pulses; fingertips warm bilat, <2sec CR IMAGING: Left elbow XRay - endstage elbow arthritis, loss of join space and significant proximal ulnar wear with extremely thin proximal uln Right elbow Xray: endstage arthritis, loss of joint space and wear Supporting Subjective Information Below: ACTIVE PROBLEM LIST Rheumatoid Arthritis Involving Multiple Sites ([facility]) Coronary Artery Disease of [place] Artery of [place] Heart With Stable Angina Pectoris ([facility]) Type 1 Diabetes Mellitus Without Complication ([facility]) Chronic Pain of Multiple Sites Tobacco Use Rheumatoid Arthritis Involving Right Elbow With Positive Rheumatoid Factor ([facility]) Past Medical History: PAST MEDICAL HISTORY Diagnosis Date - Blindness of one eye with normal vision in contralateral eye right - CAD (coronary artery disease) Dr. Zak Boykin - Diabetes type 1, controlled ([facility]) Insulin pump-BJ Shook - Endometriosis s/p hysterectomy - Hypercholesteremia - Insulin pump in place - Osteoarthritis - Osteoporosis - Rheumatoid arthritis ([facility]) - Tobacco use Past Surgical History: PAST SURGICAL HISTORY Procedure Laterality Date - SECTION HX x 2 - HYSTERECTOMY HX - PAST SURGICAL HISTORY OF left eye surgery - PAST SURGICAL HISTORY OF right knee replacement - PAST SURGICAL HISTORY OF left knee surgery - PAST SURGICAL HISTORY OF Removal of strawberry gemma after - TOTAL HIP REPLACEMENT Left Family History: FAMILY HISTORY Problem Relation Age of Onset - Lipids Mother - Heart Mother - Hypertension Mother - Diabetes Father - Stroke Father - Cancer Brother thyroid cancer Social History: Social History Marital status: Spouse name: Years of education: Number of children: Social History Main Topics Smoking status: Current Every Day Smoker Packs/day: 1.00 Years: 42.00 Types: Cigarettes Smokeless status: Never Used Alcohol use: No Drug use: No Sexual activity: Yes Partners with: Male Medications: Current Outpatient Prescriptions: aspirin, enteric coated (ASPIR-LOW) 81 mg EC tablet Take 1 tablet by mouth once daily. albuterol HFA (VENTOLIN HFA) 90 mcg/actuation inhaler Inhale 2 Puffs as instructed every 4 hours as needed for Wheezing/Shortness of Breath. HYDROcodone-Acetaminophen (NORCO) 10-325 mg per tablet Take 1 tablet by mouth every 6 hours as needed. insulin lispro (HUMALOG) 100 unit/mL injection Use as directed with insulin pump-managed by MARIZA Tovar CNP No current facility-administered medications for this visit. Allergies: Adhesive; Latex; Nsaids (Non-Steroidal Anti-Inflammatory Drug); Penicillin REVIEW OF SYSTEMS PAIN ASSESSMENT: CURRENTLY HAVING PAIN; see HPI HISTORY OF CHRONIC PAIN OR CURRENTLY BEING TREATED FOR A CHRONIC PAIN CONDITION: seeing pain management physician GENERAL: No weight loss, malaise or fevers NECK: Negative for lumps, goiter, pain and significant neck swelling MUSCULOSKELETAL: per HPI SKIN: Negative for lesions, rash, and itching NEURO: No history of headaches, syncope, paralysis, seizures or tremors Anamika Rangel MD, [facility] Fellow, Hand Surgery November 14, 2017 STAFF NOTE: Kika Muñoz MD, PhD, [facility] Ms. Susanna Stephens is a 57 year old female who was interviewed and examined by me in detail today with my resident/fellow and I personally participated in the brunner components. I have discussed the case and management of the patient's care. The following comments revise or confirm relevant brunner components of the note. 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 Ms. Susanna Stephens was advised as to contrast therapies and/or to take analgesics/anti-inflammatories as needed and all contraindications were reviewed. REFERRING PHYSICIAN: Ms. Susanna Stephens was referred to me for consultation and further care by the following physician. This consultation note will be sent to the following physician by either mail or electronic medical record. Consult Time: I spent 30 minutes in this visit, with more than 50% of the time devoted to patient counseling. Referring Physician: Tristen Stallworth MD [place] [id number] PCP: Feroz Lau MD [address] [place] [id number] CNOV Observed: 11/14/2017 Status: COMPLETED Source: [place] 9:45 AM [facility] REPOSITORY Office Visit (ORMN) SUSANNA STEPHENS ([id number]) 1960 F BLD Date Time Provider Department 11/14/17 9:45 AM KIKA MUÑOZ [facility] During your visit today, we recorded the following information about you: Weight Height 51.3 kg 1.727 m Kika Muñoz MD PhD 11/14/2017 1:48 PM Signed Kika Muñoz MD, PhD, [facility] Director, [facility] [address] [place], [place] [id number] , November 14, 2017 Note:This dictation was created using voice recognition software and using medical terminology intended to be used for medical purposes by other health health care coach. CHIEF COMPLAINT: bilateral elbow pain and stiffness HPI: Ms. Susanna Stephens is a 57 year old female, RHD, with history of untreated RA and Type I DM (insulin pump) here for consultation regarding bilateral elbow pain and stiffness for 20+ years - Right ANDgt; left. This is atraumatic in origin. She was diagnosed with RA x 20+ years and tried MTX, without improvement. Her Certified Rehabilitation Counselor hasn't trialed her on DMARDs secondary to her DM type I. She has multi joint involvement and history of bilateral TKA ( [place]val[place] [facility] She has been managing her elbow pain and stiffness with NSAID's however due to kidney injury she is now restricted from any NSAID use. She has not received any cortisone injections. Pain is localized to both elbows, is sharp and rated as severe and wakes her at night. Pain is fairly constant. No radiation. Alleviating factors include [place]. Aggravating factors include range of motion and activity. She reports some paresthesias in her distal finger tips that is not associated with position and is intermittent. Of note bilateral shoulders and wrists are also affected but she is managing the pain at this time and has not sought any intervention at this time. She denies any gait instability, changes in hand writing, urinary incontinence or recurrent numbness or motor weakness. 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 Patient elected to proceed with right total elbow arthroplasty to address end stage elbow inflammatory arthritis. We will schedule her for surgery. Patient understands risks and benefits of surgery including but not limited to nerve injury, vessel injury, infection, failure to achieve desired results and possible need for additional surgery. Surgical consent signed. ? Patient is aware that [facility] are teaching institutions where residents and fellows assist in surgery. Patient is also aware of the possibility of concurrent surgery. ? Patient voiced accordance and understanding of the information provided and the formulated plan. All questions were answered to the patient's satisfaction during the encounter. In regards to her other symptomatic joints -we provided cortisone injections in the left shoulder and right wrist for symptomatic control of pain. We also emphasized the importance of regular follow up with her rheum Ms. Susanna Stephens was advised as to contrast therapies and/or to take analgesics/anti-inflammatories as needed and all contraindications were reviewed. OBJECTIVE: Body mass index is 17.18 kg/(m2). PHYSICAL EXAMINATION: General appearance: Well appearing, alert, in no acute distress, well-hydrated, well nourished. Neck: Supple, no adenopathy; thyroid symmetric, normal size, no bruits. ROM full Right Shoulder: Shoulder girdle atrophy, no obvious anterior superior escape Severely decreased range of motion with forward flexion to only 110 degrees. Left shoulder: Atrophy and anterior superior escape. Severely decreased range of motion with forward flexion to 70 degrees, minimal ER and IR Right elbow: Left elbow: No deformity, or open wounds No deformity, or open wounds Limited range of motion Flexion 130 130 Extension 90 70 Supination 15 30 PRonation 30 80 Negative tinel's at cubital tunnel bilaterally Bilateral wrists no obvious deformity or wounds. Bilateral wrist motion preserved although right is worse than left. Crepitus is noted in PROM right wrist. She has no swan neck deformity of the fingers and all extensor tendons are centralized bilaterally. Bilateral hands full active finger extension and flexion. Ext: 5/5 LOKESH, FPB, OP, APL, hand talent sourcing specialist, WE, WF, biceps, triceps, deltoid FDP, FDS, APL, EPL, EDC, EIP, ADM intact to provoked testing SILT + pinprick intact ulnar (SF tip), median (IF tip), radial (dorsal 1st webspace) distributions bilat (C5-T1 intact) 2+ radial, ulnar pulses; fingertips warm bilat, ANDlt;2sec CR IMAGING: Left elbow XRay - endstage elbow arthritis, loss of join space and significant proximal ulnar wear with extremely thin proximal uln Right elbow Xray: endstage arthritis, loss of joint space and wear Supporting Subjective Information Below: ACTIVE PROBLEM LIST Rheumatoid Arthritis Involving Multiple Sites (Hcc) Coronary Artery Disease of [place] Artery of [place] Heart With Stable Angina Pectoris (Hcc) Type 1 Diabetes Mellitus Without Complication (Hcc) Chronic Pain of Multiple Sites Tobacco Use Rheumatoid Arthritis Involving Right Elbow With Positive Rheumatoid Factor ([facility]) Past Medical History: PAST MEDICAL HISTORY Diagnosis Date - Blindness of one eye with normal vision in contralateral eye right - CAD (coronary artery disease) Dr. Zak Boykin - Diabetes type 1, controlled ([facility]) Insulin pump-BJ Shook - Endometriosis s/p hysterectomy - Hypercholesteremia - Insulin pump in place - Osteoarthritis - Osteoporosis - Rheumatoid arthritis (HCC) - Tobacco use Past Surgical History: PAST SURGICAL HISTORY Procedure Laterality Date - SECTION HX x 2 - HYSTERECTOMY HX - PAST SURGICAL HISTORY OF left eye surgery - PAST SURGICAL HISTORY OF right knee replacement - PAST SURGICAL HISTORY OF left knee surgery - PAST SURGICAL HISTORY OF Removal of strawberry gemma after - TOTAL HIP REPLACEMENT Left Family History: FAMILY HISTORY Problem Relation Age of Onset - Lipids Mother - Heart Mother - Hypertension Mother - Diabetes Father - Stroke Father - Cancer Brother thyroid cancer Social History: Social History Marital status: Spouse name: Years of education: Number of children: Social History Main Topics Smoking status: Current Every Day Smoker Packs/day: 1.00 Years: 42.00 Types: Cigarettes Smokeless status: Never Used Alcohol use: No Drug use: No Sexual activity: Yes Partners with: Male Medications: Current Outpatient Prescriptions: aspirin, enteric coated (ASPIR-LOW) 81 mg EC tablet Take 1 tablet by mouth once daily. albuterol HFA (VENTOLIN HFA) 90 mcg/actuation inhaler Inhale 2 Puffs as instructed every 4 hours as needed for Wheezing/Shortness of Breath. HYDROcodone-Acetaminophen (NORCO) 10-325 mg per tablet Take 1 tablet by mouth every 6 hours as needed. insulin lispro (HUMALOG) 100 unit/mL injection Use as directed with insulin pump-managed by MARIZA Tovar CNP No current facility-administered medications for this visit. Allergies: Adhesive; Latex; Nsaids (Non-Steroidal Anti-Inflammatory Drug); Penicillin REVIEW OF SYSTEMS PAIN ASSESSMENT: CURRENTLY HAVING PAIN; see HPI HISTORY OF CHRONIC PAIN OR CURRENTLY BEING TREATED FOR A CHRONIC PAIN CONDITION: seeing pain management physician GENERAL: No weight loss, malaise or fevers NECK: Negative for lumps, goiter, pain and significant neck swelling MUSCULOSKELETAL: per HPI SKIN: Negative for lesions, rash, and itching NEURO: No history of headaches, syncope, paralysis, seizures or tremors Anamika Rangel MD, [facility] Fellow, Hand Surgery November 14, 2017 STAFF NOTE: Kika Muñoz MD, PhD, [facility] Ms. Susanna Stephens is a 57 year old female who was interviewed and examined by me in detail today with my resident/fellow and I personally participated in the brunner components. I have discussed the case and management of the patient's care. The following comments revise or confirm relevant brunner components of the note. 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 Ms. Susanna Stephens was advised as to contrast therapies and/or to take analgesics/anti-inflammatories as needed and all contraindications were reviewed. REFERRING PHYSICIAN: Ms. Susanna Stephens was referred to me for consultation and further care by the following physician. This consultation note will be sent to the following physician by either mail or electronic medical record. Consult Time: I spent 30 minutes in this visit, with more than 50% of the time devoted to patient counseling. Referring Physician: Tristen Stallworth MD [facility] [address] [facility] [id number] PCP: Feroz Lau MD [address] [facility] [id number] Norbert Simons 11/14/2017 3:29 PM Signed The risk, benefits and alternatives of injection and no injection therapy were discussed. The patient consented for an injection. The injection site was prepped with a alcohol swab. The Left glenohumeral space was injected with a 22 gauge needle with 1cc Celestone (6 mg), 4cc xylocaine plain 2%. The injection site was then dressed with a bandaid. The patient tolerated the injection well. The patient was instructed to call the office if any adverse local effects occurred or any if any questions or concerns arise. Kika Muñoz MD, PhD The risk, benefits and alternatives of injection and no injection therapy were discussed. The patient consented for an injection. The injection site was prepped with a alcohol swab. The Right wrist was injected via the 3-4 interspace 25 gauge needle with 1cc Celestone (6mg), and 2cc xylocaine plain 2%. The injection site was then dressed with a bandaid. The patient tolerated the injection well. The patient was instructed to call the office if any adverse local effects occurred or any if any questions or concerns arise. Kika Muñoz MD, PhD Referring Provider: TRISTEN STALLWORTH [[id number]] Allergies As of Date: 11/14/2017 Noted Allergy Reaction ADHESIVE 07/03/2017 14 - Other: See Comments Comments: Blood blisters LATEX 07/03/2017 14 - Other: See Comments Comments: Blood blisters NSAIDS (NON-STEROIDAL ANTI-INFLAM*11/14/2017 14 - Other: See Comments Comments: kidney problem PENICILLIN 07/03/2017 14 - Other: See Comments Comments: tachycardia Date Reviewed: 11/14/2017 Reviewed by: Kika Muñoz - Fully Assessed Reason for Visit: Consult [502] Cmt: consult R elbow Primary Visit Diagnosis:Rheumatoid arthritis involving right elbow with positive rheumatoid factor (HCC) [M05.721] Other Visit Diagnoses:BMI less than 19,adult [Z68.1] MRSA carrier [Z22.322] Type 1 diabetes mellitus without complication (HCC) [E10.9] Tobacco use [Z72.0] Order(s):STAPH AUREUS PCR [SQSAPCR] Order #: [id number] Prescriptions as of 11/14/2017 Sig: ASPIRIN 81 MG TABLET,DELAYED * Take 1 tablet by mouth once d* ALBUTEROL SULFATE HFA 90 MCG/* Inhale 2 Puffs as instructed * HYDROCODONE 10 MG-ACETAMINOPH* Take 1 tablet by mouth every * INSULIN LISPRO 100 UNIT/ML DESAI* Use as directed with insulin * Problem List As Of Date 11/14/2017 Noted Resolved Rheumatoid arthritis involving multiple sites (*INVALID FOR* Coronary artery disease of [place]*INVALID FOR* Type 1 diabetes mellitus without complication (*INVALID FOR* Chronic pain of multiple sites [R52, G89.29] INVALID FOR* Tobacco use [Z72.0] Rheumatoid arthritis involving right elbow with*INVALID FOR* BMI less than 19,adult [Z68.1] INVALID FOR* Medications Discontinued During This Encounter atorvastatin (LIPITOR) 20 mg tablet 30 t* 5 07/08/2017 11/14/2017 Route: ORAL Sig: Take 1 tablet by mouth daily at bedtime. For cholesterol. Disc: Discontinued by Patient buPROPion SR (WELLBUTRIN SR) 150 mg * 60 t* 2 07/26/2017 11/14/2017 Route: ORAL Sig: Take 1 tablet by mouth twice daily. Disc: Erroneous entry lisinopril (ZESTRIL, PRINIVIL) 5 mg * 11/14/2017 Class: Historical Med Route: ORAL Sig: Take 5 mg by mouth once daily. Disc: Discontinued by Patient naproxen (NAPROSYN) 500 mg tablet 60 t* 1 07/26/2017 11/14/2017 Route: ORAL Sig: Take 1 tablet by mouth twice daily as needed (for pain/inflammation). Take with food. Patient not taking: Reported on 09/30/2017 Disc: Discontinued by Patient Encounter Status:Closed by WANDA MCCORMICK, KIKA PHD on 11/14/17 ZULEYKA Observed: 11/12/2017 Status: COMPLETED Source: [place] 12:00 AM [facility] REPOSITORY Patient Outreach ([facility]) SUSANNA STEPHENS ([id number]) 1960 F BLD Date Time Provider Department 11/12/17 FEROZ LAU) [facility] During your visit today, we recorded the following information about you: Allergies As of Date: 11/12/2017 Noted Allergy Reaction ADHESIVE 07/03/2017 14 - Other: See Comments Comments: Blood blisters LATEX 07/03/2017 14 - Other: See Comments Comments: Blood blisters PENICILLIN 07/03/2017 14 - Other: See Comments Comments: tachycardia Date Reviewed: 09/30/2017 Reviewed by: Faith Murphy Ma - Fully Assessed Visit Diagnosis:Medication management [Z79.899] Order(s):ALBUMIN/CREAT RATIO RND UR [SQUACR] Order #: [id number] FUTURE Prescriptions as of 11/12/2017 Sig: X ASPIRIN 81 MG TABLET,DELAYED * Take 1 tablet by mouth once d* X LISINOPRIL 5 MG TABLET Take 5 mg by mouth once daily. X BUPROPION HCL SR 150 MG TABLE* Take 1 tablet by mouth twice * X NAPROXEN 500 MG TABLET Take 1 tablet by mouth twice * Patient not taking: Reported on 09/30/2017 X ALBUTEROL SULFATE HFA 90 MCG/* Inhale 2 Puffs as instructed * X ATORVASTATIN 20 MG TABLET Take 1 tablet by mouth daily * INSULIN LISPRO 100 UNIT/ML DESAI* Use as directed with insulin * X HYDROCODONE 10 MG-ACETAMINOPH* Take 1 tablet by mouth every * Problem List As Of Date 11/12/2017 Noted Resolved Rheumatoid arthritis involving multiple sites (*INVALID FOR* Coronary artery disease of [place]*INVALID FOR* Type 1 diabetes mellitus without complication (*INVALID FOR* Chronic pain of multiple sites [R52, G89.29] INVALID FOR* Tobacco use [Z72.0] Encounter Status:Closed by [employer] PRODUSER on 06/13/18 ENDOCRINOLOGY VISIT Observed: 11/06/2017 Status: F Source: [place] REPORT 1:30 PM [facility] REPOSITORY [facility] [address] [place], [place] [address]. [address] [place] [address] OFFICE VISIT Date of Service: 11/06/17 MR#: [id number] Acct: [id number] Name: SUSANNA STEPHENS Rep #: [id number] : 1960 Provider: Amber Tovar NP Age/Sex: 57/F Location[place] [facility] Status: Signed HPI History of present illness Susanna Stephens is a 57 year old female who presents for follow up of diabetes type 1. Diagnosed at age 21 in 1979. Continues on insulin pump therapy. Changes infusion site every 3 days. Denies any issues with skin irritation or infection. Reports checking BG consistently. PMH includesrhuematoid arhtritis, anemai, osteoporosis, cataracts, blindness, seizures, ulcers, bone fractures, migraines, vitamin defeciency Time of Day Basal Rate 12m 0.4 3pm 0.375 6pm 0.4 ICR 22 ISF 70 Since our last visit she denies excessive thirst, increased frequency of urination, chest pain or dyspnea. Follows a diabetic diet, Is compliant with medication and is tolerating without side effects. At time of visit: -Pt denies symptoms of hypertensive emergency (CP,SOB,MARR, or blurred vision) and hypotension(dizziness or lightheadedness) -Pt denies symptoms of hypoglycemia ( sweaty, confusion, anxiety, tremor, hunger, palpitations) and hyperglycemia ( polydipsia, polyuria) -Pt denies potential medication adverse effect. Hypoglycemia Aware of hypoglycemia: yes Able to self treat low BG: Yes Frequent low Blood sugar: No Has supply of glucagon: Yes Type: type 1 Glucose control symptoms: Reports high post-meal glucose and daytime hypoglycemia Weight and fatigue symptoms: Denies snoring Cardiopulmonary symptoms: Denies chest pain at rest, dyspnea on exertion, lightheadedness or myalgias GI symptoms: Denies constipation, diarrhea, nausea/dyspepsia or vomiting Other symptoms: Denies blurry vision or change in vision Self monitoring: Yes Glucometer type: contour Dietary compliance: Diabetes: good Diabetes education in past year: Yes Glucose testing: demonstrates correct use of meter, understands testing schedule Sick day education - understands ketone testing: Yes Physical activity: regular Exam Const General: comfortable, no acute distress Nutritional Appearance: thin HENMT Head: normal to inspection, atraumatic Mouth: oral mucosae normal, moist mucous membranes Teeth and gingiva: dentition normal Eyes Eyelids: eyelids normal Conjunctivae: conjunctivae normal Sclera: sclerae normal Neck Neck: normal visual inspection Neck mass: No Chest Chest palpation AND inspection: deferred Resp Effort AND Inspection: normal respiratory effort, able to speak in complete sentences, symmetric chest movement Auscultation: Bilateral: Clear to Auscultation Cardio Rate: regular rate Rhythm: regular rhythm Heart Sounds: S1 normal, S2 normal GI Inspection: normal to inspection Auscultation: normal bowel sounds Palpation: soft Skin General: no rashes or lesions noted Wounds: no wounds Diabetic Foot Pulses: L dorsalis pedis pulse: normal, R dorsalis pedis pulse: normal Monofilament test: Left foot: abnormal, Right foot: abnormal Neuro General: gait normal Cognition: normal cognition Speech: speech normal Motor: other (Unable to fully extend upper extremities due to rheumatoid arthritis.) Extrem General: other (Lower extremities with bilateral knee replacement and hip replacement of ri) Psych Appearance: well kempt Mental Status: mental status grossly normal Mood: congruent mood Affect: normal affect Attitude: cooperative Thought Process: normal Thought Content: normal Judgment: judgment good Intake Vital Signs11/06/17 Height 5 ft 7 in 11/06/17 Weight: 113 lb 4 oz 11/06/17 Body Mass Index (BMI) 17.7 11/06/17 Blood Pressure 91/64 11/06/17 Blood Pressure Location Lt popliteal 11/06/17 Blood Pressure Position Sitting Intake Visit Reasons: 3 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 Accompanied by: Is patient in pain?: No Allergies NSAIDS (Non-Steroidal Anti-Inflamma Allergy (Severe, Verified 11/06/17 11:41) Unknown Penicillins Allergy (Severe, Verified 11/06/17 11:26) Anaphylaxis adhesive Allergy (Verified 11/06/17 11:26) Rash latex Allergy (Verified 11/06/17 11:26) Rash Medications Lisinopril [Zestril] 5 mg PO DAILY 07/17/17 [History Confirmed 09/26/17] Simvastatin [Zocor] 20 mg PO QHS 07/17/17 [History Confirmed 09/26/17] blood sugar diagnostic strips See Dose Instructions .ROUTE .MEDSUPPLY #20 ea 09/26/17 [History Confirmed 09/26/17] hydrocodone 10 mg-acetaminophen 325 mg tablet 1 tab PO Q6H 09/26/17 [History Confirmed 09/26/17] insulin lispro (U-100) 100 unit/mL subcutaneous solution See Label Instructions SC QDAY ml 09/26/17 [History Confirmed 11/06/17] Is last menstrual period known: No Post menopausal: Yes Patient : No Nurse's Note: Blood sugars : Low : 72 High : 300+ PFSH Medical History Anemia (Acute) Arthritis (Acute) Bone fracture (Acute) Cataracts, bilateral (Acute) Diabetes type 1, controlled (Acute) Headache (Acute) Heart disease (Acute) High cholesterol (Acute) Kidney disease (Acute) Osteoarthritis (Acute) Osteoporosis (Acute) Rheumatoid arthritis (Acute) Seasonal allergies (Acute) Seizures (Acute) Stomach ulcer (Acute) Vision problems (Acute) Vitamin deficiency (Acute) abnormal calcium level (Acute) birthmark removal (Acute) Surgical History H/O eye surgery (Acute) H/O: (Acute) History of bilateral knee replacement (Acute) History of hip replacement (Acute) Hx of cataract surgery (Acute) Family History Unknown Arthritis Asthma Diabetes High cholesterol Osteoporosis Seizures CVA (cerebral vascular accident) Cancer Social History Smoking Status: Current every day smoker second hand exposure: Yes alcohol intake: never substance use type: does not use ROS Const Constitutional: No anorexia, body ache, chills, fatigue, fever(s), frequent falls, decreased energy, malaise, night sweats, weakness, weight change, sleep problems, abnormal sleep pattern, change in appetite, other, headache(s), snoring or excessive sweating Eyes Eyes: Positive for visual disturbances and other (recent eye exam - now has glasses, 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); no blurry vision, change in vision, double vision, discharge, dry eyes, bulging eyes, floaters, eye pain, light sensitivity, spots in vision or tunnel vision ENT ENT: No abnormal hearing, ear pain, ear discharge, ear pressure, hearing loss, tinnitus, dizziness/vertigo, balance problems, nosebleed/epistaxis, nasal congestion, nasal obstruction, nose pain, sinus pressure, sinus pain, nasal discharge, post nasal drip, headache(s), facial pain, dental pain, dry mouth, bad breath, hoarseness, lip swelling, mouth lesions, mouth pain, sore throat, tongue swelling, throat swelling, other, difficulty swallowing or neck pain Resp Respiratory: No cough, change in phlegm color, chest congestion, excessive phlegm production, hemoptysis, pain on inspiration, shortness of breath, pain with cough, snoring, stridor, wheezing or other Cardio Cardiology: No chest pain at rest, chest pain with exertion, leg pain with exertion, excessive sweating, shortness of breath, dyspnea on exertion, generalized swelling, irregular heart rhythm, lightheadedness, orthopnea, radiating jaw, neck or arm pain, fast heart rate, slow heart rate, palpitations or other Gastro GI: No abdominal pain, belching, bloating, change in bowel habits, change in stool character, coffee ground emesis, constipation, cramping, diarrhea, heartburn, difficulty swallowing, feeling full early, excessive flatus, incontinent of stools, Vomiting blood/hematemesis, blood in stool, loose stools, Black,tarry stools, nausea/dyspepsia, pain with swallowing, vomiting or other Genitourinary-Female: No difficulty urinating, burning urination, painful urination, urinary incontinence, urinary frequency, urinary urgency, urinary hesitancy, urinary retention, blood in urine, Frequent nighttime urination/ nocturia, post void dribbling, suprapubic fullness, side pain, sexual problems, genital lesions, genital itching, hot flashes, abnormal periods, abnormal vaginal bleeding, absent period, painful periods, light periods, heavy periods, difficulty getting , painful intercourse, pelvic pain, vaginal dryness, vaginal odor, Vaginal Itching or other Musc Musculoskeletal: No abnormal walking, joint pain, back pain, deformity, joint swelling, limited range of motion, loss of height, muscle cramps, muscle weakness, decreased muscle mass, body aches, neck pain, numbness, radiating pain into limb, stiffness, tingling or other Neuro Neurology: Positive for visual disturbances; no frequent falls, weakness, abnormal hearing, headache(s), abnormal walking, numbness or tingling Psych Psychiatric: No abnormal sleep pattern, No change in appetite Endo Endocrine: No fatigue, other or excessive sweating Aller/Imm Allergy/Immunologic: No lip swelling, tongue swelling, throat swelling or wheezing Assessment AND Plan Problems 1. Diabetes mellitus type 1, controlled, with complications E10.8 Plan Patient has pattern of high BG after breakfast. Tends to go low in mid afternoon. BG also goes high after evening meal. Breakfast is not going high until 3-4 hours after she eats. Will adjust I/C ratio for evening meal Change to 20 I/C at evening meal Adjust basal at 12n to 0.350 If BG become elevated switch to 0.375 Instructed patient on use of dual wave. Unable to change her I/C ratio at breakfast due to several different breakfast meals. Recent eye exam. Has new glasses and reports sight is greatly improved. A1c 6.9 BP controlled. Plan Detail Additional Comments 1. Please schedule follow up in 3 months. 2. Lab work one week before appointment. 3. Discussed importance of regular exercise and recommend starting or continuing a regular exercise program for good health. 4. The patient was encouraged to lose weight for good health 5. The importance of monitoring blood sugar regularly was reviewed. 6. The importance of monitoring the HBA1c level regularly was reviewed. 7. The importance of prper foot care and regularly checking feet to prevent sores and loss of limbs was reviewed. 8. The importance of keeping BP at or below 130/80 to prevent stroke, heart attacks, kidney failure, blindness was reviewed. Spent approximately 30 minutes with patient with over 50% of time spent in discussion and counseling regarding medication adjustment, symptoms and treatment of hypoglycemia, diet adherence, and checking BG before driving. Coding Level of Care Code Off vis,est,level 4 Diagnoses Diabetes mellitus type 1, controlled, with complications E10.8 Time Spent (min) 30 11/06/17 1330 <Electronically signed by Amber RAMOS> Date Amber RAMOS Cosigner Signature: Date (if applicable) CC: KIDNEY AND BLADDER Observed: 11/01/2017 Status: F Source: [place] 3:30 PM [facility] REPOSITORY [facility] Imaging Services [address] [place] [address] Kidney and Bladder MR#: [id number] Acct: [id number] Name: SUSANNA STEPHENS Roxi Rep #: [id number] : 1960 F 57 From: Janine Valente MD PCP: Juan Lau MD Status: REG CLI Study: Kidney and Bladder Date of Exam: 11/01/17 Exam# [id number] Ordering Dr: Juliette Rangel DO STUDY: RENAL ULTRASOUND - COMPLETE REASON FOR EXAM: Female, 57 years old. Renal failure. TECHNIQUE: Ultrasound evaluation of the kidneys was performed with real-time and static cadena-scale imaging. COMPARISON: None. FINDINGS: RIGHT KIDNEY: Normal location of the right kidney, which is normal in size. The right kidney measures 11.0 x 4.4 x 3.9 cm. There is diffuse thinning of the renal cortex. The renal cortex measures 0.6 cm. There is no right renal mass or cyst. There are no right renal calculi. There is no right hydronephrosis. DISTAL RIGHT URETER: There is non-visualization of the distal right ureter. There is no demonstrated right ureterovesical junction calculus. There is no demonstrated right ureteral jet. LEFT KIDNEY: Normal location of the left kidney, which is normal in size. The left kidney measures 10.5 x 3.9 x 5.6 cm. There is a normal cortex of the left kidney. The renal cortex measures 0.9 cm. There is no left renal mass or cyst. There are no left renal calculi. There is no left hydronephrosis. DISTAL LEFT URETER: There is non-visualization of the distal left ureter. There is no demonstrated left ureterovesical junction calculus. There is a visualized left ureteral jet. BLADDER: The distended urinary bladder has a volume of 188 ml. There is a normal wall thickness of the distended urinary bladder. There is no demonstrated mass within the urinary bladder. There are no demonstrated bladder calculi. US/Kidney and Bladder IMPRESSION: Normal size of the kidneys bilaterally. Negative for hydronephrosis, masses or stones. The renal cortex is mildly reduced in the right kidney compared to the left. The renal cortical density is increased relative to the medullary kidney consistent with renal medical disease. Unremarkable urinary bladder. Electronically Signed: Janine Valente MD at 23:54 EST , Service support , CC: Juan Lau MD; Juliette Rangel DO Zipper Trimmer: Signed PROGRESS Observed: 10/30/2017 Status: COMPLETED Source: [place] 3:53 PM [facility] REPOSITORY HNO ID: [id number] Author: Tristen Stallworth Service: (none) Author Type: Physician Type: Progress Notes Filed: 10/30/2017 4:00 PM Note Text: Tristen Stallworth MD Department of Orthopaedics Orthopaedics [address] [facility] [address] Dept: [phone] Dept October 30, 2017 CHIEF COMPLAINT: New Patient (Bilateral shoulder pain) HPI: Ms. Susanna Stephens is a 57 year old female who has known and rather significant rheumatoid arthritis with what sounds to me like under treatment for many years. She is not on any rheumatoid specific medications nor has been on DMARDs in the past. She reports problems with both elbows, right worse than left. 10 out of 10 pain and 6 out of 10 pain sharp and stiffness. She is unable to straighten or bend them fully. Denies any injury to make things worse. She is in pain management. [id number], legally blind. ASSESSMENT: M06.9 Rheumatoid arthritis involving multiple sites, unspecified rheumatoid factor presence (HCC) (primary encounter diagnosis) M25.521, M25.522 Bilateral elbow joint pain PLAN: She certainly needs to get in with rheumatology as it sounds like she has not had very much treatment at all and has rather significant disease my opinion. Furthermore, for the elbows all have her see one of our elbow specialists as I suspect a potential option for her would be total elbow arthroplasty which she would need to be evaluated for. We'll help organize a visit. FOLLOW UP INSTRUCTIONS: Follow up with Dr. Muñoz for evaluation. Rheumatology consult which she already has an appointment. OBJECTIVE: Ms. Susanna Stephens is a pleasant 57 year old in no apparent distress. Gen:BP 91/58 Pulse 80 Ht 5' 8 (1.73m) Wt 110 lb (49.9kg) BMI 16.73 kg/(m2). nl development, non obese, no deformities ENT: Normocephalic, normal hearing, moist mucosa CV: Pulses:Radial= 2+ and symmetric, capillary refill < 2 secs, no peripheral edema/varicosities Skin: no rash, bruising or lesions. Good turgor. Psych: cooperative and appropriate, alert and oriented x 3, good mood and affect. Musculoskeletal: IMAGING: IMPRESSION: Severe degenerative changes in both elbows. Zipper Trimmer: SHANNON ? Transcribe Date/Time: Oct 01 2017 11:53A Dictated by : ANNEMARIE GRAY DO This examination was interpreted and the report reviewed and electronically signed by: ANNEMARIE GRAY DO on Oct 01 2017 11:55AM ?EST Results-Findings * * *Final Report* * * DATE OF EXAM: Sep 30 2017 12:41PM ? WRX ? 5325 ?- ?XR ELBOW 3V AP/LAT/OTHER RT ?/ PROCEDURE REASON: Pain, unspecified ?? ? * * * * Physician Interpretation * * * * ?Bilateral elbows HISTORY: ?57 years old HISTORY: Pain, unspecified Hx of arthritis. Generalized right elbow pain worse than the left. Elbow is frozen in place with almost no movement. (accession [id number]), No injury. Pain and elbow is almost frozen in a semi flexed position. Hx of arthritis. (accession [id number]) TECHNIQUE: Images: ?XR ELBOW 3V AP/LAT/OTHER RT, XR ELBOW 3V AP/LAT/OTHER LT Comparison: ?None. RESULT: Findings: There is severe narrowing of the humeral ulnar and humeral radial joint spaces bilaterally. ?There is moderate spurring along the proximal ends of the ulna and radius at the site of articulation with the humerus. Right side: ?No fractures or dislocations are seen. Left side: ?No fractures or dislocations are seen. Supporting Subjective Information Below: Past Medical History: PAST MEDICAL HISTORY Diagnosis Date - Blindness of one eye with normal vision in contralateral eye right - CAD (coronary artery disease) Dr. Zak Boykin - Diabetes type 1, controlled (HCC) Insulin pump-BJ Shook - Endometriosis s/p hysterectomy - Hypercholesteremia - Insulin pump in place - Osteoarthritis - Osteoporosis - Rheumatoid arthritis (HCC) - Tobacco use Past Surgical History: PAST SURGICAL HISTORY Procedure Laterality Date - SECTION HX x 2 - HYSTERECTOMY HX - PAST SURGICAL HISTORY OF left eye surgery - PAST SURGICAL HISTORY OF right knee replacement - PAST SURGICAL HISTORY OF left knee surgery - PAST SURGICAL HISTORY OF Removal of strawberry gemma after - TOTAL HIP REPLACEMENT Left Family History: FAMILY HISTORY Problem Relation Age of Onset - Lipids Mother - Heart Mother - Hypertension Mother - Diabetes Father - Stroke Father - Cancer Brother thyroid cancer Social History:Social History Marital status: Spouse name: Years of education: Number of children: Social History Main Topics Smoking status: Current Every Day Smoker Packs/day: 1.00 Years: 42.00 Types: Cigarettes Smokeless status: Never Used Alcohol use: No Drug use: No Sexual activity: Yes Partners with: Male Medications: Current Outpatient Prescriptions: aspirin, enteric coated (ASPIR-LOW) 81 mg EC tablet Take 1 tablet by mouth once daily. lisinopril (ZESTRIL, PRINIVIL) 5 mg tablet Take 5 mg by mouth once daily. buPROPion SR (WELLBUTRIN SR) 150 mg 12 hr tablet Take 1 tablet by mouth twice daily. albuterol HFA (VENTOLIN HFA) 90 mcg/actuation inhaler Inhale 2 Puffs as instructed every 4 hours as needed for Wheezing/Shortness of Breath. atorvastatin (LIPITOR) 20 mg tablet Take 1 tablet by mouth daily at bedtime. For cholesterol. HYDROcodone-Acetaminophen (NORCO) 10-325 mg per tablet Take 1 tablet by mouth every 6 hours as needed. insulin lispro (HUMALOG) 100 unit/mL injection Use as directed with insulin pump-managed by MARIZA Tovar CNP naproxen (NAPROSYN) 500 mg tablet Take 1 tablet by mouth twice daily as needed (for pain/inflammation). Take with food. (Patient not taking: Reported on 09/30/2017 ) No current facility-administered medications for this visit. Allergies: Adhesive; Latex; Penicillin ROS: General (negative for fatigue, malaise, weight loss/gain) HEENT (negative for headache, earache, recent vision changes, sinus pain, sore throat) Respiratory (no recent shortness of breath, hemoptysis) CV (negative for chest tightness, palpitations) Musculoskeletal (see HPI) Psych (no depression, anxiety) REFERRING PHYSICIAN: Ms. Susanna Stephens was referred to me for consultation by the following physician. This consultation note will be sent to the following physician by either mail or electronic medical record. Feroz Lau MD [address] [facility] [id number] This note was partially generated using [employer] voice recognition system, and there may be some incorrect words, spellings, and punctuation that were not noted in checking the note before saving. Tristen Stallworth MD RENAL PROFILE Collected: 10/29/2017 Status: F Source: [place] 11:47 AM [facility] REPOSITORY TYPE CODE TESTS RESULT OUT OF RANGE REFERENCE UNITS LAB L501.0100 74-106 mg/dL Normal GLU 103 Result Comment: Fasting Glucose result from 100 to 125 mg/dL suggests IMPAIRED HOMEOSTASIS per A.D.A. criteria. Please note revised GLUCOSE reference range effective 2017. LAB L501.1000 7-18 mg/dL High BUN 21 LAB L501.1100 0.55-1.02 mg/dL Normal CREAT,SERUM 0.98 Result Comment: The validity of the calculated GFR AND GFRAA in patients over 70 years has not been determined. Clinical correlation is essential. LAB L501.1110 >60 mL/min Normal EST GFR 63 Result Comment: Non- GFR Calc LAB L501.1115 >60 mL/min Normal EST GFR - AA 76 Result Comment: GFR Calc LAB L501.1300 10-20 RATIO High BUN/CRE 21.4 LAB L501.1800 3.2-5.0 g/dL Normal ALB 3.8 LAB L501.2200 8.5-10.1 mg/dL CA Normal 9.0 LAB L501.2300 2.5-4.9 mg/dL Normal PHOS 3.8 LAB L501.5300 136-145 mmol/L NA Normal 137 LAB L501.5600 3.5-5.1 mmol/L K Normal 4.7 LAB L501.5900 98-107 mmol/L CL Normal 104 LAB L501.6100 21.0-32.0 mmol/L Normal CO2 24.0 Performed By: #### L500.3600 #### [facility] Laboratory [address] [place], [address] PROGRESS Observed: 09/30/2017 Status: COMPLETED Source: [place] 1:03 PM [facility] REPOSITORY HNO ID: [id number] Author: Faith Murphy Ma Service: (none) Author Type: (none) Type: Progress Notes Filed: 10/30/2017 4:00 PM Note Text: Patient presents with: New Patient: Bilateral shoulder pain AMB ROOMING INTAKE FLOWSHEET DATA Risk Screening Do you have concerns about personal safety or safety in the home?: No Pain Pain Score: 10/10 (10 right elbow - 6 left elbow) Pain Location: (Bilateral elbows R>L) Description: Sharp Duration Amount of Time: 22 Duration Units: Years Frequency: Continuous Intervention: Medication Patient states 22 years ago she woke up unable to straighten her right elbow completely. States her left elbow started 27 years ago. Bilateral elbow are bent at 90 degrees. States she has pain from her elbows radiate down to her wrist. Denies any injury. Patient has RA and is scheduled to see Dr. Vazquez in [place] in October. Patient sees a Dr. De Los Santos at [facility] in [place] for Pain Management. Taking Cantwell for her upper body pain and only helps a some. Patient is right hand dominant. Patient is also legally blind. No vision in her right eye and very little in her left eye. Patient had x-rays done today prior to appointment. CNOV Observed: 09/30/2017 Status: COMPLETED Source: [place] 12:55 PM [facility] REPOSITORY Office Visit (ORTHWS) SUSANNA STEPHENS ([id number]) 1960 F BLD Date Time Provider Department 09/30/17 12:55 PM TRISTEN STALLWORTH During your visit today, we recorded the following information about you: Pulse Blood pressure Weight Height 80/minute 91/58 49.9 kg 1.727 m Faith Murphy Jess 10/30/2017 4:00 PM Signed Patient presents with: New Patient: Bilateral shoulder pain AMB ROOMING INTAKE FLOWSHEET DATA Risk Screening Do you have concerns about personal safety or safety in the home?: No Pain Pain Score: 10/10 (10 right elbow - 6 left elbow) Pain Location: (Bilateral elbows RANDgt;L) Description: Sharp Duration Amount of Time: 22 Duration Units: Years Frequency: Continuous Intervention: Medication Patient states 22 years ago she woke up unable to straighten her right elbow completely. States her left elbow started 27 years ago. Bilateral elbow are bent at 90 degrees. States she has pain from her elbows radiate down to her wrist. Denies any injury. Patient has RA and is scheduled to see Dr. Vazquez in [place] in October. Patient sees a Dr. De Los Santos at [facility] in [place] for Pain Management. Taking [place]well for her upper body pain and only helps a some. Patient is right hand dominant. Patient is also legally blind. No vision in her right eye and very little in her left eye. Patient had x-rays done today prior to appointment. Tristen Stallworth MD 10/30/2017 4:00 PM Signed Tristen Stallworth MD Department of Orthopaedics Orthopaedics [address] [facility] [address] Dept: [phone] Dept October 30, 2017 CHIEF COMPLAINT: New Patient (Bilateral shoulder pain) HPI: Ms. Susanna Stephens is a 57 year old female who has known and rather significant rheumatoid arthritis with what sounds to me like under treatment for many years. She is not on any rheumatoid specific medications nor has been on DMARDs in the past. She reports problems with both elbows, right worse than left. 10 out of 10 pain and 6 out of 10 pain sharp and stiffness. She is unable to straighten or bend them fully. Denies any injury to make things worse. She is in pain management. [id number], legally blind. ASSESSMENT: M06.9 Rheumatoid arthritis involving multiple sites, unspecified rheumatoid factor presence (HCC) (primary encounter diagnosis) M25.521, M25.522 Bilateral elbow joint pain PLAN: She certainly needs to get in with rheumatology as it sounds like she has not had very much treatment at all and has rather significant disease my opinion. Furthermore, for the elbows all have her see one of our elbow specialists as I suspect a potential option for her would be total elbow arthroplasty which she would need to be evaluated for. We'll help organize a visit. FOLLOW UP INSTRUCTIONS: Follow up with Dr. Muñoz for evaluation. Rheumatology consult which she already has an appointment. OBJECTIVE: Ms. Susanna Stephens is a pleasant 57 year old in no apparent distress. Gen:BP 91/58 Pulse 80 Ht 5' 8ANDquot; (1.73m) Wt 110 lb (49.9kg) BMI 16.73 kg/(m2). nl development, non obese, no deformities ENT: Normocephalic, normal hearing, moist mucosa CV: Pulses:Radial= 2+ and symmetric, capillary refill ANDlt; 2 secs, no peripheral edema/varicosities Skin: no rash, bruising or lesions. Good turgor. Psych: cooperative and appropriate, alert and oriented x 3, good mood and affect. Musculoskeletal: IMAGING: IMPRESSION: Severe degenerative changes in both elbows. Zipper Trimmer: SHANNON ? Transcribe Date/Time: Oct 01 2017 11:53A Dictated by : ANNEMARIE GRAY DO This examination was interpreted and the report reviewed and electronically signed by: ANNEMARIE GRAY DO on Oct 01 2017 11:55AM ?EST Results-Findings * * *Final Report* * * DATE OF EXAM: Sep 30 2017 12:41PM ? WRX ? 5325 ?- ?XR ELBOW 3V AP/LAT/OTHER RT ?/ PROCEDURE REASON: Pain, unspecified ?? ? * * * * Physician Interpretation * * * * ?Bilateral elbows HISTORY: ?57 years old HISTORY: Pain, unspecified Hx of arthritis. Generalized right elbow pain worse than the left. Elbow is frozen in place with almost no movement. (accession [id number]), No injury. Pain and elbow is almost frozen in a semi flexed position. Hx of arthritis. (accession [id number]) TECHNIQUE: Images: ?XR ELBOW 3V AP/LAT/OTHER RT, XR ELBOW 3V AP/LAT/OTHER LT Comparison: ?None. RESULT: Findings: There is severe narrowing of the humeral ulnar and humeral radial joint spaces bilaterally. ?There is moderate spurring along the proximal ends of the ulna and radius at the site of articulation with the humerus. Right side: ?No fractures or dislocations are seen. Left side: ?No fractures or dislocations are seen. Supporting Subjective Information Below: Past Medical History: PAST MEDICAL HISTORY Diagnosis Date - Blindness of one eye with normal vision in contralateral eye right - CAD (coronary artery disease) Dr. Zak Boykin - Diabetes type 1, controlled (HCC) Insulin pump-BJ Shook - Endometriosis s/p hysterectomy - Hypercholesteremia - Insulin pump in place - Osteoarthritis - Osteoporosis - Rheumatoid arthritis (HCC) - Tobacco use Past Surgical History: PAST SURGICAL HISTORY Procedure Laterality Date - SECTION HX x 2 - HYSTERECTOMY HX - PAST SURGICAL HISTORY OF left eye surgery - PAST SURGICAL HISTORY OF right knee replacement - PAST SURGICAL HISTORY OF left knee surgery - PAST SURGICAL HISTORY OF Removal of strawberry gemma after - TOTAL HIP REPLACEMENT Left Family History: FAMILY HISTORY Problem Relation Age of Onset - Lipids Mother - Heart Mother - Hypertension Mother - Diabetes Father - Stroke Father - Cancer Brother thyroid cancer Social History:Social History Marital status: Spouse name: Years of education: Number of children: Social History Main Topics Smoking status: Current Every Day Smoker Packs/day: 1.00 Years: 42.00 Types: Cigarettes Smokeless status: Never Used Alcohol use: No Drug use: No Sexual activity: Yes Partners with: Male Medications: Current Outpatient Prescriptions: aspirin, enteric coated (ASPIR-LOW) 81 mg EC tablet Take 1 tablet by mouth once daily. lisinopril (ZESTRIL, PRINIVIL) 5 mg tablet Take 5 mg by mouth once daily. buPROPion SR (WELLBUTRIN SR) 150 mg 12 hr tablet Take 1 tablet by mouth twice daily. albuterol HFA (VENTOLIN HFA) 90 mcg/actuation inhaler Inhale 2 Puffs as instructed every 4 hours as needed for Wheezing/Shortness of Breath. atorvastatin (LIPITOR) 20 mg tablet Take 1 tablet by mouth daily at bedtime. For cholesterol. HYDROcodone-Acetaminophen (NORCO) 10-325 mg per tablet Take 1 tablet by mouth every 6 hours as needed. insulin lispro (HUMALOG) 100 unit/mL injection Use as directed with insulin pump-managed by MARIZA Tovar CNP naproxen (NAPROSYN) 500 mg tablet Take 1 tablet by mouth twice daily as needed (for pain/inflammation). Take with food. (Patient not taking: Reported on 09/30/2017 ) No current facility-administered medications for this visit. Allergies: Adhesive; Latex; Penicillin ROS: General (negative for fatigue, malaise, weight loss/gain) HEENT (negative for headache, earache, recent vision changes, sinus pain, sore throat) Respiratory (no recent shortness of breath, hemoptysis) CV (negative for chest tightness, palpitations) Musculoskeletal (see HPI) Psych (no depression, anxiety) REFERRING PHYSICIAN: Ms. Susanna Stephens was referred to me for consultation by the following physician. This consultation note will be sent to the following physician by either mail or electronic medical record. Feroz Lau MD [address] [facility] [id number] This note was partially generated using [employer] voice recognition system, and there may be some incorrect words, spellings, and punctuation that were not noted in checking the note before saving. Tristen Stallworth MD Referring Provider: SELF [200] Allergies As of Date: 09/30/2017 Noted Allergy Reaction ADHESIVE 07/03/2017 14 - Other: See Comments Comments: Blood blisters LATEX 07/03/2017 14 - Other: See Comments Comments: Blood blisters PENICILLIN 07/03/2017 14 - Other: See Comments Comments: tachycardia Date Reviewed: 09/30/2017 Reviewed by: Faith Murphy Ma - Fully Assessed Reason for Visit: New Patient [172] Cmt: Bilateral shoulder pain Primary Visit Diagnosis:Rheumatoid arthritis involving multiple sites, unspecified rheumatoid factor presence (HCC) [M06.9] Other Visit Diagnosis:Bilateral elbow joint pain [M25.521, M25.522] Prescriptions as of 09/30/2017 Sig: ASPIRIN 81 MG TABLET,DELAYED * Take 1 tablet by mouth once d* LISINOPRIL 5 MG TABLET Take 5 mg by mouth once daily. BUPROPION HCL SR 150 MG TABLE* Take 1 tablet by mouth twice * ALBUTEROL SULFATE HFA 90 MCG/* Inhale 2 Puffs as instructed * ATORVASTATIN 20 MG TABLET Take 1 tablet by mouth daily * HYDROCODONE 10 MG-ACETAMINOPH* Take 1 tablet by mouth every * INSULIN LISPRO 100 UNIT/ML DESAI* Use as directed with insulin * NAPROXEN 500 MG TABLET Take 1 tablet by mouth twice * Patient not taking: Reported on 09/30/2017 Problem List As Of Date 09/30/2017 Noted Resolved Rheumatoid arthritis involving multiple sites (*INVALID FOR* Coronary artery disease of [place] artery of [place]*INVALID FOR* Type 1 diabetes mellitus without complication (*INVALID FOR* Chronic pain of multiple sites [R52, G89.29] INVALID FOR* Tobacco use [Z72.0] Follow-up and Disposition History Recorded Encounter Status:Closed by TRISTEN STALLWORTH MD on 10/30/17 XR ELBOW 3V AP/LAT/OTHER Observed: 09/30/2017 Status: F Source: [facility] 12:41 PM CLINIC MAIN CAMP[facility] REPOSITORY * * *Final Report* * * DATE OF EXAM: Sep 30 2017 12:41PM WRX 5324 - XR ELBOW 3V AP/LAT/OTHER LT / PROCEDURE REASON: Pain, unspecified * * * * Physician Interpretation * * * * Bilateral elbows HISTORY: 57 years old HISTORY: Pain, unspecified Hx of arthritis. Generalized right elbow pain worse than the left. Elbow is frozen in place with almost no movement. (accession [id number]), No injury. Pain and elbow is almost frozen in a semi flexed position. Hx of arthritis. (accession [id number]) TECHNIQUE: Images: XR ELBOW 3V AP/LAT/OTHER RT, XR ELBOW 3V AP/LAT/OTHER LT Comparison: None. RESULT: Findings: There is severe narrowing of the humeral ulnar and humeral radial joint spaces bilaterally. There is moderate spurring along the proximal ends of the ulna and radius at the site of articulation with the humerus. Right side: No fractures or dislocations are seen. Left side: No fractures or dislocations are seen. IMPRESSION: Severe degenerative changes in both elbows. Zipper Trimmer: SHANNON Transcribe Date/Time: Oct 01 2017 11:53A Dictated by : ANNEMARIE GRAY DO This examination was interpreted and the report reviewed and electronically signed by: ANNEMARIE GRAY DO on Oct 01 2017 11:55AM EST [id number] XR ELBOW 3V AP/LAT/OTHER Observed: 09/30/2017 Status: F Source: [place] 12:41 PM [facility]IN [facility] REPOSITORY * * *Final Report* * * DATE OF EXAM: Sep 30 2017 12:41PM WRX 5325 - XR ELBOW 3V AP/LAT/OTHER RT / PROCEDURE REASON: Pain, unspecified * * * * Physician Interpretation * * * * Bilateral elbows HISTORY: 57 years old HISTORY: Pain, unspecified Hx of arthritis. Generalized right elbow pain worse than the left. Elbow is frozen in place with almost no movement. (accession [id number]), No injury. Pain and elbow is almost frozen in a semi flexed position. Hx of arthritis. (accession [id number]) TECHNIQUE: Images: XR ELBOW 3V AP/LAT/OTHER RT, XR ELBOW 3V AP/LAT/OTHER LT Comparison: None. RESULT: Findings: There is severe narrowing of the humeral ulnar and humeral radial joint spaces bilaterally. There is moderate spurring along the proximal ends of the ulna and radius at the site of articulation with the humerus. Right side: No fractures or dislocations are seen. Left side: No fractures or dislocations are seen. IMPRESSION: Severe degenerative changes in both elbows. Zipper Trimmer: PSCReina Transcribe Date/Time: Oct 01 2017 11:53A Dictated by : ANNEMARIE GRAY DO This examination was interpreted and the report reviewed and electronically signed by: ANNEMARIE GRAY DO on Oct 01 2017 11:55AM EST [id number] XR SHLDR >/=3V Observed: 09/30/2017 Status: F Source: [place] AP/[place]OM[place] AP/OTHR LT 12:41 PM [facility] REPOSITORY * * *Final Report* * * DATE OF EXAM: Sep 30 2017 12:41PM WRX 5252 - XR SHLDR >/=3V AP/SOLOMON AP/OTHR LT / PROCEDURE REASON: Pain, unspecified * * * * Physician Interpretation * * * * Left shoulder HISTORY: 57 years old Clinical information: Pain, unspecified No injury, generalized left shoulder pain with LROM for many years. TECHNIQUE: Images: XR SHLDR >/=3V AP/SOLOMON AP/OTHR LT Comparison: None. RESULT: Findings: No fractures or dislocations are seen. Moderate to marked narrowing of the AC joint. Severe narrowing of the glenohumeral joint. High riding position of the humeral head in relation to the acromium. Moderate degenerative changes in the cervical spine IMPRESSION: Degenerative changes as discussed. Zipper Trimmer: PSCB Transcribe Date/Time: Oct 01 2017 11:55A Dictated by : ANNEMARIE GRAY DO This examination was interpreted and the report reviewed and electronically signed by: ANNEMARIE GRAY DO on Oct 01 2017 11:56AM EST [id number] PROGRESS Observed: 09/30/2017 Status: COMPLETED Source: [place] 12:15 PM [facility] REPOSITORY HNO ID: [id number] Author: Mallika Diane (Rt) [place] Service: (none) Author Type: Fire Equipment Repairer Inspector Type: Progress Notes Filed: 09/30/2017 12:41 PM Note Text: Radiology Service Progress Note PATIENT NAME: Susanna Stephens DATE OF SERVICE: September 30, 2017 TIME: 12:15 PM PATIENT IDENTITY VERIFICATION COMPLETED USING TWO (2) METHODS: Patient confirmed name verbally and Date of . PATIENT GENDER DATA: Female. status: : No status: NO. PATIENT RELEVANT IMPLANT DATA REVIEWED: Not Applicable RADIOLOGY DEPARTMENT: General X-ray: Exam(s) Completed: Upper Extremity X-Ray(s): Shoulder, AP / TRUE AP / AXILLARY left and Elbow, bilateral : PERIPHERAL IV DATA: Not applicable SIGNED BY: RT Miriam September 30, 2017 12:15 PM ERYTHROCYTE SED RATE Collected: 09/26/2017 Status: F Source: [place] 11:05 AM [facility] REPOSITORY TYPE CODE TESTS RESULT OUT OF RANGE REFERENCE UNITS LAB L102.0000 0-30 mm/hr High SED RATE 39 Performed By: #### L101.9900 #### [facility] Laboratory [facility] [place] [address] [address] [place], [address] MICROALB:CREAT Collected: 09/26/2017 Status: F Source: [place] RATIO,RANDOM UR 11:04 AM [facility] REPOSITORY Order Comment: Order Date: 07/18/17 Order Info: 0779-1 - *Microalbumin, Creatine Ratio, rand urine Comments: Reason: TYPE CODE TESTS RESULT OUT OF RANGE REFERENCE UNITS LAB L501.1200 NO RANGE EST. mg/dL Normal UR CREAT 180.00 LAB L502.0500 NO RANGE EST. mg/L Normal 71.3 MICROALBUMIN ,UR LAB L502.0600 <30 mg/g CRE mg/g CRE High 39.6 MALB:CREAT Performed By: #### L502.0250 #### [facility] Laboratory [address] [place], [address] HEMOGLOBIN A1C Collected: 09/26/2017 Status: F Source: [place] 11:04 AM [facility] REPOSITORY Order Comment: Order Date: 07/18/17 Order Info: 4548-4 - *HgA1C TYPE CODE TESTS RESULT OUT OF RANGE REFERENCE UNITS LAB L501.9985 4.2-6.3 % High HGB A1C 6.9 Performed By: #### L501.9985 #### [facility] [address] [place], [address] COMPREHENSIVE METABOLIC Collected: 09/26/2017 Status: F Source: [place] PROFIL 11:04 AM [facility] REPOSITORY Order Comment: Order Date: 07/18/17 Order Info: 0786-1 - *CMP Complete Metabolic Panel Order Info: 53984-3 - *Lipid Profile Comments: Fasting 12 hours, may have water. Order Info: 3016-3 - *TSH Comments: Reason: SED AND RF ORDERED BY DR.J DE LOS SANTOS TYPE CODE TESTS RESULT OUT OF RANGE REFERENCE UNITS LAB L501.0100 70-110 mg/dL High GLU 132 Result Comment: Fasting Glucose result greater than or equal to 126 mg/dL suggests DIABETES MELLITUS per A.D.A. criteria. LAB L501.1000 7-18 mg/dL High BUN 25 LAB L501.1100 0.55-1.02 mg/dL High CREAT,SERUM 1.22 Result Comment: The validity of the calculated GFR AND GFRAA in patients over 70 years has not been determined. Clinical correlation is essential. LAB L501.1110 >60 mL/min Low EST GFR 49 Result Comment: Non- GFR Calc LAB L501.1115 >60 mL/min Low EST GFR - AA 59 Result Comment: GFR Calc LAB L501.1300 10-20 RATIO High BUN/CRE 20.5 LAB L501.1500 6.4-8.2 g/dL T Normal PROT 7.8 LAB L501.1800 3.4-5.0 g/dL Normal ALB 3.9 Result Comment: Please note revised Albumin AND Globulin reference range effective 2017. LAB L501.1950 2.2-4.2 g/dL Normal GLOB 3.9 LAB L501.2000 0.9-2.4 RATIO Normal A/G 1.0 LAB L501.2200 8.5-10.1 mg/dL Normal CA 8.8 LAB L501.4100 15-37 U/L Normal AST 18 LAB L501.4305 45-117 U/L Normal ALK P 76 LAB L501.4405 12-78 U/L Normal ALT 17 LAB L501.4600 0.20-1.00 mg/dL Normal T BILI 0.40 LAB L501.5300 136-145 mmol/L Normal NA 139 LAB L501.5600 3.5-5.1 mmol/L Normal K 4.3 LAB L501.5900 98-107 mmol/L Normal CL 105 LAB L501.6100 21.0-32.0 mmol/L Normal CO2 25.0 LAB L501.6200 5-15 Normal GAP 9 Performed By: #### L500.4050 #### [facility] [address] [place], [address] LIPID PROFILE Collected: 09/26/2017 Status: F Source: [place] 11:04 AM [facility] REPOSITORY Order Comment: Order Date: 07/18/17 Order Info: 0786-1 - *CMP Complete Metabolic Panel Order Info: 90894-6 - *Lipid Profile Comments: Fasting 12 hours, may have water. Order Info: 3016-3 - *TSH Comments: Reason: SED AND RF ORDERED BY DR.J DE LOS SANTOS TYPE CODE TESTS RESULT OUT OF RANGE REFERENCE UNITS LAB L501.4900 200 mg/dL Normal CHOL 178 Result Comment: <200 mg/dL Desirable 200-240 mg/dL Borderline >240 mg/dL High Risk LAB L501.5000 mg/dL Normal TRIG 145 Result Comment: The drugs N-Acetylcysteine and Metamizole may falsely depress this assay. Serum Triglycerides Reference Interval Normal <150 mg/dL Borderline high 150 - 199 mg/dL High 200 - 499 mg/dL Very High > or = 500 mg/dL LAB L501.6400 mg/dL Normal HDL 54 Result Comment: The drugs N-Acetylcysteine and Metamizole may falsely depress this assay. Reference Range HDL <40 mg/dL Low HDL Cholesterol HDL >or= 60 mg/dL High HDL Cholesterol LAB L501.6500 0-130 mg/dL Normal LDL 95 LAB L501.6600 5-40 mg/dL Normal VLDL 29 Performed By: #### L500.4100 #### [facility] [address] [place], [place], [address] THYROID STIM HORMONE Collected: 09/26/2017 Status: F Source: [place] (TSH) 11:04 AM [facility] REPOSITORY Order Comment: Order Date: 07/18/17 Order Info: 0786-1 - *CMP Complete Metabolic Panel Order Info: 24949-5 - *Lipid Profile Comments: Fasting 12 hours, may have water. Order Info: 3016-3 - *TSH Comments: Reason: SED AND RF ORDERED BY DR.J DE LOS SANTOS TYPE CODE TESTS RESULT OUT OF RANGE REFERENCE UNITS LAB L501.9520 0.358-3.74 uIU/mL Normal TSH 1.05 Performed By: #### L501.9520 #### [facility] [address] [place], [place], [address] RHEUMATOID FACTOR Collected: 09/26/2017 Status: F Source: [place] 11:04 AM [facility] REPOSITORY Order Comment: Order Date: 07/18/17 Order Info: 0786-1 - *CMP Complete Metabolic Panel Order Info: 75034-5 - *Lipid Profile Comments: Fasting 12 hours, may have water. Order Info: 3016-3 - *TSH Comments: Reason: SED AND RF ORDERED BY DR.J DE LOS SANTOS TYPE CODE TESTS RESULT OUT OF REFERENCE UNITS RANGE LAB L505.7010 <15 IU/mL High RHEUMATOID FAC 76.0 Performed By: #### L505.7010 #### [facility] [address] [place], [address] DEXA BONE DENSITY Observed: 09/26/2017 Status: F Source: [place] STUDY () 10:17 AM [facility] REPOSITORY [facility] Imaging Services [address] [place] [address] Dexa Bone Density Study () MR#: [id number] Acct: [id number] Name: SUSANNA STEPHENS Rep #: [id number] : 1960 F 57 From: Mark George MD PCP: Juan Lau MD Status: REG CLI Study: Dexa Bone Density Study () Date of Exam: 09/26/17 Exam# [id number] Ordering Dr: Lisa De Los Santos DO STUDY: DUAL ENERGY X-RAY ABSORPTIOMETRY / DXA REASON FOR EXAM: Female, 57 years old. The patient is postmenopausal. Loss of height. TECHNIQUE: Bone Mineral Density (BMD) measurements of lumbar spine and right hip were obtained. COMPARISON: None. FINDINGS: Lumbar Spine (L1-L4): g/cm2 (0.857) / T-score (-2.6) / Z-score (-1.8) Findings are suggestive of osteoporosis with a high fracture risk. Right Femur Total: g/cm2 (0.661) / T-score (-2.7) / Z- score (-2.1) Right Femoral Neck: g/cm2 (0.640) / T-score (-2.9) / Z-score (-1.8) HPBD/Dexa Bone Density Study () IMPRESSION: The patient is considered osteoporotic as outlined below according to World Blake Organization (WHO) criteria with a high fracture risk. Reference Information: The T-score is the number of standard deviations above or below the standard which is normal for young adults at their peak bone mineral density. The World Health Organization (WHO) interprets the T-scores as follows: Above -1 Normal bone density Between -1 and -2.5 Osteopenia Equal to / or below -2.5 Osteoporosis As a practical clinical guideline, osteopenia may be graded as follows: Mild -1 through -1.5 Moderate -1.6 through -2.0 Severe -2.1 through -2.4 The Z-score is the number of standard deviations above or below age-matched controls. A Z-score of less than -1.5 would be considered abnormal. References: 1. NIH Osteoporosis and Related Bone Diseases http://www.osteo.org 2. International Society for Clinical Densitometry http://www.iscd.org 3. National Osteoporosis Foundation http://www.nof.org Electronically Signed: Mark George MD at 12:52 EST Tel [phone], Service support , CC: Juan Lau MD; Lisa De Los Santos; Lisa De Los Santos Zipper Trimmer: Signed STRESS REPORT Observed: 09/04/2017 Status: F Source: [place] 5:41 PM [facility] REPOSITORY [facility] Cardiovascular Services [address] [place] [address] MR#: [id number] Acct: [id number] Name: SUSANNA STEPHENS Rep #: [id number] : 1960 57 From: Jorge Luis Sanford MD Primary Care: Juan Lau MD Status: REG CLI Ordering Dr: Sex: F C Stress Test Report Pharmacologic myocardial perfusion stress test 57-year-old lady with a history of chest pain. Medications lisinopril atorvastatin. Stress protocol: Resting EKG demonstrates sinus bradycardia with a rate of 60 bpm. Resting blood pressure is 110/68 mmHg. 0.4 mg of regadenoson was infused per usual protocol followed by rapid intravenous saline flush injection. Continuous EKG monitoring was performed. The maximum heart rate attained was 88 bpm which was 53% of maximum predicted heart rate in the maximum workload attained was 1 metabolic equivalent. At rest there were no ST or T-wave changes noted to suggest abnormal flow reserve at peak infusion no ST or T-wave changes were noted suggest abnormal flow reserve. The resting blood pressure is 110/68 with a final blood pressure 118/72. Myocardial perfusion protocol: 11.1 mCi of technetium 99m sestamibi was injected at rest. 0.4 mg regadenoson was infused per usual protocol peak infusion 31.3 mCi of technetium 99m sestamibi was injected. Stress images were obtained stress and rest images were reconstructed and compared in the short axis vertical long and horizontal long axis. Gated images were also obtained. Perfusion SPECT analysis: Review of the stress images demonstrate normal uptake of tracer noted in all areas of the myocardium. The resting images similarly demonstrate normal uptake of tracer noted in all areas of the myocardium. No areas of reversibility are noted suggest ischemia. Gated SPECT analysis: The gated ejection fraction is noted to be normal at over 75%. Conclusion: Normal pharmacologic myocardial perfusion stress test. Preserved ejection fraction. 09/04/17 1741 <Electronically signed by Jorge Luis Sanford MD> Date Jorge Luis Sanford MD CC: Juan Lau MD Date Dictated: 09/04/171737 Date Transcribed: 09/04/171737 Zipper Trimmer: CO Signed ALLERGIES ALLERGIES DATE TYPE / CODE NAME / CODE REACTION SEVERITY SOURCE 08/09/2018 Drug Penicillins/F001 Anaphylaxis [place] Allergy/416 211126(RXNORM) [facility] 191631(RUST ED CT) Repository 08/09/2018 Drug adhesive/M920334 Rash Unknown [place] Allergy/416 245(RXNORM) [facility] 258092(RUST ED CT) Repository 08/09/2018 Drug latex/[id number] Rash Unknown [place] Allergy/416 (RXNORM) [facility] 212275(RUST ED CT) Repository 08/09/2018 Drug NSAIDS Unknown [place] Allergy/416 (Non-Steroidal Community 927559([facility] Anti-Inflamma[address]) 29415811(RXNORM) Repository 11/14/2017 Drug NSAIDS OTHER: SEE C [facility] Class/76960 (NON-STEROIDAL [place] 1003(SNOMED ANTI-INFLAMMATOR Repository CT) Y DRUG) 07/03/2017 Drug ADHESIVE OTHER: SEE C [facility] Class/02468 [place] 1003(SNOMED Repository CT) 07/03/2017 DRUG LATEX OTHER: SEE C [facility] INGREDI/419 [place] 669741(SNOM Repository ED CT) 07/03/2017 DRUG PENICILLIN OTHER: SEE C [facility] INGREDI/419 [place] 882904(SNOM Repository ED CT) NG/36369401 ADHESIVE [facility] 6(SNOMED [facility]) Repository NG/29273985 LATEX [facility] 6(SNOMED [facility]) Repository NG/88908529 NSAIDS [facility](SNOMED (NON-STEROIDAL [facility]) ANTI-INFLAMMATOR Repository Y DRUG) NG/67498196 PENICILLIN [facility] 6(SNOMED [facility]) Repository ENCOUNTERS ENCOUNTERS ADMIT/DISCHARGE ACCOUNT NUMBER ADMITTING ENCOUNTER LOCATION SOURCE CLASS 08/09/2018/08/09/20 [id number] Emergency [address] ding:ED Repository 07/29/2018 [id number] Ambulatory General acute hospital ding:MFPLAB Repository 06/24/2018 [id number] Ambulatory General acute hospital ding:CT Repository 06/13/2018 [id number] Ambulatory General acute hospital ding:US Repository 06/11/2018 [id number] Ambulatory General acute hospital ding:PSN Repository 06/05/2018 [id number] Ambulatory [facility] Repository ng:H.PM 06/03/2018/06/03/20 [id number] Ambulatory [address] ding:ENRoom: Repository AC16 06/03/2018/06/03/20 [id number] Ambulatory BMSBuilding: [place] 18 BMS.CF.[facility] Repository 05/27/2018 [id number] Ambulatory General acute hospital ding:MFPLAB Repository 05/15/2018/05/15/20 [id number] Ambulatory BMSBuilding: [place] 18 BMS.Critical access hospital Hospital Repository 04/29/2018 [id number] Ambulatory General acute hospital ding:MFPLAB Repository 04/23/2018 [id number] Ambulatory General acute hospital ding:[facility] Repository 04/18/2018 [id number] Ambulatory General acute hospital ding:US Repository 04/10/2018 [id number] Ambulatory General acute hospital ding:MFPLAB Repository 04/08/2018 [id number] Ambulatory General acute hospital ding:MFPLAB Repository 04/02/2018 [id number] Ambulatory General acute hospital ding:LAB.FUT Repository URE 04/01/2018 [id number] Ambulatory General acute hospital ding:MFPLAB Repository 03/25/2018/03/25/20 [id number] Ambulatory [address] ding:OT Repository 03/19/2018 [id number] [facility] ng:H.PM 02/24/2018 [id number] Ambulatory General acute hospital ding:LAB.FUT Repository URE 02/12/2018 [id number] Ambulatory [facility] MEDICAL Repository CENTERBuildi ng:CAGWS 02/11/2018/02/12/20 [id number] Ambulatory [address] Repository 02/11/2018/02/14/20 [id number] Ambulatory [address] Repository 02/11/2018/02/12/20 [id number] Ambulatory [address] Repository 01/16/2018/01/17/20 [id number] Emergency [address] ding:ED Repository 12/19/2017 [id number] Ambulatory [facility] MEDICAL Repository CENTERBuildi ng:AKOTB 12/10/2017/12/11/19 [id number] Ambulatory [address] Repository 12/10/2017/12/11/19 [id number] Ambulatory [address] [place] Repository 12/10/2017/12/11/19 [id number] Ambulatory [address] [place] Repository 12/10/2017/12/11/19 [id number] Ambulatory [address] [place] Repository 12/06/2017/12/08/19 [id number] Emergency [address] ding:ED Repository 12/04/2017/12/06/19 [id number] KIKA MUÑOZ Ambulatory [address] [place] Repository 11/29/2017/11/30/19 [id number] Ambulatory [address] [place] Repository 11/29/2017/12/03/19 [id number] Ambulatory [address] [place] Repository 11/29/2017/12/03/19 [id number] Ambulatory [address] [place] Repository 11/29/2017 [id number] Ambulatory [facility] Repository 11/29/2017/12/03/19 [id number] Ambulatory [address] Repository 11/19/2017 [id number] Ambulatory [facility] Repository ng:H.PM 11/14/2017/07/22/20 [id number] Ambulatory [address] [place] Repository 11/06/2017/11/07/19 [id number] Ambulatory BMSBuilding: [address] Repository 11/01/2017 [id number] Ambulatory General acute hospital ding:USHP Repository 10/29/2017 [id number] Ambulatory General acute hospital ding:POLAB3 Repository 09/30/2017/11/05/19 [id number] Ambulatory [address] [place] Repository 09/30/2017/09/30/19 [id number] Ambulatory [address] Repository 09/26/2017 [id number] Ambulatory General acute hospital ding:BD Repository 09/16/2017 [id number] Ambulatory [facility] Repository ng:H.PM 09/04/2017 [id number] Ambulatory General acute hospital ding:CVS Repository 09/04/2017 [id number] Ambulatory BMSBuilding: [facility] Repository PAYERS PAYERS ENCOUNTER GUARANTOR PAYER SUBSCRIBER SOURCE 08/09/2018 SUSANNA L Primary SUSANNA L [place] [id number] E Insurance:MEDICARE SMITHDOB: Community [place] PART A BPolicy [id number] Number: Repository [address]Ezf: (544) [id number] [phone] (HP) Date:2018-08-09 08/09/2018 Secondary SUSANNA L [place] Insurance:CARESOURCEP SMITHDOB: [facility] Number: [id number] Hospital [id number] Repository Date:2018-08-09[address]ATTN: [place] [address]OT: 08/09/2018 Tertiary NOT GIVENUNK [place] Insurance:SELF PAY [facility] Number: Effective Repository Date:2018-08-09 07/29/2018 SUSANNA L Primary SUSANNA L [place] [id number] E Insurance:ANTHEM SMITHDOB: Community [place] MEDICARE PPOPolicy [id number], [place] Number: Repository [address]Sje: 330 [id number] [phone] Date:8000-14-94YB [address] [address]VW: 07/29/2018 Secondary SUSANNA L [place] Insurance:CARESOURCEP SMITHDOB: [facility] Number: [id number] Hospital [id number] Repository Date:2018-07-29[address]ATTN: [place] [address]AL: 07/29/2018 Tertiary NOT GIVENUNK [place] Insurance:SELF PAY [facility] Number: Effective Repository Date:2018-07-29 06/24/2018 SUSANNA L Primary SUSANNA L [place] [id number] [address] Insurance:ANTHEM SMITHDOB: Community [place] MEDICARE PPOPolicy [id number], [place] Number: Repository [address]Zhh: (330 [id number] [phone] (HP) Date:2885-04-30MN [address] [place] [address]1596QT: 06/24/2018 Secondary SUSANNA L [place] Insurance:CARESOURCEP SMITHDOB: [facility] Number: [id number] Hospital [id number] Repository Date:2018-06-17[address]ATTN: [place] [address]FV: 06/24/2018 Tertiary NOT GIVENUNK [place] Insurance:SELF PAY [facility] Number: Effective Repository Date:2018-06-17 06/13/2018 SUSANNA L Primary SUSANNA L [place] [id number] E Insurance:ANTHEM ANGELODOB: Community [place] MEDICARE PPOPolicy [id number], [place] Number: Repository [phone]: ([phone] [id number] [phone] (HP) Date:2742-81-03KB [address] [address]PF: 06/13/2018 Secondary SUSANNA L [place] Insurance:CARESOURCEP SMITHDOB: [facility] Number: [id number] Hospital [id number] Repository Date:2018-05-27[address]ATTN: [place] [address]MW: 06/13/2018 Tertiary NOT GIVENUNK [place] Insurance:SELF PAY [facility] Number: Effective Repository Date:2018-05-27 06/11/2018 SUSANNA L Primary SUSANNA L [place] [id number] Insurance:ANTHEM ANGELODOB: Community [place] MEDICARE PPOPolicy [id number], [place] Number: Repository [phone]: ([phone] [id number] [phone] (HP) Date:7020-94-01DL [address]BMZBGPW, [place] [address]YZ: 06/11/2018 Secondary SUSANNA L [place] Insurance:CARESOURCEP SMITHDOB: [facility] olicy Number: [id number] Hospital [id number] Repository Date:2018-04-14[address]ATTN: [place] [address]JI: 06/11/2018 Tertiary NOT GIVENUNK [place] Insurance:SELF PAY [facility] Number: Effective Repository Date:2018-04-14 06/05/2018 SUSANNA [id number] Primary [facility] Medical E [place] Insurance:[place]M [place] AD[place] Repository [place] [address]Fgq: [facility] Number: [id number] (HP) Date: [address] [place] [address]BB: 06/05/[address] [facility] Insurance:[facility] Number: Repository [id number] Date:[address] [place] [address]90[address]TV: 06/03/2018 SUSANNA L Primary SUSANNA L Andrew [id number] [address] Insurance:[facility]ENTER[facility]: Community [place] MEDICARE PPOPolicy [id number], [place] Number: Repository [address]Mcm: ([phone]) [id number] [phone] (HP) Date:9732-78-13PG[address] [address]VE: 06/03/2018 Secondary SUSANNA L [place] Insurance:CARESOURCEP SMITHDOB: [facility] Number: [id number] Hospital [id number] Repository Date:2018-05-15[address]ATTN: [place] [address]DG: 06/03/2018 Tertiary NOT GIVENUNK [place] Insurance:SELF PAY [facility] Number: Effective Repository Date:2018-05-15 06/03/2018 SUSANNA L Primary SUSANNA L [place] [id number] Insurance:ANTHEM GRANTDOB: Community [place] MEDICARE PPOPolicy [id number], [place] Number: Repository [phone]: (330 [id number] [phone] (HP) Date:6474-51-82RW [address] [place] [address]32[address]QA: 06/03/2018 Secondary SUSANNA L [place] Insurance:TONOSOURCNIK STEPHENSDOB: [facility] Number: [id number] Hospital [id number] Repository Date:2018-05-15[address]ATTN: [place] [address]DE: 06/03/2018 Tertiary NOT GIVENUNK [place] Insurance:SELF PAY [facility] Number: Effective Repository Date:2018-06-03 05/27/2018 SUSANNA L Primary SUSANNA L [place] [id number] [address] Insurance:PHILIP BURKSB: Community [place] MEDICARE PPOPolicy [id number], [place] Number: Repository [address]Imq: (330 [id number] [phone] (HP) Date:3522-01-37RJ [address] [place] [address] 14254KX: 05/27/2018 Secondary SUSANNA L [place] Insurance:SHERLEY STEPHENSDOB: [facility] Number: [id number] Hospital [id number] Repository Date:2018-05-27 [address]ATTN: [place] [address]JE: 05/27/2018 Tertiary NOT GIVENUNK [place] Insurance:SELF PAY [facility] Number: Effective Repository Date:2018-05-27 05/15/2018 SUSANNA L Primary SUSANNA L [place] [id number] E Insurance:PHILIP BURKSB: Community [place] MEDICARE PPOPolicy [id number], [place] Number: Repository [address]Unb: (330 [id number] [phone] (HP) Date:2576-16-45XN [address] [place] [address]03[address]LH: 05/15/2018 Secondary SUSANNA L [place] Insurance:CARESOURCEP SMITHDOB: Community olicy Number: [id number] Hospital [id number] Repository Date:2018-04-30[address]ATTN: [place] [address]NB: 05/15/2018 Tertiary NOT GIVENUNK [place] Insurance:SELF PAY [facility] Number: Effective Repository Date:2018-05-15 04/29/2018 SUSANNA L Primary SUSANNA L [place] [id number] [address] Insurance:PHILIP STEPHENSB: Community [place] MEDICARE PPOPolicy [id number], [place] Number: Repository [address]Qbu: 330 [id number] [phone] (HP) Date:1298-11-88IR [address] [address]YC: 04/29/2018 Secondary SUSANNA L [place] Insurance:CARESOURCEP SMITHDOB: [facility] Number: [id number] Hospital [id number] Repository Date:2018-04-29[address]ATTN: [place] [address]TQ: 04/29/2018 Tertiary NOT GIVENUNK [place] Insurance:SELF PAY [facility] Number: Effective Repository Date:2018-04-29 04/23/2018 SUSANNA L Primary SUSANNA L [place] [id number] Insurance:PHILIP STEPHENSB: Community [place] MEDICARE PPOPolicy [id number], [place] Number: Repository [phone]: (330 [id number] [phone] (HP) Date:8442-61-24BI [facility] 709017NGTJOZD, [place] [address]IT: 04/23/2018 Secondary SUSANNA L [place] Insurance:CARESOURCEP SMITHDOB: [facility] Number: [id number] Hospital [id number] Repository Date:2018-04-14 [address]ATTN: [place] [address]BD: 04/23/2018 Tertiary NOT GIVENUNK [place] Insurance:SELF PAY [facility] Number: Effective Repository Date:2018-04-14 04/18/2018 SUSANNA L Primary SUSANNA L [place] [id number] Insurance:PHILIP BURKSB: Community [place] MEDICARE PPOPolicy [id number], [place] Number: Repository [address]Ssk: (313 [id number] [phone] () Date:9404-42-58KL [address] [place] [address] 247[address]YA: 04/18/2018 Secondary SUSANNA L [place] Insurance:CARESOURCEP ANGELODOB: [facility] Number: [id number] Hospital [id number] Repository Date:2018-04-14 [address]ATTN: [place] [address]LT: 04/18/2018 Tertiary NOT GIVENUNK [place] Insurance:SELF PAY [facility] Number: Effective Repository Date:2018-04-14 04/10/2018 SUSANNA L Primary SUSANNA L [place] [id number] Insurance:PHILIP BURKSB: Community [place] MEDICARE PPOPolicy [id number], [place] Number: Repository [address]Vpw: (313 [id number] [phone] Date:9804-95-21QY [address] [place] [address] 43528PQ: 04/10/2018 Secondary SUSANNA L [place] Insurance:CARESOURCEP SMITHDOB: [facility] Number: [id number] Hospital [id number] Repository Date:2018-04-10 [address]ATTN: [place] [address]CY: 04/10/2018 Tertiary NOT GIVENUNK [place] Insurance:SELF PAY [facility] Number: Effective Repository Date:2018-04-10 04/08/2018 SUSANNA L Primary SUSANNA L [place] [id number] Insurance:PHILIP BURKSB: Community [place] MEDICARE PPOPolicy [id number], [place] Number: Repository [phone]: (313 [id number] [phone] (HP) Date:3131-06-63XG [address] [place] [address] 509[address]HV: 04/08/2018 Secondary SUSANNA L [place] Insurance:CARESOURCEP SMITHDOB: [facility] Number: [id number] Hospital [id number] Repository Date:2018-04-08P [address]ATTN: [place] [address]TW: 04/08/2018 Tertiary NOT GIVENUNK [place] Insurance:SELF PAY [facility] Number: Effective Repository Date:2018-04-08 04/02/2018 SUSANNA L Primary SUSANNA L [place] [id number] Insurance:PHILIP BURKSB: Community [place] MEDICARE PPOPolicy [id number], [place] Number: Repository [phone]: (313) [id number] [phone] () Date:9512-01-23EY[address] [address]HW: 04/02/2018 Secondary SUSANNA L [place] Insurance:CARESOURCEP SMITHDOB: [facility] Number: [id number] Hospital [id number] Repository Date:2018-04-02P [address]N: [place] [address]OY: 04/02/2018 Tertiary NOT GIVENUNK [place] Insurance:SELF PAY [facility] Number: Effective Repository Date:2018-04-02 04/01/2018 SUSANNA L Primary SUSANNA L [place] [id number] [address] Insurance:PHILIP BURKSB: Community [place] MEDICARE PPOPolicy [id number], [place] Number: Repository [address]Xux: 313 [id number] [phone] (HP) Date:9695-54-00NJ [address]GYBNSHI [place] [address]PN: 04/01/2018 Secondary SUSANNA L [place] Insurance:CARESOURCEP SMITHDOB: [facility] olicy Number: [id number] Hospital [id number] Repository Date:2018-04-01 [address]ATTN: [place] [address]BL: 04/01/2018 Tertiary NOT GIVENUNK [place] Insurance:SELF PAY [facility] Number: Effective Repository Date:2018-04-01 03/25/2018 SUSANNA L Primary SUSANNA L [place] [id number] E Insurance:[facility]ATR[facility] CENTERB: Community [place] MEDICARE PPOPolicy [id number], [place] Number: Repository [address]Wdd: 313 [id number] [phone] (HP) Date:9900-76-08BV [address]MGQGGZF[address] [place] [address]PJ: 03/25/2018 Secondary SUSANNA L [place] Insurance:CARESOURCEP SMITHDOB: [facility] Number: [id number] Hospital [id number] Repository Date:2017-12-01 [address]ATTN: [place] [address]TM: 03/25/2018 Tertiary NOT GIVENUNK [place] Insurance:SELF PAY [facility] Number: Effective Repository Date:2017-12-23 03/19/2018 SUSANNA [id number] Primary SUSANNA SINGH [facility] Insurance:[place]M [place] Repository [place] [address]Sfz: [facility] Number: [id number] (HP) Date: [address]VWHSPDQ, [place] [address]GH: 03/19/2018 Secondary SUSANNA FRANCISCO [facility] Insurance:MEDICAID [facility] Number: Repository [id number] Date:9267-33-28PT [facility] [address] [address]QJ: 02/24/2018 SUSANNA L Primary SUSANNA L [place] [id number] [address] Insurance:PHILIP BURKSB: Community [place] MEDICARE PPOPolicy [id number], [place] Number: Repository [address]Pdo: 313 [id number] [phone] (HP) Date:0675-57-00GU [address]ZDXVDKU, [place] [address]HF: 02/24/2018 Secondary SUSANNA L [place] Insurance:[facility]: [facility] Number: [id number] Hospital [id number] Repository Date:2018-02-24[address]ATTN: [place] [address]RF: 02/24/2018 Tertiary NOT ERICAUNK Andrew Insurance:SELF PAY [facility] Number: Effective Repository Date:2018-02-24 02/12/2018 SUSANNA L Primary SUSANNA L [facility] SMITHDOB: Insurance:PHILIP BURKSB: [facility] E MEDIBLUE DUAL [id number] Repository [place] MEDICAREPolicy [address]Wia: 313) Number: [phone] () [id number] Date: 02/12/2018 Secondary SUSANNA L [facility] Insurance:PHILIP BURKSB: Health System MEDIBLUE DUAL [id number] Repository ADVANTAGE MEDICAREPolicy Number: [id number] Date: 02/12/2018 Tertiary SUSANNA L [facility] Insurance:JEANE BURKSB: Health System [facility] [id number] Repository MACONPolic Number: [id number] Date: 01/16/2018 SUSANNA L Primary SUSANNA L [place] [id number] [address] Insurance:PHILIP BURKSB: Community [place] MEDICARE PPOPolicy [id number] [place] Number: Repository [address]Leq: 313 [id number] [phone] (HP) Date:9467-78-03BF [address]TSGDNGF, [place] [address]HX: 01/16/2018 Secondary SUSANNA L [place] Insurance:[facility]PAR[facility] CENTEREP SMITHDOB: [facility] Number: [id number] Hospital [id number] Repository Date:2018-01-16 [address]ATTN: [place] [address]QV: 01/16/2018 Tertiary NOT GIVENUNK [place] Insurance:SELF PAY [facility] Number: Effective Repository Date:2018-01-16 12/19/2017 SUASNNA L Primary SUSANNA L [facility] SMITHDOB: Insurance:PHILIP BURKSB: Health System E MEDIBLUE DUAL [id number] Repository [place], [place] MEDICAREPolicy [address]Oty: (313) Number: [phone] [id number] Date: 12/19/2017 Secondary SUSANNA L [facility] Insurance:JEANE BURKSB: Health System [facility] MEDICAID [id number] Repository MACONPolicy Number: [id number] Date: 12/06/2017 SUSANNA L Primary SUSANNA L [place] [id number] Insurance:PHILIP BURKSB: Community [place] MEDICARE PPOPoly [id number], [place] Number: Repository [address]Fie: (313) [id number] [phone] (HP) Date:5266-33-24GM [address]855OOBMKDS, [place] [address]XE: 12/06/2017 Secondary SUSANNA L [place] Insurance:[facility]ALL[facility]HE[facility]OD[facility]ARDEP SMITHDOB: [facility] Number: [id number] Hospital [id number] Repository Date:2017-12-06 [address]ATTN: [place] [address]MQ: 12/06/2017 Tertiary NOT GIVENUNK [place] Insurance:SELF PAY [facility] Number: Effective Repository Date:2017-12-06 11/19/2017 SUSANNA CORONADO Primary [facility]NA [facility] E [place] Insurance:[facility], MEDICARE ALL ADV [place]ository [place] [address]Grd: [facility] DIVISIONPolicy Number: [id number] (HP) Date: [address]EBCUNTM[address] [place] [address]XV: 11/19/2017 Secondary SUSANNA [facility] Insurance:MEDICAID [facility] Number: Repository [id number] Date:6978-25-98MM [address], [place] [address]IC: 11/06/2017 SUSANNA L Primary SUSANNA L [place] [id number] Insurance:ANTHEM GRANTDOB: Community NORTH MEDICARE [facility] [id number], [place] Number: Repository [address]Kdb: 313 [id number] [phone] (HP) Date:7832-42-97QN [address]PMYQWHJ[address] [place] [address]SD: 11/06/2017 Secondary SUSANNA L [place] Insurance:MEDICAIDPol SMITHDOB: [facility] Number: [id number] Hospital [id number] Repository Date:2017-08-08 11/06/2017 Tertiary NOT GIVENUNK [place] Insurance:SELF PAY [facility] Number: Effective Repository Date:2017-08-08 11/01/2017 SUSANNA L Primary SUSANNA L [place] [id number] [address] Insurance:ANTHEM SMITHDOB: [facility] [place] MEDICARE [facility] [id number], [place] Number: Repository [address]Jia: 313 [id number] [phone] (HP) Date:5404-89-65BF [address]BFDOFOG, [place] [address]SV: 11/01/2017 Secondary SUSANNA L [place] Insurance:MEDICAIDPol SMITHDOB: Community icy Number: [id number] Hospital [id number] Repository Date:2017-10-29 11/01/2017 Tertiary NOT GIVENUNK [place] Insurance:SELF PAY [facility] Number: Effective Repository Date:2017-10-29 10/29/2017 Susanna L Primary Susanna L [place] [id number] Insurance:MEDICARE SmithDOB: Community [place] PART A [facility] [id number][facility] [place] Number: Repository [address]Ewj: (888) [id number] [phone] () Date:2017-10-29 10/29/2017 Secondary Susanna L [place] Insurance:MEDICAIDPol App[place]DOB: Community icy Number: [id number] Hospital [id number] Repository Date:2017-10-29 10/29/2017 Tertiary NOT GIVENUNK [place] Insurance:SELF PAY [facility] Number: Effective Repository Date:2017-10-29 09/26/2017 Susanna L Primary Susanna L [place] [id number] [address] Insurance:MEDICARE SmithDOB: Community [place] PART A [facility] [id number], [place] Number: Repository [address]Zfo: (059) [id number] [phone] (HP) Date:2017-09-23 09/26/2017 Secondary Susanna L [place] Insurance:MEDICAIDPol SmithDOB: Community icy Number: [id number] Hospital [id number] Repository Date:2017-09-23 09/26/2017 Tertiary NOT GIVENUNK [place] Insurance:SELF PAY [facility] Number: Effective Repository Date:2017-09-23 09/16/2017 SUSANNA [id number] Primary SUSANNA SINGH [facility] E [place] Insurance[facility] icy Number: Repository [place] [address]Rlr: [id number] Date:2009-05-03P O () [address]VNCC CODE GH908KFAWDPDPPR[place] [address]CM: 09/16/2017 Secondary SUSANNA ANGELOUNK [facility] Insurance:MEDICAID [facility] Number: Repository [id number] Date:9767-28-97XW [address]CMUSC HEALTH BLACK R[facility] [place] [place] [address]GW: 09/04/2017 Susanna L Primary Ussanna L Andrew [id number] Insurance:MEDICARE SmithDOB: Community [place] PART A [facility] [id number], [place] Number: Repository [address]Xod: ([phone]) [id number] [phone] () Date:2017-08-14 09/04/2017 Secondary Susanna L [place] Insurance:MEDICAIDPol ApplegateDOB: [facility] ic Number: [id number] Hospital [id number] Repository Date:2017-08-14 09/04/2017 Tertiary NOT GIVENUNK [place] Insurance:SELF PAY [facility] Number: Effective Repository Date:2017-08-14 09/04/2017 Susanna L Primary Susanna L [place] [id number] Insurance:MEDICARE SmithDOB: Community [place] PART A [facility] [id number], [place] Number: Repository [address]Pxs: (508) [id number] [phone] () Date:2017-08-14 09/04/2017 Secondary Susanna L [place] Insurance:MEDICAIDPol SmithDOB: Community ic Number: [id number] Hospital [id number] Repository Date:2017-08-14 09/04/2017 Tertiary NOT GIVENUNK [place] Insurance:SELF PAY [facility] Number: Effective Repository Date:2017-09-04
== END ==
PROVIDERS: Family Provider Family Medicine; PCP Family Medicine; Visit Provider Family Medicine
DX: E78.5 Hyperlipidemia, unspecified (principal); D50.9 Iron deficiency anemia, unspecified; N18.3 Chronic kidney disease, stage 3 (moderate); R80.9 Proteinuria, unspecified
CPT/HCPCS: 36415; 80053; 80061; 82306; 82728; 83540; 83550; 85025

== ENCOUNTER 2018-08-09 15:33 | Emergency (ER) | payer MEDICAID, SELFPAY ==
[2018-08-09 15:33] VITALS: BP 129/71; PULSE 69; RESP 16; TEMP 36.4; O2SAT 100; BMI 17.0
--- NOTE | 2018-08-09 15:46 | ED.VISSUMM ---
- ER Visit Summary Date of Service: 08/09/18 Chief Complaint: Shingles History of Present Illness: The patient is a 57 F presenting due to concern for a shingles rash. Patient has had this in the past. Rash presented yesterday, has a burning type sensation. She denies constitutional symptoms. Physical Examination: Unilateral vesicular rash over the patient's right back. Test Results: None indicated Emergency Department Course and Treatment: Patient presented with a rash consistent with shingles. She will be placed on Valtrex. Disposition: Discharge Impression: Shingles This note was generated with [employer] dictation software. It may contain incorrect words, spelling, and punctuation that were not noted in review of the chart prior to signing ED Disposition - Plan for ED Patient: Disposition: Home or Assisted Living Chief Complaint: Rash Diagnosis: Shingles Instructions: ED Varicella Prescriptions: Valacyclovir HCl [Valtrex] 1,000 mg PO TID #21 tab Referrals: Han Willingham MD [Primary Care Provider] - As Needed
--- NOTE | 2018-08-09 15:49 | ED.DCSUM_ITS ---
- ER Visit Summary Date of Service: 08/09/18 Chief Complaint: Shingles History of Present Illness: The patient is a 57 F presenting due to concern for a shingles rash. Patient has had this in the past. Rash presented yesterday, has a burning type sensation. She denies constitutional symptoms. Physical Examination: Unilateral vesicular rash over the patient's right back. Test Results: None indicated Emergency Department Course and Treatment: Patient presented with a rash consistent with shingles. She will be placed on Valtrex. Disposition: Discharge Impression: Shingles This note was generated with [employer] dictation software. It may contain incorrect words, spelling, and punctuation that were not noted in review of the chart prior to signing ED Disposition - Plan for ED Patient: Disposition: Home or Assisted Living Chief Complaint: Rash Diagnosis: Shingles Instructions: ED Varicella Prescriptions: Valacyclovir HCl [Valtrex] 1,000 mg PO TID #21 tab Referrals: Han Willingham MD [Primary Care Provider] - As Needed
[2018-08-09 16:05] VITALS: BP 129/71; PULSE 69; RESP 18
== END 2018-08-09 16:08 | disposition home or self-care (01) ==
PROVIDERS: Emergency Provider Emergency Medicine; Family Provider Family Medicine; PCP Family Medicine
DX: B02.9 Zoster without complications (principal); E11.9 Type 2 diabetes mellitus without complications; I10 Essential (primary) hypertension; Z79.4 Long term (current) use of insulin; Z79.899 Other long term (current) drug therapy
CPT/HCPCS: 99282

== ENCOUNTER → 2018-08-29 10:08 | Outpatient (CLI) | payer MEDICAID, SELFPAY ==
[2018-08-09 15:33] VITALS: BMI 17.0
--- NOTE | 2018-08-29 10:15 | RAD_ITS ---
STUDY: X-RAY - THORACIC SPINE REASON FOR EXAM: Female, 58 years old. chronic pain. TECHNIQUE: 2 view(s) of the thoracic spine were obtained. COMPARISON: None. FINDINGS: Normal kyphosis of the thoracic spine. There is no substantial scoliosis. There is multilevel endplate spondylosis of the thoracic vertebrae. There is multilevel disc space narrowing of the thoracic spine. The soft tissue structures are unremarkable. RAD/Thoracic Spine 3 Views IMPRESSION: Minimal degenerative changes Electronically Signed: Sedrick Johnson MD at 8:53 EST Tel , Service support ,
--- NOTE | 2018-08-29 10:28 | RAD_ITS ---
STUDY: X-RAY - CERVICAL SPINE REASON FOR EXAM: Female, 58 years old. chronic pain TECHNIQUE: 5 view(s) of the cervical spine were obtained. COMPARISON: None FINDINGS: Normal cervical lordosis. There is multi-level endplate spondylosis. There is multi-level degenerative disc disease with multilevel disc space narrowing. The soft tissue structures are unremarkable. RAD/Cerv Spine 4 or 5 Views IMPRESSION: Mild degenerative changes of the spine. Electronically Signed: Sedrick Johnson MD at 8:51 EST Tel , Service support ,
--- NOTE | 2018-08-29 10:45 | RAD_ITS ---
STUDY: X-RAY - LUMBAR SPINE REASON FOR EXAM: Female, 58 years old. chronic pain TECHNIQUE: 5 view(s) of the lumbar spine were obtained. COMPARISON: None FINDINGS: Normal lumbar lordosis. There is multilevel endplate spondylosis of the lumbar vertebrae. There is multi-level degenerative disc disease with multi-level disc space narrowing. There is atherosclerotic calcification of the abdominal aorta. RAD/L/S Spine Min 4 Views IMPRESSION: Minimal degenerative changes of the spine. Electronically Signed: Sedrick Johnson MD at 8:52 EST Tel , Service support ,
[2018-08-29 11:52] LABS: Amphetamine Urine VISTA NEGATIVE (<1000 ng/mL); Barbiturate Urine VISTA NEGATIVE (< 200 ng/mL); Benzodiazepine Urine VISTA NEGATIVE (< 200 ng/mL); Cocaine Urine VISTA NEGATIVE (< 300 ng/mL); Ecstacy Urine VISTA NEGATIVE (< 500 ng/mL); Methadone Urine VISTA NEGATIVE (< 300 ng/mL); PCP Urine VISTA NEGATIVE (< 25 ng/mL); THC Urine VISTA NEGATIVE (< 50 ng/mL); Vista UDS pH Range 6
== END ==
PROVIDERS: Family Provider Family Medicine; PCP Family Medicine; Referring Provider Anesthesiology; Visit Provider Anesthesiology
DX: M54.2 Cervicalgia (principal); M54.6 Pain in thoracic spine; M54.5 Low back pain; F11.20 Opioid dependence, uncomplicated
CPT/HCPCS: 72050; 72072; 72110; 80307

== ENCOUNTER 2018-09-11 12:51 | Outpatient (RCR) | payer MEDICARE, SELFPAY ==
--- NOTE | 2018-09-11 14:03 | HP.PTEVAL ---
Patient's Visit Information BERNADINE WARD is a 58 year old F referred to Physical Therapy by Blanca Price MD with a diagnosis of L shoulder pain. Date of Evaluation: 09/11/18 Physical Therapist: Jeremie De Luna PT, ATC - Visit Plan Frequency: 2-3x /Week Duration: 4-6 Weeks Plan: L shoulder strengthening (rot cuff), scap stab, UBE, and HEP - Subjective Findings: Pt reports her L shoulder has been sore for years. Pt reports she has osteoporosis and OA/RA which has caused her to have pain throughout her body. Pt reports she had xrays which revealed that her L shoulder is bone on bone. Pt reports she is unable to lift her L UE overhead secondary to pain and weakness. Pt also notes sig sleep difficulty secondary to pain. Pt reports no Tingling or numbness in L UE at this time. Pt reports nothing she has attempted at this time makes her L UE feel better. Pt reports she is R hand dominant. 10/10 currently - Pain L shoulder Pain Intensity (Out of 10): 10 Pain Intensity Range: 10 - Objective Neuro: R C6 dermatone is numb. All other B UE's sensation is WNL to light touch. B bicepital reflex= 2/3. Palpation: Crepitus with AROM. Pt is very sore throughout the L shoulder. ROM: R shoulder flexion= 140, abd= 120, ER= 45. L shoulder flex= 55, abd= 40, ER= 0. MMT: R shoulder 4+/5 throughout. L shoulder 2-/5 and painful. Special tests: Not able to assess this date - Goals Goal 1:: Decrease L shoulder pain x 50% to aid with sleep Goal Time Frame: 4-6 Weeks Goal 2:: Increase R shoulder strength x 1 grade to aid with IADL's Goal Time Frame: 4-6 Weeks Goal 3:: Increase L shoulder ROM in flex and abd x 40 degrees to aid with overhead activity Goal Time Frame: 4-6 Weeks Goal 4:: I with HEP Goal Time Frame: 4-6 Weeks - Rehabilitation Potential Physical Therapy Diagnosis: L shoulder pain, weakness, and limited ROM secondary to degenerative changes of the L shoulder Rehabilitation Potential: Good - Anticipated Interventions Patient/Client Instruction: Educate patient on: Condition, Plan of Care For the Purpose of:: To improve self management Therapeutic Exercise to Include: Strength training, Postural training, Passive ROM, Active ROM, Scapular Strength/Stabilization For the Purpose of:: To decrease pain, To increase ROM, To improve muscle performance and motor function Cryotherapy (ice pack, ice massage): Yes For the Purpose of:: To decrease pain Thank you for the opportunity to evaluate your patient. For Medicare and Medicare HMO plans, please review the plan of care and approve it. It will need to be FAXED BACK to us at [phone] for Medicare purposes. For Medicare only, by signing this I certify the plan of care. Please let me know if there are questions or concerns regarding this plan of care. Physician Signature: Date:
--- NOTE | 2018-11-18 14:40 | HP.PTDCNRP_ITS ---
HP - Discharge Summary (1) - Patient Information BERNADINE WARD was seen in my office for initial evaluation on 09/11/18. The following Plan of Care was established for this patient: Initial Frequency: 2-3x /Week Initial Duration: 4-6 Weeks - Anticipated Interventions Patient/Client Instruction: Educate patient on: Condition, Plan of Care For the Purpose of:: To improve self management Therapeutic Exercise to Include: Strength training, Postural training, Passive ROM, Active ROM, Scapular Strength/Stabilization For the Purpose of:: To decrease pain, To increase ROM, To improve muscle performance and motor function Cryotherapy (ice pack, ice massage): Yes For the Purpose of:: To decrease pain This patient was last seen in our office . Pertinent comments regarding their Physical therapy will appear below: Pt was evaluated for L shoulder pain on the date of 09/11/18. Pt did not return a fter that visit through todays date, and is therefore discontinued at this time. At this point I will be discontinuing this patient from physical therapy. I would be happy to see this patient again in the future if found appropriate by the physician. Thank you! Jeremie De Luna, PT, ATC
== END 2018-09-11 19:00 | disposition home or self-care (01) ==
LOC: PT 12:51
PROVIDERS: Family Provider Family Medicine; PCP Family Medicine; Referring Provider Anesthesiology; Visit Provider Anesthesiology
DX: M25.519 Pain in unspecified shoulder (principal); M79.10 Myalgia, unspecified site
CPT/HCPCS: 97163

== ENCOUNTER → 2018-10-28 09:38 | Outpatient (CLI) | payer MEDICARE, SELFPAY ==
[2018-10-28 11:03] LABS: ALB/GLOB Ratio 1.1 RATIO (0.9-2.4); AST(SGOT) 21 U/L (15-37); Alanine Aminotransfer ALT/SGPT 19 U/L (13-56); Albumin, Serum 4.1 g/dL (3.2-5.0); Alkaline Phosphatase 73 U/L (45-117); Anion Gap 13 (5-15); BUN 22 mg/dL (7-18); BUN/Creat Ratio 19.8 RATIO (10-20); Calcium,Total 8.9 mg/dL (8.5-10.1); Chloride 107 mmol/L (98-107); Cholesterol 215 mg/dL (200); Creatinine, Serum 1.11 mg/dL (0.55-1.02); EST Glomerular Filtration Rate 54 mL/min (>60); Est Glom Filt Rate - Afr Amer 65 mL/min (>60); Globulin 3.6 g/dL (2.2-4.2); Glucose 109 mg/dL (74-106); High Density Lipoprotein 64 mg/dL; Potassium 4.7 mmol/L (3.5-5.1); Protein, Total 7.7 g/dL (6.4-8.2); Sodium Level 143 mmol/L (136-145); Thyroid Stim Hormone (TSH) 1.04 uIU/mL (0.358-3.74); Triglycerides 140 mg/dL; Very Low Density Lipoprotein 28 mg/dL (5-40)
[2018-10-28 11:15] LABS: Hemoglobin A1c 6.7 % (4.2-6.3)
[2018-10-28 11:21] LABS: Vitamin D,25 Hydroxy 42.2 ng/mL (29.95-100.01)
== END ==
PROVIDERS: Family Provider Family Medicine; PCP Family Medicine; Referring Provider Internal Medicine Endocrinology, Diabetes & Metabolism; Visit Provider Internal Medicine Endocrinology, Diabetes & Metabolism
DX: E10.9 Type 1 diabetes mellitus without complications (principal); E55.9 Vitamin D deficiency, unspecified
CPT/HCPCS: 36415; 80053; 80061; 82306; 83036; 84443

== ENCOUNTER → 2018-11-14 11:12 | Outpatient (CLI) | payer MEDICARE, SELFPAY ==
[2018-11-14 13:15] LABS: Absolute Lymphocyte Count 1.62 X10^3/ul (0.83-4.51); Basophil# 0.04 X10^3/uL; Basophil% 0.7 % (0-1); Eosinophil# 0.23 X10^3/uL; Eosinophils% 4.3 % (0-5); Hematocrit 37.5 % (37-47); Lymphocyte # 1.62 X10^3/ul (4.0); Lymphocyte % 30.3 % (19-41); Mean Corpuscular Hgb 30.4 pg (27.0-32.0); Mean Corpuscular Volume 94.9 fL (81-99); Mean Platelet Vol. 11.8 fl (6.2-12.0); Monocyte# 0.48 X10^3/uL; Neutrophil # 2.98 X10^3/uL (2.7-7.7); Neutrophil % 55.7 % (47-70); Platelet Count 245 K/mm3 (150-450); RBC Distribution Width CV 12.6 % (11.6-14.6); RBC Distribution Width SD 42.4 fl (35.1-43.9); Red Blood Count 3.95 M/mm3 (4.2-5.4); White Blood Count 5.4 K/mm3 (4.4-11.0)
[2018-11-14 13:16] LABS: POSITIVE COUNT NO; POSITIVE DIFFERENTIAL NO; POSITIVE MORPHOLOGY NO
[2018-11-14 13:53] LABS: Anion Gap 7 (5-15); BUN 29 mg/dL (7-18); Calcium,Total 9.2 mg/dL (8.5-10.1); Chloride 109 mmol/L (98-107); Cholesterol 175 mg/dL (200); Creatinine, Serum 1.16 mg/dL (0.55-1.02); EST Glomerular Filtration Rate 51 mL/min (>60); Est Glom Filt Rate - Afr Amer 62 mL/min (>60); Ferritin 101 ng/mL (8-252); Glucose 188 mg/dL (74-106); High Density Lipoprotein 67 mg/dL; Iron 83 ug/dL (50-170); Iron Binding Capacity,Total 278 ug/dL (250-450); PERCENT IRON SATURATION 29.9 % (15.0-55.0); Potassium 4.5 mmol/L (3.5-5.1); Sodium Level 140 mmol/L (136-145); Triglycerides 108 mg/dL; Very Low Density Lipoprotein 22 mg/dL (5-40)
[2018-11-14 13:55] LABS: Vitamin D,25 Hydroxy 52.4 ng/mL (29.95-100.01)
[2018-11-14 17:55] LABS: Protein, Urine (Random) 35.9 mg/dL (<11.9); Protein:Creat Ratio 215 mg/g CRE (0-200)
== END ==
PROVIDERS: Family Provider Family Medicine; PCP Family Medicine; Referring Provider Family Medicine; Visit Provider Family Medicine
DX: E55.9 Vitamin D deficiency, unspecified (principal); E78.5 Hyperlipidemia, unspecified; D50.9 Iron deficiency anemia, unspecified; N18.3 Chronic kidney disease, stage 3 (moderate)
CPT/HCPCS: 36415; 80048; 80061; 82306; 82570; 82728; 83540; 83550; 84156; 85025

== ENCOUNTER → 2018-12-01 16:07 | Outpatient (CLI) | payer MEDICARE, SELFPAY ==
--- NOTE | 2018-12-01 16:17 | MRI_ITS ---
STUDY: MRI LEFT SHOULDER REASON FOR EXAM: Left shoulder pain, limited range of motion, no specific injury, rheumatoid arthritis. TECHNIQUE: Standardized fat and water weighted pulse sequences were obtained in all 3 orthogonal planes. COMPARISON: None. FINDINGS: There is attenuation of the supraspinatus and infraspinatus tendons (T2 coronal images 6-12) without a full-thickness fluid-filled gap. Normal subscapularis tendon. Normal teres minor tendon. There is mild atrophy with mild partial fat replacement of the supraspinatus muscle (T2 axial image 5). Normal infraspinatus muscle. Normal subscapularis muscle. Normal teres minor muscle. There is glenohumeral arthrosis with chondral loss and mild subchondral bone edema of the glenoid and medial humeral head (T2 coronal images 8-13). There is a tear of the long biceps tendon with an empty proximal bicipital groove (T2 axial images 9-12). There is diffuse tear/degeneration of the labrum. There is mild acromioclavicular arthrosis without substantial undersurface osteophytes (T2 sagittal image 11). There is a Type II morphology (curved), with a neutral orientation. There is a very small volume of subacromial-subdeltoid bursal fluid (T2 coronal images 8, 9). Normal visualized coracohumeral and coracoacromial ligaments. Normal deltoid muscle. Normal trapezius muscle. MRI/Upper Ext Joint Only(Routine) IMPRESSION: Attenuation of the supraspinatus and infraspinatus tendons. Mild atrophy of the supraspinatus muscle. Glenohumeral arthrosis with tear/degeneration of the labrum. Mild acromioclavicular arthrosis. Very mild subacromial-subdeltoid bursitis. Electronically Signed: Ghassan Bonner MD at 9:27 EDT Tel , Service support ,
== END ==
PROVIDERS: Family Provider Family Medicine; PCP Family Medicine; Referring Provider Anesthesiology; Visit Provider Anesthesiology
DX: M25.512 Pain in left shoulder (principal)
CPT/HCPCS: 73221

== ENCOUNTER 2018-12-30 20:13 | Emergency (ER) | payer MEDICARE, SELFPAY ==
[2018-12-30 20:14] VITALS: BP 126/69; PULSE 74; RESP 17; TEMP 37.1; O2SAT 99; BMI 17.2
[2018-12-30 20:51] VITALS: PULSE 74; RESP 16; O2SAT 98
--- NOTE | 2018-12-30 21:06 | RAD_ITS ---
HISTORY: fall, pain EXAM/TECHNIQUE: XR Elbow Min 3 Views: Right. COMPARISON: 12/06/17 right elbow radiographs. FINDINGS: # of images incl. paperwork: 3 A fracture of the proximal ulna, through the base of the olecranon, was not present on the previous study. Again demonstrated is right elbow arthroplasty. The hardware is intact. No other fracture is evident. Alignment is near anatomic. RAD/Elbow min 3 Views IMPRESSION: Fracture through the proximal ulna in this patient status post previous right elbow arthroplasty. The fracture is through the base of the olecranon, adjacent to the ulnar stem of the arthroplasty. The fracture is not visible on the 12/06/17 radiographs although it has somewhat sclerotic margins and is not definitely acute. at 2138 Reported and signed by: Patrick Beck MD Electronically Signed: Patrick Bcek, at 21:37 EDT Tel , Service support ,
--- NOTE | 2018-12-30 21:06 | CT_ITS ---
HISTORY: Trauma. EXAM/TECHNIQUE: CT Head or Brain W/O Contrast: Multiplanar reformats provided. COMPARISON: None. FINDINGS: # of images incl. paperwork: 242 No evidence of intracranial hemorrhage, mass, infarct or hydrocephalus. No skull fracture. 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 CT/Brain/Head without Contrast IMPRESSION: No evidence of intracranial injury or skull fracture. Individualized dose optimization techniques were used for this CT. at 2222 Reported and signed by: Patrick Beck MD Electronically Signed: Patrick Beck, at 22:21 EDT Tel , Service support ,
--- NOTE | 2018-12-30 21:06 | CT_ITS ---
HISTORY: Trauma. EXAM/TECHNIQUE: CT Spine Cervical W/O Contrast: Axial images obtained, multiplanar reformats provided. COMPARISON: None. FINDINGS: # of images incl. paperwork: 399 No fracture or dislocation of the cervical spine. Alignment anatomic. Mild degenerative changes but no evidence of high-grade spinal canal narrowing. No acute findings in the paraspinal soft tissues. CT/Spine Cervical without Contras IMPRESSION: No fracture or dislocation of the cervical spine. Individualized dose optimization techniques were used for this CT. at 2209 Reported and signed by: Patrick Beck MD Electronically Signed: Patrick Beck, at 22:08 EDT Tel , Service support ,
--- NOTE | 2018-12-30 21:06 | RAD_ITS ---
HISTORY: TTraumaRAD-EXT/JT, pain COMPARISON: None FINDINGS: XR Wrist Min 3 Views: Right. SOFT TISSUES: No acute findings. No radiopaque foreign body. Calcific atherosclerosis. BONES/JOINTS: No acute fracture or subluxation. Normal alignment. Prominent carpal degenerative changes. No destructive changes observed. Diffuse osteopenia. RAD/Wrist min 3 Views IMPRESSION: No acute findings. Osteopenia and degenerative changes. at 2134 Reported and signed by: Patrick Beck MD Electronically Signed: Patrick Beck, at 21:33 EDT Tel , Service support ,
[2018-12-30 22:26] VITALS: PULSE 61; RESP 18; O2SAT 100
--- NOTE | 2018-12-30 23:56 | ED.DEP ---
ED Disposition - Plan for ED Patient: Instructions: ED Mechanical Fall Prescriptions: Hydrocodone Bitart/Apap 5-325 [[place] 5MG-325MG] 1 tablet PO Q6H PRN PRN 3 Days #10 tablet PRN Reason: Pain Referrals: Han Willingham MD [Primary Care Provider] - Tyree Taylor DO [STAFF PHYSICIAN] -
[2018-12-30 23:57] VITALS: PULSE 66; RESP 15; O2SAT 95
[2018-12-31] MEDS: HYDROcodone Bitartrate/Apap 5/325 Tablet PO (00:02)
--- NOTE | 2018-12-31 01:09 | ED.VISSUMM ---
- ER Visit Summary Date of Service: 12/30/18 Chief Complaint: Fall History of Present Illness: The patient is a 58 F presenting after fall. Patient states she was sitting on her counter and started to get down. She did not realize her dog was underneath her and she tripped over the dog and fell. She did hit her head but did not lose consciousness. She complains of neck pain, right elbow pain, right wrist pain. She is not on anticoagulants. She tried Tylenol at home. She has a history of osteoarthritis and has had multiple orthopedic surgeries in the past. Physical Examination: Vitals are stable. Patient is afebrile. Alert no acute distress. HEENT exam is unremarkable. Neck is mild diffuse tenderness with no step-off Lungs are clear and equal bilaterally. Heart is regular rate and rhythm. Abdomen is soft nontender nondistended. Extremities diffuse right elbow tenderness with painful range of motion. Right wrist is mildly tender. Neurovascularly intact distally Skin is warm and dry. No focal neurologic deficit. Remainder of exam is unremarkable. Emergency Department Course and Treatment: CT head and neck show no acute process. Right wrist x-ray shows no acute process. Right elbow x-ray shows fracture through the proximal ulna in this patient status post previous right elbow arthroplasty. The fracture is through the base of the olecranon, adjacent to the ulnar stem of the arthroplasty. The fracture is not visible on the 12/06/17 radiographs although it has somewhat sclerotic margins and is not definitely acute. Discussed with Dr. Fong. Patient was put in a posterior arm splint and will follow-up with Dr. Taylor her orthopedic surgeon. She was given prescription for [place]. She is advised to return to the ED for worsening complaints. Disposition: Discharge home Impression: Right elbow injury, closed head injury, status post mechanical fall This note was generated with [employer] dictation software. It may contain incorrect words, spelling, and punctuation that were not noted in review of the chart prior to signing ED Disposition - Plan for ED Patient: Disposition: Home or Assisted Living Instructions: ED Mechanical Fall Prescriptions: Hydrocodone Bitart/Apap 5-325 [[place] 5MG-325MG] 1 tablet PO Q6H PRN PRN 3 Days #10 tablet PRN Reason: Pain Referrals: Han Willingham MD [Primary Care Provider] - Tyree Taylor DO [STAFF PHYSICIAN] -
--- NOTE | 2018-12-31 01:19 | ED.DCSUM_ITS ---
- ER Visit Summary Date of Service: 12/30/18 Chief Complaint: Fall History of Present Illness: The patient is a 58 F presenting after fall. Patient states she was sitting on her counter and started to get down. She did not realize her dog was underneath her and she tripped over the dog and fell. She did hit her head but did not lose consciousness. She complains of neck pain, right elbow pain, right wrist pain. She is not on anticoagulants. She tried Tylenol at home. She has a history of osteoarthritis and has had multiple orthopedic surgeries in the past. Physical Examination: Vitals are stable. Patient is afebrile. Alert no acute distress. HEENT exam is unremarkable. Neck is mild diffuse tenderness with no step-off Lungs are clear and equal bilaterally. Heart is regular rate and rhythm. Abdomen is soft nontender nondistended. Extremities diffuse right elbow tenderness with painful range of motion. Right wrist is mildly tender. Neurovascularly intact distally Skin is warm and dry. No focal neurologic deficit. Remainder of exam is unremarkable. Emergency Department Course and Treatment: CT head and neck show no acute process. Right wrist x-ray shows no acute process. Right elbow x-ray shows fracture through the proximal ulna in this patient status post previous right elbow arthroplasty. The fracture is through the base of the olecranon, adjacent to the ulnar stem of the arthroplasty. The fracture is not visible on the 12/06/17 radiographs although it has somewhat sclerotic margins and is not definitely acute. Discussed with Dr. Fong. Patient was put in a posterior arm splint and will follow-up with Dr. Taylor her orthopedic surgeon. She was given prescription for [place]. She is advised to return to the ED for worsening complaints. Disposition: Discharge home Impression: Right elbow injury, closed head injury, status post mechanical fall This note was generated with [employer] dictation software. It may contain incorrect words, spelling, and punctuation that were not noted in review of the chart prior to signing ED Disposition - Plan for ED Patient: Disposition: Home or Assisted Living Instructions: ED Mechanical Fall Prescriptions: Hydrocodone Bitart/Apap 5-325 [[place] 5MG-325MG] 1 tablet PO Q6H PRN PRN 3 Days # 10 tablet PRN Reason: Pain Referrals: Han Willingham MD [Primary Care Provider] - Tyree Taylor DO [STAFF PHYSICIAN] -
== END 2018-12-31 00:12 | disposition home or self-care (01) ==
PROVIDERS: Emergency Provider Emergency Medicine; Family Provider Family Medicine; PCP Family Medicine
DX: S52.001A Unspecified fracture of upper end of right ulna, initial encounter for closed fracture (principal); S09.90XA Unspecified injury of head, initial encounter; M54.2 Cervicalgia; W01.0XXA Fall on same level from slipping, tripping and stumbling without subsequent striking against object, initial encounter; Y93.9 Activity, unspecified; Y92.9 Unspecified place or not applicable; M19.90 Unspecified osteoarthritis, unspecified site; E11.9 Type 2 diabetes mellitus without complications; Z79.4 Long term (current) use of insulin; Z79.899 Other long term (current) drug therapy; Z72.0 Tobacco use
CPT/HCPCS: 29125; 70450; 72125; 73080; 73110; 99282; A4216

== ENCOUNTER 2019-02-24 10:27 | Observation (INO) | payer MEDICARE, SELFPAY ==
[2019-02-24] VITALS (9 sets, daily range): BP systolic 103–130; BP diastolic 46–77; PULSE 53–108; RESP 12–16; TEMP 36.3–36.9; O2SAT 98–100; BMI 17.2; BMI 17.9
--- NOTE | 2019-02-24 10:37 | EKG12_ITS ---
Test Reason : HIGH K Blood Pressure : / mmHG Vent. Rate : 067 BPM Atrial Rate : 067 BPM P-R Int : 136 ms QRS Dur : 078 ms QT Int : 404 ms P-R-T Axes : 082 097 080 degrees QTc Int : 426 ms Normal sinus rhythm Rightward axis Borderline ECG Confirmed by ERWIN STEWART ([id number]), publication editor LAKEISHA GRAMAJO ([id number]) on 02/25/2019 1:44:17 PM Referred By: Angela Gabriel Confirmed By:ERWIN STEWART
[2019-02-24] MEDS: 0.9% Normal Saline 1,000 ML 1000 ML IV (10:57)
[2019-02-24 11:25] LABS: Anion Gap 4 (5-15); BUN 39 mg/dL (7-18); BUN/Creat Ratio 30.7 RATIO (10-20); Calcium,Total 9.3 mg/dL (8.5-10.1); Chloride 105 mmol/L (98-107); Creatinine, Serum 1.27 mg/dL (0.55-1.02); EST Glomerular Filtration Rate 46 mL/min (>60); Est Glom Filt Rate - Afr Amer 56 mL/min (>60); Estimated Creatinine Clearance 38.96 ml/min; Glucose 155 mg/dL (74-106); Potassium 5.9 mmol/L (3.5-5.1); Sodium Level 134 mmol/L (136-145)
--- NOTE | 2019-02-24 12:28 | ED.DCSUM_ITS ---
- ER Visit Summary Date of Service: 02/24/19 Chief Complaint: High potassium History of Present Illness: The patient is a 58 F who had routine blood work drawn today secondary to a history of chronic kidney disease. She was called and was told her potassium was 6.1. She denies any symptoms. Physical Examination: Vital signs unremarkable. Patient sitting upright in bed no acute distress. Head and neck examination normal. Heart is regular rate and rhythm. Lung sounds are clear. Abdomen soft nontender. Test Results: EKG is sinus at 67. There is slight T wave prominence. Repeat chemistry studies reveal potassium of 5.9 with BUN 39 and creatinine 1.27. Emergency Department Course and Treatment: Patient was given IV fluids. Once confirmatory labs were obtained she was ordered albuterol and Kayexalate. At this time patient is comfortable with admission for further evaluation and treatment. Hospitalist is on page. Treatment Plan: [] Disposition: Admit Impression: Hyperkalemia This note was generated with [employer] dictation software. It may contain incorrect words, spelling, and punctuation that were not noted in review of the chart prior to signing ED Disposition - Plan for ED Patient: Referrals: Han Willingham MD [Primary Care Provider] -
--- NOTE | 2019-02-24 13:07 | HP.PCM_ITS ---
Problem List (1) Hyperkalemia Status: Acute (2) Diabetes mellitus type 1, controlled, with complications Status: Chronic (3) Nicotine dependence Status: Chronic Qualifiers: Nicotine product type: cigarettes Substance use status: unspecified nicotine-induced disorder Qualified Code(s): F17.219 - Nicotine dependence, cigarettes, with unspecified nicotine-induced disorders History of Present Illness Date of Admission: 02/24/19 Chief Complaint: Abnormal blood work The patient is a 58 year old F past medical history of type I DM complicated by retinopathy who comes in with abnormal blood work showing hyperkalemia. Patient states she came to get blood work for her routine checkup. She was called to go to the emergency department because her potassium was elevated. She complains of reproducible chest pain on palpation. Denies any object hitting her chest. She has been feeling lightheaded today and has some palpitations but no orthopnea or PND. She is a chronic smoker. Patient states that her last HbA1c was 6.7. Vitals in the ED show temperature 97.4 F, heart rate 77, blood pressure 127/77, respiratory 16, SPO2 is 98% on room air. His BMP shows sodium 134, potassium 5.9, chloride 105, bicarbonate 25, BUN 39, creatinine 1.27, baseline creatinine is between 1.1-1.3, blood glucose 155 Past Medical History Past Medical History (Chronic Problems): Chronic Problems (Last Reviewed 05/15/18 @ 10:27 by Latia Mcfarland) Nicotine dependence (Chronic) Diabetes mellitus type 1, controlled, with complications (Chronic) Medical History: Medical History (Last Reviewed 05/15/18 @ 10:27 by Latia Mcfarland) Screening for intestinal cancer (Acute) Z12.10 Anemia D64.9 Arthritis M19.90 Bone fracture T14.8XXA Cataracts, bilateral H26.9 Diabetes type 1, controlled E10.9 Dx : 1979 Last exacerbation : DKA : 1980 Hypoglycemic episode : 05/19 ER visit : 05/19 Headache R51 Heart disease I51.9 High cholesterol E78.00 History of hysterectomy Z90.710 Kidney disease N28.9 Osteoarthritis M19.90 Osteoporosis M81.0 Rheumatoid arthritis M06.9 Seasonal allergies J30.2 Seizures R56.9 Stomach ulcer K25.9 Vision problems H54.7 Vitamin deficiency E56.9 abnormal calcium level birthmark removal Allergies NSAIDS (Non-Steroidal Anti-Inflamma Allergy (Severe, Verified 02/24/19 10:28) Unknown Penicillins Allergy (Severe, Verified 02/24/19 10:28) Anaphylaxis adhesive Allergy (Verified 02/24/19 10:28) Rash latex Allergy (Verified 02/24/19 10:28) Rash Home Medications: Ambulatory Orders Medication Instructions Recorded Lisinopril [Zestril] 5 mg PO DAILY 07/17/17 Biotin 5 mg PO DAILY 12/30/18 Rosuvastatin Calcium 20 mg PO QHS 12/30/18 Cholecalciferol (Vitamin D3) 5,000 unit PO DAILY 02/24/19 [Vitamin D3] Insulin Lispro [Humalog] SUBCUT DAILY 02/24/19 Surgical History: Surgical History (Last Updated 05/15/18 @ 10:27 by Latia Mcfarland) H/O eye surgery Z98.890 H/O: Z98.891 History of bilateral knee replacement Z98.890, Z96.653 History of hip replacement Z96.649 Hx of cataract surgery Z98.49 Surgical History: cataract, dilatation and curettage, total hip arthroplasty, total knee arthroplasty, - - , s/p retinal surgery Psychiatric History: No pertinent psych hx Lives: Spouse/ Significant Other, With Family Smoking Status: Current every day smoker Tobacco Use: Cigarettes Alcohol: None Drugs: None - *Family History Maternal Family History: Family History (Last Reviewed 05/15/18 @ 10:27 by Latia Mcfarland) Unknown Arthritis Asthma Diabetes High cholesterol Osteoporosis Seizures CVA (cerebral vascular accident) Cancer History Items: - - Rheumatoid arthritis Paternal Family History: Family History (Last Reviewed 05/15/18 @ 10:27 by Latia Mcfarland) Unknown Arthritis Asthma Diabetes High cholesterol Osteoporosis Seizures CVA (cerebral vascular accident) Cancer History Items: Diabetes Sibling Family History: Family History (Last Reviewed 05/15/18 @ 10:27 by Latia Mcfarland) Unknown Arthritis Asthma Diabetes High cholesterol Osteoporosis Seizures CVA (cerebral vascular accident) Cancer History Items: Diabetes Review of Systems Constitutional: Denies: Anorexia, Chills, Fever, Malaise, Weakness, Weight Change Eyes: Denies: Blurred vision, Cataracts, Conjunctivae Inflammation, Pain, Redness, Vision Change HEENT: Denies: Difficulty Hearing, Difficulty Swallowing, Head Aches, Hearing Changes, Sinus Congestion, Sinus Drainage Cardiovascular: Reports: Chest Pain, Light Headedness, Palpitations. Denies: Claudication, Orthopnea Respiratory: Denies: Cough, Hemoptysis, Shortness of breath at rest, Shortness of breath upon exertion, Sputum production Gastrointestinal: Denies: Abdominal Pain, Hematemesis, Hematochezia, Nausea, Vomiting Genitourinary: Denies: Dysuria, Frequency, Incontinence, Nocturia Gynecological: Denies: Vaginal discharge, Vaginal itching Musculoskeletal: Denies: Joint Pain, Joint stiffness, Joint swelling, Joint Tenderness Skin: Denies: Rash, Wounds Neurological: Denies: Numbness, Tingling, Focal weakness Psychiatric: Denies: Anxiety, Depression, Homicidal Ideations, Suicidal Ideations Hematologic/ Lymphatic: Denies: Easy Bruising, Easy Bleeding VTE Information - Inpt Only VTE Present on Admission: No VTE Pharm Prophylaxis ordered?: Yes Patient Problems: Active and Suspected Problems (Last Reviewed 05/15/18 @ 10:27 by Latia Mcfarland) Hyperkalemia (Acute) - Physical Exam General: Alert, Oriented x3, Cooperative, No apparent distress HEENT: Atraumatic, PERRLA, EOMI, Normocephalic Oral: Moist Mucosa Neck: Supple, No JVD, Negative Carotid Bruits Lungs: Clear to auscultation, Normal air movement Cardiovascular: Regular rate, Regular Rhythm, Normal S1, Normal S2, No murmurs, - - tenderness on palpating the anterior chest wall. Abdomen: Bowel Sounds Present, Soft, Non Tender, Non-Distended, No Hepato- splenomegaly Extremities: No edema Skin: No rashes, No breakdown Musculoskeletal: No Tenderness to Palpation of Joints or Extremities Lymphatic: No Cervical, Supraclavicular, or Inguinal Adenopathy Neurological: Cranial nerves II-XII grossly intact, Neuro grossly intact Psych/Mental Status: Normal Affect, Appropriate Vital Signs Temp Pulse Resp BP Pulse Ox 97.4 F L 53 L 12 130/72 H 100 02/24/19 10:28 02/24/19 12:13 02/24/19 12:13 02/24/19 12:13 02/24/19 12:13 Oxygen Delivery Method Room Air Weight: 49.895 kg Body Mass Index (BMI) 17.2 Finger Stick Blood Glucose 114 Laboratory Tests Past 24 Hrs 02/24/19 10:55 Sodium 134 L Potassium 5.9 H Chloride 105 Carbon Dioxide 25.0 Anion Gap 4 L BUN 39 H Creatinine 1.27 H Estim Creat Clear Calc 38.96 Est GFR (MDRD) Af Amer 56 L Est GFR (MDRD) Non-Af 46 L BUN/Creatinine Ratio 30.7 H Glucose 155 H Calcium 9.3 Assessment/Plan All Active Problems (Last Reviewed 05/15/18 @ 10:27 by Latia Mcfarland) Hyperkalemia (Acute) Screening for intestinal cancer (Acute) 58 year old F past medical history of type I DM complicated by retinopathy who comes in with abnormal blood work showing hyperkalemia. 1. Hyperkalemia with EKG changes showing peaked T waves in the patient with type 1 diabetes with CKD Patient was given Kayexalate, albuterol, IV fluids in the ED Plan: Admit to PCU, monitor on telemetry, repeat BMP, hold lisinopril, IV fluids, labs in am. 2. CKD stage III, patient is at baseline 3. Type I DM, on insulin pump, last HbA1c was 6.7, continue to monitor with Accu-Cheks 4. Nicotine dependence, on replacement 5. DVT PPx- early ambulation Code Visit Inpatient E&M: 61288 Init Hosp L3
[2019-02-24] MEDS: Polyethylene Glycol 3350 17 GM PACKET 34 GM PO (13:16)
[2019-02-24] MEDS: Sodium Polystyrene Sulfonate 15 GM/60 ML UDC PO (13:16)
--- NOTE | 2019-02-24 13:24 | CASEMGMT ---
RN CM Assessment Introduced role of RN CM to patient.? Patient is alert, oriented and able?to participate in RN CM Assessment. ?Care providers, pharmacy, and demographics verified. Presentation: Routine Labs done this AM s/t CKD, sent to ER for elevated Potassium level 6.1, Asymptomatic. Admit Dx: Hyperkalemia Re-Admit: No Barriers/Issues: None PCP: Han Willingham Specialists: Cecily Martinez Preferred Pharmacy: [facility] Insurance: [employer] [place] [facility] Rx Benefit:?Yes LNOK: Zak Stephens LW/HPOA: No, Would like information Living Arrangements:?Lives with her , children and grandchildren in a 2 story side by side home. 1 step to enter. ADL?s: Independent with ambulation and ADL's Transportation: drives and will transport on DC DME: Has a Continuous Glucose Monitoring System, Insulin Pump HHC: None SNF: None Goal: Home and does not think will have any needs. DC PLAN: Home with no needs anticipated at this time. ALISON Syed
[2019-02-24 13:26] LABS: Bedside Glucose 157 mg/dL (70-110)
[2019-02-24 14:47] LABS: Anion Gap 13 (5-15); BUN 38 mg/dL (7-18); BUN/Creat Ratio 28.1 RATIO (10-20); Calcium,Total 8.6 mg/dL (8.5-10.1); Chloride 109 mmol/L (98-107); Creatinine, Serum 1.35 mg/dL (0.55-1.02); EST Glomerular Filtration Rate 43 mL/min (>60); Est Glom Filt Rate - Afr Amer 52 mL/min (>60); Estimated Creatinine Clearance 39.23 ml/min; Glucose 264 mg/dL (74-106); Potassium 4.2 mmol/L (3.5-5.1); Sodium Level 141 mmol/L (136-145)
[2019-02-24] MEDS: 0.9% Normal Saline 1,000 ML 100 ML IV (14:49)
[2019-02-24 17:00] LABS: Bedside Glucose 364 mg/dL (70-110)
--- NOTE | 2019-02-24 17:01 | NURSING ---
Based on patient's BF of 364 and what she ordered for dinner, patient reports she is self injecting 6.7 units.
--- NOTE | 2019-02-24 19:32 | EKG12_ITS ---
Test Reason : Blood Pressure : / mmHG Vent. Rate : 074 BPM Atrial Rate : 074 BPM P-R Int : 146 ms QRS Dur : 082 ms QT Int : 410 ms P-R-T Axes : 069 082 078 degrees QTc Int : 455 ms Normal sinus rhythm Normal ECG When compared with ECG of 24-FEB-2019 10:43, MANUAL COMPARISON REQUIRED, DATA IS UNCONFIRMED Confirmed by ERWIN STEWART ([id number]), editorial specialist LAKEISHA GRAMAJO ([id number]) on 02/25/2019 2:17:10 PM Referred By: Angela Gabriel Confirmed By:ERWIN STEWART
[2019-02-24] MEDS: Acetaminophen 325 MG Tablet 650 MG PO (19:34)
--- NOTE | 2019-02-24 19:35 | NURSING ---
Patient c/o L chest pain 10/ which wraps around to back. Non diaphoretic. Describes pain as a stabbing feeling which occurs frequently at this time of day. States she does not take anything for it. Stat EKG ordered. PRN tylenol passed. Will monitor.
[2019-02-24] MEDS: Atorvastatin Calcium 40 MG Tablet PO (21:24)
--- NOTE | 2019-02-24 21:26 | NURSING ---
Based on patient's pump, patient alerted this RN she was given 1.6 units of insulin. [facility] glucometer states sugar at this time is 185
[2019-02-24 21:36] LABS: Bedside Glucose 185 mg/dL (70-110)
[2019-02-25 00:25] VITALS: BP 93/48; PULSE 65; RESP 16; TEMP 36.6; O2SAT 100
[2019-02-25 03:05] VITALS: PULSE 59
[2019-02-25] MEDS: 0.9% Normal Saline 1,000 ML 100 ML IV (04:51)
[2019-02-25 05:34] VITALS: BP 99/48; PULSE 67; RESP 16; TEMP 36.6; O2SAT 100
[2019-02-25 06:56] LABS: Bedside Glucose 104 mg/dL (70-110)
[2019-02-25 06:56] LABS: Bedside Glucose 40 mg/dL (70-110)
[2019-02-25 07:01] VITALS: PULSE 75
[2019-02-25 07:02] LABS: Anion Gap 3 (5-15); BUN 31 mg/dL (7-18); BUN/Creat Ratio 32.8 RATIO (10-20); Chloride 114 mmol/L (98-107); Creatinine, Serum 0.95 mg/dL (0.55-1.02); EST Glomerular Filtration Rate 65 mL/min (>60); Est Glom Filt Rate - Afr Amer 79 mL/min (>60); Estimated Creatinine Clearance 55.74 ml/min; Glucose 40 mg/dL (74-106); Potassium 4.6 mmol/L (3.5-5.1); Sodium Level 141 mmol/L (136-145)
[2019-02-25 07:40] LABS: Absolute Lymphocyte Count 1.42 X10^3/ul (0.83-4.51); Absolute Neutrophil Count 3.2 X10^3/uL (2.0-7.7); Basophil# 0.02 X10^3/uL; Basophil% 0.4 % (0-1); Eosinophil# 0.25 X10^3/uL; Eosinophils% 4.7 % (0-5); Hematocrit 26.4 % (37-47); Hemoglobin 8.8 g/dl (12.0-15.0); Lymphocyte # 1.42 X10^3/ul (4.0); Lymphocyte % 26.5 % (19-41); Mean Corp Hgb Conc 33.3 g/gl (32-36); Mean Corpuscular Hgb 30.8 pg (27.0-32.0); Mean Corpuscular Volume 92.3 fL (81-99); Mean Platelet Vol. 10.4 fl (6.2-12.0); Monocyte# 0.47 X10^3/uL; Monocyte% 8.8 % (0-10); Neutrophil # 3.19 X10^3/uL (2.7-7.7); Neutrophil % 59.6 % (47-70); Platelet Count 190 K/mm3 (150-450); RBC Distribution Width CV 12.9 % (11.6-14.6); RBC Distribution Width SD 43.4 fl (35.1-43.9); Red Blood Count 2.86 M/mm3 (4.2-5.4); White Blood Count 5.4 K/mm3 (4.4-11.0)
[2019-02-25 07:43] LABS: POSITIVE COUNT NO; POSITIVE DIFFERENTIAL NO; POSITIVE MORPHOLOGY NO
[2019-02-25 09:06] VITALS: BP 122/54; PULSE 76; RESP 16; TEMP 36.8; O2SAT 100
[2019-02-25] MEDS: Acetaminophen 325 MG Tablet 650 MG PO (09:11)
--- NOTE | 2019-02-25 10:01 | CASEMGMT ---
Patient wanted information on advance directives. SW met with patient, introduced self and role at [facility]. Patient wanted the documents, but did not need SW to explain them or complete them with her. Documents given to patient. Trixie MART
[2019-02-25 10:59] VITALS: PULSE 71
--- NOTE | 2019-02-25 11:00 | CASEMGMT ---
RN CM NOTE: To room to talk with pt/BEST form reviewed. Pt denies having any questions. BEST form signed by pt, copy made and placed on chart, and original given back to pt. Pt made aware if she has any questions to ask for CM. Pt voices understanding. Chester RINCONN RN CM
[2019-02-25 11:10] LABS: Bedside Glucose 48 mg/dL (70-110)
--- NOTE | 2019-02-25 11:43 | NURSING ---
PT BS=48, APPLE JUICE AND LAVON DOONES GIVEN. DR ALBERT NOTIFIED VIA TEXT. RECHECK=59. PT GIVEN MORE LAVON DOONES AND APPLE JUICE. PT REPORTS LUNCH IS ORDERED. RECHECK JUST NOW=46 PER PT MONITOR. PT REFUSING MORE SNACKS- STATES LUNCH WILL BE HERE IN 15MIN, PT ENCOURAGED TO EAT A SMALL SNACK UNTIL LUNCH ARRIVES. PT AGREEABLE. PT INSTRUCTED TO NOT ADMIN ANYMORE INSULIN W/OWN PUMP. PT AGREEABLE.
[2019-02-25 11:45] LABS: Bedside Glucose 59 mg/dL (70-110)
--- NOTE | 2019-02-25 12:22 | DCINST_ITS ---
- Discharge Diagnoses Current Active Problems: Current Active and Chronic Problems (Last Reviewed 05/15/18 @ 10:27 by Latia Mcfarland) Hyperkalemia (Acute) Nicotine dependence (Chronic) Reason(s) for Visit for Discharge Instructions: Abnormal blood cultures You will use the following diet at home:: Calorie/Carbohydrate Controlled (specify 1200, 1400, etc) - 1800 Your food should be the consistency of: Regular Your liquids should be the consistency of: Regular/Thin Discharge Activity: Return to Normal Activity Additional Instructions: Continue to take your medications as prescribed. Contin ue to monitor BS. Monitor for low blood sugar. Follow-up with your social studies department chair and primary care doctor as scheduled. You need repeat blood work within a week when you see your primary care doctor. Allergies/Adverse Reactions: Allergies NSAIDS (Non-Steroidal Anti-Inflamma Allergy (Severe, Verified 02/24/19 10:28) Unknown Penicillins Allergy (Severe, Verified 02/24/19 10:28) Anaphylaxis adhesive Allergy (Verified 02/24/19 10:28) Rash latex Allergy (Verified 02/24/19 10:28) Rash Medications to take at Discharge Biotin 5 mg PO DAILY 12/30/18 Buprenorphine 1 ea TD QWEEK 02/24/19 Cholecalciferol (Vitamin D3) [Vitamin D3] 5,000 unit PO DAILY 02/24/19 Insulin Lispro [Humalog] 50 - 60 units SUBCUT DAILY 02/24/19 Rosuvastatin Calcium 20 mg PO DAILY 02/24/19 Primary Care Physician: Han Willingham MD [Primary Care Provider] - Please follow up with your Primary Care Physician in: within 1-2 weeks Test Results: Test results from this visit will be discussed in further detail at your follow- up appointment, if applicable. Proposed Discharge Date: 02/25/19
--- NOTE | 2019-02-25 12:28 | DS.PCM_ITS ---
Discharge Date and Diagnosis Date of Admission: 02/24/19 Date of Discharge: 02/25/19 - Primary Discharge Diagnosis Active and Suspected Problems (Last Reviewed 05/15/18 @ 10:27 by Latia Mcfarland) Hyperkalemia (Acute) Nicotine replacement - Secondary Discharge Diagnosis Chronic Problems (Last Reviewed 05/15/18 @ 10:27 by Latia Mcfarland) Nicotine dependence (Chronic) Diabetes mellitus type 1, controlled, with complications (Chronic) Hospital Course and Treatment None Operations: None Procedures: None Summary of Care Provided: 58 year old F with past medical history of type I DM complicated by retinopathy who comes in with abnormal blood work showing hyperkalemia. Patient had EKG changes on admission showing peaked T waves. She received Kayexalate, albuterol, IV fluids in the ED. Her lisinopril was held. Repeat BMP showed improved potassium. Patient was monitored on a telemetry bed overnight with no events. Her blood sugars were slightly low on the day of discharge. She is on insulin pump. This was corrected. Patient was discharged home without lisinopril. She was told to follow-up with her primary care doctor within a week and get evaluated. She states she is on lisinopril not for blood pressure but for her chronic kidney disease. I would later told by the nurse that patient had left with the IV access still in situ. She did not wait to have the IV out. The Police Department was told about this to check on the patient. Subjective: On the day of discharge, patient was seen and examined. Denied any new complaints. She felt improved. Objective: Physical Exam General: Alert, Oriented x3, Cooperative, No apparent distress HEENT: Atraumatic, PERRLA, EOMI, Normocephalic Oral: Moist Mucosa Neck: Supple, No JVD, Negative Carotid Bruits Lungs: Clear to auscultation, Normal air movement Cardiovascular: Regular rate, Regular Rhythm, Normal S1, Normal S2, No murmurs, - - tenderness on palpating the anterior chest wall. Abdomen: Bowel Sounds Present, Soft, Non Tender, Non-Distended, No Hepato- splenomegaly Extremities: No edema Skin: No rashes, No breakdown Musculoskeletal: No Tenderness to Palpation of Joints or Extremities Lymphatic: No Cervical, Supraclavicular, or Inguinal Adenopathy Neurological: Cranial nerves II-XII grossly intact, Neuro grossly intact Psych/Mental Status: Normal Affect, Appropriate - Physical Exam Vital Signs Temp Pulse Resp BP Pulse Ox 98.3 F 76 16 122/54 H 100 02/25/19 09:06 02/25/19 09:06 02/25/19 09:06 02/25/19 09:06 02/25/19 09:06 Oxygen Delivery Method Room Air Weight: 53.4 kg Body Mass Index (BMI) 17.9 Finger Stick Blood Glucose 157 Intake and Output for Last 24 Hours 02/23/19 02/24/19 02/25/19 23:59 23:59 23:59 Intake Total 1359 / 1359 861 / 861 Balance 1359 / 1359 861 / 861 Laboratory Tests Past 24 Hrs 02/24/19 02/25/19 02/25/19 14:25 06:10 06:10 WBC 5.4 RBC 2.86 L Hgb 8.8 L Hct 26.4 L MCV 92.3 MCH 30.8 MCHC 33.3 RDW 12.9 RDW Differential 43.4 Plt Count 190 MPV 10.4 Immature Gran % (Auto) 0.000 Neut % (Auto) 59.6 Lymph % (Auto) 26.5 [place] % (Auto) 8.8 Eos % (Auto) 4.7 Baso % (Auto) 0.4 Absolute Neuts (auto) 3.2 Absolute Lymphs (auto) 1.42 Total Counted Not Reportable Sodium 141 141 Potassium 4.2 4.6 Chloride 109 H 114 H Carbon Dioxide 19.0 L 24.0 Anion Gap 13 3 L BUN 38 H 31 H Creatinine 1.35 H 0.95 Estim Creat Clear Calc 39.23 55.74 Est GFR (MDRD) Af Amer 52 L 79 Est GFR (MDRD) Non-Af 43 L 65 BUN/Creatinine Ratio 28.1 H 32.8 H Glucose 264 H 40 L* Calcium 8.6 8.0 L POC Glucose 02/25/19 02/25/19 02/25/19 11:17 10:37 06:51 POC Glucose 59 L 48 L 104 02/25/19 02/24/19 02/24/19 06:19 21:20 16:50 POC Glucose 40 L* 185 H 364 H 02/24/19 13:17 POC Glucose 157 H Discharge Diet: Low fat/ Low Cholesterol, 2000 mg Sodium Diet Discharge Activity: Return to Normal Activity Home Medications: Medications to take at Discharge Biotin 5 mg PO DAILY 12/30/18 Buprenorphine 1 ea TD QWEEK 02/24/19 Cholecalciferol (Vitamin D3) [Vitamin D3] 5,000 unit PO DAILY 02/24/19 Insulin Lispro [Humalog] 50 - 60 units SUBCUT DAILY 02/24/19 Rosuvastatin Calcium 20 mg PO DAILY 02/24/19 Primary Care Physician: Han Willingham MD [Primary Care Provider] - Please follow up with your Primary Care Physician in: within 1-2 weeks Disposition: Home Minutes spent on discharge:: 45 Patient Condition:: Stable Medical Necessity - Tobacco Use Smoking Status: Current every day smoker Tobacco Use: Cigarettes Meaningful Use Info Meaningful Use Diagnoses (Choose all that apply): None applicable Code Visit Inpatient E&M: 78206 Subs Hosp L3
--- NOTE | 2019-02-25 13:47 | NURSING ---
PT LEFT PRIOR TO RECEIVING D/C INSTRUCTIONS. IV CATHETER NOT NOTED TO BE IN ROOM-TRASH CANS CHECKED. MESSAGE LEFT ON PT CELL PHONE TO CALL PCU TO VERIFY THAT IV IS OUT. CHARGE NURSE MENDY DUNLAP SPOKE TO PT SON ON PHONE AND ASKED THAT HE HAVE PT CALL PCU TO REVIEW D/C INSTRUCTIONS AND VERIFY THAT IV IS OUT. AMUSEMENT PARK RIDE MECHANIC, RUTH IS AWARE WELL.
== END 2019-02-25 11:09 | disposition home or self-care (01) ==
LOC: ED 11:51 → PCU 13:36
PROVIDERS: Admitting Provider Internal Medicine; Emergency Provider Emergency Medicine; Family Provider Family Medicine; PCP Family Medicine; Referring Provider Internal Medicine; Visit Provider Internal Medicine
DX: E87.5 Hyperkalemia (principal); E10.22 Type 1 diabetes mellitus with diabetic chronic kidney disease; F17.210 Nicotine dependence, cigarettes, uncomplicated; E10.319 Type 1 diabetes mellitus with unspecified diabetic retinopathy without macular edema; J45.909 Unspecified asthma, uncomplicated; M06.9 Rheumatoid arthritis, unspecified; I12.9 Hypertensive chronic kidney disease with stage 1 through stage 4 chronic kidney disease, or unspecified chronic kidney disease; N18.3 Chronic kidney disease, stage 3 (moderate); M19.90 Unspecified osteoarthritis, unspecified site; Z79.899 Other long term (current) drug therapy; Z79.4 Long term (current) use of insulin; E55.9 Vitamin D deficiency, unspecified; E78.5 Hyperlipidemia, unspecified
CPT/HCPCS: 36415; 80048; 80053; 80061; 82306; 82533; 82570; 82962; 83036; 84156; 85025; 93005; 94640; 96360; 96361; 97802; 99218; 99285; 99406; J7030; J7040; A4216; G0378

== ENCOUNTER → 2019-02-24 | Outpatient (CLI) | payer MEDICARE, SELFPAY ==
[2019-02-24 09:07] LABS: Absolute Lymphocyte Count 1.54 X10^3/ul (0.83-4.51); Absolute Neutrophil Count 5.1 X10^3/uL (2.0-7.7); Basophil# 0.05 X10^3/uL; Basophil% 0.7 % (0-1); Eosinophil# 0.41 X10^3/uL; Eosinophils% 5.4 % (0-5); Hematocrit 34.6 % (37-47); Hemoglobin 11.4 g/dl (12.0-15.0); Lymphocyte # 1.54 X10^3/ul (4.0); Lymphocyte % 20.2 % (19-41); Mean Corp Hgb Conc 32.9 g/gl (32-36); Mean Corpuscular Hgb 30.6 pg (27.0-32.0); Mean Platelet Vol. 10.5 fl (6.2-12.0); Monocyte# 0.54 X10^3/uL; Monocyte% 7.1 % (0-10); Neutrophil # 5.08 X10^3/uL (2.7-7.7); Neutrophil % 66.5 % (47-70); Platelet Count 251 K/mm3 (150-450); RBC Distribution Width CV 12.9 % (11.6-14.6); RBC Distribution Width SD 43.3 fl (35.1-43.9); Red Blood Count 3.72 M/mm3 (4.2-5.4); White Blood Count 7.6 K/mm3 (4.4-11.0)
[2019-02-24 09:08] LABS: POSITIVE COUNT NO; POSITIVE DIFFERENTIAL NO; POSITIVE MORPHOLOGY NO
[2019-02-24 09:16] LABS: Protein, Urine (Random) 11.5 mg/dL (<11.9); Protein:Creat Ratio 132 mg/g CRE (0-200)
[2019-02-24 09:41] LABS: Vitamin D,25 Hydroxy 51.6 ng/mL (29.95-100.01)
[2019-02-24 09:42] LABS: ALB/GLOB Ratio 1.1 RATIO (0.9-2.4); AST(SGOT) 19 U/L (15-37); Alanine Aminotransfer ALT/SGPT 18 U/L (13-56); Alkaline Phosphatase 86 U/L (45-117); Anion Gap 4 (5-15); BUN 42 mg/dL (7-18); BUN/Creat Ratio 30.7 RATIO (10-20); Calcium,Total 9.4 mg/dL (8.5-10.1); Chloride 106 mmol/L (98-107); Cholesterol 190 mg/dL (200); Creatinine, Serum 1.37 mg/dL (0.55-1.02); EST Glomerular Filtration Rate 42 mL/min (>60); Est Glom Filt Rate - Afr Amer 51 mL/min (>60); Globulin 3.8 g/dL (2.2-4.2); Glucose 153 mg/dL (74-106); High Density Lipoprotein 63 mg/dL; Potassium 6.1 mmol/L (3.5-5.1); Protein, Total 7.8 g/dL (6.4-8.2); Sodium Level 135 mmol/L (136-145); Triglycerides 140 mg/dL; Very Low Density Lipoprotein 28 mg/dL (5-40)
== END | disposition home or self-care (01) ==
PROVIDERS: Family Provider Family Medicine; PCP Family Medicine; Referring Provider Internal Medicine Endocrinology, Diabetes & Metabolism; Visit Provider Internal Medicine Endocrinology, Diabetes & Metabolism
DX: I12.9 Hypertensive chronic kidney disease with stage 1 through stage 4 chronic kidney disease, or unspecified chronic kidney disease (principal); N18.3 Chronic kidney disease, stage 3 (moderate); E55.9 Vitamin D deficiency, unspecified; E78.5 Hyperlipidemia, unspecified
CPT/HCPCS: 36415; 80053; 80061; 82306; 82533; 82570; 83036; 84156; 85025

== ENCOUNTER → 2019-03-17 | Outpatient (CLI) | payer MEDICARE, SELFPAY ==
[2019-03-17 10:33] VITALS: BMI 17.2
[2019-03-17 12:25] LABS: Absolute Lymphocyte Count 1.74 X10^3/uL (0.83-4.51); Absolute Neutrophil Count 4.9 X10^3/uL (2.0-7.7); Basophil# 0.04 X10^3/uL; Basophil% 0.5 % (0-1); Eosinophil# 0.31 X10^3/uL; Eosinophils% 4.1 % (0-5); Hematocrit 36.2 % (37-47); Hemoglobin 11.7 g/dL (12.0-15.0); Lymphocyte # 1.74 X10^3/ul (4.0); Lymphocyte % 23.1 % (19-41); Mean Corp Hgb Conc 32.3 g/dL (32-36); Mean Platelet Vol. 11.3 fl (6.2-12.0); Monocyte# 0.54 X10^3/uL; Monocyte% 7.2 % (0-10); NRBC Flagged by Analyzer 0 % (0-5); Neutrophil # 4.86 X10^3/uL (2.7-7.7); Neutrophil % 64.7 % (47-70); Platelet Count 230 K/mm3 (150-450); RBC Distribution Width CV 12.4 % (11.6-14.6); RBC Distribution Width SD 43.5 fl (35.1-43.9); Red Blood Count 3.77 M/mm3 (4.2-5.4); White Blood Count 7.5 K/mm3 (4.4-11.0)
[2019-03-17 12:54] LABS: ALB/GLOB Ratio 1.2 RATIO (0.9-2.4); AST(SGOT) 18 U/L (15-37); Alanine Aminotransfer ALT/SGPT 25 U/L (13-56); Albumin, Serum 3.8 g/dL (3.2-5.0); Alkaline Phosphatase 84 U/L (45-117); Anion Gap 9 (5-15); BUN 30 mg/dL (7-18); BUN/Creat Ratio 23.8 RATIO (10-20); Calcium,Total 8.9 mg/dL (8.5-10.1); Chloride 106 mmol/L (98-107); Creatinine, Serum 1.26 mg/dL (0.55-1.02); EST Glomerular Filtration Rate 47 mL/min (>60); Est Glom Filt Rate - Afr Amer 56 mL/min (>60); Ferritin 97 ng/mL (8-252); Globulin 3.2 g/dL (2.2-4.2); Glucose 240 mg/dL (74-106); Iron 53 ug/dL (50-170); Iron Binding Capacity,Total 267 ug/dL (250-450); PERCENT IRON SATURATION 19.9 % (15.0-55.0); Potassium 4.9 mmol/L (3.5-5.1); Sodium Level 140 mmol/L (136-145)
[2019-03-17 13:20] LABS: Microalbumin,Random Urine 44.3 mg/L (NO RANGE EST.); Microalbumin:Creatinine Ratio 33.3 mg/g CRE (<30 mg/g CRE); Protein, Urine (Random) 27.5 mg/dL (<11.9); Protein:Creat Ratio 207 mg/g CRE (0-200)
== END | disposition home or self-care (01) ==
LOC: MFPLAB 10:33
PROVIDERS: Family Provider Family Medicine; PCP Family Medicine; Referring Provider Family Medicine; Visit Provider Family Medicine
DX: I12.9 Hypertensive chronic kidney disease with stage 1 through stage 4 chronic kidney disease, or unspecified chronic kidney disease (principal); N18.3 Chronic kidney disease, stage 3 (moderate); R80.9 Proteinuria, unspecified; D50.9 Iron deficiency anemia, unspecified
CPT/HCPCS: 36415; 80053; 82043; 82570; 82728; 83540; 83550; 84156; 85025

== ENCOUNTER → 2019-05-19 13:52 | Outpatient (CLI) | payer MEDICARE, MEDICAID, SELFPAY ==
[2019-03-17 10:33] VITALS: BMI 17.2
== END ==
PROVIDERS: Family Provider Family Medicine; PCP Family Medicine; Referring Provider Family Medicine; Visit Provider Family Medicine
DX: Z01.419 Encounter for gynecological examination (general) (routine) without abnormal findings (principal)

== ENCOUNTER → 2019-05-21 10:08 | Outpatient (CLI) | payer MEDICARE, MEDICAID, SELFPAY ==
[2019-03-17 10:33] VITALS: BMI 17.2
[2019-05-21 10:48] LABS: Absolute Lymphocyte Count 1.31 X10^3/uL (0.83-4.51); Absolute Neutrophil Count 6.6 X10^3/uL (2.0-7.7); Basophil# 0.05 X10^3/uL; Basophil% 0.6 % (0-1); Eosinophil# 0.32 X10^3/uL; Eosinophils% 3.6 % (0-5); Hematocrit 40.2 % (37-47); Lymphocyte # 1.31 X10^3/ul (4.0); Lymphocyte % 14.7 % (19-41); Mean Corp Hgb Conc 32.3 g/dL (32-36); Mean Corpuscular Hgb 30.4 pg (27.0-32.0); Mean Corpuscular Volume 94.1 fL (81-99); Monocyte# 0.58 X10^3/uL; Monocyte% 6.5 % (0-10); NRBC Flagged by Analyzer 0 % (0-5); Neutrophil # 6.62 X10^3/uL (2.7-7.7); Neutrophil % 74.3 % (47-70); Platelet Count 219 K/mm3 (150-450); RBC Distribution Width CV 11.9 % (11.6-14.6); RBC Distribution Width SD 41.4 fl (35.1-43.9); Red Blood Count 4.27 M/mm3 (4.2-5.4); White Blood Count 8.9 K/mm3 (4.4-11.0)
[2019-05-21 11:20] LABS: Albumin, Serum 3.9 g/dL (3.2-5.0)
[2019-05-21 11:30] LABS: Hemoglobin A1c 6.3 % (4.2-6.3)
== END ==
PROVIDERS: Family Provider Family Medicine; PCP Family Medicine; Referring Provider Specialist; Visit Provider Specialist
DX: Z01.812 Encounter for preprocedural laboratory examination (principal); E11.9 Type 2 diabetes mellitus without complications
CPT/HCPCS: 36415; 82040; 83036; 85025

== ENCOUNTER → 2019-06-09 09:57 | Outpatient (CLI) | payer MEDICARE, SELFPAY ==
[2019-03-17 10:33] VITALS: BMI 17.2
--- NOTE | 2019-06-09 10:02 | BI_ITS ---
MAMMOGRAPHY - BILATERAL SCREENING REASON FOR EXAM: Female, 58 years old. Routine annual screening examination. PERTINENT HISTORY: Non-contributory. Occasional left breast tenderness. TECHNIQUE: Digital bilateral breast shanelle (3D mammographic acquisition) in the CC and MLO projections. 2-D mediolateral oblique (MLO) and craniocaudad (CC) views of both breasts were obtained. CAD: Full Field Digital Mammography with Computer Added Detection was performed. COMPARISON: No comparison mammograms available at this time. If any prior films become available, an addendum to this report can be generated. FINDINGS: Breast Composition: The breasts are extremely dense, which lowers the sensitivity of mammography. There are no dominant masses or suspicious calcifications. No other significant abnormalities are identified. BI/SCREEN MAMM (CAD) W/SHANELLE BILAT IMPRESSION: Negative screening mammogram. Yearly followup mammogram recommended. (A) ASSESSMENT CATEGORY: BIRADS Category 1: Negative. A letter regarding these results will be sent to the patient by the facility within 30 days. Approximately 10% of breast cancers are not detected by mammography. A normal mammogram should not delay biopsy of a clinically suspicious abnormality. [id number] Electronically Signed: Mark George, at 8:27 EDT , Service support ,
== END ==
PROVIDERS: Family Provider Family Medicine; PCP Family Medicine; Referring Provider Family Medicine; Visit Provider Family Medicine
DX: Z12.31 Encounter for screening mammogram for malignant neoplasm of breast (principal)
CPT/HCPCS: 77063; 77067

== ENCOUNTER → 2019-06-16 13:48 | Outpatient (CLI) | payer MEDICARE, MEDICAID, SELFPAY ==
[2019-03-17 10:33] VITALS: BMI 17.2
--- NOTE | 2019-06-16 13:53 | CT_ITS ---
STUDY: CT LEFT SHOULDER REASON FOR EXAM: Female, 58 years old. The patient presents with a history of rheumatoid arthritis, osteoarthritis with shoulder pain with limited range of motion. RADIATION DOSAGE (If Supplied By Facility): CTDIvol = ( 26.22 ) mGy, DLP = ( 642.23 ) mGycm TECHNIQUE: The patient was scanned in a multi detector CT scanner. High resolution transaxial imaging was performed without the administration of intravenous contrast material. Sagittal and coronal images were reconstructed. Individualized dose optimization techniques were used for this CT. COMPARISON: MRI LEFT SHOULDER-December 01, 2018 FINDINGS: There is severe osteoarthritis of the glenohumeral articulation with severe loss of the chondral cartilage, with concave osseous remodeling of the glenoid fossa with spur formation of the anterior inferior rim of the glenoid fossa. There is cephalad migration of the humeral head with a loss of the depressor centralizing functional of the rotator cuff. The subacromial outlet has been narrowed to 1.7 mm. Review of the prior MRI examination of December 01, 2018 demonstrates a severely attenuated non-retracted supraspinatus tendon however there is a possible crescent tear of the central portion supraspinatus tendon (MRI LEFT SHOULDER-December 01, 2018, series 3, image 5). There is a type II morphology of the acromion with a neutral orientation. There is no demonstrated acromial spur. Normal AC joint without osteoarthritic spurring. There is a subcoracoid impingement process with narrowing of the coracohumeral distance to 2.4 mm. There is a prominent erosion of the lesser tuberosity further suggesting a subcoracoid impingement process. There is absence of the biceps tendon within the intertubercular groove consistent with a ruptured biceps tendon. CT/Extremity Upper without Contra IMPRESSION: 1. Severe glenohumeral osteoarthritis with full-thickness chondral loss, articular remodeling and spur formation. 2. Cephalad migration of the humeral head severely narrowing the subacromial outlet. 3. Review of the prior MRI examination of December 01, 2018 suggest a possible central crescent tear of the supraspinatus tendon. 4. Subcoracoid impingement with narrowing of the coracohumeral distance. 5. Complete rupture of the biceps tendon. Electronically Signed: Nam Ruff DO at 15:20 EDT Tel , Service support ,
== END ==
PROVIDERS: Family Provider Family Medicine; PCP Family Medicine; Referring Provider Specialist; Visit Provider Specialist
DX: M19.012 Primary osteoarthritis, left shoulder (principal)
CPT/HCPCS: 73200

== ENCOUNTER → 2019-07-14 08:40 | Outpatient (CLI) | payer MEDICARE, MEDICAID, SELFPAY ==
[2019-03-17 10:33] VITALS: BMI 17.2
[2019-07-14 10:04] LABS: Absolute Lymphocyte Count 1.61 X10^3/uL (0.83-4.51); Absolute Neutrophil Count 5.5 X10^3/uL (2.0-7.7); Basophil# 0.05 X10^3/uL; Basophil% 0.6 % (0-1); Eosinophil# 0.55 X10^3/uL; Eosinophils% 6.6 % (0-5); Hematocrit 36.2 % (37-47); Hemoglobin 11.6 g/dL (12.0-15.0); Lymphocyte # 1.61 X10^3/ul (4.0); Lymphocyte % 19.3 % (19-41); Mean Corpuscular Hgb 29.7 pg (27.0-32.0); Mean Corpuscular Volume 92.6 fL (81-99); Mean Platelet Vol. 11.2 fl (6.2-12.0); Monocyte# 0.61 X10^3/uL; Monocyte% 7.3 % (0-10); NRBC Flagged by Analyzer 0 % (0-5); Neutrophil # 5.52 X10^3/uL (2.7-7.7); Platelet Count 222 K/mm3 (150-450); RBC Distribution Width CV 12.4 % (11.6-14.6); RBC Distribution Width SD 42.3 fl (35.1-43.9); Red Blood Count 3.91 M/mm3 (4.2-5.4); White Blood Count 8.4 K/mm3 (4.4-11.0)
[2019-07-14 10:34] LABS: Anion Gap 8 (5-15); BUN 18 mg/dL (7-18); BUN/Creat Ratio 15.9 RATIO (10-20); Chloride 104 mmol/L (98-107); Creatinine, Serum 1.13 mg/dL (0.55-1.02); EST Glomerular Filtration Rate 53 mL/min (>60); Est Glom Filt Rate - Afr Amer 64 mL/min (>60); Ferritin 95 ng/mL (8-252); Glucose 240 mg/dL (74-106); Iron 46 ug/dL (50-170); Iron Binding Capacity,Total 249 ug/dL (250-450); Potassium 4.4 mmol/L (3.5-5.1); Sodium Level 139 mmol/L (136-145)
[2019-07-14 10:35] LABS: Vitamin D,25 Hydroxy 36.2 ng/mL (29.95-100.01)
== END ==
PROVIDERS: Family Provider Family Medicine; PCP Family Medicine; Referring Provider Family Medicine; Visit Provider Family Medicine
DX: E55.9 Vitamin D deficiency, unspecified (principal); D50.9 Iron deficiency anemia, unspecified; N18.3 Chronic kidney disease, stage 3 (moderate)
CPT/HCPCS: 36415; 80048; 82306; 82728; 83540; 83550; 85025

== ENCOUNTER → 2019-07-17 05:42 | Outpatient (CLI) | payer MEDICARE, MEDICAID, SELFPAY ==
[2019-03-17 10:33] VITALS: BMI 17.2
--- NOTE | 2019-07-17 09:32 | STRESSREP ---
Stress Test Report Date: 07-17-19 Procedure: Pharmacologic stress nuclear imaging study Indications: Abnormal ECG; preoperative cardiovascular evaluation Consent: Per the patient Procedure: The patient underwent pharmacologic (Regadenoson) evaluation with a peak heart rate of 90 beats per minute (54 %predicted maximal heart rate) and a peak blood pressure of 122/62 mmHg. The baseline ECG demonstrated normal sinus rhythm. The peak pharmacologic ECG demonstrated no obvious ECG changes. There were no cardiac dysrhythmias pretest, during pharmacologic infusion, or recovery. There was no complaint of chest discomfort during pharmacologic infusion or recovery. The examination was discontinued secondary to completion of protocol. Impression: 1. Pharmacologic (Regadenoson) evaluation 2. Peak pharmacologic ECG with no obvious ECG changes. 3. There were no cardiac dysrhythmias pretest, during pharmacologic infusion, or recovery. 4. Nuclear images pending Myocardial perfusion imaging study: Technique: The patient was injected with 11.0 millicuries of technetium 99m Cardiolite and subsequently rest SPECT Cardiolite nuclear imaging was obtained in the horizontal long, vertical long, and short axis views. The patient underwent pharmacologic (Regadenoson) evaluation with a peak heart rate of 90 beats per minute (54 % percent predicted maximal heart rate) and a peak blood pressure of 122/62 mmHg. The patient was injected with 33.0 millicuries of technetium 99m Cardiolite and subsequently stress SPECT Cardiolite nuclear imaging was obtained in the horizontal long, vertical long, and short axis views. A gated Cardiolite study at peak stress was obtained. Interpretation: Rest and stress SPECT Cardiolite nuclear imaging status post realignment, normalization, and attenuation correction demonstrate relative uniform tracer uptake and myocardial perfusion appearing within normal limits. There is end systolic thickening and brightening. The gated Cardiolite study demonstrates myocardial thickening and inward wall motion. The reported LVEF is 88 %. Impression: 1. Rest and stress SPECT Cardiolite nuclear imaging demonstrate relative uniform tracer uptake and myocardial perfusion appearing within normal limits. 2. The gated Cardiolite study reports an LVEF of the 88 %. This note was generated with [employer] software. It may contain incorrect words, spelling, and punctuation that were not noted in checking the note before signing.
== END ==
PROVIDERS: Family Provider Family Medicine; PCP Family Medicine; Referring Provider Family Medicine; Visit Provider Family Medicine
DX: R94.31 Abnormal electrocardiogram [ECG] [EKG] (principal)
CPT/HCPCS: 78452; 93017; A9500; A4216; J2785

== ENCOUNTER 2019-07-18 07:29 | Emergency (ER) | payer MEDICARE, MEDICAID, SELFPAY ==
[2019-03-17 10:33] VITALS: BMI 17.2
[2019-07-18 07:31] VITALS: BP 140/79; PULSE 81; RESP 12; TEMP 36; O2SAT 100; BMI 33.4
--- NOTE | 2019-07-18 07:38 | RAD_ITS ---
STUDY: X-RAY - LEFT SHOULDER REASON FOR EXAM: Female, 58 years old. Trauma. TECHNIQUE: 2 view(s) of the shoulder. COMPARISON: None. FINDINGS: There is left glenohumeral joint space narrowing. There is mild joint space narrowing in the left AC joint. Normal acromion. Normal humeral head and visualized proximal humerus. The soft tissue structures are unremarkable. Normal visualized pulmonary apex. RAD/Shoulder min 2 Views IMPRESSION: Degenerative changes. Electronically Signed: Isaac Conway, at 8:19 EST Tel , Service support ,
--- NOTE | 2019-07-18 07:39 | RAD_ITS ---
ACR Level 3 findings have been noted. An addendum which confirms receipt of the report will follow. STUDY: X-RAY - LEFT ELBOW REASON FOR EXAM: Female, 58 years old. Trauma. TECHNIQUE: 3 view(s) of the elbow. COMPARISON: None. FINDINGS: Study is significantly limited secondary to suboptimal positioning. No dislocation is had to exclude. Joint space narrowing is noted along with osteophyte formation. The soft tissue structures are unremarkable. Evaluation for nondisplaced fractures. Limited. RAD/Elbow min 3 Views IMPRESSION: Study limited by suboptimal positioning. Underlying dislocation or nondisplaced fractures aren't completely excluded. Electronically Signed: Isaac Conway, at 8:17 EST Tel , Service support ,
--- NOTE | 2019-07-18 07:39 | RAD_ITS ---
STUDY: X-RAY - LEFT RADIUS AND ULNA REASON FOR EXAM: Female, 58 years old. Trauma. TECHNIQUE: 2 view(s) of the forearm. COMPARISON: None. FINDINGS: There is no demonstrated soft tissue swelling. Normal visualized radius. Normal visualized ulna. RAD/Forearm 2 Views IMPRESSION: Normal x-ray examination of the radius and ulna. Electronically Signed: Isaac Conway, at 8:19 EST Tel , Service support ,
--- NOTE | 2019-07-18 07:39 | ED.VIS.GEN ---
History of Present Illness Chief Complaint: Upper Extremity Injury Detail of Chief Complaint: Fall, left elbow injury Informant: Patient Onset: Today Current Severity: Severe Maximum Severity: Severe Narrative: Patient presents after fall at home. She states she got up to use the restroom. She went to turn her bedside lamp on and tripped over a rocking chair. She tried to catch herself with a rocking chair but ended up pulling it down on top of herself, striking her left elbow. She has pain mostly on the left elbow that extends all the way into her wrist. She does have problems with her left shoulder and is scheduled to undergo surgery for her left shoulder later this month. She states shoulder is lightly more painful than normal. She denies striking her head. She has no headache or neck pain. She denies any lower extremity injury. - Past Medical History (1) Rheumatoid arthritis Status: Chronic (2) High cholesterol Status: Chronic (3) Diabetes mellitus type 1, controlled, with complications Status: Chronic Past Medical History - Allergies and Home Meds Allergies/Adverse Reactions: Allergies NSAIDS (Non-Steroidal Anti-Inflamma Allergy (Severe, Verified 07/18/19 07:31) Unknown Penicillins Allergy (Severe, Verified 07/18/19 07:31) Anaphylaxis adhesive Allergy (Verified 07/18/19 07:31) Rash latex Allergy (Verified 07/18/19 07:31) Rash Primary Care Physician: Han Willingham MD [Primary Care Provider] - Doctors: Dr. Leo Prior records reviewed: Yes Surgical History: cataract, dilatation and curettage, total hip arthroplasty, total knee arthroplasty, - - , s/p retinal surgery Lives: Spouse/ Significant Other Smoking Status: Current every day smoker - Family History Paternal Family History: Family History (Last Reviewed 05/15/18 @ 10:27 by Latia Mcfarland) Unknown Arthritis Asthma Diabetes High cholesterol Osteoporosis Seizures CVA (cerebral vascular accident) Cancer Family History: Reports: Diabetes Sibling Family History: Family History (Last Reviewed 05/15/18 @ 10:27 by Latia Mcfarland) Unknown Arthritis Asthma Diabetes High cholesterol Osteoporosis Seizures CVA (cerebral vascular accident) Cancer Family History: Reports: Diabetes Maternal Family History: Family History (Last Reviewed 05/15/18 @ 10:27 by Latia Mcfarland) Unknown Arthritis Asthma Diabetes High cholesterol Osteoporosis Seizures CVA (cerebral vascular accident) Cancer Family History: Reports: - - Rheumatoid arthritis Review of Systems General: Denies: Chills, Fever Eyes: Denies: Visual changes - bilaterally ENT: Denies: Bilateral ear pain, Sore throat Cardiovascular: Denies: Chest pain Respiratory: Denies: Dyspnea, Cough Gastrointestinal: Denies: Abdominal pain, Nausea, Vomiting, Diarrhea Musculoskeletal: Reports: Arthralgias, Extremity Pain Skin: Denies: Rash Neurological: Denies: Headache Hematologic: Denies: Easy bruising Allergy: Denies: Uticaria Physical Exam Vital Signs/Narrative: Vital Signs Temp Pulse Resp BP Pulse Ox 07/18/19 07:31 96.8 F L 81 12 140/79 H 100 Inital Vital Signs reviewed: Yes General: Well nourished, Well developed Head: Normocephalic ENT: Moist mucous membranes Neck: Supple Cardiovascular: Regular rate, Regular rhythm Respiratory: No distress, CTA bilaterally Abdomen: Soft, Nontender Extremities: - - Mild tenderness diffusely over the left shoulder with no obvious deformity. She has diffuse tenderness around the left elbow and is holding it in a flexed position across her abdomen. She has strong distal pulses and can wiggle fingers. Skin: - - Superficial abrasion over the extensor surface of the left elbow. Neurological: Alert, Oriented x3 Psychological: Normal affect Diagnostic/Tx/Re-eval Impressions Shoulder X-Ray 07/18/19 07:38 IMPRESSION: Degenerative changes. Electronically Signed: Isaac Man, at 8:19 EST Tel , Service support , Elbow X-Ray 07/18/19 07:39 IMPRESSION: Study limited by suboptimal positioning. Underlying dislocation or nondisplaced fractures aren't completely excluded. Electronically Signed: Isaac Man, at 8:17 EST Tel , Service support , ADDENDUM: 07/18/19 0828 IMPRESSION: Study limited by suboptimal positioning. Underlying dislocation or nondisplaced fractures aren't completely excluded. N.B. : Willie Hernandez;[phone], MENDY, confirmed on 07/18/2019 08:21:58 (ET) that the referring physician received the radiology report. Electronically Signed: Isaac Conway, at 8:17 EST Tel , Service support , Forearm X-Ray 07/18/19 07:39 IMPRESSION: Normal x-ray examination of the radius and ulna. Electronically Signed: Isaac Conway, at 8:19 EST Tel , Service support , 07/18/19 07:38 Shoulder min 2 Views [RAD] Stat 07/18/19 07:39 Elbow min 3 Views [RAD] Stat Forearm 2 Views [RAD] Stat 07/18/19 08:34 Elbow 2 Views [RAD] Stat - Medical Decision Making Patient was given Rozel for pain. X-ray results are reviewed with her. I was able to straighten her arm more and we redid 2 views of her left elbow. There is no evidence of fracture. She will be given a sling and a prescription for Rozel at home. She will follow-up with Dr. Leo. ED Disposition - Plan for ED Patient: Disposition: Home or Assisted Living Diagnosis: Fall, Sprain of left elbow Instructions: Sprain Elbow Prescriptions: Hydrocodone Bitart/Apap 5-325 [Rozel 5MG-325MG] 1 tablet PO Q6H PRN PRN 3 Days #10 tablet PRN Reason: Pain Referrals: Benoit Leo MD [STAFF PHYSICIAN] - 1 Week
[2019-07-18] MEDS: HYDROcodone Bitartrate/Apap 5/325 Tablet PO (07:44)
--- NOTE | 2019-07-18 08:34 | RAD_ITS ---
STUDY: X-RAY - LEFT ELBOW REASON FOR EXAM: Female, 58 years old. Trauma. TECHNIQUE: 2 view(s) of the elbow. COMPARISON: None. FINDINGS: There is joint space narrowing in the elbow joints. Normal radiocapitellar and ulnotrochlear articulations. The soft tissue structures are unremarkable. RAD/Elbow 2 Views IMPRESSION: Degenerative changes. Electronically Signed: Isaac Conway, at 8:56 EST Tel , Service support ,
== END 2019-07-18 09:06 | disposition home or self-care (01) ==
PROVIDERS: Emergency Provider Emergency Medicine; Family Provider Family Medicine; PCP Family Medicine
DX: S53.402A Unspecified sprain of left elbow, initial encounter (principal); S50.312A Abrasion of left elbow, initial encounter; W01.0XXA Fall on same level from slipping, tripping and stumbling without subsequent striking against object, initial encounter; Y93.9 Activity, unspecified; Y92.9 Unspecified place or not applicable; M06.9 Rheumatoid arthritis, unspecified; E78.00 Pure hypercholesterolemia, unspecified; E10.9 Type 1 diabetes mellitus without complications; Z79.4 Long term (current) use of insulin; Z79.899 Other long term (current) drug therapy; F17.200 Nicotine dependence, unspecified, uncomplicated
CPT/HCPCS: 73030; 73070; 73080; 73090; 99283

== ENCOUNTER → 2019-09-15 10:05 | Outpatient (CLI) | payer MEDICARE, MEDICAID, SELFPAY ==
[2019-09-15 11:32] LABS: Bacteria 0 SEEN /hpf (None Seen); Mucous, Urine 0 SEEN /hpf (<or=2+); Red Blood Cells-Urine 0 SEEN /hpf (0-5)
[2019-09-15 12:14] LABS: Color, Urine Yellow (Yellow); Glucose, Dipstick Normal (Normal); Ketone-Dipstick 5 mg/dl (Negative); Leukocyte Esterase-Dipstick 25 /ul (Negative); Nitrite-Dipstick Negative (Negative); Occult Blood-Urine Negative /ul (Negative); Protein-Dipstick 15 mg/dl (Negative); Urine Bilirubin Dipstick Negative (Negative); Urine Clarity Sl. Cloudy (Clear); Urine Urobilinogen Normal (Normal)
[2019-09-15 12:18] LABS: Absolute Lymphocyte Count 1.93 X10^3/uL (0.83-4.51); Absolute Neutrophil Count 5.8 X10^3/uL (2.0-7.7); Basophil# 0.06 X10^3/uL; Basophil% 0.7 % (0-1); Eosinophil# 0.37 X10^3/uL; Eosinophils% 4.2 % (0-5); Hematocrit 39.1 % (37-47); Hemoglobin 12.2 g/dL (12.0-15.0); Lymphocyte # 1.93 X10^3/ul (4.0); Mean Corp Hgb Conc 31.2 g/dL (32-36); Mean Corpuscular Hgb 29.2 pg (27.0-32.0); Mean Corpuscular Volume 93.5 fL (81-99); Mean Platelet Vol. 11.3 fl (6.2-12.0); Monocyte# 0.59 X10^3/uL; Monocyte% 6.7 % (0-10); NRBC Flagged by Analyzer 0 % (0-5); Neutrophil # 5.79 X10^3/uL (2.7-7.7); Neutrophil % 66.1 % (47-70); Platelet Count 279 K/mm3 (150-450); RBC Distribution Width CV 13.2 % (11.6-14.6); RBC Distribution Width SD 45.3 fl (35.1-43.9); Red Blood Count 4.18 M/mm3 (4.2-5.4); White Blood Count 8.8 K/mm3 (4.4-11.0)
[2019-09-15 12:21] LABS: Squamous Epithelial Cells - UA 0-5 SEEN /hpf (5-10); White Blood Cells 0-5 SEEN /hpf (0-5)
[2019-09-15 12:27] LABS: Protein, Urine (Random) 26.1 mg/dL (<11.9); Protein:Creat Ratio 152 mg/g CRE (0-200)
[2019-09-15 12:42] LABS: Vitamin D,25 Hydroxy 33.8 ng/mL (29.95-100.01)
[2019-09-15 12:45] LABS: Hemoglobin A1c 6.6 % (4.2-6.3)
[2019-09-15 12:57] LABS: ALB/GLOB Ratio 1.1 RATIO (0.9-2.4); AST(SGOT) 17 U/L (15-37); Alanine Aminotransfer ALT/SGPT 25 U/L (13-56); Albumin, Serum 4.2 g/dL (3.2-5.0); Alkaline Phosphatase 100 U/L (45-117); Anion Gap 5 (5-15); BUN 28 mg/dL (7-18); Calcium,Total 9.8 mg/dL (8.5-10.1); Chloride 107 mmol/L (98-107); Cholesterol 237 mg/dL (200); Creatinine, Serum 1.47 mg/dL (0.55-1.02); EST Glomerular Filtration Rate 39 mL/min (>60); Est Glom Filt Rate - Afr Amer 47 mL/min (>60); Ferritin 101 ng/mL (8-252); Globulin 3.8 g/dL (2.2-4.2); Glucose 171 mg/dL (74-106); High Density Lipoprotein 62 mg/dL; Iron 55 ug/dL (50-170); Iron Binding Capacity,Total 322 ug/dL (250-450); Potassium 4.9 mmol/L (3.5-5.1); Sodium Level 138 mmol/L (136-145); Triglycerides 162 mg/dL; Very Low Density Lipoprotein 32 mg/dL (5-40)
== END ==
PROVIDERS: Family Provider Family Medicine; PCP Family Medicine; Referring Provider Family Medicine; Visit Provider Family Medicine
DX: E78.5 Hyperlipidemia, unspecified (principal); E10.22 Type 1 diabetes mellitus with diabetic chronic kidney disease; N18.3 Chronic kidney disease, stage 3 (moderate); E55.9 Vitamin D deficiency, unspecified; D50.9 Iron deficiency anemia, unspecified
CPT/HCPCS: 36415; 80053; 80061; 81001; 82306; 82570; 82728; 83036; 83540; 83550; 84156; 85025

== ENCOUNTER → 2019-12-25 08:33 | Outpatient (CLI) | payer MEDICARE, MEDICAID, SELFPAY ==
[2019-12-25 09:46] LABS: ALB/GLOB Ratio 1.1 RATIO (0.9-2.4); AST(SGOT) 20 U/L (15-37); Alanine Aminotransfer ALT/SGPT 22 U/L (13-56); Albumin, Serum 3.9 g/dL (3.2-5.0); Alkaline Phosphatase 100 U/L (45-117); Anion Gap 6 (5-15); BUN 22 mg/dL (7-18); Calcium,Total 9.2 mg/dL (8.5-10.1); Chloride 106 mmol/L (98-107); Cholesterol 132 mg/dL (200); EST Glomerular Filtration Rate 54 mL/min (>60); Est Glom Filt Rate - Afr Amer 66 mL/min (>60); Globulin 3.5 g/dL (2.2-4.2); Glucose 194 mg/dL (74-106); High Density Lipoprotein 59 mg/dL; Potassium 4.1 mmol/L (3.5-5.1); Protein, Total 7.4 g/dL (6.4-8.2); Sodium Level 139 mmol/L (136-145); Triglycerides 134 mg/dL; Very Low Density Lipoprotein 27 mg/dL (5-40)
[2019-12-25 10:03] LABS: Hemoglobin A1c 7.2 % (4.2-6.3)
== END ==
PROVIDERS: PCP Family Medicine; Referring Provider Internal Medicine Endocrinology, Diabetes & Metabolism; Visit Provider Internal Medicine Endocrinology, Diabetes & Metabolism
DX: E10.9 Type 1 diabetes mellitus without complications (principal)
CPT/HCPCS: 36415; 80053; 80061; 83036